=== PATIENT | female | born 1950 | race Caucasian/White ===

== ENCOUNTER → 2016-10-19 | Outpatient (CLI) | payer OTHER ==
[~2016-10-19] MED LIST: AMIO200T4 PO; AMLO5CAP2 PO; ASPEC81 PO; ASPI325T39 PO; ASPI81TA21 PO; CETI10TA84 PO; COEN200C PO; COENZYME Q PO; CRD200 PO; DXY100 PO; ERGO500037 PO; GLC850 PO; LSN/2025 PO; METF850T9 PO; NIAC1TAB54 PO; OMEG12006 PO; POLY1POW2 PO; PRAV20TA2 PO; PRAV40TA2 PO; PSYL48.59 PO; SALI0.6510; SULF800T23 PO; TPRSR25 PO; TURM1CAP2 PO; XRL20 PO
[2016-10-19 13:50] LABS: BLOOD UREA NITROGEN 14 mg/dl (7-18); CALCIUM 9.5 mg/dl (8.5-10.1); CARBON DIOXIDE 25 mmol/L (21-32); CHLORIDE 106 mmol/L (98-107); CREATININE 0.81 mg/dl (0.60-1.20); GLUCOSE 142 mg/dl (70-99); POTASSIUM 4.1 mmol/L (3.5-5.1); SODIUM 142 mmol/L (136-145)
== END | disposition home or self-care (01) ==
LOC: C.LABMFLN 11:32
PROVIDERS: ATTEND Family Medicine
DX: R06.09 Other forms of dyspnea (principal); I50.9 Heart failure, unspecified

== ENCOUNTER → 2016-10-19 | Outpatient (CLI) | payer OTHER ==
[~2016-10-19] MED LIST changes: +METOPROLOL TARTRATE 1 MG/ML VIAL IV STA
--- NOTE | 2016-10-19 15:02 | DIAGNOSTIC IMAGING REPORT ---
TWO VIEW CHEST CLINICAL HISTORY: Dyspnea. FINDINGS: PA and lateral chest radiographs are compared to study dated 08/09/2016. Correlation is made with chest CT dated 03/22/2010. The examination is degraded by large body habitus. The heart is mildly enlarged. The pulmonary vascular structures noncongested. Chronic interstitial thickening is unchanged. There is no airspace consolidation or pleural effusion. No pneumothorax is seen. The skeletal structures are osteopenic. Degenerative change and mild scoliosis are identified in the thoracic spine. Cholecystectomy clips are noted. IMPRESSION: Mild cardiac enlargement with no active disease in the chest. Electronically signed by: Sravan Chapa M.D. 10/19/2016 3:00 PM Dictated Date/Time: 10/19/2016 2:59 PM
== END | disposition home or self-care (01) ==
LOC: C.RAD 14:23
PROVIDERS: ATTEND Family Medicine
DX: I50.9 Heart failure, unspecified (principal); R05 Cough; R06.09 Other forms of dyspnea

== ENCOUNTER 2016-12-17 19:35 | Inpatient (IN) | payer OTHER ==
[~2016-12-17] VITALS: Ht 165.1 cm; Wt 129.1 kg
[~2016-12-17 19:35] MED LIST changes: -AMIO200T4 PO; -AMLO5CAP2 PO; -ASPI325T39 PO; -ASPI81TA21 PO; -CETI10TA84 PO; -COEN200C PO; -CRD200 PO; -DXY100 PO; -ERGO500037 PO; -GLC850 PO; -METOPROLOL TARTRATE 1 MG/ML VIAL IV STA; -PRAV40TA2 PO; -SULF800T23 PO; -TPRSR25 PO; -XRL20 PO
[2016-12-17] MEDS ORDERED: ACETAMINOPHEN 500 MG TAB PO STA (20:08)
[2016-12-17] MEDS ORDERED: ALBUT/IPRATROP 3MG/0.5MG NEB 3 ML VIAL INH STA (20:08)
--- NOTE | 2016-12-17 20:28 | EMERGENCY ROOM VISIT NOTE ---
History Report prepared by Ana: Catalino Beaver Under the Supervision of: Dr. Doc Espinoza D.O. First contact with patient: 19:53 Chief Complaint: SHORTNESS OF BREATH Stated Complaint: SOB History of Present Illness The patient is a 66 year old female who presents to the Emergency Room with complaints of an episode of worsened shortness of breath beginning last night. She notes that last night she slept on her sofa downstairs, and this afternoon decided to go upstairs to go to bed. Upon walking up the steps, she could not catch her breath, and felt like her "lungs could not expand". The patient notes she has experienced shortness of breath before while going up steps, but this time she began panicking that she could not catch her breath. At home she had a fever, and reports having a dry cough which she has had since the beginning of this past winter. She notes she believes the cough is from her chest, and notes it does not feel like the cough that she had before which was associated with pneumonia. The patient notes having congestions, but denies having any difficulty urinating. She reports having swelling of her legs, but adds that his is not new. The patient states that she had seen Dr. Tucker at the end of October 2016 and was taken off of Lisinopril and pit on Amlodipine. He also gave her allergy medication, and was also told to stop using a nasal spray. The patient notes that at the time of this appointment, she was 11 pounds heavier than normal. A few months ago she had a positive d-dimer test and was sent to the ER for an evaluation. She was not noted to have a clot at this time. The patient notes her shortness of breath has been ongoing since 2015. She had gone to [place] around this time and thought that her symptoms were a result of the heat. Later in July of 2016 she got a chest cold off and on and has had this since. The patient adds that a chest x-ray in November of 2016 showed an enlarged heart and issues with her ventricles. The patient states that it is easier to breath sitting up with a pillow, and more difficult when lying flat. She reports a history of diabetes, hypertension, and a lesion on her liver, and denies any history of cancer or MO. She notes she had been noted to have asthma, but that after further testing there was no evidence of asthma. She reports a history of breast surgery and a cholecystectomy. She denies any tobacco or alcohol use. Source of History: patient Onset: last night Position: other (lungs) Quality: other (shortness of breath) Timing: worsening, other (episode) Modifying Factors (Worsening): other (lying flat) Modifying Factors (Relieving): other (sitting up with a pillow) Associated Symptoms: + cough, + fevers Note: The patient notes having swelling of her legs and congestion. Review of Systems See HPI for pertinent positives & negatives. A total of 10 systems reviewed and were otherwise negative. Past Medical & Surgical Medical Problems: (1) CHF (congestive heart failure) (2) History of diabetes mellitus (3) History of hypertension Family History No pertinent family history stated. Social History Smoking Status: Never Smoker Marital Status: Occupation Status: employed Current/Historical Medications Scheduled Amlodipine/Benazepril (Lotrel 5MG/20MG), 1 CAP PO DAILY Aspirin Enteric Coated (Ecotrin Or Generic), 81 MG PO DAILY Cetirizine (Zyrtec), 10 MG PO DAILY Coenzyme Q10 (Ubidecarenone) (Coenzyme Q-10), 200 MG PO DAILY Ergocalciferol (Vitamin D 34210 Unit), 50,000 UNIT PO [id number] [place]-3 Fatty Acids ([place] 3), 1 CAP PO DAILY Pravastatin Sodium (Pravastatin Sodium), 40 MG PO QAM Saline ([place] Nasal [place]), 2 SPRAYS QID Turmeric (Curcuma Longa) (Turmeric), 450 MG PO DAILY Scheduled PRN Polyethylene Glycol 3350 (Bulk (Polyethylene Glycol 3350), 1 DOSE PO BID PRN for Constipation Allergies Coded Allergies: Codeine (Verified Allergy, Unknown, 11/19/14) Tramadol (Unverified Allergy, Unknown, HIVES, 11/19/14) Physical Exam Vital Signs Date Time Temp Pulse Resp B/P Pulse Ox O2 Delivery O2 Flow Rate FiO2 12/17/16 21:30 37.1 105 24 116/76 93 Room Air 12/17/16 20:39 93 Room Air 12/17/16 20:39 93 Room Air 12/17/16 20:39 93 Room Air 12/17/16 20:33 110 12/17/16 19:49 38.4 108 24 165/82 94 Room Air Physical Exam GENERAL: Patient is awake alert in no acute distress patient is resting comfortably and showing no signs of anxiety EYES: The conjunctivae are clear. The pupils are round and reactive. EARS, NOSE, MOUTH AND THROAT: The nose is without any evidence of any deformity. Mucous membranes are moist tongue is midline NECK: The neck is nontender and supple. RESPIRATORY: Mild tachypnea and mild conversational dyspnea noted. Lung sounds are diminished at the right base. Scattered rhonchi throughout. CARDIOVASCULAR: Tachycardic but regular. No definite murmur noted to auscultation. GASTROINTESTINAL: The abdomen is soft. Bowel sounds are present in all quadrants. Abdomen is nontender MUSCULOSKELETAL/EXTREMITIES: There is no evidence of gross deformity full range of motion is noted in the hips and shoulders SKIN: There is no obvious evidence of any rash. There are no petechiae, pallor or cyanosis noted. NEUROLOGIC: Patient is awake alert and oriented x3 Medical Decision & Procedures ER Provider Diagnostic Interpretation: Radiology results as stated below per my review and radiologist interpretation: SINGLE VIEW CHEST FINDINGS: An AP, portable, upright chest radiograph is compared to study dated 10/19/2016 and correlated with chest CT dated 03/30/2010. The examination is degraded by portable technique, large body habitus, and patient rotation. The heart is enlarged and there is atherosclerotic calcification of the thoracic aorta. There is pulmonary vascular congestion. Basilar airspace opacities are observed. No large pleural effusion or pneumothorax is seen. The skeletal structures are osteopenic. Degenerative change is noted throughout the thoracic spine. IMPRESSION: 1. Cardiomegaly with pulmonary vascular congestion. 2. Bibasilar airspace opacities likely represent atelectasis. Clinical correlation will be required. Electronically signed by: Sravan Chapa M.D. 12/17/2016 8:55 PM Dictated Date/Time: 12/17/2016 8:53 PM Laboratory Results 12/17/16 20:34 Red Blood Count 4.49, Mean Corpuscular Volume 83.3, Mean Corpuscular Hemoglobin 29.0, Mean Corpuscular Hemoglobin Concent 34.8, Mean Platelet Volume 9.9, Neutrophils (%) (Auto) 79.4, Lymphocytes (%) (Auto) 12.5, Monocytes (%) (Auto) 7.3, Eosinophils (%) (Auto) 0.1, Basophils (%) (Auto) 0.1, Neutrophils # (Auto) 13.75, Lymphocytes # (Auto) 2.16, Monocytes # (Auto) 1.27, Eosinophils # (Auto) 0.02, Basophils # (Auto) 0.02 12/17/16 20:34 Test 12/17/16 20:30 12/17/16 20:34 12/17/16 20:39 Influenza Type A (RT-PCR) Neg for Influ A (NEG) Influenza Type A Antigen Neg for Influ A (NEG) Influenza Type B Antigen Neg for Influ B (NEG) Influenza Type B (RT-PCR) Neg for Influ B (NEG) White Blood Count 17.32 K/uL (4.8-10.8) Red Blood Count 4.49 M/uL (4.2-5.4) Hemoglobin 13.0 g/dL (12.0-16.0) Hematocrit 37.4 % (37-47) Mean Corpuscular Volume 83.3 fL (80-100) Mean Corpuscular Hemoglobin 29.0 pg (25-34) Mean Corpuscular Hemoglobin Concent 34.8 g/dl (32-36) Platelet Count 258 K/uL (130-400) Mean Platelet Volume 9.9 fL (7.4-10.4) Neutrophils (%) (Auto) 79.4 % Lymphocytes (%) (Auto) 12.5 % Monocytes (%) (Auto) 7.3 % Eosinophils (%) (Auto) 0.1 % Basophils (%) (Auto) 0.1 % Neutrophils # (Auto) 13.75 K/uL (1.4-6.5) Lymphocytes # (Auto) 2.16 K/uL (1.2-3.4) Monocytes # (Auto) 1.27 K/uL (0.11-0.59) Eosinophils # (Auto) 0.02 K/uL (0-0.5) Basophils # (Auto) 0.02 K/uL (0-0.2) RDW Standard Deviation 41.2 fL (36.4-46.3) RDW Coefficient of Variation 13.7 % (11.5-14.5) Immature Granulocyte % (Auto) 0.6 % Immature Granulocyte # (Auto) 0.10 K/uL (0.00-0.02) Prothrombin Time 12.4 SECONDS (9.0-12.0) Prothromb Time International Ratio 1.2 (0.9-1.1) Activated Partial Thromboplast Time 26.5 SECONDS (21.0-31.0) Partial Thromboplastin Ratio 1.0 Anion Gap 8.0 mmol/L (3-11) Est Creatinine Clear Calc Drug Dose 79.4 ml/min Estimated GFR () 74.2 Estimated GFR (Non- 64.0 BUN/Creatinine Ratio 14.2 (10-20) Calcium Level 8.3 mg/dl (8.5-10.1) Total Bilirubin 1.4 mg/dl (0.2-1) Aspartate Amino Transf (AST/SGOT) 14 U/L (15-37) Alanine Aminotransferase (ALT/SGPT) 23 U/L (12-78) Alkaline Phosphatase 85 U/L (45-117) Troponin I 0.027 ng/ml (0-0.045) Pro-B-Type Natriuretic Peptide 3112 pg/ml (0-900) Total Protein 7.7 gm/dl (6.4-8.2) Albumin 3.2 gm/dl (3.4-5.0) Globulin 4.5 gm/dl (2.5-4.0) Albumin/Globulin Ratio 0.7 (0.9-2) Bedside Lactic Acid Venous 1.37 mmol/L (0.90-1.70) Laboratory results per my review. Medications Administered Medications (Trade) Dose Ordered Sig/Candido Route Start Time Stop Time Status Last Admin Dose Admin Acetaminophen (Tylenol Tab) 1,000 mg NOW STAT PO 12/17/16 20:08 12/17/16 20:10 DC 12/17/16 20:34 1,000 MG Albuterol/ Ipratropium (Duoneb) 3 ml NOW STAT INH 12/17/16 20:08 12/17/16 20:10 DC 12/17/16 20:34 3 ML Levofloxacin (Levaquin / D5W) 750 mg NOW STAT IV 12/17/16 21:20 12/17/16 21:21 DC 12/17/16 21:31 750 MG ECG Indication: SOB/dyspnea Rate (beats per minute): 110 Rhythm: sinus tachycardia Findings: no ectopy, other (No acute ST segment abnormalities) Comparison ECG Date: 12/28/09 Change: Increase rate. No other change. ED Course 1956: The patient was evaluated in room A2. A complete history and physical examination were performed. 2007: Ordered Duoneb 3 ml INH, and Acetaminophen 1,000 mg PO. 2119: Ordered Levofloxacin 750 mg IV. 2214: I discussed the patient's case with Dr. Reynoso. The patient will be evaluated for further management. Medical Decision Differential diagnosis: Etiologies such as infections, reactive airway disease, pneumonia, pneumothorax , COPD, CHF, cardiac ischemia, pulmonary embolism, musculoskeletal, gastrointestinal, as well as others were entertained. Nursing notes reviewed. The patient is a 66-year-old female who presented to the emergency department for evaluation of cough. The patient describes episodes of shortness of breath as well as orthopnea cough and fever which is been ongoing for the last few months. She states the fever is a new symptom. Her white blood cell count was elevated and her chest x-ray appeared to be consistent with bilateral pneumonia but she also had laboratory studies which could be consistent with congestive heart failure. She was treated with IV antibiotics in emergency department. I discussed the patient's laboratory and radiographic studies with her. Given her comorbidities as well as laboratory findings I discussed his case with the on- call [facility] hospitalist. They have agreed to evaluate the patient in the emergency department for further management and disposition. Consults Time Called: [id number] Consulting Physician: Dr. Reynoso, [facility] [place] Call: [phone] I discussed the patient's case with Dr. Reynoso. The patient will be evaluated for further management. Impression Primary Impression: PNA (pneumonia) Additional Impression: CHF (congestive heart failure) Scribe Attestation The scribe's documentation has been prepared under my direction and personally reviewed by me in its entirety. I confirm that the note above accurately reflects all work, treatment, procedures, and medical decision making performed by me. Departure Information Dispostion Being Evaluated By Hospitalist Referrals Edgar Tucker M.D. (PCP) Patient Instructions My [facility] Health Problem Qualifiers Primary Impression: PNA (pneumonia) Pneumonia type: due to unspecified organism Laterality: bilateral Lung location: unspecified part of lung Qualified Codes: J18.9 - Pneumonia, unspecified organism Additional Impression: CHF (congestive heart failure) Congestive heart failure type: systolic Congestive heart failure chronicity: acute on chronic Qualified Codes: I50.23 - Acute on chronic systolic ( congestive) heart failure
[2016-12-17 20:46] LABS: BASO % 0.1 %; BASO ABS # 0.02 K/uL (0-0.2); COMPLETE YES; EOS % 0.1 %; HEMATOCRIT 37.4 % (37-47); IG% 0.6 %; LYMPH % 12.5 %; LYMPH ABS # 2.16 K/uL (1.2-3.4); MEAN CELL VOLUME 83.3 fL (80-100); MEAN CORPUSCULAR HGB CONC 34.8 g/dl (32-36); MEAN PLATELET VOLUME 9.9 fL (7.4-10.4); MONO % 7.3 %; NEUT % 79.4 %; PLATELET COUNT 258 K/uL (130-400); RED BLOOD COUNT 4.49 M/uL (4.2-5.4); WHITE BLOOD COUNT 17.32 K/uL (4.8-10.8)
[2016-12-17 20:57] LABS: INR 1.2 (0.9-1.1); PROTHROMBIN TIME (PATIENT) 12.4 SECONDS (9.0-12.0)
--- NOTE | 2016-12-17 20:57 | DIAGNOSTIC IMAGING REPORT ---
SINGLE VIEW CHEST CLINICAL HISTORY: Dyspnea. FINDINGS: An AP, portable, upright chest radiograph is compared to study dated 10/19/2016 and correlated with chest CT dated 03/30/2010. The examination is degraded by portable technique, large body habitus, and patient rotation. The heart is enlarged and there is atherosclerotic calcification of the thoracic aorta. There is pulmonary vascular congestion. Basilar airspace opacities are observed. No large pleural effusion or pneumothorax is seen. The skeletal structures are osteopenic. Degenerative change is noted throughout the thoracic spine. IMPRESSION: 1. Cardiomegaly with pulmonary vascular congestion. 2. Bibasilar airspace opacities likely represent atelectasis. Clinical correlation will be required. Electronically signed by: Sravan Chapa M.D. 12/17/2016 8:55 PM Dictated Date/Time: 12/17/2016 8:53 PM
[2016-12-17 21:10] LABS: BUN/CREATININE RATIO 14.2 (10-20); CALCIUM 8.3 mg/dl (8.5-10.1); CREATININE 0.92 mg/dl (0.60-1.20)
[2016-12-17 21:15] LABS: ALB/GLOB RATIO 0.7 (0.9-2)
[2016-12-17] MEDS ORDERED: LEVAQUIN 750MG / 150ML D5W IV STA (21:20)
[2016-12-17] MEDS ORDERED: CETI10TA84 PO (21:38)
[2016-12-17] MEDS ORDERED: PRAV40TA2 PO (21:38)
[2016-12-17] MEDS ORDERED: ASPI81TA21 PO (21:38)
[2016-12-17] MEDS ORDERED: GLC850 PO (21:38)
[2016-12-17] MEDS ORDERED: ERGO500037 PO (21:38)
[2016-12-17] MEDS ORDERED: COEN200C PO (21:38)
[2016-12-17] MEDS ORDERED: AMLO5CAP2 PO (21:38)
[2016-12-17 22:38] LABS: INFLUENZA A PCR Neg for Influ A (NEG); INFLUENZA B PCR Neg for Influ B (NEG)
[2016-12-17] MEDS ORDERED: ALBUTEROL 0.083% NEBU SOLN 3 ML VIAL INH PRN (22:45)
[2016-12-17] MEDS ORDERED: MAGNESIUM HYDROXIDE SUSP 30 ML UDC PO PRN (22:45)
[2016-12-17] MEDS ORDERED: ALUMINUM/MAGNESIUM/SIMETH (MAALOX MAX) 30 ML UDC PO PRN (22:45)
[2016-12-17] MEDS ORDERED: ACETAMINOPHEN 325 MG TAB PO PRN (22:45)
[2016-12-17] MEDS ORDERED: ZOLPIDEM TARTRATE 5 MG TAB PO PRN (22:45)
[2016-12-17] MEDS ORDERED: POLYETHYLENE (MIRALAX) 17 GM PACK PO PRN (22:45)
[2016-12-17] MEDS ORDERED: ONDANSETRON INJ 2 MG/ML 2 ML VIAL IV PRN (22:45)
--- NOTE | 2016-12-17 23:28 | History and Physical ---
History & Physical Date & Time of Service: Dec 17, 2016 at 23:10 Chief Complaint: SOB Primary Care Physician: Edgar Tucker M.D. History of Present Illness Source: patient 66 y/o F w/Hx HTN, HPL, borderline DM. Pt presents with SOB and a dry cough in addition to fever. She describes exertional dyspnea which has been progressive for a few weeks and states she has considerable difficulty ascending a flight of stairs. A few weeks ago she was at her primary MD's office. He obtained a CXR and was concerned that she had some vascular congestion. She states that he ran a blood test as a result (presumably a BNP) which proved negative, and no further workup was undertaken. She has a normal echo on record dating back to 2009. She denies any history of CHF. She denies CP, N/V or diaphoresis. She admits to orthopnea. A fever and leukocytosis were confirmed on arrival to the ER. Her CXR may represent a RLL pneumonia and does again show prominent vascular congestion. Past Medical/Surgical History 1) HTN 2) HPL 3) Borderline DM 4) Benign hepatic lesion 5) GERD 6) Asthma 7) Obese Family History Mother owing to complications of a CVA Father due to COPD Social History Smoking Status: Never Smoker Alcohol Use: none Marital Status: Housing status: lives with family Occupational Status: employed Immunizations History of Influenza Vaccine: Yes Influenza Vaccine Date: Jul 07, 2009 History of Tetanus Vaccine?: Yes Tetanus Immunization Date: Mar 30, 2010 History of Pneumococcal: Yes Pneumococcal Date: Feb 11, 2009 History of Hepatitis B Vaccine: Unknown Multi-Drug Resistant Organisms History of MDRO: No Allergies Coded Allergies: Codeine (Verified Allergy, Unknown, 11/19/14) Tramadol (Unverified Allergy, Unknown, HIVES, 11/19/14) Home Medications Scheduled Amlodipine/Benazepril (Lotrel 5MG/20MG), 1 CAP PO DAILY Aspirin Enteric Coated (Ecotrin Or Generic), 81 MG PO DAILY Cetirizine (Zyrtec), 10 MG PO DAILY Coenzyme Q10 (Ubidecarenone) (Coenzyme Q-10), 200 MG PO DAILY Ergocalciferol (Vitamin D 17482 Unit), 50,000 UNIT PO [id number] [place]-3 Fatty Acids ([place] 3), 1 CAP PO DAILY Pravastatin Sodium (Pravastatin Sodium), 40 MG PO QAM Saline ([place] Nasal [place]), 2 SPRAYS QID Turmeric (Curcuma Longa) (Turmeric), 450 MG PO DAILY Scheduled PRN Polyethylene Glycol 3350 (Bulk (Polyethylene Glycol 3350), 1 DOSE PO BID PRN for Constipation Review of Systems Constitutional: + chills, + fever, No sweats Eyes: No eye pain, No worsening of vision ENT: No hearing loss, No nasal symptoms, No unusual epistaxis Respiratory: + cough, + dyspnea at rest, + dyspnea on exertion, + shortness of breath, No sputum, No wheezing Cardiovascular: No PND, No chest pain, No orthopnea Abdomen: No nausea, No pain, No vomiting Musculoskeletal: No joint pain, No muscle pain Genitourinary - Female: No dysuria, No urinary frequency, No urinary urgency Neurologic: No memory loss, No paralysis, No weakness Psychiatric: No depression symptoms Endocrine: + fatigue Hematologic / Lymphatic: No abnormal bleeding/bruising Integumentary: No rash Allergic / Immunologic: No environmental allergies Physical Exam Vital Signs Date Time Temp Pulse Resp B/P Pulse Ox O2 Delivery O2 Flow Rate FiO2 12/17/16 21:30 37.1 105 24 116/76 93 Room Air 12/17/16 20:39 93 Room Air 12/17/16 20:39 93 Room Air 12/17/16 20:39 93 Room Air 12/17/16 20:33 110 12/17/16 19:49 38.4 108 24 165/82 94 Room Air General Appearance: WD/WN, no apparent distress Head: normocephalic Eyes: normal inspection, PERRL, EOMI ENT: normal ENT inspection, pharynx normal Neck: supple, + pertinent finding (Exam limited due to habitus) Respiratory/Chest: chest non-tender, no respiratory distress, no accessory muscle use, + crackles (B/L) Cardiovascular: regular rate, rhythm, no edema, no gallop, no JVD, no murmur, normal peripheral pulses Abdomen/GI: normal bowel sounds, non tender, soft Back: normal inspection, no CVA tenderness, no muscle spasm, normal range of motion Extremities/Musculoskelatal: normal inspection, no calf tenderness, normal capillary refill, no pedal edema, normal range of motion Neurologic/Psych: occupational health nurse II-XII nml as tested, no motor/sensory deficits, alert, normal mood/affect, normal reflexes, oriented x 3 Skin: normal color, warm/dry, no rash Diagnostics Laboratory Results Results Past 24 Hours Test 12/17/16 20:30 12/17/16 20:34 12/17/16 20:39 Range/Units Influenza Type A (RT-PCR) Neg for Influ A NEG Influenza Type A Antigen Neg for Influ A NEG Influenza Type B Antigen Neg for Influ B NEG Influenza Type B (RT-PCR) Neg for Influ B NEG White Blood Count 17.32 4.8-10.8 K/uL Red Blood Count 4.49 4.2-5.4 M/uL Hemoglobin 13.0 12.0-16.0 g/dL Hematocrit 37.4 37-47 % Mean Corpuscular Volume 83.3 80-100 fL Mean Corpuscular Hemoglobin 29.0 25-34 pg Mean Corpuscular Hemoglobin Concent 34.8 32-36 g/dl Platelet Count 258 130-400 K/uL Mean Platelet Volume 9.9 7.4-10.4 fL Neutrophils (%) (Auto) 79.4 % Lymphocytes (%) (Auto) 12.5 % Monocytes (%) (Auto) 7.3 % Eosinophils (%) (Auto) 0.1 % Basophils (%) (Auto) 0.1 % Neutrophils # (Auto) 13.75 1.4-6.5 K/uL Lymphocytes # (Auto) 2.16 1.2-3.4 K/uL Monocytes # (Auto) 1.27 0.11-0.59 K/uL Eosinophils # (Auto) 0.02 0-0.5 K/uL Basophils # (Auto) 0.02 0-0.2 K/uL RDW Standard Deviation 41.2 36.4-46.3 fL RDW Coefficient of Variation 13.7 11.5-14.5 % Immature Granulocyte % (Auto) 0.6 % Immature Granulocyte # (Auto) 0.10 0.00-0.02 K/uL Prothrombin Time 12.4 9.0-12.0 SECONDS Prothromb Time International Ratio 1.2 0.9-1.1 Activated Partial Thromboplast Time 26.5 21.0-31.0 SECONDS Partial Thromboplastin Ratio 1.0 Sodium Level 141 136-145 mmol/L Potassium Level 4.0 3.5-5.1 mmol/L Chloride Level 106 98-107 mmol/L Carbon Dioxide Level 27 21-32 mmol/L Anion Gap 8.0 3-11 mmol/L Blood Urea Nitrogen 13 7-18 mg/dl Creatinine 0.92 0.60-1.20 mg/dl Est Creatinine Clear Calc Drug Dose 79.4 ml/min Estimated GFR () 74.2 Estimated GFR (Non- 64.0 BUN/Creatinine Ratio 14.2 10-20 Random Glucose 137 70-99 mg/dl Calcium Level 8.3 8.5-10.1 mg/dl Total Bilirubin 1.4 0.2-1 mg/dl Aspartate Amino Transf (AST/SGOT) 14 15-37 U/L Alanine Aminotransferase (ALT/SGPT) 23 12-78 U/L Alkaline Phosphatase 85 45-117 U/L Troponin I 0.027 0-0.045 ng/ml Pro-B-Type Natriuretic Peptide 3112 0-900 pg/ml Total Protein 7.7 6.4-8.2 gm/dl Albumin 3.2 3.4-5.0 gm/dl Globulin 4.5 2.5-4.0 gm/dl Albumin/Globulin Ratio 0.7 0.9-2 Bedside Lactic Acid Venous 1.37 0.90-1.70 mmol/L Microbiology Results 12/17/16 Blood Culture, Received Pending 12/17/16 Blood Culture, Received Pending Diagnostic Radiology 1. Cardiomegaly with pulmonary vascular congestion. 2. Bibasilar airspace opacities likely represent atelectasis. Clinical correlation will be required. EKG Sinus - no acute ischemic changes Impression Assessment and Plan 66 y/o F w/Hx HTN, HPL, borderline DM. Pt presents with SOB and a dry cough in addition to fever. She describes exertional dyspnea which has been progressive for a few weeks and states she has considerable difficulty ascending a flight of stairs. A few weeks ago she was at her primary MD's office. He obtained a CXR and was concerned that she had some vascular congestion. She states that he ran a blood test as a result (presumably a BNP) which proved negative, and no further workup was undertaken. She has a normal echo on record dating back to 2009. She denies any history of CHF. She denies CP, N/V or diaphoresis. She admits to orthopnea. A fever and leukocytosis were confirmed on arrival to the ER. Her CXR may represent a RLL pneumonia and does again show prominent vascular congestion. 1) URI - possible pneumonia - influ was negative - CXR is equivocal - temp and leukocytosis confirmed so that we will treat for pneumonia - antibiotics, nebs and an 02 protocol. 2) Suspected new-onset CHF - echo pending - cardiology consult requested - 20mg lasix provided and will measure Is/Os and daily weight 3) HTN - cont Amlodipine/Benazepril 4) HPL - Pravastatin Full code - Heparin prophylaxis Total time for this admit including review of labs, meds, EKG, imaging - discussion with pt and ER MD - 38 min Level of Care Telemetry Resuscitation Status FULL RESUSCITATION VTE Prophylaxis VTE Risk Assessment Done? Y/N: Yes Risk Level: Moderate Given or contraindicated: Unfractionated heparin SQ
[2016-12-17] MEDS ORDERED: FUROSEMIDE INJ 20 MG in SYRINGE 0 ML IV SCH (23:30)
[2016-12-18] VITALS (49 sets, daily range): BP systolic 11–162; BP diastolic 61–96; PULSE 59–160; TEMP 36.5–37.1; O2SAT 90–98; Ht 165.1 cm; Wt 129.1 kg
[2016-12-18] MEDS: ALBUT/IPRATROP 3MG/0.5MG NEB 3 ML VIAL INH SCH ×4 (02:25→19:33)
[2016-12-18] MEDS ORDERED: METOPROLOL TARTRATE 1 MG/ML VIAL - CCU EMERGENCY DRUG ONE (02:51)
[2016-12-18] MEDS ORDERED: METOPROLOL TARTRATE 1 MG/ML VIAL IV STA ×3 (02:52→09:37)
[2016-12-18] MEDS ORDERED: DILTIAZEM HCL 5 MG/ML 5 ML VIAL ONE (03:19)
[2016-12-18] MEDS ORDERED: DILTIAZEM BOLUS / DRIP IV STA (03:24)
[2016-12-18] MEDS ORDERED: DILTIAZEM HCL INJ 125 MG in DEXTROSE 5% 100ML IV PRN (03:45)
[2016-12-18] MEDS ORDERED: HEPARIN IV BOLUS 7,000 UNIT in SYRINGE 0 ML IV ONE ×3 (04:00→19:00)
[2016-12-18] MEDS: HEPARIN 25,000 UNIT/500ML D5W 500 ML IV PRN ×2 (04:06→19:02)
[2016-12-18 04:26] LABS: HEMATOCRIT 37.2 % (37-47); MEAN CORPUSCULAR HEMOGLOBIN 28.7 pg (25-34); MEAN PLATELET VOLUME 9.9 fL (7.4-10.4); PLATELET COUNT 249 K/uL (130-400); RED BLOOD COUNT 4.43 M/uL (4.2-5.4); WHITE BLOOD COUNT 12.19 K/uL (4.8-10.8)
[2016-12-18] MEDS ORDERED: DILTIAZEM HCL 5 MG/ML 5 ML VIAL IV STA (04:30)
[2016-12-18 04:32] LABS: INR 1.2 (0.9-1.1); PARTIAL THROMBOPLASTIN RATIO 1.1; PROTHROMBIN TIME (PATIENT) 13.3 SECONDS (9.0-12.0)
[2016-12-18 04:42] LABS: MEAN CORPUSCULAR HGB CONC 34.1 g/dl (32-36)
--- NOTE | 2016-12-18 04:42 | Progress Note ---
Progress Note Date of Service Dec 18, 2016. Progress Note 66 y/o F w/Hx HTN, HPL, borderline DM. Pt presents with SOB and a dry cough in addition to fever. She describes exertional dyspnea which has been progressive for a few weeks and states she has considerable difficulty ascending a flight of stairs. She was admitted for a possible pneumonia. Was called about patient having a run of V Fib which lasted for about 3 sec followed by atrial fibrillation with HR >180. Her BP at that time was in 130s / 60s. She stated that she felt something funny in her head but denied any CP/SOB/ palpitations. EKG, troponin and Mg was ordered . Trop was 0.025 ( no change from presentation) , Mg was 2 . EKG revealed Atrial flutter with variable A-V block ST & T wave abnormality, consider inferior ischemia She was ordered 5 mg Lopressor, HR decreased to 160s- 170s but her BP had dropped to 80s/50s. She was evaluated with Dr. Reynoso and She was given 5 mg Cardizem IV push 2 when her BP had increased to 100s/70s . She was transferred to ICU and Dr. Jasso was consulted . Per Dr. Jasso's recommendations, she was started on Cardizem drip with plans to start amiodarone if there was no response. Objective: Alert, oriented , awake Lungs : crackles bilaterally, No resp distress Heart: irregularly irregular, tachycardic Abdomen: soft, Non tender A/P : Patient was admitted for a possible pneumonia. she had developed a 3 sec run of wide complex tachycardia /V fib and was given lopressor and transferred to the unit as her BP had dropped. she was then given IV Cardizem ( total of 20 mg )and was started on Cardizem drip and heparin drip. Her HR continued to be in 160s-170s and amiodarone drip was started. Her BP has been in 100s-120s/70s-80s . Cardiology will be consulted for possible cardioversion if she does not respond to amiodarone Resident Tracking Resident Involvement: Endoscope Technician Coverage Note Care Provided: Adult Hospital Medicine
[2016-12-18] MEDS ORDERED: AMIODARONE IV BOLUS / DRIP IV STA (04:44)
[2016-12-18] MEDS ORDERED: AMIODARONE 150MG / 100ML D5W ONE (04:51)
[2016-12-18] MEDS ORDERED: AMIODARONE 360MG / 200ML D5W ONE (04:52)
[2016-12-18] MEDS ORDERED: AMIODARONE / D5W 100 ML IV SCH (05:00)
[2016-12-18 05:08] LABS: BUN/CREATININE RATIO 16.7 (10-20); CALCIUM 8.4 mg/dl (8.5-10.1); CREATININE 0.9 mg/dl (0.60-1.20); MAGNESIUM 2.1 mg/dl (1.8-2.4); POTASSIUM 4.3 mmol/L (3.5-5.1)
[2016-12-18] MEDS ORDERED: AMIODARONE / D5W 200 ML IV SCH (05:15)
[2016-12-18] MEDS ORDERED: HEPARIN SOD 5000 UNIT/0.5 ML CARP SQ SCH (06:00)
[2016-12-18] MEDS ORDERED: PERFLUTREN LIPID MICROSPHERE (DEFINITY) IV ONE (08:02)
[2016-12-18] MEDS ORDERED: BENAZEPRIL HCL 10 MG TAB PO SCH (09:00)
[2016-12-18] MEDS: SODIUM CHLORIDE 0.65% NA SOLN 45 ML (OCEAN) SCH ×4 (09:00→19:51)
[2016-12-18] MEDS ORDERED: AMLODIPINE BESYLATE 5 MG TAB PO SCH (09:00)
[2016-12-18] MEDS ORDERED: METOPROLOL TARTRATE 1 MG/ML VIAL ONE (09:12)
[2016-12-18] MEDS: PRAVASTATIN SOD 40 MG TAB PO SCH (09:14)
[2016-12-18] MEDS: ASPIRIN 81 MG ECTAB PO SCH (09:14)
[2016-12-18] MEDS: CETIRIZINE HCL 10 MG TAB PO SCH (09:14)
--- NOTE | 2016-12-18 09:26 | Critical Care Consultation ---
Critical Care Consultation Date of Consultation: Dec 18, 2016. Attending Physician: Gerhard Loepz D.O. Reason for Consultation: Hypotension, A fibb History of Present Illness This is a 66 yo f with a history of HTN, HPL, DM that is presenting to us with new onset A fibb. The patient originally was admitted to telemetry for worsening SOBOE and concern for PNA vs new onset CHF. The patient states that she has had progressive worsening of breath since july 2016. She has visited her PCP multiple times for this and has been assessed for CHF with a BNP which was normal and a CXR which only revealed mild cardiomegaly. Approx two nights ago the patient was was very uncomfortable laying down flat on her bed so she slept on her couch in order to be propped up. When she got up and attempted to walk up the stairs she was extremely short of breath and took her 10-15 minutes to just feel comfortable. As this was a drastic change to her regular SOB she went to the ED. When she arrived she had an ongoing sensation of SOB as well as chest tightness. According to the patient this tightness was "similar to what it felt like the last couple times I had pneumonia." She did have some improvement with SOB after receiving a duoneb. She was found to have an elevated BNP, febrile and hypoxic and an infiltrate on CXR so patient was admitted to tele for PNA and received 20 mg of lasix. Throughout the night the patient was suffering from PAC however at approx 0230 the patient was found to have 13 seconds of torsades which converted to NSR with PAC and soon after A fibb. She was originally given lopressor which dropped her blood pressure and did not affect the HR. She was then started on Diltiazem with minimal improvement in rate. The patient was then changed to amiodarone. She has been asymptomatic throughout this episode and denies any SOB or chest tightness/ dizziness at this time. She has no previous history of A fibb or cardiac arrhythmia. She has no history of NE. The patient does have a history of HTN which is treated with amlodipine/ benzapril. This was changed in Oct 2016 because of dry mucus membranes. Since this change she has noted some worsening of lower extremity edema but improvement in the dry m.m. She is treated with metformin for her DM and she has pravastatin and niacin for her HPL. She has no history of CHF. She is a non smoker however did have significant second hand exposure as a child from her father. Past Medical/Surgical History Cholecystectomy HTn HPL DMII Family History FH: emphysema FATHER Stroke MOTHER SISTER Social History Smoking Status: Never Smoker Smokeless Tobacco Use: No Alcohol Use: none Marital Status: Housing Status: lives with significant other Occupation Status: employed Allergies Coded Allergies: Codeine (Verified Allergy, Unknown, 11/19/14) Tramadol (Unverified Allergy, Unknown, HIVES, 11/19/14) Home Medications Scheduled Amlodipine/Benazepril (Lotrel 5MG/20MG), 1 CAP PO DAILY Aspirin Enteric Coated (Ecotrin Or Generic), 81 MG PO DAILY Cetirizine (Zyrtec), 10 MG PO DAILY Coenzyme Q10 (Ubidecarenone) (Coenzyme Q-10), 200 MG PO DAILY Ergocalciferol (Vitamin D 58587 Unit), 50,000 UNIT PO [id number] [place]-3 Fatty Acids ([place] 3), 1 CAP PO DAILY Pravastatin Sodium (Pravastatin Sodium), 40 MG PO QAM Saline ([place] Nasal [place]), 2 SPRAYS QID Turmeric (Curcuma Longa) (Turmeric), 450 MG PO DAILY Scheduled PRN Polyethylene Glycol 3350 (Bulk (Polyethylene Glycol 3350), 1 DOSE PO BID PRN for Constipation Current Inpatient Medications Current Inpatient Medications Medications (Trade) Dose Ordered Sig/Candido Route Start Time Stop Time Status Last Admin Dose Admin Acetaminophen (Tylenol Tab) 650 mg Q4H PRN PO 12/17/16 22:45 01/16/17 22:44 Al Hydrox/Mg Hydrox/Simethicone (Maalox Max Susp) 15 ml Q4H PRN PO 12/17/16 22:45 01/16/17 22:44 Magnesium Hydroxide (Milk Of Magnesia Susp) 30 ml Q12H PRN PO 12/17/16 22:45 01/16/17 22:44 Ondansetron HCl (Zofran Inj) 4 mg Q6H PRN IV 12/17/16 22:45 01/16/17 22:44 Polyethylene (Miralax Powder Packet) 17 gm DAILY PRN PO 12/17/16 22:45 01/16/17 22:44 Albuterol/ Ipratropium (Duoneb) 3 ml Q6R INH 12/18/16 03:00 01/17/17 02:59 Albuterol Sulfate (Ventolin 0.083% 2.5MG/3ML Neb) 2.5 mg Q6R PRN INH 12/17/16 22:45 01/16/17 22:44 Aspirin (Ecotrin Tab) 81 mg DAILY PO 12/18/16 09:00 01/17/17 08:59 12/18/16 09:14 81 MG Cetirizine HCl (zyrTEC TAB) 10 mg DAILY PO 12/18/16 09:00 01/17/17 08:59 12/18/16 09:14 10 MG Pravastatin Sodium (Pravachol Tab) 40 mg QAM PO 12/18/16 09:00 01/17/17 08:59 12/18/16 09:14 40 MG Sodium Chloride ([place] Nasal [place]) 2 sprays QID NA 12/18/16 09:00 01/17/17 08:59 Amlodipine Besylate (Norvasc Tab) 5 mg QAM PO 12/18/16 09:00 01/17/17 08:59 Future Hold Benazepril HCl 20 mg 20 mg DAILY PO 12/18/16 09:00 01/17/17 08:59 Future Hold Heparin Sodium/ Dextrose 500 ml @ 31 mls/hr Q16H8M PRN IV 12/18/16 04:00 01/17/17 03:59 12/18/16 04:06 31 MLS/HR Amiodarone HCL/ Dextrose 200 ml @ 33.3 mls/hr Q6H1M IV 12/18/16 05:15 12/18/16 11:15 Amiodarone HCL/ Dextrose (Nexterone / D5w) 200 ml @ 16.7 mls/hr [id number] IV 12/18/16 11:15 01/17/17 11:14 Metoprolol Tartrate (Lopressor Iv) 5 mg NOW STAT IV 12/18/16 08:55 12/18/16 08:56 UNV Metoprolol Tartrate (Lopressor Tab) 25 mg BID PO 12/18/16 09:00 01/17/17 08:59 UNV Insulin Aspart SLIDING SCALE ACHS SC 12/18/16 11:00 01/17/17 10:59 Ceftriaxone Sodium 1 gm/ Dextrose 50 ml @ 100 mls/hr Q24H IV 12/18/16 09:00 12/25/16 08:59 UNV Azithromycin/ Dextrose (Zithromax IV/D5 250ml) 255 ml @ 170 mls/hr DAILY IV 12/19/16 09:00 12/26/16 08:59 UNV Review of Systems Constitutional: + fatigue, + fever, + weakness ENT: No hearing loss Respiratory: + cough (dry), + dyspnea at rest, + dyspnea on exertion, + shortness of breath, No hemoptysis, No sputum, No wheezing Cardiovascular: No chest pain (tightness) Abdomen: No constipation, No diarrhea, No nausea, No pain, No vomiting Musculoskeletal: No joint pain, No muscle pain Genitourinary - Female: No dysuria, No hematuria Neurologic: + weakness, No balance problems, No memory loss, No numbness/ tingling Endocrine: + fatigue Integumentary: No rash Physical Exam Date Time Temp Pulse Resp B/P Pulse Ox O2 Delivery O2 Flow Rate FiO2 12/18/16 06:00 127 27 93 12/18/16 05:46 82 26 88/61 92 12/18/16 05:45 121 18 93 12/18/16 05:31 117 26 108/69 91 12/18/16 05:30 116 27 91 12/18/16 05:15 145 25 131/90 92 12/18/16 05:01 103 26 114/80 94 12/18/16 05:00 134 21 93 12/18/16 04:46 130 25 124/84 93 12/18/16 04:45 130 21 92 12/18/16 04:30 150 22 102/80 93 12/18/16 04:15 122 20 105/83 93 12/18/16 04:10 36.6 160 22 99/68 95 Nasal Cannula 2.0 12/18/16 04:10 95 Nasal Cannula 2.0 12/18/16 04:01 117 23 99/68 91 12/18/16 04:00 103 21 94 12/18/16 03:08 206 12/18/16 02:20 159 130/66 95 Nasal Cannula 2.0 12/18/16 00:04 36.8 59 26 135/65 94 Room Air 12/17/16 23:06 103 22 135/70 93 12/17/16 21:30 37.1 105 24 116/76 93 Room Air 12/17/16 20:39 93 Room Air 12/17/16 20:39 93 Room Air 12/17/16 20:39 93 Room Air 12/17/16 20:33 110 12/17/16 19:49 38.4 108 24 165/82 94 Room Air General Appearance: well-appearing, no apparent distress Head: normocephalic, atraumatic Eyes: EOMI, sclerae normal, conjunctivae normal ENT: other (ENT inspection WNL) Neck: normal range of motion, no tenderness, trachea midline Respiratory: no respiratory distress, other (crackles noted in right lower base ) Cardiovasular: no murmur, irregular rate, other (irregularly irregular) Abdomen: non tender, normal bowel sounds Back: normal inspection Upper Extremities: no edema, normal ROM Lower Extremities: normal ROM, edema (+1 bilat) Pulses: dorsalis pedis (R) (1+), dorsalis pedis (L) (1+) Neuro: alert, oriented x 3, normal speech Psychiatric: normal affect Laboratory Results Last 24 Hours Test 12/17/16 20:30 12/17/16 20:34 12/17/16 20:39 12/18/16 02:25 Influenza Type A (RT-PCR) Neg for Influ A Influenza Type A Antigen Neg for Influ A Influenza Type B Antigen Neg for Influ B Influenza Type B (RT-PCR) Neg for Influ B White Blood Count 17.32 K/uL 12.19 K/uL Red Blood Count 4.49 M/uL 4.43 M/uL Hemoglobin 13.0 g/dL 12.7 g/dL Hematocrit 37.4 % 37.2 % Mean Corpuscular Volume 83.3 fL 84.0 fL Mean Corpuscular Hemoglobin 29.0 pg 28.7 pg Mean Corpuscular Hemoglobin Concent 34.8 g/dl 34.1 g/dl Platelet Count 258 K/uL 249 K/uL Mean Platelet Volume 9.9 fL 9.9 fL Neutrophils (%) (Auto) 79.4 % Lymphocytes (%) (Auto) 12.5 % Monocytes (%) (Auto) 7.3 % Eosinophils (%) (Auto) 0.1 % Basophils (%) (Auto) 0.1 % Neutrophils # (Auto) 13.75 K/uL Lymphocytes # (Auto) 2.16 K/uL Monocytes # (Auto) 1.27 K/uL Eosinophils # (Auto) 0.02 K/uL Basophils # (Auto) 0.02 K/uL RDW Standard Deviation 41.2 fL 41.7 fL RDW Coefficient of Variation 13.7 % 13.7 % Immature Granulocyte % (Auto) 0.6 % Immature Granulocyte # (Auto) 0.10 K/uL Prothrombin Time 12.4 SECONDS 13.3 SECONDS Prothromb Time International Ratio 1.2 1.2 Activated Partial Thromboplast Time 26.5 SECONDS 29.5 SECONDS Partial Thromboplastin Ratio 1.0 1.1 Sodium Level 141 mmol/L Potassium Level 4.0 mmol/L Chloride Level 106 mmol/L Carbon Dioxide Level 27 mmol/L Anion Gap 8.0 mmol/L Blood Urea Nitrogen 13 mg/dl Creatinine 0.92 mg/dl Est Creatinine Clear Calc Drug Dose 79.4 ml/min Estimated GFR () 74.2 Estimated GFR (Non- 64.0 BUN/Creatinine Ratio 14.2 Random Glucose 137 mg/dl Calcium Level 8.3 mg/dl Total Bilirubin 1.4 mg/dl Aspartate Amino Transf (AST/SGOT) 14 U/L Alanine Aminotransferase (ALT/SGPT) 23 U/L Alkaline Phosphatase 85 U/L Troponin I 0.027 ng/ml 0.025 ng/ml Pro-B-Type Natriuretic Peptide 3112 pg/ml Total Protein 7.7 gm/dl Albumin 3.2 gm/dl Globulin 4.5 gm/dl Albumin/Globulin Ratio 0.7 Bedside Lactic Acid Venous 1.37 mmol/L Magnesium Level 2.0 mg/dl Creatine Kinase MB 0.5 ng/ml Creatine Kinase MB Ratio Test 12/18/16 02:38 12/18/16 04:30 12/18/16 08:30 12/18/16 08:51 Creatine Kinase MB Ratio Sodium Level 143 mmol/L Potassium Level 4.3 mmol/L Chloride Level 108 mmol/L Carbon Dioxide Level 27 mmol/L Anion Gap 8.0 mmol/L Blood Urea Nitrogen 15 mg/dl Creatinine 0.90 mg/dl Est Creatinine Clear Calc Drug Dose 81.0 ml/min Estimated GFR () 76.1 Estimated GFR (Non- 65.7 BUN/Creatinine Ratio 16.7 Random Glucose 174 mg/dl Calcium Level 8.4 mg/dl Magnesium Level 2.1 mg/dl Thyroid Stimulating Hormone (TSH) 3.140 uIu/ml Chemistry Specimen Hemolysis Diagnostic Results SINGLE VIEW CHEST CLINICAL HISTORY: Dyspnea. FINDINGS: An AP, portable, upright chest radiograph is compared to study dated 10/19/2016 and correlated with chest CT dated 03/30/2010. The examination is degraded by portable technique, large body habitus, and patient rotation. The heart is enlarged and there is atherosclerotic calcification of the thoracic aorta. There is pulmonary vascular congestion. Basilar airspace opacities are observed. No large pleural effusion or pneumothorax is seen. The skeletal structures are osteopenic. Degenerative change is noted throughout the thoracic spine. IMPRESSION: 1. Cardiomegaly with pulmonary vascular congestion. 2. Bibasilar airspace opacities likely represent atelectasis. Clinical correlation will be required. Assessment & Plan 1. Acute hypoxic respiratory failure secondary to CAP 2. Hypotension secondary to cardiac arrhythmia- torsades/ A fibb 3. Atrial fibrillation; new onset 4. Acute systolic CHF; possibly new onset 5. HTN 6. Hyperlipidemia 7. DM NVS - alert and oriented - denies pain at this time RVS - 93% on 3 L of O2 NC - continue to monitor resp status and O2 per nursing protocol - CXR in am CVS - CVS consult- appreciate input - Continue amiodarone and additionally have Lopressor PO - If no improvement in rate by tomorrow may consider cardioversion - will hold amlodipine and benzapril and ultimately d/c amlodipine because of LE edema - EKG - augment antibiotics based on QTc - Echo pending - repeat troponin pending- neg x2 - Mg- WNL - TSH pending GI - Diet- AHA and DMII - NPO after midnight if rate control not achieved - follow I&O - follow Cr and BUN ENDO - insulin SS- only with correction factor - hold metformin - HBA1C ID - will stop Levaquin because of torsades - will start Rocephin and additionally add azithro vs doxy based on QTc - WBC -12 - Will trend CBC - procalcitonin pending HEME - access: 18 and a 20 - HGB 12.7/ HCT 37.2 - Heparin drip FEN - will continue to trend BNP DVT Prophylaxis - Heparin drip Resident Physician Supervision Note: I personally interviewed and examined the patient. Discussed with Dr. Comer and agree with findings and plan as documented in the note. Her care was also discussed in detail on multidisciplinary rounds today. She presented to the ED for SOB with exertion which has been worsening over a period of weeks to months. She has also had a dry cough. She has a CXR consistent with pna along with temperature to 38.4 on presentation. She was started on levaquin and had a short episode of torsades which broke on its own. She was in SR for a short period then went into atrial flutter with variable block and was transferred to the ICU from the floor. She was given lopressor, diltiazem and eventually amiodarone and converted to NSR this morning after being given lopressor 5mg IV for HR in the 130-160's. She denies CP but has had some back pain which is similar to when she has had pneumonia in the past. She has no history of pulmonary issues other than pna but grew up in a home with parents that smoked. Her cough is no worse in the past few days than it has been in the past few months. Overall, she is feeling better today and feels the SOB is improved somewhat. I have reviewed the VS, I/O, medications, labs and imaging. Exam is significant for rales in the R base and tachycardia. 1+ peripheral edema. Impression and plan are well outlined above. Qtc is 505ms - will avoid levaquin and azithromycin and begin doxycycline. Rocephin has been added. PO lopressor and PRN IV Continue amiodarone F/U echo results Allow diet Continue heparin gtt for now D/C amlodipine Sliding scale insulin She may be a candidate for transfer to the floor later today. Documented By: Diane Moreno Additional Copies To Edgar Tucker M.D.
[2016-12-18 10:20] LABS: PARTIAL THROMBOPLASTIN RATIO 1.3
--- NOTE | 2016-12-18 10:32 | Medical Student: [facility] ---
Med Student Progress Note Date of Service Dec 18, 2016. Subjective Pt evaluation today including: conversation w/ patient, physical exam, lab review, review of studies 66 year old female who presented to the ED on 12/17 with shortness of breath, dry cough, and fever and a chest xray suggestive of RLL pneumonia. Overnight, patient went into v-fib with torsades-like pattern on the monitor for 3-5 seconds. During this time the patient felt "warm" and "lightheaded." Stat EKG showed atrial flutter with RVR, Heart rate was 170-210. She was given 5mg Lopressor which caused her blood pressure to drop to 87/45. She was transferred to the ICU and given two 5mg doses of cardizem. Currently on cardizem and amiodarone drips with Lopressor prn. She says she never felt any palpitations during these events. Denies chest pain, nausea, vomiting, abdominal pain, productive cough, and wheezing. Only complaining of shortness of breath when she speaks and a dry cough, both better than yesterday. Review of Systems Constitutional: + fatigue, No chills, No fever Respiratory: + cough, + dyspnea at rest, + dyspnea on exertion, + shortness of breath, No sputum, No wheezing Cardiac: No chest pain, No claudication, No palpitations Abdomen: No constipation, No diarrhea, No nausea, No pain, No vomiting Objective Vital Signs Date Time Temp Pulse Resp B/P Pulse Ox O2 Delivery O2 Flow Rate FiO2 12/18/16 09:20 159 126/91 12/18/16 06:00 127 27 93 12/18/16 05:46 82 26 88/61 92 12/18/16 05:45 121 18 93 12/18/16 05:31 117 26 108/69 91 12/18/16 05:30 116 27 91 12/18/16 05:15 145 25 131/90 92 12/18/16 05:01 103 26 114/80 94 12/18/16 05:00 134 21 93 12/18/16 04:46 130 25 124/84 93 12/18/16 04:45 130 21 92 12/18/16 04:30 150 22 102/80 93 12/18/16 04:15 122 20 105/83 93 12/18/16 04:10 36.6 160 22 99/68 95 Nasal Cannula 2.0 12/18/16 04:10 95 Nasal Cannula 2.0 12/18/16 04:01 117 23 99/68 91 12/18/16 04:00 103 21 94 12/18/16 03:08 206 12/18/16 02:20 159 130/66 95 Nasal Cannula 2.0 12/18/16 00:04 36.8 59 26 135/65 94 Room Air 12/17/16 23:06 103 22 135/70 93 12/17/16 21:30 37.1 105 24 116/76 93 Room Air 12/17/16 20:39 93 Room Air 12/17/16 20:39 93 Room Air 12/17/16 20:39 93 Room Air 12/17/16 20:33 110 12/17/16 19:49 38.4 108 24 165/82 94 Room Air Physical Exam General Appearance: + mild distress (becomes short of breath when she speaks), + obese ENT: hearing grossly normal Respiratory/Chest: chest non-tender, normal breath sounds, no respiratory distress, + crackles (RLL crackles) Cardiovascular: no gallop, no murmur, + irregularly irregular Abdomen: normal bowel sounds, non tender, soft, no organomegaly Extremities: + pedal edema (+1 pedal edema bilaterally) Neurologic/Psychiatric: alert, normal mood/affect, oriented x 3 Skin: normal color, warm/dry, no rash Laboratory Results Last 24 Hours Test 12/17/16 20:30 12/17/16 20:34 12/17/16 20:39 12/18/16 02:25 Influenza Type A (RT-PCR) Neg for Influ A Influenza Type A Antigen Neg for Influ A Influenza Type B Antigen Neg for Influ B Influenza Type B (RT-PCR) Neg for Influ B White Blood Count 17.32 K/uL 12.19 K/uL Red Blood Count 4.49 M/uL 4.43 M/uL Hemoglobin 13.0 g/dL 12.7 g/dL Hematocrit 37.4 % 37.2 % Mean Corpuscular Volume 83.3 fL 84.0 fL Mean Corpuscular Hemoglobin 29.0 pg 28.7 pg Mean Corpuscular Hemoglobin Concent 34.8 g/dl 34.1 g/dl Platelet Count 258 K/uL 249 K/uL Mean Platelet Volume 9.9 fL 9.9 fL Neutrophils (%) (Auto) 79.4 % Lymphocytes (%) (Auto) 12.5 % Monocytes (%) (Auto) 7.3 % Eosinophils (%) (Auto) 0.1 % Basophils (%) (Auto) 0.1 % Neutrophils # (Auto) 13.75 K/uL Lymphocytes # (Auto) 2.16 K/uL Monocytes # (Auto) 1.27 K/uL Eosinophils # (Auto) 0.02 K/uL Basophils # (Auto) 0.02 K/uL RDW Standard Deviation 41.2 fL 41.7 fL RDW Coefficient of Variation 13.7 % 13.7 % Immature Granulocyte % (Auto) 0.6 % Immature Granulocyte # (Auto) 0.10 K/uL Prothrombin Time 12.4 SECONDS 13.3 SECONDS Prothromb Time International Ratio 1.2 1.2 Activated Partial Thromboplast Time 26.5 SECONDS 29.5 SECONDS Partial Thromboplastin Ratio 1.0 1.1 Sodium Level 141 mmol/L Potassium Level 4.0 mmol/L Chloride Level 106 mmol/L Carbon Dioxide Level 27 mmol/L Anion Gap 8.0 mmol/L Blood Urea Nitrogen 13 mg/dl Creatinine 0.92 mg/dl Est Creatinine Clear Calc Drug Dose 79.4 ml/min Estimated GFR () 74.2 Estimated GFR (Non- 64.0 BUN/Creatinine Ratio 14.2 Random Glucose 137 mg/dl Calcium Level 8.3 mg/dl Total Bilirubin 1.4 mg/dl Aspartate Amino Transf (AST/SGOT) 14 U/L Alanine Aminotransferase (ALT/SGPT) 23 U/L Alkaline Phosphatase 85 U/L Troponin I 0.027 ng/ml 0.025 ng/ml Pro-B-Type Natriuretic Peptide 3112 pg/ml Total Protein 7.7 gm/dl Albumin 3.2 gm/dl Globulin 4.5 gm/dl Albumin/Globulin Ratio 0.7 Bedside Lactic Acid Venous 1.37 mmol/L Magnesium Level 2.0 mg/dl Creatine Kinase MB 0.5 ng/ml Creatine Kinase MB Ratio Test 12/18/16 02:38 12/18/16 04:30 12/18/16 09:57 Creatine Kinase MB Ratio Sodium Level 143 mmol/L Potassium Level 4.3 mmol/L Chloride Level 108 mmol/L Carbon Dioxide Level 27 mmol/L Anion Gap 8.0 mmol/L Blood Urea Nitrogen 15 mg/dl Creatinine 0.90 mg/dl Est Creatinine Clear Calc Drug Dose 81.0 ml/min Estimated GFR () 76.1 Estimated GFR (Non- 65.7 BUN/Creatinine Ratio 16.7 Random Glucose 174 mg/dl Calcium Level 8.4 mg/dl Magnesium Level 2.1 mg/dl Thyroid Stimulating Hormone (TSH) 3.140 uIu/ml Chemistry Specimen Hemolysis Activated Partial Thromboplast Time 34.5 SECONDS Partial Thromboplastin Ratio 1.3 Assessment and Plan Assessment and Plan: ASSESSMENT 66 year old female who presented to the ED on 12/17 with shortness of breath, dry cough, and fever and a chest xray suggestive of RLL pneumonia. New onset atrial fibrillation with RVR overnight currently on cardizem and amiodarone drips with Lopressor prn. Patient was being worked up for possible CHF as outpatient after xray in November showed vascular congestion. Critical care consult switched patient from Levofloxacin to Azithromycin and doxycycline this morning worried that it is contributing to her QT prolongation. . PLAN 1) RLL pneumonia -Azithromycin 500mg IV -Doxycycline IV -D/C Leovfloxacin secondary to QT prolongation 2) CHF and new onset atrial fibrillation -echocardiogram results pending -cardizem drip 10ml/hr -amiodarone drip -Lopressor 5mg prn. Last dose today at 9:20am for heart rates in 140-150s. -If patient does not respond to medications patient will be considered for cardioversion tomorrow. 3) Hypertension -amlodipine/benazepril -monitor BP with amiodarone infusion running 4) Hyperlipidemia -Pravastatin 5) Full code status -heparin for DVT prophylaxis
[2016-12-18] MEDS ORDERED: HEPARIN SOD (PORCINE) 1000 UNIT/ML 10 ML VIAL ONE (11:17)
[2016-12-18] MEDS: AMIODARONE / D5W 200 ML IV SCH ×2 (11:27→16:41)
[2016-12-18] MEDS: METOPROLOL TARTRATE 25 MG TAB PO SCH ×2 (11:37→19:51)
[2016-12-18] MEDS: DOXYCYCLINE IV 100 MG in DEXTROSE 5% 100ML 100 ML IV SCH ×2 (11:38→22:10)
[2016-12-18] MEDS: INSULIN ASPART 100 UNITS/ML 3 ML PEN SC SCH ×4 (11:39→20:43)
--- NOTE | 2016-12-18 11:49 | Hospitalist Progress Note ---
Hospitalist Progress Note Date of Service Dec 18, 2016. (Rama Pinzon ., PA-C) Subjective Pt evaluation today including: conversation w/ patient, physical exam, chart review, lab review, review of studies, conversation w/ inside solar sales consultant (spoke with Dr. Moreno), review of inpatient medication list Pain: None PO Intake: Tolerating PO diet Voiding: no voiding problems Patient reports feeling better. She states that she still has some shortness of breath, especially when talking, but this has improved compared to last night. Overnight the patient developed a quick run of V. fib followed by A. fib with RVR. At onset, the patient complained of lightheadedness and blurry vision; these have since resolved. The patient had also become short of breath which has improved. She does report a dry cough. The patient denies fevers, chills, sweats, chest pain, palpitations, claudication, wheezing, nausea, vomiting, abdominal pain, dysuria, hematuria, urinary retention, paralysis, weakness, numbness and tingling. Additional Comments: See HPI for pertinent positives and negatives. All other systems reviewed and negative. (Rama Pinzon ., PA-C) Objective Vital Signs Date Time Temp Pulse Resp B/P Pulse Ox O2 Delivery O2 Flow Rate FiO2 12/18/16 09:20 159 126/91 12/18/16 08:30 95 Nasal Cannula 2.0 12/18/16 06:00 127 27 93 12/18/16 05:46 82 26 88/61 92 12/18/16 05:45 121 18 93 12/18/16 05:31 117 26 108/69 91 12/18/16 05:30 116 27 91 12/18/16 05:15 145 25 131/90 92 12/18/16 05:01 103 26 114/80 94 12/18/16 05:00 134 21 93 12/18/16 04:46 130 25 124/84 93 12/18/16 04:45 130 21 92 12/18/16 04:30 150 22 102/80 93 12/18/16 04:15 122 20 105/83 93 12/18/16 04:10 36.6 160 22 99/68 95 Nasal Cannula 2.0 12/18/16 04:10 95 Nasal Cannula 2.0 12/18/16 04:01 117 23 99/68 91 12/18/16 04:00 103 21 94 12/18/16 03:08 206 12/18/16 02:20 159 130/66 95 Nasal Cannula 2.0 12/18/16 00:04 36.8 59 26 135/65 94 Room Air 12/17/16 23:06 103 22 135/70 93 12/17/16 21:30 37.1 105 24 116/76 93 Room Air 12/17/16 20:39 93 Room Air 12/17/16 20:39 93 Room Air 12/17/16 20:39 93 Room Air 12/17/16 20:33 110 12/17/16 19:49 38.4 108 24 165/82 94 Room Air (Rama Pinzon ., PA-C) Physical Exam General Appearance: WD/WN, no apparent distress, + obese (morbidly obese) Eyes: normal inspection, PERRL, EOMI ENT: normal ENT inspection, hearing grossly normal, pharynx normal Neck: supple, no JVD, trachea midline Respiratory/Chest: normal breath sounds, no respiratory distress, + crackles ( bases bilaterally), + pertinent finding (reports her breathing becomes more difficult when sitting upright during exam) Cardiovascular: regular rate, rhythm, no gallop, no murmur Abdomen: normal bowel sounds, non tender, soft Extremities: non-tender, normal inspection, + swelling (1+ pitting edema) Neurologic/Psychiatric: alert, normal mood/affect, oriented x 3 Skin: normal color, warm/dry, no rash (Rama Pinzon ., PA-C) Laboratory Results Last 24 Hours Test 12/17/16 20:30 12/17/16 20:34 12/17/16 20:39 12/18/16 02:25 Influenza Type A (RT-PCR) Neg for Influ A Influenza Type A Antigen Neg for Influ A Influenza Type B Antigen Neg for Influ B Influenza Type B (RT-PCR) Neg for Influ B White Blood Count 17.32 K/uL 12.19 K/uL Red Blood Count 4.49 M/uL 4.43 M/uL Hemoglobin 13.0 g/dL 12.7 g/dL Hematocrit 37.4 % 37.2 % Mean Corpuscular Volume 83.3 fL 84.0 fL Mean Corpuscular Hemoglobin 29.0 pg 28.7 pg Mean Corpuscular Hemoglobin Concent 34.8 g/dl 34.1 g/dl Platelet Count 258 K/uL 249 K/uL Mean Platelet Volume 9.9 fL 9.9 fL Neutrophils (%) (Auto) 79.4 % Lymphocytes (%) (Auto) 12.5 % Monocytes (%) (Auto) 7.3 % Eosinophils (%) (Auto) 0.1 % Basophils (%) (Auto) 0.1 % Neutrophils # (Auto) 13.75 K/uL Lymphocytes # (Auto) 2.16 K/uL Monocytes # (Auto) 1.27 K/uL Eosinophils # (Auto) 0.02 K/uL Basophils # (Auto) 0.02 K/uL RDW Standard Deviation 41.2 fL 41.7 fL RDW Coefficient of Variation 13.7 % 13.7 % Immature Granulocyte % (Auto) 0.6 % Immature Granulocyte # (Auto) 0.10 K/uL Prothrombin Time 12.4 SECONDS 13.3 SECONDS Prothromb Time International Ratio 1.2 1.2 Activated Partial Thromboplast Time 26.5 SECONDS 29.5 SECONDS Partial Thromboplastin Ratio 1.0 1.1 Sodium Level 141 mmol/L Potassium Level 4.0 mmol/L Chloride Level 106 mmol/L Carbon Dioxide Level 27 mmol/L Anion Gap 8.0 mmol/L Blood Urea Nitrogen 13 mg/dl Creatinine 0.92 mg/dl Est Creatinine Clear Calc Drug Dose 79.4 ml/min Estimated GFR () 74.2 Estimated GFR (Non- 64.0 BUN/Creatinine Ratio 14.2 Random Glucose 137 mg/dl Calcium Level 8.3 mg/dl Total Bilirubin 1.4 mg/dl Aspartate Amino Transf (AST/SGOT) 14 U/L Alanine Aminotransferase (ALT/SGPT) 23 U/L Alkaline Phosphatase 85 U/L Troponin I 0.027 ng/ml 0.025 ng/ml Pro-B-Type Natriuretic Peptide 3112 pg/ml Total Protein 7.7 gm/dl Albumin 3.2 gm/dl Globulin 4.5 gm/dl Albumin/Globulin Ratio 0.7 Bedside Lactic Acid Venous 1.37 mmol/L Magnesium Level 2.0 mg/dl Creatine Kinase MB 0.5 ng/ml Creatine Kinase MB Ratio Test 12/18/16 02:38 12/18/16 04:30 12/18/16 09:57 Creatine Kinase MB Ratio Sodium Level 143 mmol/L Potassium Level 4.3 mmol/L Chloride Level 108 mmol/L Carbon Dioxide Level 27 mmol/L Anion Gap 8.0 mmol/L Blood Urea Nitrogen 15 mg/dl Creatinine 0.90 mg/dl Est Creatinine Clear Calc Drug Dose 81.0 ml/min Estimated GFR () 76.1 Estimated GFR (Non- 65.7 BUN/Creatinine Ratio 16.7 Random Glucose 174 mg/dl Calcium Level 8.4 mg/dl Magnesium Level 2.1 mg/dl Thyroid Stimulating Hormone (TSH) 3.140 uIu/ml Chemistry Specimen Hemolysis Activated Partial Thromboplast Time 34.5 SECONDS Partial Thromboplastin Ratio 1.3 Troponin I < 0.015 ng/ml Procalcitonin 0.07 ng/mL (Rama Pinzon, GEE) Diagnostic Results Reviewed the following studies and agree with interpretation as follows: Patient Name: PHOEBE HUGO Unit Number: [id number] Dictated: 12/17/162052 Transcribed: 12/17/162052 EV Printed Date/Time: [~ rep prt dt]/[~ rep prt tm] [~ rep ct labl] - [~ rep ct ivnm] [facility] [place] [address] Dictated: 12/17/162052 Transcribed: 12/17/162052 EV Printed Date/Time: [~ rep prt dt]/[~ rep prt tm] [~ rep ct labl] - [~ rep ct ivnm] Patient: PHOEBE HUGO Address1: [address] [place] [address] Rec: [id number] [facility]: [id number] Zip: [place] [address] Date: 1950 Sex: F Room/Bed: Ref Phy: Edgar Tucker M.D. SC: LEXA Mcarthur Phy: Report #: [id number] Iveth Phy: Edgar Tucker M.D. Test: CXR1P Admit Phy: Operations Architect: LILI Interpreting Phy: Sravan Chapa M.D. Diagnosis: SOB Ordering Phy: Doc Espinoza D.O. Service Date: 12/17/16 Admit Date: 04/16/17 MNE: [id number] CONF: DICTATED BY: Sravan Chapa M.D.]] CC: Doc Espinoza, Edgar Hull M.D. Endcc: [~ rep ct add3]] SINGLE VIEW CHEST CLINICAL HISTORY: Dyspnea. FINDINGS: An AP, portable, upright chest radiograph is compared to study dated 10/19/2016 and correlated with chest CT dated 03/30/2010. The examination is degraded by portable technique, large body habitus, and patient rotation. The heart is enlarged and there is atherosclerotic calcification of the thoracic aorta. There is pulmonary vascular congestion. Basilar airspace opacities are observed. No large pleural effusion or pneumothorax is seen. The skeletal structures are osteopenic. Degenerative change is noted throughout the thoracic spine. IMPRESSION: 1. Cardiomegaly with pulmonary vascular congestion. 2. Bibasilar airspace opacities likely represent atelectasis. Clinical correlation will be required. Electronically signed by: Sravan Chapa M.D. 12/17/2016 8:55 PM Dictated Date/Time: 12/17/2016 8:53 PM The status of this report is Signed. Draft = Not yet reviewed or approved by Radiologist. Signed = Reviewed and approved by Radiologist. <AttendingPhy></AttendingPhy> <FamilyPhy>Edgar Tucker M.D.</FamilyPhy> < PrimaryPhy>Edgar Tucker M.D.</PrimaryPhy> <UnitNumber>[id number]</ UnitNumber> <VisitNumber>[id number]</VisitNumber> <PatientName>PHOEBE HUGO</PatientName> <DateOfBirth>1950</DateOfBirth> <Location>[facility]</ Location> <ServiceDate>12/17/16</ServiceDate> <MNE>ESINDI</MNE> <OrderingPhy> Doc Espinoza D.O.</OrderingPhy> <OrderingPhyMNE>f rep ord dr valenzuela</ OrderingPhyMNE> <DictatingPhyMNE>f rep dict dr valenzuela</DictatingPhyMNE> <CCListMNE> f rep ct mne</CCListMNE> <AdmittingPhyMNE>f pt admit dr valenzuela</AdmittingPhyMNE> < AttendingPhyMNE>f pt attend dr valenzuela</AttendingPhyMNE> <ConsultingPhyMNE>f pt consult dr valenzuela</ConsultingPhyMNE> <FamilyPhyMNE>f pt fam dr valenzuela</FamilyPhyMNE> <OtherPhyMNE>f pt other dr valenzuela</OtherPhyMNE> < PrimaryPhyMNE>f pt prim care dr valenzuela</PrimaryPhyMNE> <ReferringPhyMNE>f pt referring dr valenzuela</ReferringPhyMNE> (Rama Pinzon ., GEE) Assessment and Plan 66 y/o female with a history of hypertension, hyperlipidemia, DM II, GERD and asthma presents to the ED with shortness of breath, fever and dry cough. Patient presented with fever, tachycardia and leukocytosis. CXR showed possible right lower lobe pneumonia as well as pulmonary vascular congestion. BNP elevated at 3112. V-fib/a-fib with RVR--patient with 3 second run of V. fib overnight on telemetry , which then turned into A. fib with RVR with heart rate over 180. Currently in sinus rhythm, HR in 80s -Transferred to ICU 12/18 -Repeat troponin was 0.025 -Magnesium 2.0 -EKG showed atrial flutter with variable AV block, ST depressions in lateral leads -Patient received Lopressor 5 mg IV. HR decreased to 160s, but BP then dropped to 80s/50s. -Patient then given Cardizem IV total of 15 mg -Cardiology consulted. Patient started on Cardizem drip per Dr. Jasso, recommended starting amiodarone if not responsive to Cardizem -Patient later started on amiodarone drip, patient did convert back to sinus rhythm around 10 am this morning and was in sinus rhythm during my exam Sepsis secondary to ?RLL PNA--patient meets sepsis criteria with fever, tachycardia, leukocytosis and suspected source of infection -Influenza negative -CXR with bibasilar opacities, atelectasis versus PNA. Due to fevers and leukocytosis, treating for pneumonia -Levaquin discontinued due to prolonged QT interval -Start Rocephin 1 g IV qd and doxycycline 100 mg IV BID instead -Otoniel QIDR -O2 by protocol -UA pending to rule out other causes -Procalcitonin pending -POC lactic acid WNL -Leukocytosis, improved to 12.19 on 12/18 from 17.32 Likely new-onset CHF--normal stress echocardiogram in 2009 -Echo pending. -Patient given Lasix 20 mg IV 1. She reports good urine output since -Daily weight -Strict I's and O's HTN--stable in 130s/80s during examination -Amlodipine/benazepril help determine earlier hypertension. Amlodipine DC'd for now due to lower extremity edema -Started on Lopressor 25 mg PO BID per ICU HLD -Continue pravastatin 40 mg PO qd Diabetes mellitus type 2--last hemoglobin A1c checked 08/08/16 was 6.3 -Insulin sliding scale -Check BSGs q ac and qhs -Recheck hemoglobin A1c DVT prophylaxis -Heparin drip -MARSHALL garcia and SCDs Code Status -Level I, FULL RESUSCITATION STATUS This chart was completed in part utilizing [employer] Speech Voice Recognition software. Attempts were made to minimize the grammatical errors, random word insertions, pronoun errors and incomplete sentences. Any formal questions or concerns about the content, text or information contained within the body of this dictation should be directly addressed to the provider for clarification. (Rama Pinzon ., PA-C) I agree with PA assessment and plan and have seen and examined pt myself Resting comfortably in bed IRR Cont amio drip and metoprolol drip ECHO pending May need cardioversion if unstable or rate uncontrolled Sepsis, cont antibx, leukocytosis improving (Gerhard Lopez D.O.)
[2016-12-18 11:52] LABS: ESTIMATED AVERAGE GLUCOSE 143 mg/dl; HA1C FLAG Normal (Normal)
--- NOTE | 2016-12-18 12:11 | ECHOCARDIOGRAM REPORT ---
*NOTICE TO RECEIVING [employer] This information is strictly Confidential and protected under [place] law. [place] law prohibits you from making any further disclosure of this information unless further disclosure is expressly permitted by the written consent of the person to whom it pertains or is authorized by law. A general authorization for the release of medical or other information is not sufficient for this purpose. Hospital accepts no responsibility if the information is made available to any other person, INCLUDING THE PATIENT. Interpretation Summary * Name: PHOEBE HUGO Study Date: 12/18/2016 06:55 AM BP: 88/61 mmHg * Patient Location: .[facility]ICU\S\E103\S\1 HR: 166 * : 1950 (M/d/yyy) Gender: Female Height: 65 in * Age: 66 yrs Ethnicity: [place] Weight: 285 lb * Ordering Physician: Pk Reynoso * Referring Physician: Self, Referred * Performed By: Clau Victor RCS * * Reason For Study: CHF * BSA: 2.3 m2 * -- Conclusions -- * 1. Normal left ventricular size with mildly to moderately reduced systolic function. Estimated EF 40-45%. Global hypokinesis. Mild concentric left ventricular hypertrophy. * 2. Grossly normal right ventricular size with mildly reduced systolic function. * 3. The left atrium is mildly dilated. * 4. No significant valvular abnormalities visualized, but valves were not well visualized. * 5. Normal estimated right ventricular systolic pressure; 25 mmHg. * 6. Atrial fibrillation with rapid ventricular response. * 7. Technically difficult study, enhanced with IV Definity. * 8. Compared to prior study on 03/30/2010, LV systolic function is now reduced. Procedure Details * A complete two-dimensional transthoracic echocardiogram was performed (2D, M-mode, Doppler and color flow Doppler). * A contrast injection of Definity was performed to improve assessment of LV function. * Contrast was injected into an intravenous site in the left arm. * One vial of Definity ultrasound contrast was diluted in normal saline to a total volume of 10 ml. A total of '2' ml of solution was administered during imaging. * Lot # [id number] of Definity utilized for procedure. * Expiration date . * The attending nurse who injected the contrast agent was Nnamdi Pineda RN. * Patient Supine for imaging Left Ventricle * Normal left ventricular size with mildly to moderately reduced systolic function. Estimated EF 40-45%. Global hypokinesis. Mild concentric left ventricular hypertrophy. Right Ventricle * The right ventricle is grossly normal size. * The right ventricular systolic function is reduced as assessed by tricuspid annular plane systolic excursion (TAPSE) (TAPSE <1.6 cm). Atria * The left atrium is mildly dilated. * Right atrial size is normal. * There is no evidence of atrial septal defect, but resolution does not allow assessment for a patent foramen ovale. Mitral Valve * The mitral valve is not well visualized. * There is no mitral valve stenosis. * There is trace mitral regurgitation. Tricuspid Valve * The tricuspid valve is not well visualized. * There is no tricuspid stenosis. * Significant tricuspid regurgitation is absent. Aortic Valve * The aortic valve is not well visualized. * No hemodynamically significant valvular aortic stenosis. * There is no significant aortic regurgitation. Pulmonic Valve * The pulmonary valve is inadequately visualized, but the Doppler data is adequate for interpretation. * There is no pulmonic valvular stenosis. * Trace pulmonic valvular regurgitation. Great Vessels * The aortic root is normal size. Pericardium/Pleural * There is no pericardial effusion. Great Vessels * Mildly dilated IVC with normal inspiratory collapse. MMode 2D Measurements and Calculations IVSd 1.2 cm IVSs 1.3 cm LVIDd 4.6 cm LVIDs 3.9 cm LVPWd 1.2 cm LVPWs 1.4 cm IVS/LVPW 1.0 FS 16.5 % EDV(Teich) 98.1 ml ESV(Teich) 64.0 ml EF(Teich) 34.7 % EDV(cubed) 98.3 ml ESV(cubed) 57.2 ml EF(cubed) 41.8 % % IVS thick 7.4 % % LVPW thick 21.8 % LV mass(C)d 199.3 grams LV mass(C)dI 86.7 grams/m\S\2 LV mass(C)s 185.5 grams LV mass(C)sI 80.7 grams/m\S\2 CO(Teich) 5.7 l/min CI(Teich) 2.5 l/min/m\S\2 SV(Teich) 34.1 ml SI(Teich) 14.8 ml/m\S\2 CO(cubed) 6.8 l/min CI(cubed) 3.0 l/min/m\S\2 SV(cubed) 41.1 ml SI(cubed) 17.9 ml/m\S\2 Ao root diam 3.1 cm Ao root area 7.4 cm\S\2 ACS 1.6 cm LA dimension 3.3 cm LA/Ao 1.1 LVAd ap4 42.8 cm\S\2 LVLd ap4 8.6 cm EDV(MOD-sp4) 152.5 ml EDV(sp4-el) 157.6 ml LVAs ap4 32.8 cm\S\2 LVLs ap4 8.3 cm ESV(MOD-sp4) 94.8 ml ESV(sp4-el) 93.4 ml EF(MOD-sp4) 37.8 % EF(sp4-el) 40.7 % LVAd ap2 42.6 cm\S\2 LVLd ap2 8.8 cm EDV(MOD-sp2) 126.1 ml EDV(sp2-el) 130.3 ml LVAs ap2 28.4 cm\S\2 LVLs ap2 7.7 cm ESV(MOD-sp2) 71.4 ml ESV(sp2-el) 71.0 ml EF(MOD-sp2) 43.4 % EF(sp2-el) 45.5 % LVLd %diff -8.14 % EDV(MOD-bp) 144.1 ml LVLs %diff 1.9 % ESV(MOD-bp) 82.8 ml EF(MOD-bp) 42.6 % CO(MOD-sp4) 9.6 l/min CI(MOD-sp4) 4.2 l/min/m\S\2 SV(MOD-sp4) 57.6 ml SI(MOD-sp4) 25.1 ml/m\S\2 CO(MOD-sp2) 9.1 l/min CI(MOD-sp2) 3.9 l/min/m\S\2 SV(MOD-sp2) 54.7 ml SI(MOD-sp2) 23.8 ml/m\S\2 CO(MOD-bp) 10.2 l/min CI(MOD-bp) 4.4 l/min/m\S\2 SV(MOD-bp) 61.3 ml SI(MOD-bp) 26.7 ml/m\S\2 CO(sp4-el) 10.6 l/min CI(sp4-el) 4.6 l/min/m\S\2 SV(sp4-el) 64.2 ml SI(sp4-el) 27.9 ml/m\S\2 CO(sp2-el) 9.8 l/min CI(sp2-el) 4.3 l/min/m\S\2 SV(sp2-el) 59.3 ml SI(sp2-el) 25.8 ml/m\S\2 Doppler Measurements and Calculations Ao V2 max 167.6 cm/sec Ao max PG 11.3 mmHg Ao max PG (full) 9.0 mmHg LV V1 max PG 2.3 mmHg LV V1 max 76.0 cm/sec PA V2 max 95.6 cm/sec PA max PG 3.7 mmHg TR max akilah 208.0 cm/sec RVSP(TR) 25.3 mmHg RAP systole 8.0 mmHg
--- NOTE | 2016-12-18 13:31 | CARDIOLOGY CONSULTATION ---
DATE OF CONSULTATION: 12/18/2016 CONSULTING PHYSICIAN: Dr. Reynoso. REASON FOR CONSULTATION: 1. CHF. 2. Torsades. HISTORY OF PRESENT ILLNESS: Ms. Hendricsk is a very pleasant 66-year-old female with a history significant for type 2 diabetes, hypertension, and dyslipidemia, who presented to [facility] with shortness of breath. For the past 2 days, she has been experiencing low grade fevers and worsening shortness of breath. She has had intermittent shortness of breath since fall. For the past 2 days, however, she has noted worsening dyspnea with exertion as well as orthopnea. In fact, she slept on the sofa the day prior to presentation, so that she can keep her head propped up due to shortness of breath. She also walked up a flight of stairs 2 days ago and was so short of breath when she got to the top that she had to stop for 5-10 minutes just to try to catch her breath. With low grade fever, she also had nausea. In fact, the nausea was bad enough that she did not take any of her medications for a fear of vomiting. She did experience lightheadedness 3 days ago when she got up quickly from a seated position, but this resolved. She denies syncope, chest pain, or palpitations. She had been experiencing edema ever since lisinopril was discontinued in favor of amlodipine approximately 1 year ago. Lisinopril was initially discontinued as she felt a dryness in her mouth and nose. It appears as though she has been taking amlodipine/benazepril. Those symptoms have remained. In the Emergency Department, she underwent evaluation with a chest x-ray. There was a concern for pneumonia given bibasilar airspace opacities and low-grade fever. Her temperature in the Emergency Department was 38.4 degrees. She was started on Levaquin. There was also a concern for heart failure and she was also given Lasix 20 mg IV. At approximately 02:05 a.m., she had an episode of torsades de pointes. This lasted 10-15 seconds. She was sleeping, but she said that she woke up as she felt uncomfortable with some sort of sensation in the left side of her head. She denied syncope, near syncope, or palpitations. Nursing staff presented to the bedside. She then converted back into sinus rhythm for approximately 30 seconds with PACs and then developed atrial fibrillation with rapid ventricular response with heart rates up to 170 beats per minute. Her rhythm prior to the torsades episode was sinus rhythm with PACs and short atrial runs, but no sustained arrhythmia. While in atrial fibrillation with rapid ventricular response, she is completely asymptomatic in regards to the atrial fibrillation. She was given intravenous metoprolol and also diltiazem and her blood pressure reportedly became hypotensive. A call was placed to Dr. Hung of electrophysiology as he was on-call over the weekend. Amiodarone drip was also discussed. She was then placed on an amiodarone drip during the overnight hours. She continues on an amiodarone drip and appears to be tolerating it well. She denies melena, hematochezia, hematuria, stroke or stroke-like symptoms, or abdominal pain. REVIEW OF SYSTEMS: As above and otherwise the review of systems is negative. She is feeling a bit better from a breathing standpoint. PAST MEDICAL HISTORY: 1. Hypertension. 2. Dyslipidemia. 3. Type 2 diabetes. 4. GERD. 5. Asthma. 6. Obesity. 7. Benign hepatic lesion. HOME MEDICATIONS: Include, 1. Metformin 850 mg daily. 2. Amlodipine/benazepril 5/20 one cap daily. 3. Aspirin 81 mg daily. 4. Coenzyme Q10. 5. Pravastatin 40 mg daily. 6. Turmeric 450 mg daily. 7. Zyrtec 10 mg daily. 8. Sula-3 one capsule daily. INPATIENT MEDICATIONS: Include, 1. Amiodarone drip per protocol. 2. Heparin drip per protocol. 3. Aspirin 81 mg daily. 4. Levaquin 750 mg IV daily. 5. Pravastatin 40 mg daily. ALLERGIES: INCLUDE CODEINE AND TRAMADOL. SOCIAL HISTORY: Denies tobacco or alcohol abuse. She is to Andrzej, who was present at the bedside. They have 2 children. Their son lives next door with their 2 grandchildren. FAMILY HISTORY: Brother had CAD diagnosed in his 60s and underwent PCI. PHYSICAL EXAMINATION: VITAL SIGNS: Temperature 36.6 degrees. T-max is 38.4 degrees. Heart rate this morning at the bedside ranges in the 120s to 170 beats per minute. Respiratory rate 27, blood pressure 126/91 mmHg, and oxygen saturation 95% on 2 liters per nasal cannula. I's and O's negative 1.7 liters so far. Weight 128.9 kg. GENERAL: No acute distress. She is alert. HEENT: Anicteric sclerae. NECK: Thick. No bruits. Normal carotid upstrokes bilaterally. CARDIAC EXAMINATION: PMI was nonpalpable. There was no ventricular heave. Irregularly irregular. Normal S1 and S2. There were no audible murmurs, rubs or gallops. LUNGS: Rales at the right base, otherwise clear. ABDOMEN: Obese, soft, nontender, and nondistended. Normoactive bowel sounds. No bruits. EXTREMITIES: No significant pitting edema. No cyanosis. 2+ radial pulses bilaterally. 2+ dorsalis pedis pulses bilaterally. PSYCHIATRIC: Affect appears appropriate. LABORATORY DATA: Blood culture is pending. White blood cell count 12.19, hemoglobin 12.7, and platelets 249. Sodium 143, potassium 4.3, BUN 15, and creatinine 0.9. Magnesium is 2.1. Magnesium shortly after her torsades episode was 2. Troponin 0.027 and had since trended downward. Albumin 3.2. ProBNP 3112. AST 14 and ALT 23. INR was 1.2 and PTT 34.5. ECG on 12/17/2016 at 20:24, sinus tachycardia with PACs at 110 beats per minute. Nonspecific ST/T wave abnormality. Prolonged QT. Repeat ECG on 12/18/2016 at 10:08 a.m., sinus rhythm at 84 beats per minute, prolonged QT. ECG on 12/18/2016 at 02:12 a.m., atrial flutter at 172 beats per minute. Echocardiogram performed 12/18/2016, personally reviewed. Mildly to moderately reduced LV systolic function with an EF of 40%-45%. Global hypokinesis. Mildly reduced RV systolic function. No significant valvular abnormalities visualized, but they were not well seen. AFib with RVR. ASSESSMENT AND PLAN: 1. Torsades de pointes: Did have an episode of torsades as the telemetry was personally reviewed. This could be secondary to Levaquin. Her QT is mildly prolonged as well, but Levaquin can cause the torsades de pointes. Recommend replacing Levaquin with another antibiotic if it does not carry the same risk. Would avoid fluoroquinolones. Magnesium was normal. She is on amiodarone for her atrial fibrillation with rapid ventricular response. 2. Atrial fibrillation/atrial flutter with rapid ventricular response: Telemetry demonstrated atrial fibrillation. An ECG suggested atrial flutter. She is asymptomatic. Continue amiodarone for now. Risks and benefits were discussed with her and her . She is not unstable with this arrhythmia and is actually asymptomatic with adequate blood pressure. Would add oral beta christiana therapy and can also use intravenous beta christiana or calcium channel christiana to achieve rate control. She may have episodes of atrial arrhythmia at home and therefore may convert. If she remains difficult to rate control, would keep n.p.o. overnight for potential cardioversion tomorrow if she does not cardiovert in the meantime. Monitor QT with daily ECG. Monitor closely for ventricular arrhythmia. Atrial fibrillation was discussed with her. Stroke risk reduction was also discussed and recommended. Continue heparin drip. Would continue anticoagulation indefinitely upon discharge if no contraindications. 3. Pneumonia: As per primary service and critical care team. 4. Hypertension: Given the fact that amlodipine caused edema, would replace amlodipine with other antihypertensive medication. Now that her LV systolic function is reduced, would consider metoprolol succinate and continuing her usual beta christiana when blood pressure allows. 5. Cardiomyopathy: Her left ventricular systolic function is reduced, but this was in the setting of atrial fibrillation with rapid ventricular response. We will repeat an echo prior to discharge as the left ventricular systolic function may improve and be better evaluated when she is in sinus rhythm with better heart rate. 6. Chronic diastolic congestive heart failure: She clinically at this time does not appear to be significantly hypervolemic; however, her exam is difficult. Her ProBNP was elevated. She had lower extremity edema and she has improved with low dose diuretic. Would try to keep her I's and O's, fluid balance net negative. Can intermittently dose diuretic as appropriate. Certainly atrial fibrillation with rapid ventricular response could exacerbate heart failure. 7. Disposition: Cardiology will continue to follow. Plan of care was discussed with Dr. Moreno of the critical care team. ADDENDUM: Following the interpretation of her echocardiogram, her telemetry was personally reviewed once more and she has converted to sinus rhythm at 09:54 a.m. and has remained in sinus rhythm without recurrence of ventricular arrhythmia. This was also going to be discussed with her as well as her echocardiogram results; however, she was sleeping and since she did not get a good night sleep, she was not awakened for this second visit. Findings were discussed, however, with nursing staff and Dr. Moreno of critical care team. Thank for allowing me to participate in the care of . Tiffanie Hendricks. Cardiology will continue to follow.
[2016-12-18] MEDS: CEFTRIAXONE SOD INJ 1 GM in DEXTROSE 5% ADD-VANTAGE 50ML 50 ML IV SCH (13:45)
[2016-12-18 13:56] LABS: URINE APPEARANCE CLEAR (CLEAR); URINE COLOR DK YELLOW; URINE NITRITE NEG (NEG); URINE SPECIFIC GRAVITY 1.025 (1.000-1.030); UROBILINOGEN NEG (NEG); ZZUR CULT IF INDIC CLEAN CATCH NO
[2016-12-18 13:58] LABS: MANUAL MICROSCOPIC REQUIRED? NO; REVIEW REQ? NO; URINE BILIRUBIN 1+ (NEG)
[2016-12-18] MEDS ORDERED: METOPROLOL TARTRATE 1 MG/ML VIAL IV PRN (16:15)
[2016-12-18 17:45] LABS: PARTIAL THROMBOPLASTIN RATIO 1.5
[2016-12-18] MEDS ORDERED: LEVOFLOXACIN / D5W 750 MG in PREMIXED IN D5W 150 ML IV SCH (21:00)
[2016-12-19] VITALS (10 sets, daily range): BP systolic 97–134; BP diastolic 60–85; PULSE 73–98; TEMP 36.5–37.1; O2SAT 87–98
[2016-12-19 01:41] LABS: PARTIAL THROMBOPLASTIN RATIO 2.2
[2016-12-19] MEDS: ALBUT/IPRATROP 3MG/0.5MG NEB 3 ML VIAL INH SCH ×4 (02:26→19:11)
[2016-12-19] MEDS: HEPARIN 25,000 UNIT/500ML D5W 500 ML IV PRN ×2 (05:31→10:18)
[2016-12-19] MEDS: AMIODARONE / D5W 200 ML IV SCH (05:32)
[2016-12-19 07:23] LABS: HEMATOCRIT 35.6 % (37-47); MEAN CORPUSCULAR HEMOGLOBIN 28.6 pg (25-34); MEAN CORPUSCULAR HGB CONC 33.7 g/dl (32-36); PLATELET COUNT 245 K/uL (130-400); RED BLOOD COUNT 4.19 M/uL (4.2-5.4); WHITE BLOOD COUNT 9.27 K/uL (4.8-10.8)
--- NOTE | 2016-12-19 07:24 | DIAGNOSTIC IMAGING REPORT ---
CHEST ONE VIEW PORTABLE CLINICAL HISTORY: pna pneumonia. Dyspnea. COMPARISON STUDY: 12/17/2016 FINDINGS: Persistent prominence of the parenchymal markings both lung bases. Mid and upper lungs are considered clear. Heart top limits of normal in terms of size. IMPRESSION: Persistent prominence of the basilar parenchymal markings. No change compared to the prior study. Electronically signed by: Fred Bland M.D. 12/19/2016 7:22 AM Dictated Date/Time: 12/19/2016 7:21 AM
[2016-12-19 07:36] LABS: PARTIAL THROMBOPLASTIN RATIO 1.6
[2016-12-19 07:48] LABS: BUN/CREATININE RATIO 21.5 (10-20); CALCIUM 8.3 mg/dl (8.5-10.1); CREATININE 0.74 mg/dl (0.60-1.20); MAGNESIUM 2.3 mg/dl (1.8-2.4); PHOSPHORUS 4.1 mg/dl (2.5-4.9); POTASSIUM 3.3 mmol/L (3.5-5.1)
[2016-12-19] MEDS: INSULIN ASPART 100 UNITS/ML 3 ML PEN SC SCH ×4 (07:51→20:56)
[2016-12-19] MEDS: SODIUM CHLORIDE 0.65% NA SOLN 45 ML (OCEAN) SCH ×4 (07:52→20:56)
[2016-12-19] MEDS: PRAVASTATIN SOD 40 MG TAB PO SCH (07:52)
[2016-12-19] MEDS: CEFTRIAXONE SOD INJ 1 GM in DEXTROSE 5% ADD-VANTAGE 50ML 50 ML IV SCH (07:52)
[2016-12-19] MEDS: ASPIRIN 81 MG ECTAB PO SCH (07:52)
[2016-12-19] MEDS: CETIRIZINE HCL 10 MG TAB PO SCH (07:52)
[2016-12-19] MEDS ORDERED: AZITHROMYCIN IV 500 MG in DEXTROSE 5% 250ML 250 ML IV SCH (09:00)
[2016-12-19] MEDS ORDERED: HEPARIN IV BOLUS 3,000 UNIT in SYRINGE 0 ML IV ONE (09:45)
--- NOTE | 2016-12-19 09:49 | CARDIOLOGY PROGRESS NOTE ---
DATE: 12/19/2016 DATE: 12/19/2016. TIME: 9:22 a.m. SUBJECTIVE: Her breathing is improved but not yet back to baseline. She denies syncope, near syncope, palpitations. She denies angina. No reported bleeding. She converted to sinus rhythm yesterday while on amiodarone. She has transferred out of the ICU. OBJECTIVE: VITAL SIGNS: Temperature 36.9 degrees, heart rate 76 beats per minute, respiration rate 18, blood pressure 120/70 mmHg. She did have a blood pressure earlier this morning 97/60 mmHg, oxygen saturation is 91% on room air, 98% on 2 liters per nasal cannula. I's and O's negative 174 mL yesterday. Weight is 128.7 kg. GENERAL: No acute distress. She is alert. NECK: No appreciable JVD. CARDIAC EXAMINATION: No ventricular heave. Regular, normal S1, S2. 1/6 early peaking systolic ejection murmur best heard at the right upper sternal border. LUNGS: Clear to auscultation bilaterally without wheezes, rales or rhonchi. ABDOMEN: Soft, nontender, nondistended. Normoactive bowel sounds. EXTREMITIES: No cyanosis or edema. PSYCHIATRIC: Affect appears appropriate. MEDICATIONS: Include amiodarone drip per protocol, aspirin 81 mg daily, ceftriaxone 1 gram IV q. 24 hours, doxycycline 100 mg IV q. 12 hours, heparin drip per protocol, metoprolol succinate 25 mg daily, Pravachol 40 mg daily. LABORATORY DATA: White blood cell count 9.27, hemoglobin 12, platelets 245. Sodium 141, potassium 3.3, BUN 16, creatinine 0.74, magnesium 2.3. PTT 41.6. Telemetry personally reviewed. Sinus rhythm. ECG 12/18/2016 at 10:08 a.m., sinus rhythm at 84 beats per minute. Prolonged QT. Her repeat ECG will be ordered at this time. ASSESSMENT AND PLAN: 1. Torsades de pointes: Possibly due to Levaquin as she received her first dose a few hours prior to the episode. Her QT is mildly prolonged while on amiodarone. Follow QT interval. Repeat ECG today and each morning. Avoid fluoroquinolones in the future. 2. Atrial fibrillation/atrial flutter with rapid ventricular response: She converted while on amiodarone. She was asymptomatic and her heart rate was quite elevated up to 170 beats per minute. Continue rhythm control strategy for now. Will switching amiodarone to oral amiodarone. We also discussed stroke risk reduction going forward. We discussed multiple options such as the newer agents and Coumadin. She is comfortable with Eliquis and therefore upon discharge can switch heparin to Eliquis. Monitor TSH, LFTs and PFTs while on amiodarone. 3. Hypertension: Amlodipine caused edema and therefore would not resume that on discharge. She is now on metoprolol succinate due to cardiomyopathy. 4. Cardiomyopathy: Repeat limited echo tomorrow now that her heart rate is controlled to see if her LV systolic function is truly reduced as this can sometimes appear reduced when her heart rate is very tachycardic as it was during her echo. Continue metoprolol succinate. Her RAY inhibitor is currently on hold. Can resume that when okay with primary service. 5. Chronic diastolic congestive heart failure: She appears euvolemic; however, her exam is difficult. Can intermittently use diuretics as necessary. 6. Pneumonia: As per primary service. 7. Disposition: Cardiology will continue to follow. Plan of care was discussed with Dr. Lopez. Will also give a dose of potassium chloride for hypokalemia.
[2016-12-19] MEDS ORDERED: POTASSIUM CHLORIDE 10 MEQ TABCR PO ONE (10:00)
[2016-12-19] MEDS ORDERED: AMIODARONE 200 MG TAB PO ONE (10:00)
--- NOTE | 2016-12-19 10:04 | Hospitalist Progress Note ---
Hospitalist Progress Note Date of Service Dec 19, 2016. (Rama Pinzon ., PA-C) Subjective Pt evaluation today including: conversation w/ patient, conversation w/ family ( at bedside), physical exam, chart review, lab review, conversation w/ tax credit leasing consultant (spoke with Dr. Martinez), review of inpatient medication list Pain: None PO Intake: Tolerating PO diet Voiding: no voiding problems Patient reports feeling better. She states that she still feels weak and fatigued. She reports new onset of shakiness in her extremities that began when she woke up this morning. She states that this has already improved somewhat since she first woke up. She also states that has difficulty taking deep breaths, as if her chest is tight. She reports a non-productive cough. The patient denies fevers, chills, sweats, chest pain, palpitations, claudication, wheezing, shortness of breath, nausea, vomiting, abdominal pain, dysuria, hematuria, urinary retention, paralysis, weakness, numbness and tingling. Additional Comments: See HPI for pertinent positives and negatives. All other systems reviewed and negative. (Rama Pinzon ., PA-C) Objective Vital Signs Date Time Temp Pulse Resp B/P Pulse Ox O2 Delivery O2 Flow Rate FiO2 12/19/16 07:50 36.9 76 18 120/70 91 Room Air 12/19/16 07:20 81 14 98 Nasal Cannula 2.0 12/19/16 04:00 Nasal Cannula 2.0 12/19/16 03:47 36.6 74 18 97/60 96 Nasal Cannula 2.0 12/19/16 02:26 73 14 87 Room Air 12/18/16 23:59 Room Air 12/18/16 23:27 36.9 76 18 111/74 90 Room Air 12/18/16 19:54 36.6 79 16 162/76 96 Room Air 12/18/16 19:52 36.5 70 18 111/73 93 Room Air 12/18/16 19:33 83 16 96 Room Air 12/18/16 17:02 36.7 74 16 113/72 93 Room Air 12/18/16 14:21 79 16 93 Room Air 12/18/16 14:00 79 24 116/84 98 Nasal Cannula 2.0 12/18/16 12:30 76 27 94 Nasal Cannula 2.0 12/18/16 12:00 85 28 133/76 95 12/18/16 11:30 94 Nasal Cannula 2.0 12/18/16 11:30 87 26 94 12/18/16 11:16 86 37 120/79 96 12/18/16 11:01 88 26 144/90 96 Nasal Cannula 2.0 12/18/16 11:00 90 29 95 12/18/16 10:16 83 30 145/87 97 12/18/16 10:00 84 24 143/76 95 Nasal Cannula 2.0 12/18/16 09:46 136 36 121/90 92 (Rama Pinzon, PA-C) Physical Exam General Appearance: WD/WN, no apparent distress, + obese (morbidly obese) Eyes: normal inspection, PERRL, EOMI ENT: normal ENT inspection, hearing grossly normal, pharynx normal Neck: supple, no JVD, trachea midline Respiratory/Chest: lungs clear, no respiratory distress, + decreased breath sounds, + pertinent finding (little air movement, tight) Cardiovascular: regular rate, rhythm, no gallop, no murmur Abdomen: normal bowel sounds, non tender, soft Extremities: non-tender, normal inspection, no pedal edema Neurologic/Psychiatric: alert, normal mood/affect, oriented x 3 Skin: normal color, warm/dry, no rash (Rama Pinzon ., PA-C) Laboratory Results Last 24 Hours Test 12/18/16 09:57 12/18/16 11:17 12/18/16 13:12 12/18/16 15:54 Activated Partial Thromboplast Time 34.5 SECONDS Partial Thromboplastin Ratio 1.3 Estimated Average Glucose 143 mg/dl Hemoglobin A1c 6.6 % Troponin I < 0.015 ng/ml Procalcitonin 0.07 ng/mL Bedside Glucose 139 mg/dl 115 mg/dl Urine Color DK YELLOW Urine Appearance CLEAR Urine pH 5.0 Urine Specific [place] 1.025 Urine Protein NEG Urine Glucose (UA) NEG Urine Ketones NEG Urine Occult Blood NEG Urine Nitrite NEG Urine Bilirubin 1+ Urine Urobilinogen NEG Urine Leukocyte Esterase NEG Test 12/18/16 17:14 12/18/16 20:21 12/19/16 01:15 12/19/16 06:34 Activated Partial Thromboplast Time 39.0 SECONDS 56.6 SECONDS Partial Thromboplastin Ratio 1.5 2.2 Bedside Glucose 148 mg/dl 123 mg/dl Test 12/19/16 06:46 White Blood Count 9.27 K/uL Red Blood Count 4.19 M/uL Hemoglobin 12.0 g/dL Hematocrit 35.6 % Mean Corpuscular Volume 85.0 fL Mean Corpuscular Hemoglobin 28.6 pg Mean Corpuscular Hemoglobin Concent 33.7 g/dl RDW Standard Deviation 42.8 fL RDW Coefficient of Variation 13.9 % Platelet Count 245 K/uL Mean Platelet Volume 10.0 fL Activated Partial Thromboplast Time 41.6 SECONDS Partial Thromboplastin Ratio 1.6 Sodium Level 141 mmol/L Potassium Level 3.3 mmol/L Chloride Level 106 mmol/L Carbon Dioxide Level 27 mmol/L Anion Gap 8.0 mmol/L Blood Urea Nitrogen 16 mg/dl Creatinine 0.74 mg/dl Est Creatinine Clear Calc Drug Dose 98.4 ml/min Estimated GFR () 96.5 Estimated GFR (Non- 83.2 BUN/Creatinine Ratio 21.5 Random Glucose 135 mg/dl Calcium Level 8.3 mg/dl Phosphorus Level 4.1 mg/dl Magnesium Level 2.3 mg/dl Procalcitonin 0.05 ng/mL (Rama Pinzon ., LALIC) Assessment and Plan 66 y/o female with a history of hypertension, hyperlipidemia, DM II, GERD and asthma presents to the ED with shortness of breath, fever and dry cough. Patient presented with fever, tachycardia and leukocytosis. CXR showed possible right lower lobe pneumonia as well as pulmonary vascular congestion. BNP elevated at 3112. V-fib/a-fib with RVR--patient with 3 second run of V. fib overnight (12/18) on telemetry, which then turned into A. fib with RVR with heart rate over 180. Period of torsades de pointes -Transferred to ICU 12/18. Pt then converted back to SR on amio drip, transferred back to telemetry on 12/18. No acute events overnight, remained in SR with HR in 70s with some PVCs -Repeat troponin was 0.025. 3rd troponin less than 0.015. -Magnesium 2.0 on 12/18, 2.3 on 12/19 -EKG showed atrial flutter with variable AV block, ST depressions in lateral leads -Patient received Lopressor 5 mg IV. HR decreased to 160s, but BP then dropped to 80s/50s. -Patient then given Cardizem IV total of 15 mg -Patient started on Cardizem drip per Dr. Jasso, recommended starting amiodarone if not responsive to Cardizem -Patient later started on amiodarone drip, patient did convert back to sinus rhythm around 10 am on 12/18 and remained sinus since -Cardiology consulted, appreciate recs: Pt will need anticoagulation indefinitely, may be flipping into afib at home without knowing. D/C amio drip , switch to oral amiodarone indefinitely. May start Eliquis on discharge. Recommend adding metoprolol succinate. Repeat echo prior to discharge as LVEF may improve when back in NSR. F/u with Dr. Martinez as an outpatient. -D/C amiodarone drip, start amiodarone 200 mg PO BID -D/C Lopressor, start Toprol 25 mg PO qd Sepsis secondary to ?RLL PNA--patient meets sepsis criteria with fever, tachycardia, leukocytosis and suspected source of infection -Influenza negative -CXR with bibasilar opacities, atelectasis versus PNA. Due to fevers and leukocytosis, treating for pneumonia -Repeat CXR on 12/19 shows no significant changes from 12/17 study -Levaquin discontinued due to prolonged QT interval. Will add to adverse reaction list as likely precipitated torsades/afib with RVR -Rocephin 1 g IV qd and doxycycline 100 mg IV BID. Day #3 of abx -DuoNebs QIDR -Start incentive spirometry -O2 by protocol -UA negative -Procalcitonin WNL -POC lactic acid WNL -Leukocytosis resolved. WBC 9.27 on 12/19, improved from 12.19. Likely new-onset CHF--normal stress echocardiogram in 2009 -Echo 12/18: * 1. Normal left ventricular size with mildly to moderately reduced systolic function. Estimated EF 40-45%. Global hypokinesis. Mild concentric left ventricular hypertrophy. * 2. Grossly normal right ventricular size with mildly reduced systolic function. * 3. The left atrium is mildly dilated. * 4. No significant valvular abnormalities visualized, but valves were not well visualized. * 5. Normal estimated right ventricular systolic pressure; 25 mmHg. * 6. Atrial fibrillation with rapid ventricular response. * 7. Technically difficult study, enhanced with IV Definity. * 8. Compared to prior study on 03/30/2010, LV systolic function is now reduced. -Repeat echo pending -Patient given Lasix 20 mg IV 1. She reports good urine output since -Daily weight -Strict I's and O's Hypokalemia--acute -Potassium 4.3 on 12/18 -Potassium now 3.3 on 12/19 -Given KCl 40 mEq PO x 1 -May be contributing to pt's complaints of shakiness? HTN--stable, last BP 120/70 -D/C amlodipine due to edema -Toprol as above -BP somewhat labile, consider restarting benazepril when more stable HLD -Continue pravastatin 40 mg PO qd Diabetes mellitus type 2--last hemoglobin A1c checked 08/08/16 was 6.3 -Insulin sliding scale -Check BSGs q ac and qhs -HgbA1c 6.6 on 12/18 DVT prophylaxis -Heparin drip, may switch to NOAC after burt out options with Nurse Navigator -MARSHALL garcia and Matthew Code Status -Level I, FULL RESUSCITATION STATUS This chart was completed in part utilizing [employer] Voice Recognition software. Attempts were made to minimize the grammatical errors, random word insertions, pronoun errors and incomplete sentences. Any formal questions or concerns about the content, text or information contained within the body of this dictation should be directly addressed to the provider for clarification. (Rama Pinzon ., PA-C) I agree with PA assessment and plan and have seen and examined pt myself Resting comfortably in bed States tremors this AM but improved No palpitations or shortness of breath CVS: RRR, no m/r/g Stop IV amio and start PO, start on metoprolol succinate Repeat ECHO pending Appreciate cardiology recs (Gerhard Lopez D.O.)
[2016-12-19] MEDS: DOXYCYCLINE IV 100 MG in DEXTROSE 5% 100ML 100 ML IV SCH ×2 (10:17→20:57)
[2016-12-19] MEDS: METOPROLOL SUCC 25MG EXT REL TAB PO SCH (10:17)
[2016-12-19 14:31] LABS: PARTIAL THROMBOPLASTIN RATIO 1.9
[2016-12-19] MEDS: AMIODARONE 200 MG TAB PO SCH (16:38)
[2016-12-20] MEDS: HEPARIN 25,000 UNIT/500ML D5W 500 ML IV PRN (01:15)
[2016-12-20 02:41] VITALS: PULSE 81; O2SAT 98
[2016-12-20] MEDS: ALBUT/IPRATROP 3MG/0.5MG NEB 3 ML VIAL INH SCH ×3 (02:41→14:17)
[2016-12-20 03:41] VITALS: BP 113/55; PULSE 87; TEMP 36.6; O2SAT 95
[2016-12-20 06:28] LABS: HEMATOCRIT 34.5 % (37-47); MEAN CELL VOLUME 85.6 fL (80-100); MEAN CORPUSCULAR HGB CONC 32.8 g/dl (32-36); MEAN PLATELET VOLUME 9.5 fL (7.4-10.4); PLATELET COUNT 255 K/uL (130-400); RED BLOOD COUNT 4.03 M/uL (4.2-5.4); WHITE BLOOD COUNT 8.37 K/uL (4.8-10.8)
[2016-12-20 06:40] LABS: PARTIAL THROMBOPLASTIN RATIO 1.7
[2016-12-20] MEDS ORDERED: PERFLUTREN LIPID MICROSPHERE (DEFINITY) IV ONE (06:45)
[2016-12-20] MEDS: INSULIN ASPART 100 UNITS/ML 3 ML PEN SC SCH ×2 (07:00→12:15)
[2016-12-20 07:30] LABS: BUN/CREATININE RATIO 20.7 (10-20); CALCIUM 8.4 mg/dl (8.5-10.1); CREATININE 0.6 mg/dl (0.60-1.20); MAGNESIUM 2.3 mg/dl (1.8-2.4); POTASSIUM 3.7 mmol/L (3.5-5.1)
[2016-12-20] MEDS ORDERED: HEPARIN IV BOLUS 3,000 UNIT in SYRINGE 0 ML IV ONE (07:30)
[2016-12-20 07:33] VITALS: PULSE 78; O2SAT 93
[2016-12-20] MEDS: PRAVASTATIN SOD 40 MG TAB PO SCH (07:55)
[2016-12-20] MEDS: METOPROLOL SUCC 25MG EXT REL TAB PO SCH (07:55)
[2016-12-20] MEDS: CETIRIZINE HCL 10 MG TAB PO SCH (07:55)
[2016-12-20] MEDS: ASPIRIN 81 MG ECTAB PO SCH (07:55)
[2016-12-20] MEDS: AMIODARONE 200 MG TAB PO SCH (07:56)
[2016-12-20] MEDS: SODIUM CHLORIDE 0.65% NA SOLN 45 ML (OCEAN) SCH ×2 (08:01→12:15)
[2016-12-20 09:06] VITALS: BP 131/63; PULSE 86; TEMP 36.9; O2SAT 95
[2016-12-20] MEDS: CEFTRIAXONE SOD INJ 1 GM in DEXTROSE 5% ADD-VANTAGE 50ML 50 ML IV SCH (09:58)
[2016-12-20] MEDS ORDERED: RIVAROXABAN 20 MG TAB PO ONE (10:23)
[2016-12-20] MEDS: DOXYCYCLINE IV 100 MG in DEXTROSE 5% 100ML 100 ML IV SCH (10:41)
--- NOTE | 2016-12-20 10:46 | Medical Student: [facility] ---
Med Student Progress Note Date of Service Dec 20, 2016. Subjective Pt evaluation today including: conversation w/ patient, physical exam, lab review, review of studies Voiding: no voiding problems 66 year old female who presented to the ED on with RLL pneumonia, developed atrial fibrillation with RVR on 12/18, currently in normal sinus rhythm. No acute events overnight. Says her cough and breathing are "good." Her energy is improved. She still has not had a bowel movement since her admission. She was given milk of magnesium this morning and plans to walk around [place] this afternoon to "Get things moving." Denies chest pain, shortness of breath, palpitations, productive cough, and fever. She would like to know what oral medication will be replacing her IV heparin. Review of Systems Constitutional: No chills, No fever Respiratory: No cough, No dyspnea at rest, No dyspnea on exertion, No shortness of breath, No sputum, No wheezing Cardiac: No chest pain, No palpitations Abdomen: + constipation, No diarrhea, No nausea, No pain, No vomiting Female : No dysuria, No hematuria, No incontinence, No urinary frequency Objective Vital Signs Date Time Temp Pulse Resp B/P Pulse Ox O2 Delivery O2 Flow Rate FiO2 12/20/16 09:06 36.9 86 18 131/63 95 12/20/16 07:33 78 14 93 Room Air 12/20/16 04:00 Room Air 12/20/16 03:41 36.6 87 19 113/55 95 Room Air 12/20/16 02:41 81 14 98 Room Air 12/19/16 23:59 Room Air 12/19/16 23:47 37.1 83 19 119/67 93 Room Air 12/19/16 20:00 Room Air 12/19/16 19:33 36.5 85 19 134/85 95 Room Air 12/19/16 19:16 98 14 96 Room Air 12/19/16 16:00 Room Air 12/19/16 15:39 36.8 80 18 118/74 92 Room Air 12/19/16 14:26 77 14 93 Room Air 12/19/16 12:18 Room Air 12/19/16 12:00 Nasal Cannula 2.0 12/19/16 11:43 37.1 76 18 117/64 95 Room Air Physical Exam General Appearance: WD/WN, + obese ENT: hearing grossly normal Respiratory/Chest: chest non-tender, lungs clear, normal breath sounds, no respiratory distress, no accessory muscle use Cardiovascular: regular rate, rhythm, no murmur Abdomen: normal bowel sounds, non tender, soft, no organomegaly, no pulsatile mass Extremities: + pedal edema (+1 bilaterally) Neurologic/Psychiatric: alert, normal mood/affect, oriented x 3 Skin: normal color, warm/dry, no rash Laboratory Results Last 24 Hours Test 12/19/16 11:19 12/19/16 14:01 12/19/16 16:08 12/19/16 20:53 Bedside Glucose 129 mg/dl 112 mg/dl 140 mg/dl Activated Partial Thromboplast Time 48.1 SECONDS Partial Thromboplastin Ratio 1.9 Test 12/20/16 06:08 12/20/16 06:28 White Blood Count 8.37 K/uL Red Blood Count 4.03 M/uL Hemoglobin 11.3 g/dL Hematocrit 34.5 % Mean Corpuscular Volume 85.6 fL Mean Corpuscular Hemoglobin 28.0 pg Mean Corpuscular Hemoglobin Concent 32.8 g/dl RDW Standard Deviation 42.4 fL RDW Coefficient of Variation 13.7 % Platelet Count 255 K/uL Mean Platelet Volume 9.5 fL Activated Partial Thromboplast Time 43.2 SECONDS Partial Thromboplastin Ratio 1.7 Sodium Level 143 mmol/L Potassium Level 3.7 mmol/L Chloride Level 109 mmol/L Carbon Dioxide Level 26 mmol/L Anion Gap 8.0 mmol/L Blood Urea Nitrogen 12 mg/dl Creatinine 0.60 mg/dl Est Creatinine Clear Calc Drug Dose 121.6 ml/min Estimated GFR () 108.5 Estimated GFR (Non- 93.7 BUN/Creatinine Ratio 20.7 Random Glucose 136 mg/dl Calcium Level 8.4 mg/dl Magnesium Level 2.3 mg/dl Bedside Glucose 126 mg/dl Assessment and Plan Assessment and Plan: ASSESSMENT 66 year old female who presented to the ED on with RLL pneumonia, developed atrial fibrillation with RVR on 12/18, currently in normal sinus rhythm. Patient was in sinus rhythm overnight with occasionally PACs and PVCs. Heart rates in the 70-80s. EKG at 8m showed normal sinus rhythm with prolonged QT, unchanged from 12/18. PLAN 1) RLL pneumonia with sepsis -Rocephin 1g IV and doxycycline 100mg BID. Day #4 of antibiotics. -Duonebs QIDR -incentive spirometry -Patient's O2 sat was 95%, currently no on oxygen -Chest xray on 12/19 did not show changes from 12/17. Repeat chest xray tomorrow. 2) Vfib/afib with RVR -Patient converted to sinus rhythm on 12/18. -EKG at 8am today showed NSR with prolonged QT, unchanged from 12/18. -Per cardiology consult: Patient will need indefinite anticoagulation. IV amiodarone was discharged and patient was started on oral amiodarone. Patient started in metoprolol succinate 25mg. -Patient will follow up with Dr. Rubio as outpatient. -Mg was 2.3 on 12/18. 3) New onset CHF -Echo on 12/18 EF was 40-45%. -Repeat echo this morning is pending. -Strict I/Os and daily weights. 4) Hypokalemia -Potassium is 3.7 today, up from 3.3 on 12/19 following 40mEq PO X1 on 12/19 5) Constipation -No bowel movement yet. -Continue miralax and milk of magnesium 6) Diabetes mellitus 2 -Hgb A1c 6.6 on 12/18 -Sliding scale insulin with BSG qac and qhs 7) Hypertension-D/C amlopdipine due to edema -Started on metoprolol succinate 25mg 8) Hyperlipidemia -Pravastatin 40mg 9) DVT prophylaxis -heparin drip -SCDs 10) Code status -full code
[2016-12-20 11:42] VITALS: BP 122/59; PULSE 74; TEMP 36.5; O2SAT 99
--- NOTE | 2016-12-20 13:37 | ECHOCARDIOGRAM REPORT ---
*NOTICE TO RECEIVING DEMOCRAT AGENCY This information is strictly Confidential and protected under [place] law. [place] law prohibits you from making any further disclosure of this information unless further disclosure is expressly permitted by the written consent of the person to whom it pertains or is authorized by law. A general authorization for the release of medical or other information is not sufficient for this purpose. Hospital accepts no responsibility if the information is made available to any other person, INCLUDING THE PATIENT. Interpretation Summary * Name: PHOEBE HUGO Study Date: 12/20/2016 06:53 AM BP: 113/55 mmHg * Patient Location: C.2T\S\E220\S\1 HR: 79 * : 1950 (M/d/yyy) Gender: Female Height: 65 in * Age: 66 yrs Ethnicity: CA Weight: 283 lb * Ordering Physician: Pradip Martinez * Referring Physician: Self, Referred * Performed By: Clau Victor RCS * * Reason For Study: Eval LV Systolic Function * BSA: 2.3 m2 * -- Conclusions -- * 1. Normal left ventricular size and systolic function. EF 55-60%. No regional wall motion abnormalities. Mild concentric left ventricular hypertrophy. * 2. Limited 2D echo as per request. * 3. Technically difficult study, enhanced with IV Definity. * 4. Compared to prior study on 12/18/2016, LV systolic function now appears normal. Rhythm is now sinus. Procedure Details * A contrast injection of Definity was performed to improve assessment of LV function. * Contrast was injected into an intravenous site in the left arm. * One vial of Definity ultrasound contrast was diluted in normal saline to a total volume of 10 ml. A total of '2' ml of solution was administered during imaging. * Lot # [id number] of Definity utilized for procedure. * Expiration date . * The attending nurse who injected the contrast agent was Denis Barragan RN. * A two-dimensional transthoracic echocardiogram was performed. * Limited views were obtained. Left Ventricle * Normal left ventricular size and systolic function. EF 55-60%. No regional wall motion abnormalities. Mild concentric left ventricular hypertrophy. Right Ventricle * The right ventricle is not well visualized. Atria * The left atrium is not well visualized. * Right atrium not well visualized. Mitral Valve * The mitral valve is not well visualized. Tricuspid Valve * The tricuspid valve is not well visualized. Aortic Valve * The aortic valve is not well visualized. Pulmonic Valve * The pulmonic valve is not well visualized. Great Vessels * The aortic root is not well visualized. Pericardium/Pleural * There is no pericardial effusion. Great Vessels * IVC not visualized. MMode 2D Measurements and Calculations IVSd 1.3 cm LVIDd 5.2 cm LVIDs 3.7 cm LVPWd 1.2 cm IVS/LVPW 1.0 FS 29.0 % EDV(Teich) 126.7 ml ESV(Teich) 56.6 ml EF(Teich) 55.3 % EDV(cubed) 136.7 ml ESV(cubed) 49.0 ml EF(cubed) 64.2 % LV mass(C)d 264.5 grams LV mass(C)dI 115.4 grams/m\S\2 CO(Teich) 5.4 l/min CI(Teich) 2.4 l/min/m\S\2 SV(Teich) 70.1 ml SI(Teich) 30.6 ml/m\S\2 CO(cubed) 6.8 l/min CI(cubed) 2.9 l/min/m\S\2 SV(cubed) 87.7 ml SI(cubed) 38.3 ml/m\S\2 LVAd ap4 49.2 cm\S\2 LVLd ap4 9.7 cm EDV(MOD-sp4) 208.8 ml EDV(sp4-el) 212.3 ml LVAs ap4 29.3 cm\S\2 LVLs ap4 8.3 cm ESV(MOD-sp4) 76.4 ml ESV(sp4-el) 76.8 ml EF(MOD-sp4) 63.4 % EF(sp4-el) 63.8 % LVAd ap2 53.4 cm\S\2 LVLd ap2 10.0 cm EDV(MOD-sp2) 245.0 ml EDV(sp2-el) 254.1 ml LVAs ap2 35.5 cm\S\2 LVLs ap2 9.6 cm ESV(MOD-sp2) 119.5 ml ESV(sp2-el) 119.9 ml EF(MOD-sp2) 51.2 % EF(sp2-el) 52.8 % LVLd %diff -3.80 % EDV(MOD-bp) 246.1 ml LVLs %diff 4.5 % ESV(MOD-bp) 94.1 ml EF(MOD-bp) 61.8 % CO(MOD-sp4) 10.2 l/min CI(MOD-sp4) 4.4 l/min/m\S\2 SV(MOD-sp4) 132.4 ml SI(MOD-sp4) 57.7 ml/m\S\2 CO(MOD-sp2) 9.7 l/min CI(MOD-sp2) 4.2 l/min/m\S\2 SV(MOD-sp2) 125.5 ml SI(MOD-sp2) 54.7 ml/m\S\2 CO(MOD-bp) 11.7 l/min CI(MOD-bp) 5.1 l/min/m\S\2 SV(MOD-bp) 152.0 ml SI(MOD-bp) 66.3 ml/m\S\2 CO(sp4-el) 10.4 l/min CI(sp4-el) 4.6 l/min/m\S\2 SV(sp4-el) 135.5 ml SI(sp4-el) 59.1 ml/m\S\2 CO(sp2-el) 10.3 l/min CI(sp2-el) 4.5 l/min/m\S\2 SV(sp2-el) 134.2 ml SI(sp2-el) 58.5 ml/m\S\2
[2016-12-20] MEDS ORDERED: XRL20 PO (13:55)
[2016-12-20] MEDS ORDERED: TPRSR25 PO (13:55)
[2016-12-20] MEDS ORDERED: CRD200 PO (13:55)
[2016-12-20] MEDS ORDERED: DXY100 PO (13:55)
--- NOTE | 2016-12-20 13:58 | Discharge Instructions ---
Discharge Instructions Date of Service Dec 20, 2016. Admission Reason for Admission: Chf, Pna Discharge Discharge Diagnosis / Problem: Atrial fibrillation, Pneumonia Discharge Goals Goal(s): Decrease discomfort, Improve function, Increase independence, Improve disease control, Learn about illness, Diagnostic testing, Therapeutic intervention Activity Recommendations Activity Limitations: resume your previous activity Exercise/Sports Limitations: none . Instructions / Follow-Up Instructions / Follow-Up Patient to be discharged home Repeat ECHO improved from prior Please take new medications xarelto 20 mg tablet once a day and metoprolol succinate 25 mg once daily and amiodarone 200 mg twice daily and antibiotic doxycycline 100 mg by mouth twice a day for 4 more days Prescriptions sent to pharmacy Follow up with Dr. Burrows in 1-2 weeks Follow up with Dr. Tucker in 1-2 weeks Current Hospital Diet Patient's current hospital diet: AHA Diet (Heart Healthy), Diabetes Type 2 Diet Discharge Diet Recommended Diet: AHA Diet (Heart Healthy), Diabetes Type 2 Diet Pending Studies Studies pending at discharge: no Laboratory Results Hemoglobin A1c Test 12/18/16 09:57 Range/Units Estimated Average Glucose 143 mg/dl Hemoglobin A1c 6.6 H 4.5-5.6 % Medical Emergencies . Who to Call and When: Medical Emergencies: If at any time you feel your situation is an emergency, please call 911 immediately. . Non-Emergent Contact Non-Emergency issues call your: Primary Care Provider Call Non-Emergent contact if: you have a fever . . "Provider Documentation" section prepared by Gerhard Lopez. . VTE Core Measure Inpt VTE Proph given/why not?: Unfractionated heparin SQ
[2016-12-20 14:03] VITALS: BP 122/59; PULSE 74; TEMP 36.5; O2SAT 99
--- NOTE | 2016-12-20 14:05 | Discharge Summary ---
Discharge Summary Date of Service Dec 20, 2016. Discharge Summary Admission Date: Dec 17, 2016 at 22:45 Discharge Date: Dec 20, 2016 Discharge Disposition: Home Principal Diagnosis: Atrial fibrillation, PNA Immunizations: Have You Had Influenza Vaccine: Yes Influenza Vaccine Date: Jul 07, 2009 History of Tetanus Vaccine?: Yes Tetanus Immunization Date: Mar 30, 2010 History of Pneumococcal: Yes Pneumococcal Date: Feb 11, 2009 History of Hepatitis B Vaccine: Unknown Consultations: Cardiology Medication Reconciliation New Medications: Doxycycline Hyclate (Doxycycline Hyclate) 100 Mg Cap 100 MG PO BID for 4 Days, #8 TABS Amiodarone HCl (Amiodarone HCl) 200 Mg Tab 200 MG PO BID17 for 30 Days, #60 TAB Metoprolol Succinate (Metoprolol Succinate ER) 25 Mg Tabcr 25 MG PO QAM for 30 Days, #30 TABS Rivaroxaban (Xarelto) 20 Mg Tab 20 MG PO DAILY for 30 Days, #30 TAB Continued Medications: Aspirin Enteric Coated (Ecotrin Or Generic) 81 Mg Tab 81 MG PO DAILY, TAB Cetirizine (Zyrtec) 10 Mg Tab 10 MG PO DAILY, TAB Coenzyme Q10 (Ubidecarenone) (Coenzyme Q-10) 200 Mg Cap 200 MG PO DAILY Ergocalciferol (Vitamin D 92645 Unit) 50,000 Unit Cap 80556 UNIT PO A1QBSTO, CAP [place]-3 Fatty Acids ([place] 3) 1 Cap Cap 1 CAP PO DAILY Polyethylene Glycol 3350 (Bulk (Polyethylene Glycol 3350) 1 Pow Pow 1 DOSE PO BID PRN for Constipation TAKE 1 CAPFUL IN 8 OZ OF JUICE TWICE A DAY Pravastatin Sodium (Pravastatin Sodium) 40 Mg Tab 40 MG PO QAM, #90 Saline ([place] Nasal Ruby) 0.65 % Spr 2 SPRAYS QID NEEDED Turmeric (Curcuma Longa) (Turmeric) 450 Mg Cap 450 MG PO DAILY Discontinued Medications: Amlodipine/Benazepril (Lotrel 5MG/20MG) 5 Mg/20 Mg Cap 1 CAP PO DAILY, CAP Discharge Exam Review of Systems: Constitutional: No chills, No fever Respiratory: No cough, No sputum Cardiovascular: No chest pain, No orthopnea Abdomen: No diarrhea, No nausea, No pain, No vomiting Musculoskeletal: No joint pain, No muscle pain Genitourinary - Female: No dysuria, No urinary frequency, No urinary urgency Neurologic: No paralysis, No weakness Integumentary: No itch, No rash Physical Exam: General Appearance: WD/WN, no apparent distress Neck: supple, no adenopathy Respiratory/Chest: chest non-tender, lungs clear, normal breath sounds Cardiovascular: regular rate, rhythm, no edema, no gallop Abdomen / GI: non tender, soft Neurologic/Psychiatric: alert, oriented x 3 Hospital Course 66 y/o female with a history of hypertension, hyperlipidemia, DM II, GERD and asthma presents to the ED with shortness of breath, fever and dry cough. Patient presented with fever, tachycardia and leukocytosis. CXR showed possible right lower lobe pneumonia as well as pulmonary vascular congestion. BNP elevated at 3112. V-fib/a-fib with RVR--patient with 3 second run of V. fib (12/18) on telemetry, which then turned into A. fib with RVR with heart rate over 180. Period of torsades de pointes -Transferred to ICU 12/18. Pt then converted back to SR on amio drip, transferred back to telemetry on 12/18. Remained in SR with HR in 70s with some PVCs -Repeat troponin was 0.025. 3rd troponin less than 0.015. -EKG showed atrial flutter with variable AV block, ST depressions in lateral leads -Patient received Lopressor 5 mg IV. HR decreased to 160s, but BP then dropped to 80s/50s. -Patient then given Cardizem IV total of 15 mg -Patient started on Cardizem drip per Dr. Jasso, recommended starting amiodarone if not responsive to Cardizem -Patient later started on amiodarone drip, patient did convert back to sinus rhythm around 10 am on 12/18 and remained sinus since -Cardiology consulted, appreciate recs: Pt will need anticoagulation indefinitely, may be flipping into afib at home without knowing. D/C amio drip , switch to oral amiodarone indefinitely. May start xarelto on discharge. Cont metoprolol succinate on discharge. Repeat echo prior to discharge determined preserved LVEF, no WMA. F/u with Dr. Martinez as an outpatient. Sepsis secondary to ?RLL PNA--patient meets sepsis criteria with fever, tachycardia, leukocytosis and suspected source of infection -Influenza negative -CXR with bibasilar opacities, atelectasis versus PNA. Due to fevers and leukocytosis, treating for pneumonia -Repeat CXR on 12/19 shows no significant changes from 12/17 study -Levaquin discontinued due to prolonged QT interval. Will add to adverse reaction list as likely precipitated torsades/afib with RVR -Rocephin 1 g IV qd and doxycycline 100 mg IV BID. Cont on doxycycline only for discharge for 4 more days -DuoNebs QIDR -Start incentive spirometry -Leukocytosis resolved. WBC 9.27 on 12/19, improved from 12.19. Chronic diastolic CHF -Echo 12/18: * 1. Normal left ventricular size with mildly to moderately reduced systolic function. Estimated EF 40-45%. Global hypokinesis. Mild concentric left ventricular hypertrophy. * 2. Grossly normal right ventricular size with mildly reduced systolic function. * 3. The left atrium is mildly dilated. * 4. No significant valvular abnormalities visualized, but valves were not well visualized. * 5. Normal estimated right ventricular systolic pressure; 25 mmHg. * 6. Atrial fibrillation with rapid ventricular response. * 7. Technically difficult study, enhanced with IV Definity. * 8. Compared to prior study on 03/30/2010, LV systolic function is now reduced. -Repeat ECHO 12/20 Normal left ventricular size and systolic function. EF 55-60% . No regional wall motion abnormalities. Mild concentric left ventricular hypertrophy. -Daily weight -Strict I's and O's Hypokalemia--replace PRN HTN--stable, last BP 120/70 -D/C amlodipine due to edema -Toprol as above, DC lotrel due to hypotension HLD -Continue pravastatin 40 mg PO qd Diabetes mellitus type 2--last hemoglobin A1c checked 08/08/16 was 6.3 -Insulin sliding scale -Check BSGs q ac and qhs -HgbA1c 6.6 on 12/18 DVT prophylaxis -Heparin drip, may switch to NOAC after burt out options with Nurse Navigator -MARSHALL Livingston Code Status -Level I, FULL RESUSCITATION STATUS Total Time Spent: Greater than 30 minutes This includes examination of the patient, discharge planning, medication reconciliation, and communication with other providers. Discharge Instructions Please refer to the electronic Patient Visit Report (Discharge Instructions) for additional information. Additional Copies To Edgar Tucker M.D.
--- NOTE | 2016-12-20 15:28 | CARDIOLOGY PROGRESS NOTE ---
DATE: 12/20/2016 SUBJECTIVE: Ms. Hendricks was seen prior to discharge today. She denied chest pain, shortness of breath, syncope, near syncope, palpitations or bleeding. She was feeling well and happy to be going home today. OBJECTIVE: VITAL SIGNS: Temperature 36.5 degrees, heart rate 74 beats per minute, respiration rate 18, blood pressure 122/59 mmHg, oxygen saturation 99% on room air. I's and O's negative 210 mL yesterday, weight is 129.1 kg. GENERAL: No acute distress. She is alert. NECK: No appreciable JVD. CARDIAC EXAM: No ventricular heave, regular. Normal S1, S2. 1/6 early peaking systolic ejection murmur best heard at the right upper sternal border. No rubs or gallops. LUNGS: Clear to auscultation bilaterally without wheezes, rales or rhonchi. ABDOMEN: Soft, nontender, nondistended. Normoactive bowel sounds. EXTREMITIES: No cyanosis or pitting edema. PSYCHIATRIC: Affect appears appropriate. MEDICATIONS: Include amiodarone 200 mg p.o. b.i.d., aspirin 81 mg daily, ceftriaxone, doxycycline, heparin drip, metoprolol succinate 25 mg daily, pravastatin 40 mg daily, and after heparin drip was discontinued, Xarelto 20 mg daily. LABORATORY DATA: White blood cell count 8.37, hemoglobin 11.3, platelets 255. Sodium 143, potassium 3.7, BUN 12, creatinine 0.6, magnesium 2.3. PTT was 43.2. Telemetry was personally reviewed. She remained in sinus rhythm. ECHOCARDIOGRAM: Limited echocardiogram done today, personally reviewed. LV systolic function was normal with an EF of 55% to 60%. LV systolic function improved and now appears normal compared to 12/18/2016. ECG performed this morning personally reviewed. Sinus rhythm at 78 beats per minute. QT interval approximately 440 milliseconds. ASSESSMENT AND PLAN: 1. Torsades de pointes: Likely due to Levaquin, that was then discontinued. She has not had any further issues. Her QT is mildly prolonged while on amiodarone. Monitor this over time. Avoid fluoroquinolones in the future. 2. Atrial fibrillation/flutter with rapid ventricular response: She converted while on amiodarone. She was asymptomatic, although heart rates were up to 170 beats per minute. Continue rhythm control strategy for now. Monitor thyroid stimulating hormone, liver function tests and pulmonary function tests over time. She is on Xarelto for stroke risk reduction. Eliquis was too expensive for her. 3. Hypertension: Amlodipine has caused edema and therefore would not continue this upon discharge. Continue metoprolol succinate. Can resume angiotensin-converting enzyme inhibitor if appropriate. 4. Cardiomyopathy: Left ventricular systolic function improved. Her decreased left ventricular systolic function was likely due to the fact that she was so tachycardic with her atrial fibrillation. Now that she is in sinus rhythm with a reasonable heart rate, her left ventricular systolic function appears normal. 5. Chronic diastolic congestive heart failure: She appears euvolemic. She has not required regular diuretic therapy here, can use as necessary. Low sodium diet. 6. Pneumonia: As per primary service. 7. Disposition: Follow up in cardiology upon discharge. The patient's care has been discussed with Dr. Lopez of the primary service. CLARA
[2016-12-21] MEDS ORDERED: RIVAROXABAN 20 MG TAB PO SCH (09:00)
== END 2016-12-20 14:59 | disposition home or self-care (01) | DRG 871 ==
LOC: ENRESERVTM → ENRESERVDT → C.EDB 19:36 → C.2T 22:45 → C.MSICU 12-18 03:20 → C.2E 12-18 14:06 → C.MSICU 12-18 14:06 → C.2T 12-18 16:05
PROVIDERS: ADMIT Internal Medicine; ATTEND Hospitalist
DX: A41.9 Sepsis, unspecified organism (principal); J96.01 Acute respiratory failure with hypoxia; I50.23 Acute on chronic systolic (congestive) heart failure; J18.9 Pneumonia, unspecified organism; I49.01 Ventricular fibrillation; I47.2 Ventricular tachycardia; I42.9 Cardiomyopathy, unspecified; I48.92 Unspecified atrial flutter; Z68.42 Body mass index [BMI] 45.0-49.9, adult; I48.91 Unspecified atrial fibrillation; J45.909 Unspecified asthma, uncomplicated; E78.5 Hyperlipidemia, unspecified; E87.6 Hypokalemia; K21.9 Gastro-esophageal reflux disease without esophagitis; I49.3 Ventricular premature depolarization; E66.9 Obesity, unspecified; E11.9 Type 2 diabetes mellitus without complications; I49.1 Atrial premature depolarization; R79.89 Other specified abnormal findings of blood chemistry; T37.8X5A Adverse effect of other specified systemic anti-infectives and antiparasitics, initial encounter; Y92.239 Unspecified place in hospital as the place of occurrence of the external cause; I45.81 Long QT syndrome; D72.829 Elevated white blood cell count, unspecified; I11.0 Hypertensive heart disease with heart failure; Z79.899 Other long term (current) drug therapy; Z79.82 Long term (current) use of aspirin; Z85.05 Personal history of malignant neoplasm of liver

== ENCOUNTER → 2017-02-01 | Outpatient (CLI) | payer OTHER ==
[~2017-02-01] MED LIST changes: +AMIO200T4 PO; -ASPEC81 PO; +ASPI325T39 PO; +ASPI81TA21 PO; +CETI10TA84 PO; +COEN200C PO; -COENZYME Q PO; +CRD200 PO; +DXY100 PO; +ERGO500037 PO; -LSN/2025 PO; -METF850T9 PO; -NIAC1TAB54 PO; -PRAV20TA2 PO; +PRAV40TA2 PO; -PSYL48.59 PO; +RIVA1TAB4 PO; +SULF800T23 PO; +TPRSR25 PO; +TRIA37.5 PO; +XRL20 PO
[2017-02-01 13:33] LABS: ALT/SGPT 18 U/L (12-78)
== END | disposition home or self-care (01) ==
LOC: C.LABMFLN 08:56
PROVIDERS: ATTEND Family Medicine
DX: E11.9 Type 2 diabetes mellitus without complications (principal); I10 Essential (primary) hypertension; E55.9 Vitamin D deficiency, unspecified

== ENCOUNTER 2017-02-05 10:02 | Emergency (ER) | payer OTHER ==
[~2017-02-05] VITALS: Ht 165.1 cm; Wt 124.2 kg
[~2017-02-05 10:02] MED LIST changes: -AMIO200T4 PO; -ASPI325T39 PO; -RIVA1TAB4 PO; -SULF800T23 PO; -TRIA37.5 PO
[2017-02-05 10:14] VITALS: TEMP 36.6; Ht 165.1 cm; Wt 124.2 kg
[2017-02-05] MEDS: SODIUM CHLORIDE 0.9% 1000ML 1,000 ML IV ONE ×2 (10:34→11:22)
[2017-02-05] MEDS ORDERED: ACETAMINOPHEN 500 MG TAB PO STA (10:35)
[2017-02-05] MEDS ORDERED: AMIO200T4 PO (10:42)
[2017-02-05] MEDS ORDERED: ASPI325T39 PO (10:47)
--- NOTE | 2017-02-05 11:01 | EMERGENCY ROOM VISIT NOTE ---
History Report prepared by Ana: Kendra Sadler Under the Supervision of: Dr. Ruben Lopez M.D. First contact with patient: 10:25 Chief Complaint: ILLNESS Stated Complaint: ACHES, PERSPIRATION History of Present Illness The patient is a 66 year old female who presents to the Emergency Room with complaints of a worsening illness for the past 3 days. She has been experiencing fevers with a temperature around 101.7. She has been feeling "wobbly" and generally achy all over. states that she spent most of the weekend in bed. She has not had much of an appetite and has not been eating much. The patient reports some diarrhea that started once she arrived in the ED today. She denies nausea, vomiting, abdominal pain, and cough. The patient is on Xarelto and took two aspirin last night for her pain. She has not taken any Tylenol. She was sent to the ED by Dr. Russell. Source of History: patient, spouse/significant other Onset: 3 days ago Position: other (global) Quality: ache Timing: worsening Associated Symptoms: + fevers, + diarrhea, No cough, No nausea, No vomiting , No abdominal pain Review of Systems See HPI for pertinent positives & negatives. A total of 10 systems reviewed and were otherwise negative. Past Medical & Surgical Medical Problems: (1) CHF (congestive heart failure) (2) History of diabetes mellitus (3) History of hypertension Family History FH: emphysema FATHER Stroke MOTHER SISTER Social History Smoking Status: Never Smoker Marital Status: Housing Status: lives with significant other Occupation Status: employed Current/Historical Medications Scheduled Amiodarone Hcl (Cordarone), 200 MG PO DAILY Aspirin (Aspirin Ec), 650 MG PO PM Aspirin Enteric Coated (Ecotrin Or Generic), 81 MG PO DAILY Cetirizine (Zyrtec), 10 MG PO DAILY Coenzyme Q10 (Ubidecarenone) (Coenzyme Q-10), 200 MG PO DAILY Ergocalciferol (Vitamin D 46120 Unit), 50,000 UNIT PO [id number] Metoprolol Succinate (Metoprolol Succinate ER), 25 MG PO QAM [place]-3 Fatty Acids ([place] 3), 1 CAP PO DAILY Pravastatin Sodium (Pravastatin Sodium), 40 MG PO QAM Rivaroxaban (Xarelto), 20 MG PO DAILY Saline ([place] Nasal [place]), 2 SPRAYS QID Sulfa/Trimethoprim (Bactrim Ds 800MG/160MG), 1 TAB PO BID Turmeric (Curcuma Longa) (Turmeric), 450 MG PO DAILY Scheduled PRN Polyethylene Glycol 3350 (Bulk (Polyethylene Glycol 3350), 1 DOSE PO BID PRN for Constipation Allergies Coded Allergies: Codeine (Verified Allergy, Unknown, 02/05/17) Tramadol (Unverified Allergy, Unknown, HIVES, 02/05/17) Levofloxacin (Verified Adverse Reaction, Severe, SHORTNESS OF BREATH, ) TORSADES/AFIB WITH RVR Physical Exam Vital Signs Date Time Temp Pulse Resp B/P (MAP) Pulse Ox O2 Delivery O2 Flow Rate FiO2 02/05/17 17:17 83 19 117/70 02/05/17 15:55 73 19 125/64 94 02/05/17 13:57 76 18 121/66 95 Room Air 02/05/17 13:27 74 02/05/17 13:23 79 17 116/65 97 02/05/17 11:50 79 20 108/60 93 Room Air 02/05/17 11:24 94 Room Air 02/05/17 11:15 83 02/05/17 10:14 36.6 76 20 85/51 97 Room Air Physical Exam GENERAL: Patient is a healthy-appearing well-nourished 66 year old female. HEAD: Normocephalic atraumatic EYES: Ocular movements intact pupils equal and react to light OROPHARYNX mucous membranes are moist no exudates present no erythema or edema present NECK: Supple no nuchal rigidity CHEST: Good equal expansion LUNGS: Clear and equal to auscultation CARDIAC: Normal S1 and S2 ABDOMEN: Soft nontender no guarding BACK: No CVA tenderness EXTREMITIES: No pain upon palpation normal muscle strength in all groups no clubbing cyanosis or edema NEURO: Patient is following commands is answering questions appropriately. Alert and oriented x3 Cranial Nerves 2-12 grossly intact Medical Decision & Procedures ER Provider Diagnostic Interpretation: Radiology results as stated below per my review and radiologist interpretation: CHEST ONE VIEW PORTABLE CLINICAL HISTORY: Sepsis COMPARISON STUDY: 12/19/2016 FINDINGS: The cardiac and mediastinal contours are normal. There is no evidence of focal pulmonary consolidation. There is no evidence of failure. No pleural effusions are visualized.[ IMPRESSION: No active disease in the chest. Electronically signed by: Nish Pozo M.D. 02/05/2017 11:18 AM Dictated Date/Time: 02/05/2017 11:18 AM Laboratory Results 02/05/17 11:00 Red Blood Count 5.20, Mean Corpuscular Volume 84.2, Mean Corpuscular Hemoglobin 28.5, Mean Corpuscular Hemoglobin Concent 33.8, Mean Platelet Volume 10.0, Neutrophils (%) (Auto) 68.5, Lymphocytes (%) (Auto) 19.4, Monocytes (%) (Auto) 11.5, Eosinophils (%) (Auto) 0.0, Basophils (%) (Auto) 0.3, Neutrophils # (Auto ) 2.08, Lymphocytes # (Auto) 0.59, Monocytes # (Auto) 0.35, Eosinophils # (Auto ) 0.00, Basophils # (Auto) 0.01 02/05/17 12:45 02/05/17 11:00 Test 02/05/17 11:00 02/05/17 11:07 02/05/17 11:20 02/05/17 12:45 White Blood Count 3.04 K/uL (4.8-10.8) Red Blood Count 5.20 M/uL (4.2-5.4) Hemoglobin 14.8 g/dL (12.0-16.0) Hematocrit 43.8 % (37-47) Mean Corpuscular Volume 84.2 fL (80-100) Mean Corpuscular Hemoglobin 28.5 pg (25-34) Mean Corpuscular Hemoglobin Concent 33.8 g/dl (32-36) Platelet Count K/uL (130-400) Mean Platelet Volume 10.0 fL (7.4-10.4) Neutrophils (%) (Auto) 68.5 % Lymphocytes (%) (Auto) 19.4 % Monocytes (%) (Auto) 11.5 % Eosinophils (%) (Auto) 0.0 % Basophils (%) (Auto) 0.3 % Neutrophils # (Auto) 2.08 K/uL (1.4-6.5) Lymphocytes # (Auto) 0.59 K/uL (1.2-3.4) Monocytes # (Auto) 0.35 K/uL (0.11-0.59) Eosinophils # (Auto) 0.00 K/uL (0-0.5) Basophils # (Auto) 0.01 K/uL (0-0.2) RDW Standard Deviation 42.2 fL (36.4-46.3) RDW Coefficient of Variation 13.8 % (11.5-14.5) Immature Granulocyte % (Auto) 0.3 % Immature Granulocyte # (Auto) 0.01 K/uL (0.00-0.02) Large Platelets 1+ Giant Platelets 1+ Prothrombin Time 16.3 SECONDS (9.0-12.0) Prothromb Time International Ratio 1.5 (0.9-1.1) Activated Partial Thromboplast Time 37.6 SECONDS (21.0-31.0) Partial Thromboplastin Ratio 1.4 Anion Gap 11.0 mmol/L (3-11) Est Creatinine Clear Calc Drug Dose 41.9 ml/min Estimated GFR () 35.3 Estimated GFR (Non- 30.5 BUN/Creatinine Ratio 18.2 (10-20) Calcium Level 9.5 mg/dl (8.5-10.1) Total Bilirubin 0.6 mg/dl (0.2-1) Aspartate Amino Transf (AST/SGOT) 74 U/L (15-37) Alanine Aminotransferase (ALT/SGPT) 74 U/L (12-78) Alkaline Phosphatase 74 U/L (45-117) Total Creatine Kinase 55 U/L (26-192) Creatine Kinase MB < 0.5 ng/ml (0.5-3.6) Creatine Kinase MB Ratio (0-3.0) Troponin I < 0.015 ng/ml (0-0.045) Total Protein 8.1 gm/dl (6.4-8.2) Albumin 3.4 gm/dl (3.4-5.0) Globulin 4.7 gm/dl (2.5-4.0) Albumin/Globulin Ratio 0.7 (0.9-2) Bedside Lactic Acid Venous 1.52 mmol/L (0.90-1.70) Influenza Type A (RT-PCR) Neg for Influ A (NEG) Influenza Type A Antigen Neg for Influ A (NEG) Influenza Type B Antigen Neg for Influ B (NEG) Influenza Type B (RT-PCR) Neg for Influ B (NEG) Platelet Estimate DECREASED Test 02/05/17 16:14 Urine Color DK YELLOW Urine Appearance TURBID (CLEAR) Urine pH 5.0 (4.5-7.5) Urine Specific [place] 1.022 (1.000-1.030) Urine Protein 1+ (NEG) Urine Glucose (UA) NEG (NEG) Urine Ketones TRACE (NEG) Urine Occult Blood NEG (NEG) Urine Nitrite NEG (NEG) Urine Bilirubin NEG (NEG) Urine Urobilinogen NEG (NEG) Urine Leukocyte Esterase TRACE (NEG) Urine WBC (Auto) 10-30 /hpf (0-5) Urine RBC (Auto) 10-30 /hpf (0-4) Urine Hyaline Casts (Auto) 1-5 /lpf (0-5) Urine Epithelial Cells (Auto) >30 /lpf (0-5) Urine Bacteria (Auto) NEG (NEG) Urine Renal Epithelial Cells /lpf (0-5) Urine Pathogenic Casts 5-10 GRANULAR CASTS /lpf (0) Labs reviewed by ED physician. Medications Administered Medications (Trade) Dose Ordered Sig/Candido Route Start Time Stop Time Status Last Admin Dose Admin Sodium Chloride 1,000 ml @ 999 mls/hr Q1H1M ONCE IV 02/05/17 10:34 02/05/17 11:34 DC 02/05/17 11:22 999 MLS/HR Acetaminophen (Tylenol Tab) 1,000 mg NOW STAT PO 02/05/17 10:35 02/05/17 10:36 DC 02/05/17 11:18 1,000 MG Sodium Chloride 1,000 ml @ 999 mls/hr Q1H1M STAT IV 02/05/17 12:53 02/05/17 13:53 DC 02/05/17 13:21 999 MLS/HR Ceftriaxone Sodium (Rocephin Inj) 1 gm NOW STAT IV 02/05/17 16:55 02/05/17 16:57 DC 02/05/17 17:18 1 GM Trimethoprim/ Sulfamethoxazole (Septra Ds 800/ 160MG Tab) 1 tab NOW STAT PO 02/05/17 16:55 02/05/17 16:57 DC 02/05/17 17:18 1 TAB ECG Indication: weakness Rate (beats per minute): 81 Rhythm: normal sinus Findings: no acute ischemic change, no ectopy ED Course 1025: Past medical records reviewed. The patient was evaluated in room A3. A complete history and physical examination was performed. 1034: NSS 1000 ml @ 999 mls/hr IV 1035: Tylenol tab 1000 mg PO 1253: NSS 1000 ml @ 999 mls/hr IV 1438: The patient gave a urine sample, but then defecated in it. 1527: The patient has not been able to give a second urine sample yet. 1655: Trimethoprim/Sulfamethoxazole 1 tab PO, Rocephin 1 gm IV 1656: I reassessed the patient at this time. She is feeling better and resting comfortably. I discussed the results and treatment plan with the patient. I answered all pertaining questions that she had. She expressed understanding and verbalized agreement. The patient will be discharged home. Medical Decision Etiologies such as metabolic, infection, hypo/hyperglycemia, electrolyte abnormalities, cardiac sources, intracerebral event, toxicologic, neurologic, as well as others were entertained. Medication Reconciliation: I attest that I have personally reviewed the patient' s current medication list. Blood Pressure Screening: Patient was found to have normal blood pressure on screening and does not require follow up. This is a 66-year-old female who presents emergency department complaining of generalized weakness. Based on the patient's complaints an IV was established, patient was given 2 L of fluid here in the emergency department. Repeat examination revealed improvement patient's symptoms. The patient was unable to provide a urine sample 6 hours in the emergency department where she has a normal CBC. Her creatinine is slightly bumped. Eventually the patient was able to give a urine sample which was concerning for a urinary tract infection. For this reason the patient was started on Rocephin and I feel can be safely discharged with Bactrim. I did encourage the patient to increase her fluid intake over the next 48 hours. Patient was in agreement with the treatment plan. Impression Primary Impression: Dehydration Additional Impression: UTI (urinary tract infection) Scribe Attestation The scribe's documentation has been prepared under my direction and personally reviewed by me in its entirety. I confirm that the note above accurately reflects all work, treatment, procedures, and medical decision making performed by me. Departure Information Dispostion Home / Self-Care Prescriptions Sulfa/Trimethoprim (Bactrim Ds 800MG/160MG) Tab 1 TAB PO BID for 10 Days, #20 TAB Prov: Ruben Lopez MD 02/05/17 Referrals No Doctor, Assigned (PCP) Edgar Tucker M.D. Forms HOME CARE DOCUMENTATION FORM, IMPORTANT VISIT INFORMATION, WORK / SCHOOL INSTRUCTIONS Patient Instructions ED Dehydration, ED UTI Cystitis Female, My [facility] Additional Instructions Increase fluids next 48 hours You were found to have an elevated blood pressure today (>120 sytolic or >90 diastolic). Per medicare guidelines, you need to follow up with this blood pressure screening with your Primary Care Physician (PCP). For a new PCP call [phone]. You have been examined and treated today on an emergency basis only. This is not a substitute for, or an effort to provide, complete comprehensive medical care. It is impossible to recognize and treat all injuries or illnesses in a single emergency department visit. It is therefore important that you follow up closely with Dr Tucker. Call as soon as possible for an appointment. Thank you for your time and consideration. I look forward to speaking with you again soon. Please don't hesitate to call us if you have any questions. Problem Qualifiers Additional Impression: UTI (urinary tract infection) Urinary tract infection type: acute cystitis Hematuria presence: with hematuria Qualified Codes: N30.01 - Acute cystitis with hematuria
--- NOTE | 2017-02-05 11:19 | DIAGNOSTIC IMAGING REPORT ---
CHEST ONE VIEW PORTABLE CLINICAL HISTORY: Sepsis COMPARISON STUDY: 12/19/2016 FINDINGS: The cardiac and mediastinal contours are normal. There is no evidence of focal pulmonary consolidation. There is no evidence of failure. No pleural effusions are visualized.[ IMPRESSION: No active disease in the chest. Electronically signed by: Nish Pozo M.D. 02/05/2017 11:18 AM Dictated Date/Time: 02/05/2017 11:18 AM
[2017-02-05 11:23] LABS: INR 1.5 (0.9-1.1); PARTIAL THROMBOPLASTIN RATIO 1.4; PROTHROMBIN TIME (PATIENT) 16.3 SECONDS (9.0-12.0)
[2017-02-05 11:24] VITALS: O2SAT 94
[2017-02-05 11:29] LABS: CALCIUM 9.5 mg/dl (8.5-10.1)
[2017-02-05 11:31] LABS: ALT/SGPT 74 U/L (12-78); BLOOD UREA NITROGEN 31 mg/dl (7-18); BUN/CREATININE RATIO 18.2 (10-20); CARBON DIOXIDE 24 mmol/L (21-32); CHLORIDE 104 mmol/L (98-107); GLUCOSE 127 mg/dl (70-99); POTASSIUM 4.1 mmol/L (3.5-5.1); SODIUM 139 mmol/L (136-145)
[2017-02-05 11:36] LABS: ALB/GLOB RATIO 0.7 (0.9-2); ALKALINE PHOSPHATASE 74 U/L (45-117); AST/SGOT 74 U/L (15-37)
[2017-02-05 11:54] LABS: HEMATOCRIT 43.8 % (37-47); MEAN CELL VOLUME 84.2 fL (80-100); MEAN CORPUSCULAR HEMOGLOBIN 28.5 pg (25-34); MEAN CORPUSCULAR HGB CONC 33.8 g/dl (32-36); WHITE BLOOD COUNT 3.04 K/uL (4.8-10.8)
[2017-02-05 12:51] LABS: BASO % 0.3 %; BASO ABS # 0.01 K/uL (0-0.2); COMPLETE YES; IG% 0.3 %; LYMPH % 19.4 %; LYMPH ABS # 0.59 K/uL (1.2-3.4); MONO % 11.5 %; NEUT % 68.5 %
[2017-02-05] MEDS ORDERED: SODIUM CHLORIDE 0.9% 1000ML 1,000 ML IV STA ×2 (12:53→15:35)
[2017-02-05 13:27] LABS: GIANT PLATELETS 1+; LARGE PLATELETS 1+
[2017-02-05 13:31] LABS: PLATELET COUNT 87 K/uL (130-400); PLT ESTIMATE DECREASED
[2017-02-05 13:54] LABS: INFLUENZA A PCR Neg for Influ A (NEG); INFLUENZA B PCR Neg for Influ B (NEG)
[2017-02-05 16:34] LABS: URINE APPEARANCE TURBID (CLEAR); URINE COLOR DK YELLOW; URINE EPITHELIAL CELL AUTO >30 /lpf (0-5); URINE NITRITE NEG (NEG); URINE SPECIFIC GRAVITY 1.022 (1.000-1.030); UROBILINOGEN NEG (NEG); ZZUR CULT IF INDIC CLEAN CATCH YES
[2017-02-05 16:37] LABS: REVIEW REQ? YES
[2017-02-05 16:38] LABS: MANUAL MICROSCOPIC REQUIRED? NO
[2017-02-05 16:45] LABS: URINE BILIRUBIN NEG (NEG)
[2017-02-05] MEDS ORDERED: CEFTRIAXONE SOD INJ 1 GM ADDVIAL IV STA (16:55)
[2017-02-05] MEDS ORDERED: SULFAMETHOXAZOLE/TRIMETHOPRIM DS 800/160MG TAB PO STA (16:55)
[2017-02-05 16:56] LABS: URINE PATH CASTS 5-10 GRANULAR CASTS /lpf (0)
[2017-02-05] MEDS ORDERED: SULF800T23 PO (17:01)
[2017-02-05 17:53] VITALS: BP 121/63; PULSE 81; O2SAT 97
== END 2017-02-05 18:10 | disposition home or self-care (01) ==
LOC: C.EDB 10:03 → C.EDA 18:10
DX: E86.0 Dehydration (principal); N39.0 Urinary tract infection, site not specified; I10 Essential (primary) hypertension; E11.9 Type 2 diabetes mellitus without complications; I51.9 Heart disease, unspecified; Z79.82 Long term (current) use of aspirin; Z79.84 Long term (current) use of oral hypoglycemic drugs; Z79.899 Other long term (current) drug therapy; Z88.5 Allergy status to narcotic agent; Z88.8 Allergy status to other drugs, medicaments and biological substances; Z82.3 Family history of stroke; Z79.01 Long term (current) use of anticoagulants

== ENCOUNTER → 2017-06-20 | Outpatient (CLI) | payer OTHER ==
[~2017-06-20] MED LIST changes: +AMIO200T4 PO; +ASPI325T39 PO; -CRD200 PO; -DXY100 PO
[2017-06-20 15:40] LABS: BASO % 0.2 %; BASO ABS # 0.02 K/uL (0-0.2); COMPLETE YES; EOS % 1.6 %; HEMATOCRIT 38.2 % (37-47); IG% 0.3 %; LYMPH % 17.9 %; LYMPH ABS # 1.96 K/uL (1.2-3.4); MEAN CELL VOLUME 84.7 fL (80-100); MEAN CORPUSCULAR HEMOGLOBIN 27.7 pg (25-34); MEAN CORPUSCULAR HGB CONC 32.7 g/dl (32-36); MEAN PLATELET VOLUME 9.4 fL (7.4-10.4); MONO % 6.5 %; NEUT % 73.5 %; PLATELET COUNT 269 K/uL (130-400); RED BLOOD COUNT 4.51 M/uL (4.2-5.4); WHITE BLOOD COUNT 10.96 K/uL (4.8-10.8)
--- NOTE | 2017-06-20 15:40 | DIAGNOSTIC IMAGING REPORT ---
CHEST 2 VIEWS ROUTINE HISTORY: CONGESTIVE HEART FAILURE, COUGH, ORTHOPNEA COMPARISON: Chest 02/05/2017. FINDINGS: The heart is normal in size. No pneumothorax. No pleural effusions. Mild central pulmonary vascular congestion without overt edema. No new focal lung consolidations to suggest pneumonia. IMPRESSION: Mild central pulmonary vascular congestion without overt edema. Electronically signed by: Kelvin Jimenez M.D. 06/20/2017 3:39 PM Dictated Date/Time: 06/20/2017 3:37 PM
[2017-06-20 16:13] LABS: BLOOD UREA NITROGEN 13 mg/dl (7-18); BUN/CREATININE RATIO 17.4 (10-20); CALCIUM 9.2 mg/dl (8.5-10.1); CARBON DIOXIDE 27 mmol/L (21-32); CHLORIDE 106 mmol/L (98-107); CREATININE 0.76 mg/dl (0.60-1.20); GLUCOSE 105 mg/dl (70-99); SODIUM 140 mmol/L (136-145)
[2017-06-21 06:17] LABS: ESTIMATED AVERAGE GLUCOSE 111 mg/dl; HA1C FLAG Normal (Normal)
== END | disposition home or self-care (01) ==
LOC: C.RAD 14:47
PROVIDERS: ATTEND Family Medicine
DX: I48.91 Unspecified atrial fibrillation (principal); I50.9 Heart failure, unspecified; R05 Cough; R06.01 Orthopnea; E11.9 Type 2 diabetes mellitus without complications; R09.89 Other specified symptoms and signs involving the circulatory and respiratory systems

== ENCOUNTER 2017-08-05 10:59 | Emergency (ER) | payer OTHER ==
[~2017-08-05] VITALS: Ht 165.1 cm; Wt 129.0 kg
[2017-08-05 11:09] VITALS: TEMP 37; Ht 165.1 cm; Wt 129.0 kg
[2017-08-05] MEDS ORDERED: ALBUT/IPRATROP 3MG/0.5MG NEB 3 ML VIAL INH STA (11:32)
[2017-08-05] MEDS ORDERED: METHYLPREDNISOLONE 125 MG VIAL IV STA (11:32)
[2017-08-05] MEDS ORDERED: RIVA1TAB4 PO (11:32)
--- NOTE | 2017-08-05 11:57 | DIAGNOSTIC IMAGING REPORT ---
SINGLE VIEW CHEST CLINICAL HISTORY: Dyspnea. FINDINGS: An AP, portable, upright chest radiograph is compared to study dated 06/20/2017 and correlated with chest CT dated 03/30/2010. The examination is degraded by portable technique and patient rotation. The cardiomediastinal heart is enlarged. Mild pulmonary vascular congestion is observed. Enlargement of the central pulmonary arteries suggests pulmonary artery hypertension. No airspace consolidation or large pleural effusion is identified. No pneumothorax is seen. The skeletal structures are osteopenic. The bony thorax is grossly intact. Degenerative change is seen throughout the thoracic spine. IMPRESSION: Cardiomegaly with evidence of mild congestive failure. Electronically signed by: Sravan Chapa M.D. 08/05/2017 11:56 AM Dictated Date/Time: 08/05/2017 11:55 AM
[2017-08-05 12:02] VITALS: O2SAT 97
[2017-08-05 12:22] LABS: URINE APPEARANCE CLEAR (CLEAR); URINE BILIRUBIN NEG (NEG); URINE COLOR YELLOW; URINE NITRITE NEG (NEG); URINE SPECIFIC GRAVITY 1.012 (1.000-1.030); UROBILINOGEN NEG (NEG)
[2017-08-05 12:24] LABS: MANUAL MICROSCOPIC REQUIRED? NO; REVIEW REQ? NO
[2017-08-05 12:31] LABS: BASO % 0.3 %; BASO ABS # 0.03 K/uL (0-0.2); COMPLETE YES; EOS % 2.1 %; HEMATOCRIT 38.7 % (37-47); IG% 0.3 %; LYMPH % 17.9 %; MEAN CELL VOLUME 87.8 fL (80-100); MEAN CORPUSCULAR HEMOGLOBIN 27.9 pg (25-34); MEAN CORPUSCULAR HGB CONC 31.8 g/dl (32-36); MEAN PLATELET VOLUME 9.6 fL (7.4-10.4); MONO % 5.5 %; NEUT % 73.9 %; PLATELET COUNT 276 K/uL (130-400); RED BLOOD COUNT 4.41 M/uL (4.2-5.4); WHITE BLOOD COUNT 10.08 K/uL (4.8-10.8)
[2017-08-05 12:35] LABS: INR 1.1 (0.9-1.1); PARTIAL THROMBOPLASTIN RATIO 1.2; PROTHROMBIN TIME (PATIENT) 12.3 SECONDS (9.0-12.0)
[2017-08-05 12:44] LABS: ALT/SGPT 21 U/L (12-78); AST/SGOT 11 U/L (15-37); BLOOD UREA NITROGEN 14 mg/dl (7-18); BUN/CREATININE RATIO 18.3 (10-20); CALCIUM 8.8 mg/dl (8.5-10.1); CARBON DIOXIDE 30 mmol/L (21-32); CHLORIDE 106 mmol/L (98-107); CREATININE 0.79 mg/dl (0.60-1.20); GLUCOSE 108 mg/dl (70-99); POTASSIUM 4.1 mmol/L (3.5-5.1); SODIUM 137 mmol/L (136-145)
[2017-08-05 12:49] LABS: ALB/GLOB RATIO 0.7 (0.9-2); ALKALINE PHOSPHATASE 77 U/L (45-117); CKMB/CK RATIO 1.4 (0-3.0)
[2017-08-05] MEDS ORDERED: OPTIRAY 320 IV PRN (13:00)
--- NOTE | 2017-08-05 13:50 | DIAGNOSTIC IMAGING REPORT ---
CT ANGIOGRAM OF THE CHEST CLINICAL HISTORY: Productive cough. COMPARISON STUDY: Chest radiograph dated 08/05/2017. Chest CT dated 03/30/2010. TECHNIQUE: Following the IV administration of 93 cc of Optiray 320, CT angiogram of the chest was performed from the upper abdomen to the thoracic inlet utilizing the pulmonary embolus protocol. Images are reviewed in the axial, sagittal, and coronal planes. 3-D MIPS images are created and assessed. IV contrast was administered without complication. A dose lowering technique was utilized adhering to the principles of ALARA. CT DOSE: 670.47 mGy.cm FINDINGS: Thyroid: Imaged portions of the thyroid gland are normal in size and attenuation. Thoracic aorta: There is mild atherosclerotic calcification of the thoracic aorta, which is normal in caliber and demonstrates standard 3-vessel arch anatomy. The aorta is not well opacified. Pulmonary vasculature: The main pulmonary arteries are dilated suggesting pulmonary artery hypertension. There are no filling defects identified in main, lobar, or segmental pulmonary branches to suggest pulmonary embolus. Heart: The heart is enlarged and without pericardial effusion. There are coronary artery calcifications. Reflux of contrast into the IVC and hepatic veins suggests cardiac dysfunction. Lungs and pleural spaces: There are small pleural effusions with bibasilar consolidation. Diffuse intralobular septal thickening is noted and there is mild nonspecific bronchial thickening. The trachea and central airways are clear. Trace fluid is seen along the major fissures. Mediastinum: There are numerous mildly enlarged mediastinal lymph nodes. These measure up to 12 mm short axis. Maya: There are numerous mildly enlarged hilar lymph nodes. These measure up to 11 mm in short axis. Axillae: There is no axillary lymphadenopathy. Upper abdomen: There is a small hiatal hernia. Partially visualized upper abdominal viscera is otherwise within normal limits. Skeletal structures: The Skeletal structures are osteopenic. No lytic or blastic bony lesions are seen. IMPRESSION: 1. There is no evidence of pulmonary embolus in the main, lobar, or segmental pulmonary arteries. 2. Cardiomegaly with evidence of congestive failure. 3. Small pleural effusions with bibasilar dependent consolidation. This likely represents atelectasis. Clinical correlation will be required. 4. Mildly enlarged mediastinal and hilar lymph nodes are likely on a reactive basis. Electronically signed by: Sravan Chapa M.D. 08/05/2017 1:48 PM Dictated Date/Time: 08/05/2017 1:43 PM
[2017-08-05] MEDS ORDERED: TRIAMTERENE/HCTZ 37.5/25MG CAP PO STA (15:41)
[2017-08-05] MEDS ORDERED: FUROSEMIDE 40 MG/4 ML VIAL IV STA (15:41)
[2017-08-05 16:02] VITALS: BP 159/76; PULSE 78; O2SAT 94
[2017-08-05] MEDS ORDERED: TRIA37.5 PO (16:17)
--- NOTE | 2017-08-05 18:44 | EMERGENCY ROOM VISIT NOTE ---
History Report prepared by Ana: Lakshmi Sánchez Under the Supervision of: Dr. Frank Negrete M.D. First contact with patient: 11:11 Chief Complaint: SHORTNESS OF BREATH Stated Complaint: SHORTNESS OF BREATH Nursing Triage Summary: here with c/o SOB for a month told she has CHF by PMD twice History of Present Illness The patient is a 66 year old female who presents to the Emergency Room with complaints of worsening shortness of breath starting two weeks ago. The patient reports that she went to [place] over [facility] for vacation and notes that they were having a Red Tide. She reports that this caused her breathing difficulties. She notes that she had an inhaler from being diagnosed with asthma years ago that she used and provided relief. The patient reports that her PCP says she has high blood pressure and congestive heart failure. She reports that she does not believe she does because the weight she put on was from being given fluids after a UTI. She states that she has not and will not take her Lisinopril, Lasix, or Potassium for this reason. She reports that it felt like she has Bronchitis. The patient complains of chest pain when she takes a deep breath. Pt denies LOC, headache, fevers, chills, diaphoresis, visual changes, neck pain , chest pain, nausea, vomiting, abdominal pain, back pain, melena, hematochezia , urinary symptoms, numbness, weakness, lymphadenopathy, rash, or other complaints. Source of History: patient Onset: two weeks ago Position: other (global) Quality: other (global) Timing: worsening Modifying Factors (Worsening): breathing Associated Symptoms: + chest pain Review of Systems See HPI for pertinent positives and negatives. A total of ten systems were reviewed and were otherwise negative. Past Medical & Surgical Medical Problems: (1) Atrial fibrillation (2) CHF (congestive heart failure) (3) Diabetes (4) History of diabetes mellitus (5) History of hypertension (6) Hypertension Family History FH: emphysema FATHER Stroke MOTHER SISTER Social History Smoking Status: Never Smoker Marital Status: Housing Status: lives with significant other Occupation Status: employed Current/Historical Medications Scheduled Amiodarone Hcl (Cordarone), 200 MG PO DAILY Coenzyme Q10 (Ubidecarenone) (Coenzyme Q-10), 200 MG PO DAILY Ergocalciferol (Vitamin D 46415 Unit), 50,000 UNIT PO [id number] Metoprolol Succinate (Metoprolol Succinate ER), 25 MG PO QAM Carnegie-3 Fatty Acids (Carnegie 3), 1 CAP PO DAILY Pravastatin Sodium (Pravastatin Sodium), 40 MG PO QAM Rivaroxaban (Xarelto), 20 MG PO QAM Triamterene/Hctz (Dyazide 37.5MG/25MG), 1 TAB PO DAILY Turmeric (Curcuma Longa) (Turmeric), 450 MG PO DAILY Scheduled PRN Polyethylene Glycol 3350 (Bulk (Polyethylene Glycol 3350), 1 DOSE PO BID PRN for Constipation Allergies Coded Allergies: Codeine (Verified Allergy, Unknown, 08/05/17) Tramadol (Unverified Allergy, Unknown, HIVES, 08/05/17) Levofloxacin (Verified Adverse Reaction, Severe, SHORTNESS OF BREATH, 08/05) TORSADES/AFIB WITH RVR Physical Exam Vital Signs Date Time Temp Pulse Resp B/P (MAP) Pulse Ox O2 Delivery O2 Flow Rate FiO2 08/05/17 16:02 78 20 159/76 94 Room Air 08/05/17 13:30 75 21 148/75 95 Room Air 08/05/17 12:22 72 08/05/17 12:02 97 Room Air 08/05/17 12:02 97 Room Air 08/05/17 11:23 96 Room Air 08/05/17 11:09 37.0 82 20 163/96 97 Room Air Physical Exam GENERAL: Awake, alert, well-appearing, in no distress HENT: Normocephalic, atraumatic. Oropharynx unremarkable. EYES: Normal conjunctiva. Sclera non-icteric. NECK: Supple. No nuchal rigidity. FROM. No JVD. RESPIRATORY: Clear to auscultation. Right sided pleuritic chest pain with a deep breath. CARDIAC: Regular rate, normal rhythm. Extremities warm and well perfused. Pulses equal. ABDOMEN: Soft, non-distended. No tenderness to palpation. No rebound or guarding. No masses. RECTAL: Deferred. MUSCULOSKELETAL: Chest examination reveals no tenderness. The back is symmetrical on inspection without obvious abnormality. There is no CVA tenderness to palpation. No joint edema. LOWER EXTREMITIES: Calves are equal size bilaterally and non-tender. No edema. No discoloration. NEURO: Normal sensorium. No sensory or motor deficits noted. SKIN: No rash or jaundice noted. Medical Decision & Procedures ER Provider Diagnostic Interpretation: Radiology results as stated below per my review and radiologist interpretation: SINGLE VIEW CHEST CLINICAL HISTORY: Dyspnea. FINDINGS: An AP, portable, upright chest radiograph is compared to study dated 06/20/2017 and correlated with chest CT dated 03/30/2010. The examination is degraded by portable technique and patient rotation. The cardiomediastinal heart is enlarged. Mild pulmonary vascular congestion is observed. Enlargement of the central pulmonary arteries suggests pulmonary artery hypertension. No airspace consolidation or large pleural effusion is identified. No pneumothorax is seen. The skeletal structures are osteopenic. The bony thorax is grossly intact. Degenerative change is seen throughout the thoracic spine. IMPRESSION: Cardiomegaly with evidence of mild congestive failure. Electronically signed by: Sravan Chapa M.D. 08/05/2017 11:56 AM Dictated Date/Time: 08/05/2017 11:[address] ANGIOGRAM OF THE CHEST CLINICAL HISTORY: Productive cough. COMPARISON STUDY: Chest radiograph dated 08/05/2017. Chest CT dated 03/30/2010. TECHNIQUE: Following the IV administration of 93 cc of Optiray 320, CT angiogram of the chest was performed from the upper abdomen to the thoracic inlet utilizing the pulmonary embolus protocol. Images are reviewed in the axial, sagittal, and coronal planes. 3-D MIPS images are created and assessed. IV contrast was administered without complication. A dose lowering technique was utilized adhering to the principles of ALARA. CT DOSE: 670.47 mGy.cm FINDINGS: Thyroid: Imaged portions of the thyroid gland are normal in size and attenuation. Thoracic aorta: There is mild atherosclerotic calcification of the thoracic aorta, which is normal in caliber and demonstrates standard 3-vessel arch anatomy. The aorta is not well opacified. Pulmonary vasculature: The main pulmonary arteries are dilated suggesting pulmonary artery hypertension. There are no filling defects identified in main, lobar, or segmental pulmonary branches to suggest pulmonary embolus. Heart: The heart is enlarged and without pericardial effusion. There are coronary artery calcifications. Reflux of contrast into the IVC and hepatic veins suggests cardiac dysfunction. Lungs and pleural spaces: There are small pleural effusions with bibasilar consolidation. Diffuse intralobular septal thickening is noted and there is mild nonspecific bronchial thickening. The trachea and central airways are clear. Trace fluid is seen along the major fissures. Mediastinum: There are numerous mildly enlarged mediastinal lymph nodes. These measure up to 12 mm short axis. Maya: There are numerous mildly enlarged hilar lymph nodes. These measure up to 11 mm in short axis. Axillae: There is no axillary lymphadenopathy. Upper abdomen: There is a small hiatal hernia. Partially visualized upper abdominal viscera is otherwise within normal limits. Skeletal structures: The Skeletal structures are osteopenic. No lytic or blastic bony lesions are seen. IMPRESSION: 1. There is no evidence of pulmonary embolus in the main, lobar, or segmental pulmonary arteries. 2. Cardiomegaly with evidence of congestive failure. 3. Small pleural effusions with bibasilar dependent consolidation. This likely represents atelectasis. Clinical correlation will be required. 4. Mildly enlarged mediastinal and hilar lymph nodes are likely on a reactive basis. Electronically signed by: Sravan Chapa M.D. 08/05/2017 1:48 PM Dictated Date/Time: 08/05/2017 1:43 PM Laboratory Results 08/05/17 11:58 Red Blood Count 4.41, Mean Corpuscular Volume 87.8, Mean Corpuscular Hemoglobin 27.9, Mean Corpuscular Hemoglobin Concent 31.8, Mean Platelet Volume 9.6, Neutrophils (%) (Auto) 73.9, Lymphocytes (%) (Auto) 17.9, Monocytes (%) (Auto) 5.5, Eosinophils (%) (Auto) 2.1, Basophils (%) (Auto) 0.3, Neutrophils # (Auto) 7.46, Lymphocytes # (Auto) 1.80, Monocytes # (Auto) 0.55, Eosinophils # (Auto) 0.21, Basophils # (Auto) 0.03 08/05/17 11:58 Test 08/05/17 11:51 08/05/17 11:58 08/05/17 12:07 Urine Color YELLOW Urine Appearance CLEAR (CLEAR) Urine pH 7.0 (4.5-7.5) Urine Specific Epsom 1.012 (1.000-1.030) Urine Protein NEG (NEG) Urine Glucose (UA) NEG (NEG) Urine Ketones NEG (NEG) Urine Occult Blood NEG (NEG) Urine Nitrite NEG (NEG) Urine Bilirubin NEG (NEG) Urine Urobilinogen NEG (NEG) Urine Leukocyte Esterase NEG (NEG) White Blood Count 10.08 K/uL (4.8-10.8) Red Blood Count 4.41 M/uL (4.2-5.4) Hemoglobin 12.3 g/dL (12.0-16.0) Hematocrit 38.7 % (37-47) Mean Corpuscular Volume 87.8 fL (80-100) Mean Corpuscular Hemoglobin 27.9 pg (25-34) Mean Corpuscular Hemoglobin Concent 31.8 g/dl (32-36) Platelet Count 276 K/uL (130-400) Mean Platelet Volume 9.6 fL (7.4-10.4) Neutrophils (%) (Auto) 73.9 % Lymphocytes (%) (Auto) 17.9 % Monocytes (%) (Auto) 5.5 % Eosinophils (%) (Auto) 2.1 % Basophils (%) (Auto) 0.3 % Neutrophils # (Auto) 7.46 K/uL (1.4-6.5) Lymphocytes # (Auto) 1.80 K/uL (1.2-3.4) Monocytes # (Auto) 0.55 K/uL (0.11-0.59) Eosinophils # (Auto) 0.21 K/uL (0-0.5) Basophils # (Auto) 0.03 K/uL (0-0.2) RDW Standard Deviation 47.0 fL (36.4-46.3) RDW Coefficient of Variation 14.9 % (11.5-14.5) Immature Granulocyte % (Auto) 0.3 % Immature Granulocyte # (Auto) 0.03 K/uL (0.00-0.02) Prothrombin Time 12.3 SECONDS (9.0-12.0) Prothromb Time International Ratio 1.1 (0.9-1.1) Activated Partial Thromboplast Time 30.9 SECONDS (21.0-31.0) Partial Thromboplastin Ratio 1.2 Anion Gap 1.0 mmol/L (3-11) Est Creatinine Clear Calc Drug Dose 92.3 ml/min Estimated GFR () 89.1 Estimated GFR (Non- 76.9 BUN/Creatinine Ratio 18.3 (10-20) Calcium Level 8.8 mg/dl (8.5-10.1) Total Bilirubin 0.7 mg/dl (0.2-1) Aspartate Amino Transf (AST/SGOT) 11 U/L (15-37) Alanine Aminotransferase (ALT/SGPT) 21 U/L (12-78) Alkaline Phosphatase 77 U/L (45-117) Total Creatine Kinase 37 U/L (26-192) Creatine Kinase MB 0.5 ng/ml (0.5-3.6) Creatine Kinase MB Ratio 1.4 (0-3.0) Troponin I < 0.015 ng/ml (0-0.045) Pro-B-Type Natriuretic Peptide 524 pg/ml (0-900) Total Protein 8.3 gm/dl (6.4-8.2) Albumin 3.5 gm/dl (3.4-5.0) Globulin 4.8 gm/dl (2.5-4.0) Albumin/Globulin Ratio 0.7 (0.9-2) Bedside D-Dimer > 450 ng/mlFEU (0-450) Laboratory results reviewed by me Medications Administered Medications (Trade) Dose Ordered Sig/Candido Route Start Time Stop Time Status Last Admin Dose Admin Albuterol/ Ipratropium (Duoneb) 3 ml NOW STAT INH 08/05/17 11:32 08/05/17 11:34 DC 08/05/17 12:15 3 ML Methylprednisolone Sodium Succinate (Solu-Medrol IV) 125 mg NOW STAT IV 08/05/17 11:32 08/05/17 11:34 DC 08/05/17 12:15 125 MG Furosemide (Lasix Inj) 20 mg NOW STAT IV 08/05/17 15:41 08/05/17 15:43 DC 08/05/17 15:41 20 MG Triamterene/HCTZ (Dyazide 37.5/25 Mg Cap) 1 cap NOW STAT PO 08/05/17 15:41 08/05/17 15:43 DC 08/05/17 16:05 1 CAP ECG Indication: SOB/dyspnea Rate (beats per minute): 79 Rhythm: normal sinus Findings: no acute ischemic change, no ectopy ED Course 1131: The patient was evaluated in room A10. A complete history and physical exam was performed. 1132: Ordered Solu-Medrol IV 125 mg IV, Duoneb 3 ml INH. 1259: I reevaluated the patient and she was doing well. 1438: I reevaluated the patient and she is doing okay. 1508: Discussed the patient's case with Dr. Kenroy King. He said to start Dyazide and she can follow up with her syrup filterer. 1550: I reevaluated the patient. Discussed results and discharge instructions: She verbalized understanding and agreement. The patient is ready for discharge. Medical Decision Triage Nursing notes reviewed. The patient's presentation and history were concerning for breathing issues. Etiologies such as pneumonia, COPD, reactive airway disease, CHF, cardiac ischemia, pulmonary embolism, pneumothorax, musculoskeletal, infections, gastrointestinal, as well as others were entertained. The patient was evaluated. She was treated with Solu Medrol a DuoNeb. Clinically she was doing well. Her blood was unremarkable except for her d- dimer was elevated. The patient's chest x-ray was concerning for mild CHF. She was not hypoxic. The patient underwent CT imaging and this found findings consistent with cardiac dysfunction but no pulmonary embolism. The patient has PND and orthopnea on further questioning. Her PCP brought up CHF with her in the past and the patient was reluctant to buy into that diagnosis. It appears that she does have some mild fluid overload. I did discuss the case with Dr. Kenroy king. He was in agreement and recommended initiation of Dyazide. The patient has a pending appointment in about 1 week with her syrup filterer, Dr. Martinez. The patient was given a dose of IV Lasix 20 mg here. She felt very comfortable with the plan. If she has any problems she will be back. I gave my usual and customary discussion regarding this issue. By the evaluation outlined above other emergent etiologies such as those listed in the differential, as well as others, were deemed relatively unlikely. The patient was educated about the findings as listed above. All questions were answered and the patient was pleased with the treatment. Return instructions were outlined and the patient was discharged in stable condition. The patient was referred to cardiology for follow-up for a recheck of the current condition. Medication Reconcilliation Current Medication List: was personally reviewed by me Blood Pressure Screening Patient's blood pressure: Elevated blood pressure Referred to Cardiology. Consults Time Called: 1504 Consulting Physician: Dr. Kenroy King Returned Call: 1508 Discussed the patient's case with Dr. Kenroy King. He said to start Dyazide and she can follow up with her syrup filterer. Impression Primary Impression: CHF (congestive heart failure) Scribe Attestation The scribe's documentation has been prepared under my direction and personally reviewed by me in its entirety. I confirm that the note above accurately reflects all work, treatment, procedures, and medical decision making performed by me. Departure Information Dispostion Home / Self-Care Prescriptions Triamterene/Hctz (Dyazide 37.5MG/25MG) Cap 1 TAB PO DAILY, #14 CAP Prov: Frank Negrete MD 08/05/17 Referrals Edgar Tucker M.D. (PCP) Forms HOME CARE DOCUMENTATION FORM, IMPORTANT VISIT INFORMATION Patient Instructions My [facility] Additional Instructions Start Dyazide daily until directed otherwise by cardiology. Watch salt intake. Continue other current medications. Monitor your weight daily and record this for cardiology. Return to the emergency department for shortness of breath, difficulty breathing , fever, vomiting, chest pain, or as needed. Follow up with cardiology as scheduled.
--- NOTE | 2017-08-06 15:24 | Pharmacy Progress Note ---
ED Pharmacist Progress Note Date of Service: Aug 06, 2017. Received call from Antonella at [facility] pharmacy requesting confirmation that Diazide should be filled since her system noted a drug-drug interaction with potassium. Noted it was OK to fill as-is, but outpatient pharmacist should trauma counsellor patient to call outpatient provider to ensure her potassium levels are followed as an outpatient.
== END 2017-08-05 16:38 | disposition home or self-care (01) ==
LOC: C.EDB 11:00 → C.EDA 16:38
DX: I11.0 Hypertensive heart disease with heart failure (principal); I50.9 Heart failure, unspecified; I48.91 Unspecified atrial fibrillation; E11.9 Type 2 diabetes mellitus without complications; Z79.01 Long term (current) use of anticoagulants; Z82.5 Family history of asthma and other chronic lower respiratory diseases; Z82.3 Family history of stroke

== ENCOUNTER → 2017-08-28 | Outpatient (CLI) | payer OTHER ==
[~2017-08-28] MED LIST changes: -ASPI325T39 PO; -ASPI81TA21 PO; -CETI10TA84 PO; +PERFLUTREN LIPID MICROSPHERE (DEFINITY) IV ONE; +REGADENOSON 0.4 MG/5 ML SYR ONE; +RIVA1TAB4 PO; -SALI0.6510; +TRIA37.5 PO; -XRL20 PO
--- NOTE | 2017-08-28 15:40 | ECHOCARDIOGRAM REPORT ---
*NOTICE TO RECEIVING [employer] This information is strictly Confidential and protected under [place] law. [place] law prohibits you from making any further disclosure of this information unless further disclosure is expressly permitted by the written consent of the person to whom it pertains or is authorized by law. A general authorization for the release of medical or other information is not sufficient for this purpose. Hospital accepts no responsibility if the information is made available to any other person, INCLUDING THE PATIENT. Interpretation Summary * Name: PHOEBE HUGO Study Date: 08/28/2017 12:13 PM BP: 172/69 mmHg * Patient Location: Cardiopulmonary Lab HR: 67 * : 1950 (M/d/yyyy) Gender: Female Height: 65 in * Age: 66 yrs Ethnicity: CA Weight: 270 lb * Ordering Physician: Pradip Martinez * Referring Physician: Pradip Martinez * Performed By: Clau Victor RCS * * Reason For Study: MALDONADO * BSA: 2.2 m2 * -- Conclusions -- * 1. Mildly dilated left ventricle with low-normal systolic function. Estimated EF 55%. No regional wall motion abnormalities. No left ventricular hypertrophy. Type 1 diastolic dysfunction. * 2. The left atrium is mildly dilated. * 3. Mild valvular aortic stenosis. * 4. Normal estimated right ventricular systolic pressure; 23mmHg. * 5. Technically difficult study, enhanced with IV Definity. * 6. Compared to prior limited study on 12/20/2016, LV systolic function is stable. Procedure Details * A complete two-dimensional transthoracic echocardiogram was performed (2D, M-mode, Doppler and color flow Doppler). * A contrast injection of Definity was performed to improve assessment of LV function. * Contrast was injected into an intravenous site in the left arm. * One vial of Definity ultrasound contrast was diluted in normal saline to a total volume of 10 ml. A total of '1' ml of solution was administered during imaging. * Lot # [id number] of Definity utilized for procedure. * Expiration date . * The attending nurse who injected the contrast agent was Nnamdi Pineda RN. Left Ventricle * Mildly dilated left ventricle with low-normal systolic function. Estimated EF 55%. No regional wall motion abnormalities. No left ventricular hypertrophy. Type 1 diastolic dysfunction. Right Ventricle * The right ventricle is normal in size and function. * The right ventricular systolic function is normal as assessed by tricuspid annular plane systolic excursion (TAPSE) (normal >1.5 cm). Atria * The left atrium is mildly dilated. * Right atrial size is normal. * There is no evidence of atrial septal defect, but resolution does not allow assessment for a patent foramen ovale. Mitral Valve * There is mild mitral annular calcification. * There is no mitral valve stenosis. * There is trace mitral regurgitation. Tricuspid Valve * The tricuspid valve is not well visualized. * There is no tricuspid stenosis. * Significant tricuspid regurgitation is absent. Aortic Valve * The aortic valve is trileaflet. * Mild valvular aortic stenosis. * There is no significant aortic regurgitation. Pulmonic Valve * The pulmonary valve is inadequately visualized, but the Doppler data is adequate for interpretation. * There is no pulmonic valvular stenosis. * Trace pulmonic valvular regurgitation. Great Vessels * The aortic root is normal size. * Aortic arch of normal dimension. * Ascending aorta of normal dimension Pericardium/Pleural * There is no pericardial effusion. Great Vessels * Normal inferior vena cava size and collapsability with sniff indicates a normal right atrial pressure of 3 mmHg MMode 2D Measurements and Calculations IVSd 1.1 cm IVSs 1.5 cm LVIDd 5.5 cm LVIDs 4.0 cm LVPWd 1.1 cm LVPWs 1.6 cm IVS/LVPW 0.95 FS 28.1 % EDV(Teich) 149.0 ml ESV(Teich) 68.8 ml EF(Teich) 53.8 % EDV(cubed) 168.7 ml ESV(cubed) 62.6 ml EF(cubed) 62.9 % % IVS thick 38.2 % % LVPW thick 42.1 % LV mass(C)d 242.8 grams LV mass(C)dI 108.1 grams/m\S\2 LV mass(C)s 239.5 grams LV mass(C)sI 106.6 grams/m\S\2 SV(Teich) 80.2 ml SI(Teich) 35.7 ml/m\S\2 SV(cubed) 106.1 ml SI(cubed) 47.2 ml/m\S\2 Ao root diam 3.1 cm Ao root area 7.7 cm\S\2 ACS 1.2 cm LA dimension 4.6 cm asc Aorta Diam 3.0 cm LA/Ao 1.5 LVOT diam 2.1 cm LVOT area 3.5 cm\S\2 Doppler Measurements and Calculations MV E max akilah 84.8 cm/sec MV A max akilah 103.4 cm/sec MV E/A 0.82 MV P1/2t max akilah 102.7 cm/sec MV P1/2t 96.7 msec MVA(P1/2t) 2.3 cm\S\2 MV dec slope 311.0 cm/sec\S\2 MV dec time 0.32 sec Ao V2 max 245.9 cm/sec Ao max PG 24.2 mmHg Ao max PG (full) 20.6 mmHg Ao V2 mean 189.6 cm/sec Ao mean PG 15.6 mmHg Ao mean PG (full) 13.7 mmHg Ao V2 VTI 62.3 cm REGINA(I,A) 1.4 cm\S\2 REGINA(I,D) 1.4 cm\S\2 REGINA(V,A) 1.4 cm\S\2 REGINA(V,D) 1.4 cm\S\2 AI max akilah 273.1 cm/sec AI max PG 29.8 mmHg AI dec slope 121.0 cm/sec\S\2 AI P1/2t 660.8 msec LV V1 max PG 3.6 mmHg LV V1 mean PG 1.9 mmHg LV V1 max 95.2 cm/sec LV V1 mean 63.4 cm/sec LV V1 VTI 24.6 cm SV(Ao) 480.1 ml SI(Ao) 213.6 ml/m\S\2 SV(LVOT) 87.1 ml SI(LVOT) 38.8 ml/m\S\2 PA V2 max 107.8 cm/sec PA max PG 4.7 mmHg PI max akilah 130.3 cm/sec PI max PG 6.8 mmHg PI dec slope 139.3 cm/sec\S\2 PI P1/2t 274.0 msec TR max akilah 224.2 cm/sec RVSP(TR) 23.1 mmHg RAP systole 3.0 mmHg
--- NOTE | 2017-08-28 16:05 | Myocardial Perfusion Study ---
Myocardial Perfusion Study Rpt Myocardial Perfusion Study Rpt Date of Service 08/28/17 Myocardial Perfusion Study Rpt Procedure: 1. Myocardial perfusion study performed in multiple views/images 2. Lexiscan pharmacologic stress ECG Indications: 1. Dyspnea with exertion Consent: Informed written consent was obtained prior to the procedure. Ordering physician: Dr. Martinez Procedural details: For the stress portion of the study, Lexiscan 0.4 mg was intravenously administered followed by a saline flush. This was followed by 33 mCi of technetium 99m Cardiolite, injected at 11:06 a.m. on 08/28/2017. 30 minutes following the injection, imaging of the heart was performed in multiple projections. For the rest portion of the study, 11 mCi technetium 99m Cardiolite was injected intravenously at 9:35 a.m. on 08/28/2017. 1 hour following the injection, imaging of the heart was performed in the same projections. Lexiscan stress ECG: Resting ECG demonstrated: NSR at 63 bpm Maximum heart rate: 79 bpm Resting blood pressure: 172/69 mmHg Maximum blood pressure: 183/87 mmHg Maximal, age-predicted heart rate: 51 % Significant ST changes: None Arrhythmia: None Symptoms: Mild dyspnea Findings: Rotating raw imaging demonstrated no significant lung uptake. There is no significant motion artifact. Heart size appeared normal. Myocardial perfusion imaging was poor quality. There was significant intestinal uptake, especially in the rest imaging. There was no definite reversible or fixed defect, but cannot rule out given quality of study. Ejection fraction: 51 % Wall motion: Normal No significant transient ischemic dilation. Impression: 1. Poor quality study. There were no definite ischemic changes noted, but cannot rule out given quality of study. 2. No obvious infarct suggested. 3. Low-normal left ventricular systolic function. EF 51%. 4. Normal wall motion. 5. No arrhythmia. 6. Lexiscan induced dyspnea. 7. Nondiagnostic Lexiscan ECG.
--- NOTE | 2017-08-29 16:13 | PULMONARY FUNCTION TEST ---
Spirometry is normal. Repeat study done following bronchodilator showed no significant change in function. Flow volume loops were consistent with spirometric findings. Lung volumes are normal. Diffusion capacity is low normal at 70%. However, when corrected for alveolar ventilation it was 134%.
== END | disposition home or self-care (01) ==
LOC: C.NUCL 08:57
PROVIDERS: ATTEND Internal Medicine Cardiovascular Disease
DX: Z51.81 Encounter for therapeutic drug level monitoring (principal); Z79.899 Other long term (current) drug therapy; R06.09 Other forms of dyspnea; I51.7 Cardiomegaly; I35.0 Nonrheumatic aortic (valve) stenosis

== ENCOUNTER 2019-06-25 02:13 | Inpatient (IN) ==
[2019-06-25 02:51] LABS: Basophils # (auto) 0.03 K/uL (0-0.2); Basophils % (auto) 0.2 %; Eosinophils # (auto) 0.12 K/uL (0-0.5); Eosinophils % (auto) 0.6 %; Hematocrit (blood only) 39.5 % (37-47); Hemoglobin 13.3 g/dL (12.0-16.0); Immature Granulocytes # (auto) 0.08 K/uL (0.00-0.02); Immature Granulocytes % (auto) 0.4 %; Lymphocytes # (auto) 1.83 K/uL (1.2-3.4); Lymphocytes % (auto) 9.6 %; Mean Corpuscular Hemoglobin 29.5 pg (25-34); Mean Corpuscular Hgb Conc 33.7 g/dL (32-36); Mean Corpuscular Volume 87.6 fL (80-100); Mean Platelet Volume 9.5 fL (7.4-10.4); Monocytes % (auto) 6.3 %; Neutrophils # (auto) 15.81 K/uL (1.4-6.5); Neutrophils % (auto) 82.9 %; Platelet Count 301 K/uL (130-400); RDW Coefficient of Variation 13.6 % (11.5-14.5); RDW Standard Deviation 43.3 fL (36.4-46.3); Red Blood Count 4.51 M/uL (4.2-5.4); White Blood Count 19.07 K/uL (4.8-10.8)
[2019-06-25 03:02] LABS: INR 1.3 (0.9-1.1); Partial Thromboplastin Ratio 1.3; Partial Thromboplastin Time 35.3 Seconds (21.0-31.0); Prothrombin Time 13.4 Seconds (9.0-12.0)
[2019-06-25 03:06] LABS: Base Excess VBG -2.6 mEq/L; HCO3 VBG 22 mmol/L; PCO2 VBG 36 mmHg (38-50); PO2 VBG 65 mmHg
[2019-06-25 03:07] LABS: Appearance Urine Turbid (Clear); Bilirubin Urine Negative (Negative); Blood Urine Trace (Negative); Color Urine Yellow; Epithelial Cell Urine Auto >30 /lpf (0-5); Glucose Urine UA Trace (Negative); Ketones Urine Negative (Negative); Leukocyte Esterase Urine Negative (Negative); Nitrite Urine Negative (Negative); Protein Urine 4+ (Negative); RBC Urine Automated 0-4 /hpf (0-4); Specific Gravity Urine 1.023 (1.000-1.030); Urobilinogen Urine Negative (Negative); pH Urine 5.5 (4.5-7.5)
[2019-06-25 03:09] LABS: Alanine Aminotransferase 19 U/L (12-78); Aspartate Aminotransferase 10 U/L (15-37); Bilirubin Direct < 0.1 mg/dl (0-0.2); Blood Urea Nitrogen 18 mg/dl (7-18); Calcium 8.7 mg/dl (8.5-10.1); Carbon Dioxide 23 mmol/L (21-32); Chloride 108 mmol/L (98-107); Creatinine Clr Calc Pharmacy 65.2 ml/min; Est GFR (Non-African American) 49.2; Glucose 242 mg/dl (70-99); Magnesium 1.8 mg/dl (1.8-2.4); Potassium 3.8 mmol/L (3.5-5.1); Sodium 139 mmol/L (136-145)
[2019-06-25] MEDS ORDERED: FUROSEMIDE 40 MG/4 ML VIAL IV STA (03:16)
[2019-06-25 03:24] LABS: Alkaline Phosphatase 73 U/L (45-117); Bilirubin,Total 0.3 mg/dl (0.2-1); NT Pro B Type Natriuretic Pept 706 pg/ml (0-900); Total Protein 7.2 gm/dl (6.4-8.2); Troponin I 0.088 ng/ml (0-0.045)
[2019-06-25 03:25] LABS: Cast Urine Automated >30 /lpf (0-5)
[2019-06-25 03:28] LABS: Bacteria Urine Automated 1+ (Negative)
[2019-06-25 03:29] LABS: Granular Casts Urine 20-30 /lpf (0)
--- NOTE | 2019-06-25 04:15 | History & Physical Report ---
Date of Service June 25, 2019 Assessment & Plan (1) Pulmonary edema: Patient presented with markedly elevated BP, tachypnea and increased work of breathing. Exam and imaging suggestive of pulmonary edema. Clinically improved after BiPAP and Lasix. Still appears to be mildly volume overloaded -Admit to medical floor -BiPAP as needed -Lasix 40mg IV given in ER. Will continue Lasix 40mg IV BID -Daily weights -Strict I/Os -BMP q 12 hours to monitor electrolytes and renal function with diuresis -Consider repeat echo - last in 2016 Present on Admission?: Yes (2) Hypertension: Patient with elevated BP on arrival. Reports her BP is typically 140-150 when she checks it at home -Continue Metoprolol -Continue Lisinopril -Lasix as above -Monitor BP. Present on Admission?: Yes (3) Diabetes: Type II DM, well controlled with Metformin. Elevated BS today - 242. Last Hb AIC 11/15/18 was 6.7 -Hold Metformin -Lantus 10u BID with ISS dosed off weight Present on Admission?: Yes (4) Atrial fibrillation: Presently in NSR -Continue Metoprolol -Continue Amiodarone -Continue Rivaroxaban Present on Admission?: Yes (5) CHF (congestive heart failure): Patient with Type I diastolic dysfunction. Appears to be mildly volume overloaded at present -Lasix 40mg IV BID -Daily weights, strict I/Os -BMP BID -Continue Metoprolol, Lisinopril -Consider repeat echo Present on Admission?: Yes (6) Elevated troponin: Suspect demand ischemia in setting of markedly elevated BP. No EKG changes to suggest acute ischemic process. Patient denies CP -Continue Metoprolol, Lisinopril, Crestor -Repeat troponin Present on Admission?: Yes (7) Leukocytosis: Patient afebrile, HD stable, no overt evidence of infection -Continue to monitor F/E/N - Diuresis as above, monitor electrolytes and renal function, Na restriction Ppx - low risk for DVT Code -Full per discussion with patient Dispo - Observation to med tele Present on Admission?: Yes History of Present Illness Chief Complaint: hypertensive urgency, pulmonary edema Primary Care Provider: Edgar Tucker MD Tiffanie Hendricks is a pleasant 68yo C female with history of DM, HTN, HLP, PAF on Rivaroxaban anticoagulation, CHF presenting with SOB. She was trying to fall asleep last night around 12:00 and she couldn't get comfortable. She began to feel short of breath. She went downstairs and took 2 puffs on her Combivent inhaler with no improvement. She then took Lasix 40mg po and a potassium tab with minimal improvement. She states her chest felt tight, she felt short of breath and her breathing sounded wet. She called EMS and was brought to [facility] ER. Upon arrival she was afebrile, tachycardic at 104 bpm, hypertensive at 201/114, tachypneic at 26 bpm and saturating 92% on room air. +Rales on lung exam and CXR suggestive of pulmonary edema. Patient was placed on BiPAP and given Lasix 40mg IV with improvement in symptoms. I was able to remove the BiPAP during my exam and patient could converse without difficulty. She denies CP, palpitations, nausea, vomiting, diarrhea or constipation. She denies edema, orthopnea or weight gain. She was previously on Lasix 40mg po daily which she self-discontinued on May 27 - she reports monitoring her weight closely as well as watching for edema in her legs. She reports none since being off the Lasix. No additional complaints at this time ER Course: Lasix, BiPAP Allergies Allergy/AdvReac Type Severity Reaction Status Date / Time codeine Allergy Unknown Unknown Verified 06/25/19 03:11 tramadol Allergy Unknown HIVES Verified 06/25/19 03:11 Quinolones Allergy Unknown Verified 06/25/19 03:11 levofloxacin AdvReac Severe SHORTNESS Verified 06/25/19 03:11 OF BREATH Home Medications Home Medications Medication Instructions Recorded Confirmed Type amiodarone 200 mg tablet 200 mg PO DAILY #90 tab 05/11/19 06/25/19 Rx blood sugar diagnostic strips #50 ea 05/11/19 06/25/19 Rx coenzyme Q10 200 mg capsule 200 mg PO DAILY cap 05/11/19 06/25/19 History lisinopril 10 mg tablet 10 mg PO DAILY #90 tab 05/11/19 06/25/19 Rx metformin 500 mg tablet 500 mg PO DAILY #90 tab 05/11/19 06/25/19 Rx metoprolol succinate ER 25 mg 37.5 mg PO DAILY #135 tab 05/11/19 06/25/19 Rx tablet,extended release 24 hr multivitamin tablet 1 tab PO DAILY 05/11/19 06/25/19 History omega-3 fatty acids 1,000 mg 1,000 mg PO DAILY 05/11/19 06/25/19 History capsule potassium chloride ER 10 mEq 10 meq PO DAILY #90 cap 05/11/19 06/25/19 Rx capsule,extended release rosuvastatin 20 mg tablet 20 mg PO DAILY #90 tab 05/11/19 06/25/19 Rx turmeric 400 mg capsule 400 mg PO DAILY cap 05/11/19 06/25/19 History alendronate 70 mg tablet See Rx Instructions .ROUTE 06/23/19 06/25/19 Rx .COMPLEX #12 tablet Xarelto 20 mg PO DAILY 06/25/19 06/25/19 History furosemide 40 mg PO DAILY 06/25/19 06/25/19 History Past Med/Surg History Medical History Hypertension (Chronic) Diabetes (Chronic) Atrial fibrillation (Resolved) CHF (congestive heart failure) EF 55%, Type I diastolic dysfunction per echo 08/28/17 Dyslipidemia Surgical History History of cholecystectomy History of lumpectomy Family History Mother Clotting disorder Diabetes Hypertension Stroke Myocardial infarction Osteoporosis Sister Diabetes Stroke Myocardial infarction Father Heart disease Lung disease Other Cerebral aneurysm Schizophrenia Social History Preferred Language: Bol[place]ian Communication Ability: Effective Visual Impairment: No Limitations Hearing Ability: Normal Floor Sander Required: No Beliefs That Will Affect Care: None marital status: Current Living Situation: Spouse current occupational status: retired Feels Safe at Home: Yes Smoking Status: Never smoker Second Hand Exposure: No ; Hx Alcohol Use: No Hx Substance Use: No Childhood Exposure to Second-Hand Smoke: Yes caffeine: Yes during the past year weight has: remained stable Dental Care, Regularly: No Physical Activity Frequency: Does not Exercise Seatbelt Use: always Sunscreen Use: Yes Do you think of yourself as: straight/heterosexual Review of Systems Review of Systems: All systems reviewed & are unremarkable except as noted in HPI & below Physical Exam Physical Exam: General: patient resting comfortably, NAD, non-toxic in appearance, AA&O x 4 Skin: warm, dry, intact, no rashes or lesions HEENT: NC/AT, PERRL, EOMI, anicteric sclera, conjunctiva without injection, external ear normal to inspection and nontender, nares patent, moist mucus membranes, dentition intact, no oropharyngeal lesions, neck supple, trachea midline, no LAD, no thyromegaly, no JVD Heart: +S1, +S2 with splitting, regular, no m/r/g Lungs: equal air entry bilaterally, +rales in bilateral bases, L > R, no rhonchi/wheezes Abd: +BS, soft, NT/ND, no masses/organomegaly/ascites Ext: warm, 2+ pulses in UE/LE bilaterally, no clubbing/cyanosis or edema Neuro: nonfocal, patient AA&O x 4, speech intact, no facial droop, moving all extremities on command with equal strength 5/5 Results & Data Vital Signs (Past 12 Hours) Vital Signs Temp Pulse Pulse Resp BP BP Pulse Ox 06/25/19 03:31 93 H 22 163/88 H 95 06/25/19 02:32 92 H 24 139/81 95 06/25/19 02:27 95 H 25 H 97 06/25/19 02:17 36.6 C 104 H 26 H 201/114 H 92 Laboratory Results Lab Results 06/25/19 06/25/19 06/25/19 Range/Units 02:36 02:36 02:36 WBC 19.07 H (4.8-10.8) K/uL RBC 4.51 (4.2-5.4) M/uL Hgb 13.3 (12.0-16.0) g/dL Hct 39.5 (37-47) % MCV 87.6 (80-100) fL MCH 29.5 (25-34) pg MCHC 33.7 (32-36) g/dL RDW Std Deviation 43.3 (36.4-46.3) fL RDW Coeff of Luis 13.6 (11.5-14.5) % Plt Count 301 (130-400) K/uL MPV 9.5 (7.4-10.4) fL Immature Gran % (Auto) 0.4 % Neut % (Auto) 82.9 % Lymph % (Auto) 9.6 % Finney % (Auto) 6.3 % Eos % (Auto) 0.6 % Baso % (Auto) 0.2 % Immature Gran # (Auto) 0.08 H (0.00-0.02) K/uL Neut # (Auto) 15.81 H (1.4-6.5) K/uL Lymph # (Auto) 1.83 (1.2-3.4) K/uL Finney # (Auto) 1.20 H (0.11-0.59) K/uL Eos # (Auto) 0.12 (0-0.5) K/uL Baso # (Auto) 0.03 (0-0.2) K/uL PT 13.4 H (9.0-12.0) Seconds INR 1.3 H (0.9-1.1) APTT 35.3 H (21.0-31.0) Seconds PTT Ratio 1.3 VBG pH (7.36-7.41) VBG pCO2 (38-50) mmHg VBG pO2 mmHg VBG HCO3 mmol/L VBG O2 Saturation % VBG Base Excess mEq/L Sodium 139 (136-145) mmol/L Potassium 3.8 (3.5-5.1) mmol/L Chloride 108 H (98-107) mmol/L Carbon Dioxide 23 (21-32) mmol/L Anion Gap 8.0 (3-11) BUN 18 (7-18) mg/dl Creatinine 1.13 (0.6-1.2) mg/dl Est Cr Clr Drug Dosing 65.2 ml/min Est GFR ( Amer) 57.0 Est GFR (Non-Af Amer) 49.2 BUN/Creatinine Ratio 16.0 (10-20) Glucose 242 H (70-99) mg/dl Calcium 8.7 (8.5-10.1) mg/dl Magnesium 1.8 (1.8-2.4) mg/dl Total Bilirubin 0.3 (0.2-1) mg/dl Direct Bilirubin < 0.1 (0-0.2) mg/dl AST 10 L (15-37) U/L ALT 19 (12-78) U/L Alkaline Phosphatase 73 (45-117) U/L Troponin I 0.088 H* (0-0.045) ng/ml NT-Pro-B Natriuret Pep 706 (0-900) pg/ml Total Protein 7.2 (6.4-8.2) gm/dl Albumin 3.0 L (3.4-5.0) gm/dl Urine Color Urine Appearance (Clear) Urine pH (4.5-7.5) Ur Specific [place] (1.000-1.030) Urine Protein (Negative) Urine Glucose (UA) (Negative) Urine Ketones (Negative) Urine Blood (Negative) Urine Nitrite (Negative) Urine Bilirubin (Negative) Urine Urobilinogen (Negative) Ur Leukocyte Esterase (Negative) Urine WBC (Auto) (0-5) /hpf Urine RBC (Auto) (0-4) /hpf U Hyaline Cast (Auto) (0-5) /lpf U Epithel Cells (Auto) (0-5) /lpf Urine Bacteria (Auto) (Negative) Ur Renal Epithelial Cell Granular Casts (0) /lpf Waxy Casts (0) /lpf 06/25/19 06/25/19 Range/Units 02:36 03:00 WBC (4.8-10.8) K/uL RBC (4.2-5.4) M/uL Hgb (12.0-16.0) g/dL Hct (37-47) % MCV (80-100) fL MCH (25-34) pg MCHC (32-36) g/dL RDW Std Deviation (36.4-46.3) fL RDW Coeff of Luis (11.5-14.5) % Plt Count (130-400) K/uL MPV (7.4-10.4) fL Immature Gran % (Auto) % Neut % (Auto) % Lymph % (Auto) % Finney % (Auto) % Eos % (Auto) % Baso % (Auto) % Immature Gran # (Auto) (0.00-0.02) K/uL Neut # (Auto) (1.4-6.5) K/uL Lymph # (Auto) (1.2-3.4) K/uL Finney # (Auto) (0.11-0.59) K/uL Eos # (Auto) (0-0.5) K/uL Baso # (Auto) (0-0.2) K/uL PT (9.0-12.0) Seconds INR (0.9-1.1) APTT (21.0-31.0) Seconds PTT Ratio VBG pH 7.40 (7.36-7.41) VBG pCO2 36 L (38-50) mmHg VBG pO2 65 mmHg VBG HCO3 22 mmol/L VBG O2 Saturation 93.0 % VBG Base Excess -2.6 mEq/L Sodium (136-145) mmol/L Potassium (3.5-5.1) mmol/L Chloride (98-107) mmol/L Carbon Dioxide (21-32) mmol/L Anion Gap (3-11) BUN (7-18) mg/dl Creatinine (0.6-1.2) mg/dl Est Cr Clr Drug Dosing ml/min Est GFR ( Amer) Est GFR (Non-Af Amer) BUN/Creatinine Ratio (10-20) Glucose (70-99) mg/dl Calcium (8.5-10.1) mg/dl Magnesium (1.8-2.4) mg/dl Total Bilirubin (0.2-1) mg/dl Direct Bilirubin (0-0.2) mg/dl AST (15-37) U/L ALT (12-78) U/L Alkaline Phosphatase (45-117) U/L Troponin I (0-0.045) ng/ml NT-Pro-B Natriuret Pep (0-900) pg/ml Total Protein (6.4-8.2) gm/dl Albumin (3.4-5.0) gm/dl Urine Color Yellow Urine Appearance Turbid A (Clear) Urine pH 5.5 (4.5-7.5) Ur Specific [place] 1.023 (1.000-1.030) Urine Protein 4+ H (Negative) Urine Glucose (UA) Trace H (Negative) Urine Ketones Negative (Negative) Urine Blood Trace H (Negative) Urine Nitrite Negative (Negative) Urine Bilirubin Negative (Negative) Urine Urobilinogen Negative (Negative) Ur Leukocyte Esterase Negative (Negative) Urine WBC (Auto) 10-30 H (0-5) /hpf Urine RBC (Auto) 0-4 (0-4) /hpf U Hyaline Cast (Auto) >30 H (0-5) /lpf U Epithel Cells (Auto) >30 H (0-5) /lpf Urine Bacteria (Auto) 1+ H (Negative) Ur Renal Epithelial Cell Not Reportable Granular Casts 20-30 H (0) /lpf Waxy Casts 5-10 H (0) /lpf Diagnostic Findings CXR - appears to have mild cardiomegaly, pulmonary edema, peribronchial cuffing and cephalization ECG Additional Comments: The study shows ST at 103 bpm, normal axis, RV=875, NJR=697, SBb=244, poor R wave progression, ST depressed in V4-V6, unchanged from prior Code Status & VTE Plan Code Status FULL VTE Prophylaxis Plan VTE Prophylaxis will be ordered: No PG Care Time/CCT Total # of Minutes Spent Total Time Spent with Patient: Total time spent is greater than 50% in coordination of care (as documented) at patient's floor/unit and/or counseling patient: (1) Pulmonary edema Chronicity: acute Qualified Code(s): J81.0 - Acute pulmonary edema (2) Hypertension Hypertension type: essential hypertension Qualified Code(s): I10 - Essential (primary) hypertension (3) Diabetes Diabetes mellitus type: type 2 Diabetes mellitus buttermaker continuous churn insulin use: without mcfp use Diabetes mellitus complication status: without complication Qualified Code(s): E11.9 - Type 2 diabetes mellitus without complications (4) Atrial fibrillation Atrial fibrillation type: paroxysmal Qualified Code(s): I48.0 - Paroxysmal atrial fibrillation (5) CHF (congestive heart failure) Heart failure type: diastolic Heart failure chronicity: acute on chronic Qualified Code(s): I50.33 - Acute on chronic diastolic (congestive) heart vinicio lure (6) Leukocytosis Leukocytosis type: unspecified Qualified Code(s): D72.829 - Elevated white blood cell count, unspecified
[2019-06-25] MEDS ORDERED: GLUCOSE 40% GEL 15 GM TUBE PO PRN (05:06)
[2019-06-25] MEDS ORDERED: GLUCOSE 10 TABS/TUBE PO PRN (05:06)
[2019-06-25] MEDS ORDERED: GLUCAGON FOR INJ 1 MG VIAL SQ PRN (05:06)
[2019-06-25] MEDS ORDERED: CARBOHYDRATES FOR HYPOGLYCEMIA PO PRN (05:06)
[2019-06-25] MEDS ORDERED: ALBUTEROL 0.5% NEB SOLN 2.5 MG/0.5 ML VIAL NEB PRN (05:06)
[2019-06-25] MEDS ORDERED: DEXTROSE 50% 50 ML SYRINGE IV PRN (05:06)
--- NOTE | 2019-06-25 05:55 | XRay Report ---
XR chest 1V portable CLINICAL HISTORY: SHOB dyspnea COMPARISON STUDY: 08/05/2017 FINDINGS: Prominent pulmonary vasculature. Mild cardiomegaly. Diaphragms are smooth. IMPRESSION: Congestive heart failure. The above report was generated using voice recognition software. It may contain grammatical, syntax or spelling errors. Electronically signed by: Fred Bland M.D. 06/25/2019 5:54 AM
--- NOTE | 2019-06-25 06:13 | Emergency Department Note ---
Entered by Pamela Jennings acting as a scribe for Rafael Tim MD ED Provider Note Name: Tiffanie Hendricks Age: 68 years old Arrives Via: EMS Informant: Patient CC: Shortness of breath HPI: 68 year old female arrives for evaluation of worsening shortness of breath that began at 0030, approximately 2 hours prior to arrival. The patient states that she was unable to fall asleep due to her symptoms. She reports coughing during this time. The patient denies leg swelling, diarrhea, troubles urinating, chest pain, headache, neck pain, fevers, and syncope. She states that she has a history of CHF, but states that she stopped taking her Lasix approximately one month ago because she felt as though she did not need this anymore. The patient reports a history of Afib and is on Xarelto. She reports a history of asthma. ROS: See above HPI for pertinent positives & negatives. A total of 10 systems reviewed and were otherwise negative. Past Medical History: HTN, Diabetes, CHF, Asthma, AFib Past Surgical History: No significant surgical history. Family History: Schizophrenia, Diabetes, HTN, SD, Stroke Social History: Never smoker. Home Medications: See below. Allergies Codeine, Tramadol, Quinolones, Levofloxacin Physical: Vitals: BP 139/81, P 92, R 24, O2 95%, Temp 97.9 F Exam: GENERAL: Patient is severely unwell-appearing and in no acute distress. Very anxious appearing. EYES: No scleral icterus, unremarkable pupils. ENT: Mucous membranes dry, no nasal congestion. NECK: No masses appreciated, no meningismus, trachea is midline. RESPIRATORY: Dyspneic. Diffuse crackles in all lung claros. No wheeze, no rhonchi. CARDIOVASCULAR: Regular rate and rhythm. No murmurs, rubs, gallops appreciated. GASTROINTESTINAL: Abdomen soft, non-tender, no peritonitis. Bowel sounds positive. No masses appreciated. BACK: No midline tenderness, no CVA tenderness EXTREMITIES: Normal motion all extremities, no cyanosis, no edema. NEUROLOGIC: Alert and oriented, no acute motor or sensory deficits, no focal weakness, cranial nerves grossly intact. SKIN: No rash, no jaundice, no diaphoresis. ED Course: Prior Medical Record, Triage/Nursing Notes, Medications, Allergies reviewed by Me Vital Signs: reviewed and remarkable for hypoxia, hypertension Labs: Reviewed and remarkable for elevated WBC, + trop Interventions: saline lock, lasix 40mg IV, slntg, BIPAP Imaging: X ray results are stated below per my interpretation: Chest: 1 view: Pulmonary edema. New from CXR EKG: Per My Interpretation: Indication SHOB: Sinus tach 103 no ectopy no ischemia, no stemi, qtc 508. similar to 08/05/17 ekg. Blood pressure: Elevated - Referred to hospitalist Course: 216: Past medical records reviewed. The patient was evaluated in room B2. A complete history and physical exam was performed. 025: I discussed the case with Dr. [facility]ist who accepts the patient for further evaluation. We are awaiting labs. 032: Upon reevaluation, the patient is now off of Bipap and is on nasal cannula. She states that she is breathing more comfortably. Her blood pressure has improved. Disposition: Hospitalization Differentials: Infectious, reactive airway disease, pneumonia, pneumothorax, COPD, CHF, ACS, pulmonary embolism, MSK, GI, dissection, amongst other etiologies entertained. Medical Decision Makin yr old female arrives in acute respiratory distress with diffuse crackles all lung claros and severe hypertension. Exam and story (having quite lasix last week) consistent with acute pulmonary edema. CXR consistent with this as well. No chest pain nor STEMI on EKG. Started on Bipap and given SLNTG. After half hour already vast improvement. WBC is quite elevated but she is without fevers, chills, nor other infectious findings. No lobar infiltrate appreciated. She was give IV lasix as well. Reviewed with hospitalist who by this point patient already able to come off bipap. She is breathing comfortably and in no significant distress. BP much improved. Trop mildly elevated which is likely secondary to respiratory and thus will hold on anticoag at this time. While infectious or copd could be part of this given her vast improvement with above will hold on steroids, nebs, abx etc at this time as she will be admitted and monitored closely for these as well. No calf pain, nor history PE and as she is on Xarelto for PAF already will avoid CT PE study. Impression: Pulmonary edema CHF Critical Care Time: I have personally spent greater than 35 minutes of critical care time in the direct management of this patient. Acute respiratory failure requiring BIPAP. This was a life/limb threatening event. This includes time spent evaluating patient, direct bedside care, chart review, placing orders, interpretation of diagnostic studies, discussion with consultants, patient, and family members, as well as other required patient management activities. This 35 minutes is in excess of all separately billable procedures. The scribe's documentation has been prepared under my direction and personally reviewed by me in its entirety. I confirm that the note above accurately reflects all work, treatment, procedures, and medical decision making performed by me. 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 Beliefs That Will Affect Care: None marital status: Current Living Situation: Spouse current occupational status: retired Feels Safe at Home: Yes Smoking Status: Never smoker Second Hand Exposure: No ; Hx Alcohol Use: No Hx Substance Use: No Childhood Exposure to Second-Hand Smoke: Yes caffeine: Yes during the past year weight has: remained stable Dental Care, Regularly: No Physical Activity Frequency: Does not Exercise Seatbelt Use: always Sunscreen Use: Yes Do you think of yourself as: straight/heterosexual Results & Data Vital Signs Vital Signs - 24 hr 06/25/19 02:17 06/25/19 02:27 06/25/19 02:32 Temperature 36.6 C Temperature Source Oral Sepsis Recent Fever Within 48 Hours No Sepsis Action Taken by Nursing No Action Required Pulse Rate 104 H 95 H Pulse Rate [Right] 92 H Pulse Rhythm Regular Pulse Rhythm [Right] Regular Pulse Strength Normal Pulse Strength [Right] Normal Respiratory Rate 26 H 25 H 24 Respiratory Effort / Characteristics Non-Labored Spontaneous Spontaneous Non-Labored Spontaneous Respiratory Depth Normal Normal Respiratory Pattern Regular Tachypnea Blood Pressure 201/114 H Blood Pressure [Right Arm] 139/81 Blood Pressure Mean 143 Blood Pressure Mean [Right Arm] 100 Blood Pressure Position Lying Pulse Oximetry 92 97 95 Oxygen Delivery Method Room Air Room Air Oxygen Flow Rate Fraction of Inspired Oxygen 28 06/25/19 03:31 Temperature Temperature Source Sepsis Recent Fever Within 48 Hours Sepsis Action Taken by Nursing Pulse Rate Pulse Rate [Right] 93 H Pulse Rhythm Pulse Rhythm [Right] Regular Pulse Strength Pulse Strength [Right] Normal Respiratory Rate 22 Respiratory Effort / Characteristics Non-Labored Spontaneous Respiratory Depth Normal Respiratory Pattern Blood Pressure Blood Pressure [Right Arm] 163/88 H Blood Pressure Mean Blood Pressure Mean [Right Arm] 113 Blood Pressure Position Pulse Oximetry 95 Oxygen Delivery Method Nasal Cannula Oxygen Flow Rate 2 Fraction of Inspired Oxygen Home Medications Current Medication List: was personally reviewed by me Laboratory Data Attestation: I reviewed the patient's lab results. Result diagrams: 06/25/19 02:36 06/25/19 02:36 Lab Results 06/25/19 06/25/19 06/25/19 Range/Units 02:36 02:36 02:36 WBC 19.07 H (4.8-10.8) K/uL RBC 4.51 (4.2-5.4) M/uL Hgb 13.3 (12.0-16.0) g/dL Hct 39.5 (37-47) % MCV 87.6 (80-100) fL MCH 29.5 (25-34) pg MCHC 33.7 (32-36) g/dL RDW Std Deviation 43.3 (36.4-46.3) fL RDW Coeff of Luis 13.6 (11.5-14.5) % Plt Count 301 (130-400) K/uL MPV 9.5 (7.4-10.4) fL Immature Gran % (Auto) 0.4 % Neut % (Auto) 82.9 % Lymph % (Auto) 9.6 % [place] % (Auto) 6.3 % Eos % (Auto) 0.6 % Baso % (Auto) 0.2 % Immature Gran # (Auto) 0.08 H (0.00-0.02) K/uL Neut # (Auto) 15.81 H (1.4-6.5) K/uL Lymph # (Auto) 1.83 (1.2-3.4) K/uL [place] # (Auto) 1.20 H (0.11-0.59) K/uL Eos # (Auto) 0.12 (0-0.5) K/uL Baso # (Auto) 0.03 (0-0.2) K/uL PT 13.4 H (9.0-12.0) Seconds INR 1.3 H (0.9-1.1) APTT 35.3 H (21.0-31.0) Seconds PTT Ratio 1.3 VBG pH (7.36-7.41) VBG pCO2 (38-50) mmHg VBG pO2 mmHg VBG HCO3 mmol/L VBG O2 Saturation % VBG Base Excess mEq/L Sodium 139 (136-145) mmol/L Potassium 3.8 (3.5-5.1) mmol/L Chloride 108 H (98-107) mmol/L Carbon Dioxide 23 (21-32) mmol/L Anion Gap 8.0 (3-11) BUN 18 (7-18) mg/dl Creatinine 1.13 (0.6-1.2) mg/dl Est Cr Clr Drug Dosing 65.2 ml/min Est GFR ( Amer) 57.0 Est GFR (Non-Af Amer) 49.2 BUN/Creatinine Ratio 16.0 (10-20) Glucose 242 H (70-99) mg/dl Calcium 8.7 (8.5-10.1) mg/dl Magnesium 1.8 (1.8-2.4) mg/dl Total Bilirubin 0.3 (0.2-1) mg/dl Direct Bilirubin < 0.1 (0-0.2) mg/dl AST 10 L (15-37) U/L ALT 19 (12-78) U/L Alkaline Phosphatase 73 (45-117) U/L Troponin I 0.088 H* (0-0.045) ng/ml NT-Pro-B Natriuret Pep 706 (0-900) pg/ml Total Protein 7.2 (6.4-8.2) gm/dl Albumin 3.0 L (3.4-5.0) gm/dl Urine Color Urine Appearance (Clear) Urine pH (4.5-7.5) Ur Specific [place] (1.000-1.030) Urine Protein (Negative) Urine Glucose (UA) (Negative) Urine Ketones (Negative) Urine Blood (Negative) Urine Nitrite (Negative) Urine Bilirubin (Negative) Urine Urobilinogen (Negative) Ur Leukocyte Esterase (Negative) Urine WBC (Auto) (0-5) /hpf Urine RBC (Auto) (0-4) /hpf U Hyaline Cast (Auto) (0-5) /lpf U Epithel Cells (Auto) (0-5) /lpf Urine Bacteria (Auto) (Negative) Ur Renal Epithelial Cell Granular Casts (0) /lpf Waxy Casts (0) /lpf 06/25/19 06/25/19 Range/Units 02:36 03:00 WBC (4.8-10.8) K/uL RBC (4.2-5.4) M/uL Hgb (12.0-16.0) g/dL Hct (37-47) % MCV (80-100) fL MCH (25-34) pg MCHC (32-36) g/dL RDW Std Deviation (36.4-46.3) fL RDW Coeff of Luis (11.5-14.5) % Plt Count (130-400) K/uL MPV (7.4-10.4) fL Immature Gran % (Auto) % Neut % (Auto) % Lymph % (Auto) % [place] % (Auto) % Eos % (Auto) % Baso % (Auto) % Immature Gran # (Auto) (0.00-0.02) K/uL Neut # (Auto) (1.4-6.5) K/uL Lymph # (Auto) (1.2-3.4) K/uL [place] # (Auto) (0.11-0.59) K/uL Eos # (Auto) (0-0.5) K/uL Baso # (Auto) (0-0.2) K/uL PT (9.0-12.0) Seconds INR (0.9-1.1) APTT (21.0-31.0) Seconds PTT Ratio VBG pH 7.40 (7.36-7.41) VBG pCO2 36 L (38-50) mmHg VBG pO2 65 mmHg VBG HCO3 22 mmol/L VBG O2 Saturation 93.0 % VBG Base Excess -2.6 mEq/L Sodium (136-145) mmol/L Potassium (3.5-5.1) mmol/L Chloride (98-107) mmol/L Carbon Dioxide (21-32) mmol/L Anion Gap (3-11) BUN (7-18) mg/dl Creatinine (0.6-1.2) mg/dl Est Cr Clr Drug Dosing ml/min Est GFR ( Amer) Est GFR (Non-Af Amer) BUN/Creatinine Ratio (10-20) Glucose (70-99) mg/dl Calcium (8.5-10.1) mg/dl Magnesium (1.8-2.4) mg/dl Total Bilirubin (0.2-1) mg/dl Direct Bilirubin (0-0.2) mg/dl AST (15-37) U/L ALT (12-78) U/L Alkaline Phosphatase (45-117) U/L Troponin I (0-0.045) ng/ml NT-Pro-B Natriuret Pep (0-900) pg/ml Total Protein (6.4-8.2) gm/dl Albumin (3.4-5.0) gm/dl Urine Color Yellow Urine Appearance Turbid A (Clear) Urine pH 5.5 (4.5-7.5) Ur Specific [place] 1.023 (1.000-1.030) Urine Protein 4+ H (Negative) Urine Glucose (UA) Trace H (Negative) Urine Ketones Negative (Negative) Urine Blood Trace H (Negative) Urine Nitrite Negative (Negative) Urine Bilirubin Negative (Negative) Urine Urobilinogen Negative (Negative) Ur Leukocyte Esterase Negative (Negative) Urine WBC (Auto) 10-30 H (0-5) /hpf Urine RBC (Auto) 0-4 (0-4) /hpf U Hyaline Cast (Auto) >30 H (0-5) /lpf U Epithel Cells (Auto) >30 H (0-5) /lpf Urine Bacteria (Auto) 1+ H (Negative) Ur Renal Epithelial Cell Not Reportable Granular Casts 20-30 H (0) /lpf Waxy Casts 5-10 H (0) /lpf Administered Medications Discontinued Medications Furosemide (Lasix) 40 mg IV NOW STA Stop: 06/25/19 03:17 Last Admin: 06/25/19 03:20 Dose: 40 mg Documented by: [id number] Blood Pressure Blood Pressure Findings: Elevated blood pressure Blood Pressure Disposition: further management by hospitalist Discharge Plan Visit Data *Final* Discharge Date/Time: 06/25/19 04:32 Chief Complaint: Respiratory Problems Stated Complaint: BREATHING DIFFICULTY ED Provider: Rafael Tim Discharge Problem: Pulmonary edema, CHF (congestive heart failure) Patient Disposition: Admitted As Inpatient Discharge Instructions Interventions: ED Discharge Assessment Last Done: 06/25/19 04:32 Discharge Problem: Pulmonary edema Qualifiers: Chronicity: acute Qualified Code(s): J81.0 - Acute pulmonary edema CHF (congestive heart failure) Qualifiers: Heart failure type: unspecified Heart failure chronicity: acute on chronic Qualified Code(s): I50.9 - Heart failure, unspecified The scribe's documentation has been prepared under my direction and personally reviewed by me in its entirety. I confirm that the note above accurately reflects all work, treatment, procedures, and medical decision making performed by me.
[2019-06-25] MEDS: AMIODARONE 200 MG TAB PO SCH (07:42)
[2019-06-25] MEDS: METOPROLOL SUCC 25MG EXT REL TAB PO SCH (07:42)
[2019-06-25] MEDS: LISINOPRIL 10 MG TAB PO SCH (07:42)
[2019-06-25] MEDS: ROSUVASTATIN CALCIUM 20 MG TAB PO SCH (07:42)
[2019-06-25] MEDS: INSULIN ASPART 100 UNITS/ML 3 ML PEN SC SCH ×4 (08:05→21:14)
[2019-06-25] MEDS: INSULIN GLARGINE SOLOSTAR 100 UNITS/ML 3 ML PEN SC SCH ×2 (08:05→21:16)
[2019-06-25] MEDS ORDERED: RIVAROXABAN 20 MG TAB PO SCH (09:00)
[2019-06-25] MEDS ORDERED: INFLUENZA ADMINISTRATION CHARGE ONE (09:00)
[2019-06-25] MEDS ORDERED: NON-FORMULARY MEDICATION (Coenzyme Q10 200 MG) PO SCH (09:00)
[2019-06-25] MEDS ORDERED: INFLUENZA VACCINE HIGH DOSE 65+ 0.5 ML SYR IM ONE (09:00)
--- NOTE | 2019-06-25 10:29 | Cardiology Consultation ---
Date of Consultation June 25, 2019 Assessment & Plan (1) CHF (congestive heart failure): (2) Elevated troponin: (3) Hypertension: (4) Atrial fibrillation: Patient with history of chronic diastolic CHF admitted with acute onset shortness of breath and chest tightness early this morning. She was in respiratory distress upon arrival to the ED and temporarily required Bipap. Symptoms may be secondary to decompensated heart failure as she has been off her outpatient Lasix over the past month. Currently appears well perfused with mild congestion. Continue IV Lasix. Daily weights. Strict I&Os. She has no history of coronary artery disease. Given the acute onset of symptoms, elevated troponin and abnormal EKG ACS needs to be ruled. Patient is currently chest pain free and electrically/hemodynamically stable. Trend troponin and EKG. Check echo. History of Present Illness Attending Physician: Tray Ramirez History of Present Illness Mrs. Hendricks is a very pleasant 68-year-old female with a history significant for diastolic CHF, hypertension, tachycardia induced cardiomyopathy, torsades de pointes likely due to Levaquin, type 2 diabetes, hypertension, dyslipidemia and asthma. 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 She was admitted early this morning with acute onset shortness of breath. She reports chronic shortness of breath on exertion which has been stable. Yesterday she went to bed around 10 pm and had difficulty falling asleep which is not unusual for her. Around 12 am she got out of bed and took a Tylenol PM. After lying back down she suddenly felt very short of breath. She got up and went downstairs to use her inhaler. Her dyspnea was worse with walking. Her inhaler did not improve her symptoms. She had associated chest tightness and a sensation of "bubbling" in her chest. She felt warm and was somewhat diaphoretic. No nausea, palpitations, lightheadedness or syncope. Her symptoms persisted so her called 911. Upon EMS arrival she was told her oxygen saturation was 80%. Her shortness of breath and chest tightness improved with supplemental oxygen. Symptoms returned when her oxygen was removed for a short period of time during transfer. Chest tightness again resolved with oxygen. Upon arrival to ED was in respiratory distress and required Bipap temporarily. She was also significantly hypertensive. Chest xray with pulmonary vascular congestion. EKG with lateral ST depressions. Troponin was elevated at 0.088. She was started on IV Lasix. She is currently lying almost flat in bed comfortably. She denies any recurrent chest pain or shortness of breath. She mentions stopping her Lasix about one month ago because she was worried it was making her "kidneys hurt." Her weight had been stable and she had no noticed any edema. Allergies Allergy/AdvReac Type Severity Reaction Status Date / Time codeine Allergy Unknown Unknown Verified 06/25/19 03:11 tramadol Allergy Unknown HIVES Verified 06/25/19 03:11 Quinolones Allergy Unknown Verified 06/25/19 03:11 levofloxacin AdvReac Severe SHORTNESS Verified 06/25/19 03:11 OF BREATH Home Medications Home Medications Medication Instructions Recorded Confirmed Type amiodarone 200 mg tablet 200 mg PO DAILY #90 tab 05/11/19 06/25/19 Rx blood sugar diagnostic strips #50 ea 05/11/19 06/25/19 Rx coenzyme Q10 200 mg capsule 200 mg PO DAILY cap 05/11/19 06/25/19 History lisinopril 10 mg tablet 10 mg PO DAILY #90 tab 05/11/19 06/25/19 Rx metformin 500 mg tablet 500 mg PO DAILY #90 tab 05/11/19 06/25/19 Rx metoprolol succinate ER 25 mg 37.5 mg PO DAILY #135 tab 05/11/19 06/25/19 Rx tablet,extended release 24 hr multivitamin tablet 1 tab PO DAILY 05/11/19 06/25/19 History omega-3 fatty acids 1,000 mg 1,000 mg PO DAILY 05/11/19 06/25/19 History capsule potassium chloride ER 10 mEq 10 meq PO DAILY #90 cap 05/11/19 06/25/19 Rx capsule,extended release rosuvastatin 20 mg tablet 20 mg PO DAILY #90 tab 05/11/19 06/25/19 Rx turmeric 400 mg capsule 400 mg PO DAILY cap 05/11/19 06/25/19 History alendronate 70 mg tablet See Rx Instructions .ROUTE 06/23/19 06/25/19 Rx .COMPLEX #12 tablet Xarelto 20 mg PO DAILY 06/25/19 06/25/19 History furosemide 40 mg PO DAILY 06/25/19 06/25/19 History Patient History Family History Mother Clotting disorder Diabetes Hypertension Stroke Myocardial infarction Osteoporosis Sister Diabetes Stroke Myocardial infarction Father Heart disease Lung disease Other Cerebral aneurysm Schizophrenia Social History Preferred Language: [place] Communication Ability: Effective Visual Impairment: No Limitations Hearing Ability: Normal Manager Of Health Required: No Beliefs That Will Affect Care: None marital status: Current Living Situation: Spouse current occupational status: retired Feels Safe at Home: Yes Smoking Status: Never smoker Second Hand Exposure: No ; Hx Alcohol Use: No Hx Substance Use: No Childhood Exposure to Second-Hand Smoke: Yes caffeine: Yes during the past year weight has: remained stable Dental Care, Regularly: No Physical Activity Frequency: Does not Exercise Seatbelt Use: always Sunscreen Use: Yes Do you think of yourself as: straight/heterosexual Review of Systems Review of Systems: All systems reviewed & are unremarkable except as noted in HPI & below Physical Exam Physical Exam: General: No acute distress, comfortable. On supplemental oxygen via nasal cannula. HEENT: Head is normal. PERRLA. EOMI. Sclerae anicteric. Ears, nose and throat unremarkable. Mucous membranes moist. Neck: Normal carotid upstrokes, no bruits. No appreciable JVD but neck is thick making exam difficult. Lungs: Few bibasilar crackles. No respiratory distress. Cardiac: Regular rate and rhythm. S1-S2 normal. No appreciable murmur, gallop or rub. Abdomen: Soft and nontender. Bowel sounds normal. No mass or organomegaly. No abdominal bruit. Extremities/vascular: -- Well perfused. Trace to 1+ lower extremity edema bilaterally --Radial, DP and PT pulses 2+ bilaterally Skin: No rash or abnormal lesions. Normal turgor. Neurologic: Nonfocal Psychiatric: Affect appropriate. Alert and oriented. Results & Data Vital Signs (Past 12 Hours) Vital Signs Temp Pulse Pulse Resp BP BP BP 06/25/19 09:03 87 06/25/19 08:30 36.7 C 65 18 162/83 H 06/25/19 08:21 36.9 C 83 18 119/76 06/25/19 04:50 36.7 C 90 20 143/83 H 06/25/19 04:32 88 20 128/75 06/25/19 03:31 93 H 22 163/88 H 06/25/19 02:32 92 H 24 139/81 06/25/19 02:27 95 H 25 H 06/25/19 02:17 36.6 C 104 H 26 H 201/114 H Pulse Ox 06/25/19 09:03 06/25/19 08:30 95 06/25/19 08:21 96 06/25/19 04:50 97 06/25/19 04:32 96 06/25/19 03:31 95 06/25/19 02:32 95 06/25/19 02:27 97 06/25/19 02:17 92 Laboratory Results Laboratory Results - last 24 hr 06/25/19 06/25/19 06/25/19 02:36 02:36 02:36 WBC 19.07 H RBC 4.51 Hgb 13.3 Hct 39.5 MCV 87.6 MCH 29.5 MCHC 33.7 RDW Std Deviation 43.3 RDW Coeff of Luis 13.6 Plt Count 301 MPV 9.5 Immature Gran % (Auto) 0.4 Neut % (Auto) 82.9 Lymph % (Auto) 9.6 [place] % (Auto) 6.3 Eos % (Auto) 0.6 Baso % (Auto) 0.2 Immature Gran # (Auto) 0.08 H Neut # (Auto) 15.81 H Lymph # (Auto) 1.83 [place] # (Auto) 1.20 H Eos # (Auto) 0.12 Baso # (Auto) 0.03 PT 13.4 H INR 1.3 H APTT 35.3 H PTT Ratio 1.3 VBG pH VBG pCO2 VBG pO2 VBG HCO3 VBG O2 Saturation VBG Base Excess Sodium 139 Potassium 3.8 Chloride 108 H Carbon Dioxide 23 Anion Gap 8.0 BUN 18 Creatinine 1.13 Est Cr Clr Drug Dosing 65.2 Est GFR ( Amer) 57.0 Est GFR (Non-Af Amer) 49.2 BUN/Creatinine Ratio 16.0 Glucose 242 H POC Glucose Calcium 8.7 Magnesium 1.8 Total Bilirubin 0.3 Direct Bilirubin < 0.1 AST 10 L ALT 19 Alkaline Phosphatase 73 Troponin I 0.088 H* NT-Pro-B Natriuret Pep 706 Total Protein 7.2 Albumin 3.0 L Urine Color Urine Appearance Urine pH Ur Specific [place] Urine Protein Urine Glucose (UA) Urine Ketones Urine Blood Urine Nitrite Urine Bilirubin Urine Urobilinogen Ur Leukocyte Esterase Urine WBC (Auto) Urine RBC (Auto) U Hyaline Cast (Auto) U Epithel Cells (Auto) Urine Bacteria (Auto) Ur Renal Epithelial Cell Granular Casts Waxy Casts 06/25/19 06/25/19 06/25/19 02:36 03:00 08:02 WBC RBC Hgb Hct MCV MCH MCHC RDW Std Deviation RDW Coeff of Luis Plt Count MPV Immature Gran % (Auto) Neut % (Auto) Lymph % (Auto) [place] % (Auto) Eos % (Auto) Baso % (Auto) Immature Gran # (Auto) Neut # (Auto) Lymph # (Auto) [place] # (Auto) Eos # (Auto) Baso # (Auto) PT INR APTT PTT Ratio VBG pH 7.40 VBG pCO2 36 L VBG pO2 65 VBG HCO3 22 VBG O2 Saturation 93.0 VBG Base Excess -2.6 Sodium Potassium Chloride Carbon Dioxide Anion Gap BUN Creatinine Est Cr Clr Drug Dosing Est GFR ( Amer) Est GFR (Non-Af Amer) BUN/Creatinine Ratio Glucose POC Glucose 133 H Calcium Magnesium Total Bilirubin Direct Bilirubin AST ALT Alkaline Phosphatase Troponin I NT-Pro-B Natriuret Pep Total Protein Albumin Urine Color Yellow Urine Appearance Turbid A Urine pH 5.5 Ur Specific [place] 1.023 Urine Protein 4+ H Urine Glucose (UA) Trace H Urine Ketones Negative Urine Blood Trace H Urine Nitrite Negative Urine Bilirubin Negative Urine Urobilinogen Negative Ur Leukocyte Esterase Negative Urine WBC (Auto) 10-30 H Urine RBC (Auto) 0-4 U Hyaline Cast (Auto) >30 H U Epithel Cells (Auto) >30 H Urine Bacteria (Auto) 1+ H Ur Renal Epithelial Cell Not Reportable Granular Casts 20-30 H Waxy Casts 5-10 H 06/25/19 09:01 WBC RBC Hgb Hct MCV MCH MCHC RDW Std Deviation RDW Coeff of Luis Plt Count MPV Immature Gran % (Auto) Neut % (Auto) Lymph % (Auto) [place] % (Auto) Eos % (Auto) Baso % (Auto) Immature Gran # (Auto) Neut # (Auto) Lymph # (Auto) [place] # (Auto) Eos # (Auto) Baso # (Auto) PT INR APTT PTT Ratio VBG pH VBG pCO2 VBG pO2 VBG HCO3 VBG O2 Saturation VBG Base Excess Sodium Potassium Chloride Carbon Dioxide Anion Gap BUN Creatinine Est Cr Clr Drug Dosing Est GFR ( Amer) Est GFR (Non-Af Amer) BUN/Creatinine Ratio Glucose POC Glucose Calcium Magnesium Total Bilirubin Direct Bilirubin AST ALT Alkaline Phosphatase Troponin I 0.733 H* NT-Pro-B Natriuret Pep Total Protein Albumin Urine Color Urine Appearance Urine pH Ur Specific [place] Urine Protein Urine Glucose (UA) Urine Ketones Urine Blood Urine Nitrite Urine Bilirubin Urine Urobilinogen Ur Leukocyte Esterase Urine WBC (Auto) Urine RBC (Auto) U Hyaline Cast (Auto) U Epithel Cells (Auto) Urine Bacteria (Auto) Ur Renal Epithelial Cell Granular Casts Waxy Casts ECG Additional Comments: EKG sinus tachycardia with ST depression lateral waves Tele reviewed-- sinus rhythm PG Care Time/CCT Total # of Minutes Spent Total Time Spent with Patient: Total time spent is greater than 50% in coordination of care (as documented) at patient's floor/unit and/or counseling patient: (1) CHF (congestive heart failure) Heart failure chronicity: acute on chronic Heart failure type: unspecified Qualified Code(s): I50.9 - Heart failure, unspecified (2) Atrial fibrillation Atrial fibrillation type: paroxysmal Qualified Code(s): I48.0 - Paroxysmal atrial fibrillation (3) Hypertension Hypertension type: essential hypertension Qualified Code(s): I10 - Essential (primary) hypertension
[2019-06-25] MEDS ORDERED: NiCARDipine HCL INJ 2.5 MG/ML 10 ML AMP ONE (14:46)
[2019-06-25] MEDS ORDERED: fentaNYL citrate 100 MCG/2 ML VIAL ONE (14:46)
[2019-06-25] MEDS ORDERED: HEPARIN (PORCINE) 1000 UNIT/ML 10 ML (CATH LAB USE ONLY) ONE (14:46)
[2019-06-25] MEDS ORDERED: MIDAZOLAM HCL 1 MG/ML 2ML VIAL ONE (14:47)
[2019-06-25] MEDS ORDERED: NITROGLYCERIN/D5W 100MCG/ML 20ML SYR ONE (14:47)
[2019-06-25 16:17] LABS: BUN Creatinine Ratio 17.7 (10-20); Calcium 8.9 mg/dl (8.5-10.1); Creatinine Clr Calc Pharmacy 59.3 ml/min; Est GFR (African American) 51.5; Est GFR (Non-African American) 44.4; Potassium 3.9 mmol/L (3.5-5.1)
[2019-06-25] MEDS: FUROSEMIDE 40 MG in SYRINGE 0 ML IV SCH (17:22)
[2019-06-25] MEDS: ACETAMINOPHEN 325 MG TAB PO PRN (17:56)
[2019-06-26 04:48] LABS: Basophils # (auto) 0.03 K/uL (0-0.2); Basophils % (auto) 0.4 %; Eosinophils # (auto) 0.15 K/uL (0-0.5); Eosinophils % (auto) 1.8 %; Hematocrit (blood only) 38.7 % (37-47); Hemoglobin 12.4 g/dL (12.0-16.0); Immature Granulocytes # (auto) 0.02 K/uL (0.00-0.02); Immature Granulocytes % (auto) 0.2 %; Lymphocytes # (auto) 2.14 K/uL (1.2-3.4); Lymphocytes % (auto) 25.5 %; Mean Corpuscular Hemoglobin 28.6 pg (25-34); Mean Corpuscular Volume 89.2 fL (80-100); Mean Platelet Volume 9.4 fL (7.4-10.4); Monocytes # (auto) 0.72 K/uL (0.11-0.59); Monocytes % (auto) 8.6 %; Neutrophils # (auto) 5.32 K/uL (1.4-6.5); Neutrophils % (auto) 63.5 %; Platelet Count 247 K/uL (130-400); RDW Standard Deviation 45.8 fL (36.4-46.3); Red Blood Count 4.34 M/uL (4.2-5.4); White Blood Count 8.38 K/uL (4.8-10.8)
[2019-06-26 05:01] LABS: BUN Creatinine Ratio 18.9 (10-20); Calcium 8.4 mg/dl (8.5-10.1); Creatinine Clr Calc Pharmacy 60.7 ml/min; Est GFR (Non-African American) 45.8; Potassium 3.8 mmol/L (3.5-5.1)
[2019-06-26 05:48] LABS: Estimated Average Glucose 143 mg/dl; Hemoglobin A1C 6.6 % (4.5-5.6)
[2019-06-26] MEDS ORDERED: ASPIRIN 81 MG CHEW PO STA (05:53)
[2019-06-26] MEDS ORDERED: Nursing to Pharmacy Communication ONE (06:35)
[2019-06-26] MEDS ORDERED: NiCARDipine HCL INJ 2.5 MG/ML 10 ML AMP ONE (06:58)
[2019-06-26] MEDS ORDERED: HEPARIN (PORCINE) 1000 UNIT/ML 10 ML (CATH LAB USE ONLY) ONE (06:58)
[2019-06-26] MEDS ORDERED: fentaNYL citrate 100 MCG/2 ML VIAL ONE (06:58)
[2019-06-26] MEDS ORDERED: NITROGLYCERIN/D5W 100MCG/ML 20ML SYR ONE (06:59)
[2019-06-26] MEDS ORDERED: MIDAZOLAM HCL 1 MG/ML 2ML VIAL ONE (06:59)
--- NOTE | 2019-06-26 07:13 | Pre Anesthesia Assessment ---
Date of Service June 26, 2019 Pre Sedation Assessment Vital Signs Temp Pulse Pulse Resp BP BP Pulse Ox 06/26/19 04:36 36.5 C 61 18 101/60 90 06/26/19 01:10 71 06/25/19 22:48 36.6 C 70 19 107/63 94 06/25/19 19:00 36.6 C 74 19 116/72 96 06/25/19 16:05 73 06/25/19 15:13 36.7 C 78 19 125/70 96 06/25/19 12:19 37.1 C 80 17 123/69 95 06/25/19 09:03 87 06/25/19 08:30 36.7 C 65 18 162/83 H 95 06/25/19 08:21 36.9 C 83 18 119/76 96 Cardiovascular RRR, no murmur, no edema Respiratory normal respiratory effort, lungs clear to auscultation Pre-Sedation Airway Assessment Smoking Status: Never smoker Short, Thick Neck: Yes Mallampati Class: II ASA: ASA3 NPO Status Date of Last Intake of Fluids: 06/25/19 Time of Last Intake of Fluids: 20:00 Date of Last Intake of Solid Food: 06/25/19 Time of Last Intake of Solid Foods: 20:00 Procedure Planning Contraindications for Sedation: none Current Medications Reviewed: Yes Notes The planned sedation has been discussed with the patient. Informed Consent was obtained. I have identified the patient, determined the appropriateness of sedation and have assessed the patient immediately prior to the procedure. All medicine(s) and interventions are by my order.
--- NOTE | 2019-06-26 07:50 | Cardiac Catheterization ---
[facility] Data: Public Finance Specialist Cardiac Status Clinical evaluation leading to the procedure CAD Presenation: Non STEMI Anginal Classification: CCS IV Heart Failure: NYHA Class: CCS IV Cardiogenic Shock within 24 Hours: No Cardiac Arrest within 24 Hours: No Imaging Studies Past 6 Months: Yes Stress Studies Past 6 Months: No Standard Exercise Test: No Stress Echocardiogram: No Stress Testing w/SPECT MPI: No Cardiac CTA: No Coronary Anatomy Dominant: Right Left Ventricular Angiography EF (%): n/a Diagnostic Physicians Name: Pradip Martinez MD Status: Elective Closure Device Percutaneous Entry Location: Radial Closure Device: Radial Band Recommendations: Medical Therapy and/or Counseling Cardiac Cath Procedure Full Procedure Date June 26, 2019 Pre-Procedure Diagnosis Pre-Procedure Diagnosis: Non STEMI AUC Score AUC Score: 7 Post-Procedure Diagnosis Post-Procedure Diagnosis: Mild CAD and Normal Intracardiac Pressures Procedure(s) Performed Procedure(s) Performed: Coronary Angiography and Left Heart Cath Cyber Intel Planner Pradip Martinez MD Diesel Tractor Engine Mechanic(s) Simone Tucker Estimated Blood Loss Estimated Blood Loss: < 25 ml Medication(s) Medication(s): Fentanyl, Heparin, Lidocaine 1%, Nicardipine and Versed Summary of Findings Procedures: 1. Coronary angiography 2. Left heart catheterization 3. Moderate sedation Coronary angiography: 1. Left main coronary artery: Left main coronary artery is large in caliber. Distal tapering of approximately 20 to 30%. 2. Left anterior descending: Calcifications noted within the proximal LAD. No significant CAD within the large caliber LAD, which wraps around the apex. Large-caliber D1 without significant CAD. 3. Circumflex: The circumflex is a large-caliber vessel proximally and throughout the mid portion. Distally, the circumflex is a small caliber vessel. There is a large-caliber branching OM1. No significant CAD within the circumflex system. 4. Right coronary: The RCA is large and dominant. Mid RCA luminal irregularities of less than 10%. Large PDA. No significant CAD within the PDA and PL. 5. Ramus intermedius: Very small caliber ramus intermedius without significant CAD. Left heart catheterization: 1. Left ventriculography was not performed. 2. Normal LVEDP; LVEDP 11 mmHg. 3. Peak to peak gradient across the aortic valve was approximately 18 mmHg, suggesting possible mild aortic stenosis. Moderate sedation: 1. Sedation start time: 7:21 AM 2. Sedation end time: 7:40 AM Impression: 1. Mild nonobstructive CAD. 2. Normal left-sided filling pressure. 3. Mild aortic stenosis. Plan: 1. Continue risk factor modification. Hemodynamics Rest Ao:: 124/67 Final Ao: 120/55 LV: 138/3/11 Recommendations Recommendations: Medical Therapy and/or Counseling Specimens Specimens: None Radiation Exposure (mGy) 1062 mGy. Fluoro time 3.3 min Contrast (mls) 100 ml Procedural Complication(s) None Disposition Public Finance Specialist Holding/Recovery I attest to the content of the Intraoperative Record and any orders documented therein. Any exceptions are noted below.
--- NOTE | 2019-06-26 07:56 | Post Anesthesia Assessment ---
Date of Service June 26, 2019 Post Sedation Assessment Vital Signs Temp Pulse Pulse Resp BP BP Pulse Ox 06/26/19 07:50 69 18 136/81 91 06/26/19 04:36 36.5 C 61 18 101/60 90 06/26/19 01:10 71 06/25/19 22:48 36.6 C 70 19 107/63 94 06/25/19 19:00 36.6 C 74 19 116/72 96 06/25/19 16:05 73 06/25/19 15:13 36.7 C 78 19 125/70 96 06/25/19 12:19 37.1 C 80 17 123/69 95 06/25/19 09:03 87 06/25/19 08:30 36.7 C 65 18 162/83 H 95 06/25/19 08:21 36.9 C 83 18 119/76 96 Recovery Score Activity: Moves 4 extremities Respiration: Deep Breath/Cough Circulation: +/-20% PreAnes Value Consciousness: Fully Awake Oxygen Saturation: > 92% On Room Air Post Anesthesia Score: 10 Post Sedation Plan On clinical assessment, the patient appears to have tolerated the sedation without complications. Patient is recovering as anticipated. Patient will continue to be monitored by nursing and may be discharged when sedation discharge criteria are met per below protocol. Upon Completions of procedure and additional 15 minutes continue every 5 minute vital signs and the P.A.R. score; then discharge to a Phase I or Fast Track to Phase II per the following guidelines: * Discharge Patient to appropriate Phase II area if PAR is 8 or greater or return to pre- procedure baseline. The post - procedure orders will be as directed. * If PAR score is less than 8 or not return to pre-procedure baseline then patient will follow Phase I monitoring till PAR is reached for Phase II. The Phase I may be done in procedure room or may call to secure a Phase I area. * If naloxone or flumazenil are used for reversal, hold in Phase I for continued monitoring from when last reversal dose was given for a minimum of 60 minutes or longer pending the nurse and/or physician discretion of patient condition before discharge to Phase II. Please call the Sedation Physician to re-evaluate and complete post-note for discharge to Phase II area. Do NOT discharge from procedure sedation or Phase 1 until post- sedation evaluation note is complete by procedure /sedation MD Sedation Discharge Instructions to be given to the patient at discharge to home.
[2019-06-26] MEDS ORDERED: SODIUM CHLORIDE 0.9% 1000ML 1,000 ML IV SCH (08:00)
[2019-06-26] MEDS: INSULIN ASPART 100 UNITS/ML 3 ML PEN SC SCH ×3 (08:56→16:55)
[2019-06-26] MEDS: INSULIN GLARGINE SOLOSTAR 100 UNITS/ML 3 ML PEN SC SCH (09:41)
[2019-06-26] MEDS: LISINOPRIL 10 MG TAB PO SCH (09:42)
[2019-06-26] MEDS: AMIODARONE 200 MG TAB PO SCH (09:42)
[2019-06-26] MEDS: METOPROLOL SUCC 25MG EXT REL TAB PO SCH (09:43)
[2019-06-26] MEDS: ROSUVASTATIN CALCIUM 20 MG TAB PO SCH (09:43)
--- NOTE | 2019-06-26 10:36 | Cardiology Progress Note ---
Date of Service June 26, 2019 Assessment & Plan (1) Non-ST elevation (NSTEMI) myocardial infarction: (2) CAD (coronary artery disease): (3) Chronic diastolic CHF (congestive heart failure): (4) Nonischemic cardiomyopathy: (5) Hypertension: ASSESSMENT/PLAN: 1. NSTEMI: Likely due to demand ischemia, possibly due to acute CHF verses severe hypertension. She had no obstructive CAD. Continue blood pressure management. 2. Nonischemic cardiomyopathy: Recommend low-dose carvedilol 3.125 mg twice daily. Continue RAY-inhibitor. 3. Chronic diastolic CHF: Normal LVEDP. She is completely asymptomatic. She stop taking Lasix several weeks prior to presentation. We discussed importance of taking diuretic on a regular basis. Low-sodium diet. Daily weights. She appears euvolemic currently. 4. Paroxysmal atrial fibrillation/flutter: No recent symptoms. Continue amiodarone. Continue anticoagulation for stroke risk reduction. Can resume Xarelto tomorrow. 5. Hypertension: Blood pressure currently well controlled. Recommend low-dose beta-christiana as noted above. Would resume home dose of Lasix on discharge. 6. Disposition: Cardiology will continue to follow. Catheterization findings communicated with Dr. Ramirez, primary hospitalist service. Subjective She denies chest pain or shortness of breath. She has been weaned from her supplemental oxygen and is able to lay flat without any orthopnea. She feels w ell. She underwent cardiac catheterization earlier today and was found to have no significant CAD. Her filling pressures are actually normal. She had non severe aortic stenosis, which was previously described on Echocardiogram. There is no reported palpitations, syncope, near-syncope. Review of systems: As above. Physical Exam Physical Exam: Gen.: No acute distress. Alert and oriented. HEENT: Anicteric sclera. Neck: No JVD, but thick neck. Cardiac: Regular. Normal S1-S2. No audible murmurs, rubs, or gallops. Pulmonary: Clear to auscultation bilaterally without wheezes, rales, or rhonchi. Abdomen: Soft, nontender, nondistended, with normoactive bowel sounds. No bruits noted. Extremities: No significant pitting edema or cyanosis. Psychiatric: Affect appears appropriate. Results & Data Vital Signs (Past 12 Hours) Vital Signs Temp Pulse Pulse Pulse Resp BP BP 06/26/19 10:00 36.4 C L 62 14 114/76 06/26/19 09:30 62 14 118/80 06/26/19 09:00 36.3 C L 65 16 126/80 06/26/19 08:45 36.3 C L 65 16 138/80 06/26/19 08:30 36.4 C L 68 14 136/78 06/26/19 08:20 62 17 130/76 06/26/19 08:00 65 17 133/68 06/26/19 07:50 69 18 136/81 06/26/19 04:36 36.5 C 61 18 101/60 06/26/19 01:10 71 06/25/19 22:48 36.6 C 70 19 107/63 Pulse Ox 06/26/19 10:00 94 06/26/19 09:30 93 06/26/19 09:00 94 06/26/19 08:45 94 06/26/19 08:30 94 06/26/19 08:20 94 06/26/19 08:00 92 06/26/19 07:50 91 06/26/19 04:36 90 06/26/19 01:10 06/25/19 22:48 94 Laboratory Results Laboratory Results - last 24 hr 06/25/19 06/25/19 06/25/19 12:47 15:54 16:45 WBC RBC Hgb Hct MCV MCH MCHC RDW Std Deviation RDW Coeff of Luis Plt Count MPV Immature Gran % (Auto) Neut % (Auto) Lymph % (Auto) [place] % (Auto) Eos % (Auto) Baso % (Auto) Immature Gran # (Auto) Neut # (Auto) Lymph # (Auto) [place] # (Auto) Eos # (Auto) Baso # (Auto) Sodium 141 Potassium 3.9 Chloride 109 H Carbon Dioxide 27 Anion Gap 5.0 BUN 22 H Creatinine 1.23 H Est Cr Clr Drug Dosing 59.3 Est GFR ( Amer) 51.5 Est GFR (Non-Af Amer) 44.4 BUN/Creatinine Ratio 17.7 Glucose 154 H POC Glucose 128 H 129 H Estimat Average Glucose Hemoglobin A1c Calcium 8.9 Troponin I 06/25/19 06/25/19 06/26/19 18:07 20:12 00:01 WBC RBC Hgb Hct MCV MCH MCHC RDW Std Deviation RDW Coeff of Luis Plt Count MPV Immature Gran % (Auto) Neut % (Auto) Lymph % (Auto) [place] % (Auto) Eos % (Auto) Baso % (Auto) Immature Gran # (Auto) Neut # (Auto) Lymph # (Auto) [place] # (Auto) Eos # (Auto) Baso # (Auto) Sodium Potassium Chloride Carbon Dioxide Anion Gap BUN Creatinine Est Cr Clr Drug Dosing Est GFR ( Amer) Est GFR (Non-Af Amer) BUN/Creatinine Ratio Glucose POC Glucose 116 H 117 H Estimat Average Glucose Hemoglobin A1c Calcium Troponin I 0.663 H* 06/26/19 06/26/19 06/26/19 04:24 04:24 04:24 WBC 8.38 RBC 4.34 Hgb 12.4 Hct 38.7 MCV 89.2 MCH 28.6 MCHC 32.0 RDW Std Deviation 45.8 RDW Coeff of Luis 14.0 Plt Count 247 MPV 9.4 Immature Gran % (Auto) 0.2 Neut % (Auto) 63.5 Lymph % (Auto) 25.5 [place] % (Auto) 8.6 Eos % (Auto) 1.8 Baso % (Auto) 0.4 Immature Gran # (Auto) 0.02 Neut # (Auto) 5.32 Lymph # (Auto) 2.14 [place] # (Auto) 0.72 H Eos # (Auto) 0.15 Baso # (Auto) 0.03 Sodium 141 Potassium 3.8 Chloride 109 H Carbon Dioxide 28 Anion Gap 4.0 BUN 23 H Creatinine 1.20 Est Cr Clr Drug Dosing 60.7 Est GFR ( Amer) 53.0 Est GFR (Non-Af Amer) 45.8 BUN/Creatinine Ratio 18.9 Glucose 134 H POC Glucose Estimat Average Glucose 143 Hemoglobin A1c 6.6 H Calcium 8.4 L Troponin I 06/26/19 06:00 WBC RBC Hgb Hct MCV MCH MCHC RDW Std Deviation RDW Coeff of Luis Plt Count MPV Immature Gran % (Auto) Neut % (Auto) Lymph % (Auto) [place] % (Auto) Eos % (Auto) Baso % (Auto) Immature Gran # (Auto) Neut # (Auto) Lymph # (Auto) [place] # (Auto) Eos # (Auto) Baso # (Auto) Sodium Potassium Chloride Carbon Dioxide Anion Gap BUN Creatinine Est Cr Clr Drug Dosing Est GFR ( Amer) Est GFR (Non-Af Amer) BUN/Creatinine Ratio Glucose POC Glucose 144 H Estimat Average Glucose Hemoglobin A1c Calcium Troponin I Diagnostic Findings Cardiac catheterization 06/26/2019: Coronary angiography: 1. Left main coronary artery: Left main coronary artery is large in caliber. Distal tapering of approximately 20 to 30%. 2. Left anterior descending: Calcifications noted within the proximal LAD. No significant CAD within the large caliber LAD, which wraps around the apex. Large-caliber D1 without significant CAD. 3. Circumflex: The circumflex is a large-caliber vessel proximally and throughout the mid portion. Distally, the circumflex is a small caliber vessel. There is a large-caliber branching OM1. No significant CAD within the circumflex system. 4. Right coronary: The RCA is large and dominant. Mid RCA luminal irregularities of less than 10%. Large PDA. No significant CAD within the PDA and PL. 5. Ramus intermedius: Very small caliber ramus intermedius without significant CAD. Left heart catheterization: 1. Left ventriculography was not performed. 2. Normal LVEDP; LVEDP 11 mmHg. 3. Peak to peak gradient across the aortic valve was approximately 18 mmHg, suggesting possible mild aortic stenosis. Echo 06/25/2019: Moderately reduced LV systolic function with reported EF 35- 40%. Severe hypokinesis involving the basal inferior and anterior johnson. Otherwise, moderate global hypokinesis, worse in the inferior lateral and anterior segments. Mild to moderate MR. Degree of aortic stenosis was not assessed. Mild to moderate AI. Compared to prior study in 2017, LV systolic function has worsened with wall motion abnormalities as reported. Telemetry personally reviewed: No arrhythmia. Medications Administered Current Inpatient Medications Acetaminophen (Tylenol) 650 mg PO Q4H PRN PRN Reason: Pain Stop: 07/25/19 17:44 Last Admin: 06/25/19 17:56 Dose: 650 mg Documented by: Albuterol (Ventolin 0.5% 2.5mg/0.5ml) 2.5 mg NEB Q2H PRN PRN Reason: SOB/Wheeze Stop: 07/25/19 05:05 Amiodarone HCl (Cordarone) 200 mg PO DAILY ZOYA Stop: 07/25/19 08:59 Last Admin: 06/26/19 09:42 Dose: 200 mg Documented by: Dextrose (Dextrose 50%) 25 - 50 ml IV UD PRN; Protocol PRN Reason: Hypoglycemia Protocol Stop: 07/25/19 05:05 Glucagon (Glucagen) 1 mg SQ UD PRN; Protocol PRN Reason: Hypoglycemia Protocol Stop: 07/25/19 05:05 Glucose (Dex4 Glucose) 4 - 8 tabs PO UD PRN; Protocol PRN Reason: Hypoglycemia Protocol Stop: 07/25/19 05:05 Glucose (Glucose 40%) 15 - 30 gm PO UD PRN; Protocol PRN Reason: Hypoglycemia Protocol Stop: 07/25/19 05:05 Furosemide 40 mg/ Syringe 4 mls @ 4 mls/min IV BIDM ZOYA Stop: 07/25/19 16:59 Last Admin: 06/25/19 17:22 Dose: 4 mls/min Documented by: Sodium Chloride (Nss 1000ml) 1,000 mls @ 125 mls/hr IV .Q8H ZOYA Stop: 06/26/19 13:00 Last Admin: 06/26/19 09:39 Dose: 125 mls/hr Documented by: Insulin Aspart (Novolog Flexpen) 0 units SC Q6 ZOYA Stop: 07/26/19 06:44 Last Admin: 06/26/19 08:56 Dose: Not Given Documented by: Insulin Glargine (Lantus Solostar Pen) 10 units SC BID ZOYA Stop: 07/25/19 08:59 Last Admin: 06/26/19 09:41 Dose: 10 units Documented by: Lisinopril (Zestril) 10 mg PO DAILY ZOYA Stop: 07/25/19 08:59 Last Admin: 06/26/19 09:42 Dose: 10 mg Documented by: Metoprolol Succinate (Toprol Xl) 37.5 mg PO DAILY ZOYA Stop: 07/25/19 08:59 Last Admin: 06/26/19 09:43 Dose: 37.5 mg Documented by: Miscellaneous (Carbohydrates For Hypoglycemia) 15 - 30 gm PO UD PRN PRN Reason: Hypoglycemia Treatment Stop: 07/25/19 05:05 Rivaroxaban (Xarelto) 20 mg PO DAILY ZOYA Stop: 07/27/19 08:59 Rosuvastatin Calcium (Crestor) 20 mg PO DAILY ZOYA Stop: 07/25/19 08:59 Last Admin: 06/26/19 09:43 Dose: 20 mg Documented by: PG Care Time/CCT Total # of Minutes Spent Total Time Spent with Patient: Total time spent is greater than 50% in coordination of care (as documented) at patient's floor/unit and/or counseling patient: (1) Hypertension Hypertension type: essential hypertension Qualified Code(s): I10 - Essential (primary) hypertension
[2019-06-26 15:43] VITALS: TEMP 97.9; O2SAT 93
[2019-06-26] MEDS: ACETAMINOPHEN 325 MG TAB PO PRN (15:44)
[2019-06-26 16:48] VITALS: BP 121/76; PULSE 63
[2019-06-26 16:48] LABS: BUN Creatinine Ratio 21.1 (10-20); Calcium 8.6 mg/dl (8.5-10.1); Creatinine Clr Calc Pharmacy 65.2 ml/min; Est GFR (African American) 58.3; Est GFR (Non-African American) 50.3; Potassium 4.3 mmol/L (3.5-5.1)
[2019-06-26] MEDS: FUROSEMIDE 40 MG in SYRINGE 0 ML IV SCH (16:54)
[2019-06-26] MEDS ORDERED: FUROSEMIDE 40 MG in SYRINGE 0 ML IV ONE (17:00)
[2019-06-26] MEDS ORDERED: CARVEDILOL 3.125 MG TAB PO SCH (21:00)
[2019-06-27] MEDS ORDERED: RIVAROXABAN 20 MG TAB PO SCH (09:00)
--- NOTE | 2019-07-02 14:20 | Discharge Summary ---
Date of Service June 26, 2019 Admission HPI Per Admitting Provider Tiffanie Hendricks is a pleasant 68yo C female with history of DM, HTN, HLP, PAF on Rivaroxaban anticoagulation, CHF presenting with SOB. She was trying to fall asleep last night around 12:00 and she couldn't get comfortable. She began to feel short of breath. She went downstairs and took 2 puffs on her Combivent inhaler with no improvement. She then took Lasix 40mg po and a potassium tab with minimal improvement. She states her chest felt tight, she felt short of breath and her breathing sounded wet. She called EMS and was brought to [facility] ER. Upon arrival she was afebrile, tachycardic at 104 bpm, hypertensive at 201/114, tachypneic at 26 bpm and saturating 92% on room air. +Rales on lung exam and CXR suggestive of pulmonary edema. Patient was placed on BiPAP and given Lasix 40mg IV with improvement in symptoms. I was able to remove the BiPAP during my exam and patient could converse without difficulty. She denies CP, palpitations, nausea, vomiting, diarrhea or constipation. She denies edema, orthopnea or weight gain. She was previously on Lasix 40mg po daily which she self-discontinued on May 27 - she reports monitoring her weight closely as well as watching for edema in her legs. She reports none since being off the Lasix. No additional complaints at this time ER Course: Lasix, BiPAP Principal Diagnosis Non ischemic cardimyopathy Discharge Exam General: patient resting comfortably, NAD, non-toxic in appearance, AA&O x 4 Skin: warm, dry, intact, no rashes or lesions HEENT: NC/AT, PERRL, EOMI, anicteric sclera, conjunctiva without injection, external ear normal to inspection and nontender, nares patent, moist mucus membranes, dentition intact, no oropharyngeal lesions, neck supple, trachea midline, no LAD, no thyromegaly, no JVD Heart: +S1, +S2 with splitting, regular, no m/r/g Lungs: equal air entry bilaterally, no rales heard Abd: +BS, soft, NT/ND, no masses/organomegaly/ascites Ext: warm, 2+ pulses in UE/LE bilaterally, no clubbing/cyanosis or edema Neuro: nonfocal, patient AA&O x 4, speech intact, no facial droop, moving all extremities on command with equal strength / Discharge Data Allergies Allergy/AdvReac Type Severity Reaction Status Date / Time codeine Allergy Unknown Unknown Verified 06/25/19 03:11 tramadol Allergy Unknown HIVES Verified 06/25/19 03:11 Quinolones Allergy Unknown Verified 06/25/19 03:11 levofloxacin AdvReac Severe SHORTNESS Verified 06/25/19 03:11 OF BREATH Consultations 06/25/19 02:48 ED Decision to Admit Stat 06/25/19 08:08 Consult Cardiology Routine 06/26/19 07:56 Consult Cardiac Rehabilitation Routine Procedures Performed Operation Date: 06/25/19 13:05 <No data on this case meets the specified criteria> Operation Date: 06/26/19 09:30 Actual Procedures p Cath, Left with Cors and Vent - Pradip Martinez MD s Cineradiography w/Routine Exam - Pradip Martinez MD Ordered Studies 06/25/19 13:04 CL Cath Imgs for PACS use only Routine 06/26/19 06:43 CL Cath Imgs for PACS use only Routine Hospital Course (1) Pulmonary edema: Patient presented with markedly elevated BP, tachypnea and increased work of breathing. Exam and imaging suggestive of pulmonary edema. Clinically improved after BiPAP and Lasix. Still appears to be mildly volume overloaded -Admit to medical floor -BiPAP as needed -Lasix 40mg IV given in ER. -Was treated withLasix 40mg IV BID -Daily weights -Strict I/Os -on day 2, patient had improved. It appears this episode was mainly due to non compliance with likely caused severe hypertension. Cardiac cath completed. (2) Hypertension: Patient with elevated BP on arrival. Reports her BP is typically 140-150 when she checks it at home -Continue Metoprolol -Continue Lisinopril -Lasix as above -Monitor BP. Added low dose carvedilol. (3) Diabetes: Type II DM, well controlled with Metformin. Elevated BS today - 242. Last Hb AIC 11/15/18 was 6.7 -Hold Metformin -Lantus 10u BID with ISS dosed off weight (4) Atrial fibrillation: Presently in NSR -Continue Metoprolol -Continue Amiodarone -Continue Rivaroxaban (5) CHF (congestive heart failure): Patient with Type I diastolic dysfunction. Appears to be mildly volume overloaded at present -Lasix 40mg IV BID -Daily weights, strict I/Os -BMP BID -Continue Metoprolol, Lisinopril (6) Elevated troponin: Suspect demand ischemia in setting of markedly elevated BP. No EKG changes to suggest acute ischemic process. Patient denies CP -Continue Metoprolol, Lisinopril, Crestor Trop peaked at 0.7 (7) Leukocytosis: Patient afebrile, HD stable, no overt evidence of infection (8) Demand ischemia: Patient had elevated trop. Likely due to acute CHF verses severe hypertension. She had no obstructive CAD. Continue blood pressure management. Total Time Total Time Spent Total Time Spent (In Minutes): 35 Total Time Includes: Examination of the Patient, Discharge Planning and Medication Reconciliation Discharge Plan Discharge Items Patient Disposition: Home - Self-Care Reason For Visit: respiratory distress Discharge Diagnosis: Respiratory failure Activity: Resume your previous activity Non-emergency contact: Primary Care Provider Call non-emergency contact if: you have any medication questions Follow-up/Referrals: Edgar Tucker MD [Primary Care Provider] - 07/03/19 3:00 pm (Please, follow up with Dr. Edgar Tucker on July 03 at 3:00 pm. *If you need to change this appointment, call the office at [phone].) Kerline Triplett PA-C [Physician Field Foreman] - 07/03/19 8:30 am (Congestive Heart Failure Program Appointment Information Early follow up is essential to managing your heart failure. An appointment has been scheduled for you with the [facility] Program within 7 days of discharge. Anticipate this visit to be 30-60 minutes long. Please expect a hvac manager phone call from one of our nurses approximately 48 hours from discharge. They will also be placing an order for lab work to be completed 1-2 days prior to your heart failure follow up appointment. Please be sure to have this done so we can go over the results when you come in. Office Location The cardiology office building is located in front of the hospital at [address] [facility]. Bring the following with you to your follow-up doctor appointments: Please bring your daily weight log any discharge paperwork all of your medication bottles with you to this visit. ) Diet: Low Sodium (2gm) Addtl Attending Provider Instructions: ACTIVITY RECOMMENDATIONS: Excess manipulation of the wrist should be avoided for the next 24-48 hours. * No lifting over 2 pounds (approximately a 1/2 gallon of milk) with the utilized arm for 24 hours. * No strenuous activity such as bowling or tennis for 3 days. * Keep the site of the procedure covered with a bandage for 24 hours. *You may shower the day after the procedure. Do not take a tub bath or submerge the puncture site in water for the next 3 days. *Do not operate any motorized equipment for 3 days. SPECIAL CARE INSTRUCTIONS: The site may be slightly bruised and sore following your procedure. Should any of the following occur, contact the Dr. who performed your procedure. 1. Redness/inflammation, swelling, chills, or fever, or colored drainage at procedure site within 3-7 days after your procedure. 2. Coldness, discoloration, ongoing numbness, severe pain, or swelling. Expect mild tingling of hand and tenderness at the puncture site for up to three days. If this persists beyond three days, or other symptoms develop, notify the Dr. who performed your procedure. BLEEDING: If the procedure site on your wrist begins to bleed, do not panic 1. Place 1 or 2 fingers firmly just slightly above the insertion site to stop the bleeding. You may be able to feel your pulse as you hold pressure. 2. Lift your finger after 5 minutes to see if the bleeding has stopped. 3. Once the bleeding has stopped, gently wipe the wrist area clean with a bandage. * If the bleeding from your wrist does not stop after 10 minutes, or if there is a large amount of bleeding or spurting, call 911 (do not drive yourself to the hospital). SKIN IRRITATION: * You may experience some redness and/or swelling in the area where radiation was administered. If any skin irritation occurs, please contact your family physician. FOLLOW UP VISIT: Keep any scheduled doctor appointments. Addtl Metal Mover Provider Instructions: Call your Primary Care doctor if any of the following symptoms or problems start or get worse: * Shortness of breath or difficulty breathing * Wake up at night short of breath * Chest pain * Cough * Swelling of your hands, feet, or legs * More fatigued or tired with your normal activity * Palpitations - sudden fast heart beats WEIGHT * Weigh yourself every morning after using the bathroom. * Use the same scale. * Wear the same amount of clothing. * Write your weight down on a chart. * Call your Primary Care doctor if you gain more than 2-3 pounds in 1-2 days. MEDICATIONS * Use this discharge instruction sheet for medication instructions. * Take your medications at the time your doctor ordered. * Do not skip a dose of your medicines. * If you miss a dose of medicine, take it as soon as possible, but DO NOT DOUBLE A DOSE. * Read your medicine information when you get home. * Know all of the side effects of your medicine. If in doubt, ask your pharmacist * Call your Primary Care doctor's office if you have any side effects. * Be sure all of your doctors know what medicine and herbs you take (including cold, flu, and herbal medicine). Take the following with you to your follow-up doctor appointments: * Weight Chart * Medication List * List of questions Do not drink excessive alcohol, beer or wine. Pending Studies at Discharge: No Stand-Alone Forms: My [facility] Local [employer], Smoking Cessation Medications and DC Order Prescriptions: New carvedilol 3.125 mg Tablet 3.125 mg PO BID Qty: 60 RF: 0 Continued alendronate 70 mg tablet See Rx Instructions .ROUTE .COMPLEX Qty: 12 RF: 2 coenzyme Q10 200 mg capsule 200 mg PO DAILY RF: 0 multivitamin [Multiple Vitamins] tablet 1 tab PO DAILY RF: 0 omega-3 fatty acids 1,000 mg capsule 1,000 mg PO DAILY RF: 0 turmeric 400 mg capsule 400 mg PO DAILY RF: 0 OneTouch Ultra Blue Test Strip strip .ROUTE .MEDSUPPLY Qty: 50 RF: 5 lisinopril 10 mg tablet 10 mg PO DAILY Qty: 90 RF: 1 metformin 500 mg tablet 500 mg PO DAILY Qty: 90 RF: 1 rosuvastatin 20 mg tablet 20 mg PO DAILY Qty: 90 RF: 1 Xarelto 20 mg tablet 20 mg PO DAILY RF: 0 furosemide 40 mg tablet 40 mg PO DAILY Qty: 30 RF: 0 potassium chloride 10 mEq capsule, extended release 10 meq PO DAILY Qty: 90 RF: 1 Discontinued metoprolol succinate 25 mg tablet extended release 24 hr 37.5 mg PO DAILY Qty: 135 RF: 1 No Action amiodarone 200 mg tablet See Rx Instructions .ROUTE .COMPLEX Qty: 90 RF: 1 Discharge Orders: Discharge Order (Routine); Ordered 06/26/19 Ordered By: Tray Ramirez Admission Data Admit Date/Time: 06/25/19 23:29 Attending Provider: Tray Ramirez Admit Provider: Kandice Yo Primary Care Provider: Edgar Tucker Other Providers: Hina Sánchez Other Interventions: Discharge Summary Assessment (RN) Last Done: 06/26/19 16:44 DC Date/Time DO NOT enter until pt leaves facility: 06/26/19 17:40
== END 2019-06-26 17:40 | disposition home or self-care (01) | DRG 287 ==
LOC: ED 02:13 → 2N 02:13 → SUATTDRO 03:51 → 2N 04:32 → 2S 06-26 08:38

== ENCOUNTER 2020-07-01 07:51 | Observation (INO) ==
--- NOTE | 2020-06-28 10:34 | Anesthesiology Consultation ---
Date of Service June 28, 2020 Assessment & Plan (1) Encounter for pre-operative examination: Chart Review Chart Review: Acceptable Risk for Surgery (pending anesthesia evaluation ) and Patient NOT seen in Pre Admission Testing - Check BSG AM DOS. Will leave to anesthesia discretion of coags needed DOS (pt on Rivaroxaban for a fib) Per nursing assessment 06/15/2020, patient resides in [facility]. Denies recent travel. No current Covid related symptoms. Pt's son did have Covid test 05/10/20 secondary to exposure to Covid positive coworker but son's Covid test negative. Pt's Covid test 06/25/20= negative Seen by heart failure clinic 06/14/2020 = seen for routine follow-up. Aware of upcoming radical mastectomy. Chronic diastolic CHFappears compensated and euvolemic. Continue Lasix 40 mg. Paroxysmal A. fib/flutterno recent symptoms. Continue current medications. Follow-up in 8 weeks. Seen by cardio 04/01/2020 = chronic diastolic CHFappears compensated and euvolemic. Paroxysmal A. fib/flutterno recent symptoms. QT acceptable. Torsadesoccurred while hospitalized on Levaquinavoid fluoroquinolones. Nonischemic cardiomyopathylikely tachycardia induced. CADminimal nonobstructive CAD. Hypertensionblood pressure well controlled. Dyslipidemialabs followed by Dr. Felix statin. Follow-up in 6 months. History Surgery Operation Date: 07/01/20 07:00 Proposed Procedures p Left Breast Mastectomy with Left [place] Lymph Node Biopsy, Right Breast Papilloma Excision with Eveline Placement Specialist (06/25/20) - Lucio Membreno MD, FACS Height/Weight Height: 5 ft 5 in Weight: 136.531 kg Allergies Allergy/AdvReac Type Severity Reaction Status Date / Time codeine Allergy Severe SHORT OF Verified 06/15/20 09:24 BREATH Quinolones Allergy Severe CAUSED Verified 06/15/20 09:24 A-FIB tramadol Allergy Mild HIVES Verified 06/15/20 09:24 levofloxacin AdvReac Severe SHORTNESS Verified 06/15/20 09:24 OF BREATH Medications Home Medications Medication Instructions Recorded Confirmed Last Taken multivitamin 1 tab PO DAILY 05/11/19 06/15/20 06/24/19 omega-3 fatty acids 1,000 mg 1,000 mg PO DAILY 05/11/19 06/15/20 06/24/19 capsule turmeric 400 mg capsule 400 mg PO DAILY cap 05/11/19 06/15/20 06/24/19 calcium carbonate 600 mg (1,500 1 cap PO DAILY cap 07/21/19 06/15/20 Unknown mg)-vitamin D3 500 unit capsule coenzyme Q10 50 mg capsule 100 mg PO DAILY cap 09/30/19 06/15/20 Unknown carvedilol 25 mg tablet 25 mg PO BID #180 tab 10/02/19 06/15/20 Unknown sacubitril 97 mg-valsartan 103 mg 1 tab PO BID #180 tab 12/16/19 06/15/20 Unknown tablet blood sugar diagnostic #100 ea 01/05/20 04/29/20 Unknown alendronate 70 mg tablet See Rx Instructions .ROUTE 02/16/20 06/15/20 Unknown .COMPLEX #12 tablet furosemide 40 mg tablet 40 mg PO DAILY #90 tab 03/18/20 06/15/20 Unknown potassium chloride 10 mEq 10 meq PO DAILY #90 cap 03/18/20 06/15/20 Unknown capsule,extended release metformin 500 mg tablet 500 mg PO DAILY #90 tab 04/07/20 06/15/20 Unknown rivaroxaban 20 mg tablet 20 mg PO DAILY #90 tab 05/21/20 06/15/20 Unknown rosuvastatin 20 mg tablet 20 mg PO DAILY #90 tab 05/21/20 06/15/20 Unknown sertraline 50 mg tablet See Rx Instructions .ROUTE 06/11/20 06/15/20 Unknown .COMPLEX #30 tab amiodarone 200 mg tablet 200 mg PO DAILY #90 tab 06/21/20 Unknown Past Medical History Medical History (Updated 06/28/20 @ 10:49 by Mey Gastelum PA-C) Anxiety and depression Atrial fibrillation FOLLOWS DR. DILLON Breast cancer LEFT CAD (coronary artery disease) Minimal- non obstructive CAD Chronic diastolic CHF (congestive heart failure) Compensated and euvolemic per 06/2020 Heart Failure Clinic note Diabetes mellitus, type 2 Dyslipidemia Hypertension Liver nodule BEING MONITORED (FOCAL NODULE HYPERPLASIA) Mild aortic stenosis Per 02/25/20 ECHO ([place] 1.4-1.5 cm2; AV mean gradient: 15.8mmHg; AV velocity: 2.46m/s) Non-ST elevation (NSTEMI) myocardial infarction 2017 (no mention of NSTEMI in cardio notes) Nonischemic cardiomyopathy Likely tachycardia induced- LV systolic function normal Osteoarthritis Torsades de pointes Likely due to Levaquin in 2017- avoid fluoroquinolones Past Family History Family History Mother Osteoporosis Clotting disorder Heart disease Myocardial infarction Hypertension Stroke Sister Diabetes Myocardial infarction Hypertension Stroke Father Heart disease Lung disease Other Cerebral aneurysm Schizophrenia Denies family history of Rheumatoid arthritis Sudden SIDS (sudden infant syndrome) Ovarian cancer Prostate cancer Deep vein thrombosis Coronary heart disease Dyslipidemia Alzheimer disease Bipolar disorder Crohn's disease Dementia Depression Kidney disease Osteoarthritis Breast cancer Congenital kidney disease Gestational diabetes Lung cancer COPD (chronic obstructive pulmonary disease) Colorectal cancer Pulmonary embolism Cancer Ulcerative colitis Colonic polyp Asthma Cystic kidney disease Past Surgical History Surgical History H/O breast biopsy punch biopsy of her left breast Dr. Membreno office procedure 03/30/20 FINAL DIAGNOSIS SKIN, LEFT BREAST, PUNCH BIOPSY: SKIN WITH NO DIAGNOSTIC ABNORMALITY. SEE COMMENT. History of cholecystectomy History of colonoscopy History of lumpectomy . Fibroid adenomas in the breast (RT/LEFT) History of tooth extraction S/P cardiac cath 2018 [facility] (NO STENTS) Social History Smoking Status: Never smoker Do You Dip or Chew Tobacco: No Hx Alcohol Use: Yes Alcohol type: wine alcohol intake frequency: holidays/special occasions only Hx Substance Use: No substance use type: does not use Testing Laboratory Results Laboratory Tests 06/11/20 06/25/20 06/25/20 09:40 09:11 09:11 WBC 7.70 Hgb 13.7 Hct 41.4 Plt Count 236 Sodium 138 Potassium 4.0 Chloride 105 Carbon Dioxide 30 BUN 19 H Creatinine 1.03 Glucose 162 H Hemoglobin A1c 6.5 H Electrocardiogram Date: 04/01/20 Sinus bradycardia at [address] abnormality. Echocardiogram Date: 02/25/20 EF: 55-60% LV Function: normal RWMA: + none Other Findings: + LVH (Moderate/concentric) Mild aortic stenosis ([place] 1.4-1.5 cm2; AV mean gradient: 15.8mmHg; AV velocity: 2.46m/s) Grade 1 diastolic dysfunction. Left atrium borderline dilated. Mild mitral annular calcification. Stress Test Date: 08/31/17 Type: nuclear Poor quality study. There were no definite ischemic changes noted, but cannot rule out given quality of study. No obvious infarct suggested. Low normal left ventricular systolic function (EF =51%). Normal wall motion. No arrhythmia. Nondiagnostic Lexiscan EKG. Cardiac Catheterization Date: 06/25/19 LM = distal tapering of approximately 20 to 30%. LAD = no significant CAD. Circumflex = no significant CAD. RCA = mild luminal irregularities of less than 10%. Ramus = no significant CAD. Impression: Mild obstructive CAD. Normal left-sided filling pressures. Mild aortic stenosis.
--- NOTE | 2020-07-01 06:21 | History & Physical Report ---
Date of Service July 01, 2020 Assessment & Plan (1) Breast cancer: Patient is for left breast mastectomy with sentinel lymph node biopsy Also right breast biopsy/excision of papilloma [facility], general LMA anesthesia Observation History of Present Illness Primary Care Provider: Edgar Tucker MD 69-year-old female with a history of left breast cancer History of lymphedema of the left breast-skin biopsy was negative She underwent MRI of the breast and then biopsies of the left breast showing multifocal DCIS and a site Of invasive ductal carcinoma approximately 7 mm grade 2/3 ER/AZ positive H ER equivocal She has multifocal DCIS with invasive carcinoma She also had a biopsy of the right breast showing an intraductal papilloma which we will also excise Allergies Allergy/AdvReac Type Severity Reaction Status Date / Time codeine Allergy Severe SHORT OF Verified 07/01/20 08:53 BREATH Quinolones Allergy Severe CAUSED Verified 07/01/20 08:53 A-FIB tramadol Allergy Mild HIVES Verified 07/01/20 08:53 levofloxacin AdvReac Severe SHORTNESS Verified 07/01/20 08:53 OF BREATH Home Medications Home Medications Medication Instructions Recorded Confirmed Type multivitamin 1 tab PO DAILY 05/11/19 07/01/20 History omega-3 fatty acids 1,000 mg 1,000 mg PO DAILY 05/11/19 07/01/20 History capsule turmeric 400 mg capsule 400 mg PO DAILY cap 05/11/19 06/15/20 History calcium carbonate 600 mg (1,500 1 cap PO DAILY cap 07/21/19 07/01/20 History mg)-vitamin D3 500 unit capsule coenzyme Q10 50 mg capsule 100 mg PO DAILY cap 09/30/19 07/01/20 History carvedilol 25 mg tablet 25 mg PO BID #180 tab 10/02/19 07/01/20 Rx sacubitril 97 mg-valsartan 103 mg 1 tab PO BID #180 tab 12/16/19 07/01/20 Rx tablet blood sugar diagnostic #100 ea 01/05/20 04/29/20 Rx alendronate 70 mg tablet See Rx Instructions .ROUTE 02/16/20 07/01/20 Rx .COMPLEX #12 tablet furosemide 40 mg tablet 40 mg PO DAILY #90 tab 03/18/20 07/01/20 Rx potassium chloride 10 mEq 10 meq PO DAILY #90 cap 03/18/20 07/01/20 Rx capsule,extended release rivaroxaban 20 mg tablet 20 mg PO DAILY #90 tab 05/21/20 07/01/20 Rx rosuvastatin 20 mg tablet 20 mg PO DAILY #90 tab 05/21/20 07/01/20 Rx amiodarone 200 mg tablet 200 mg PO DAILY #90 tab 06/21/20 07/01/20 Rx metformin 500 mg PO HS 07/01/20 07/01/20 History sertraline 50 mg PO HS 07/01/20 07/01/20 History Past Med/Surg History Medical History Anxiety and depression Atrial fibrillation FOLLOWS DR. DILLON Breast cancer LEFT CAD (coronary artery disease) Minimal- non obstructive CAD Chronic diastolic CHF (congestive heart failure) Compensated and euvolemic per 06/2020 Heart Failure Clinic note Diabetes mellitus, type 2 Dyslipidemia Hypertension Liver nodule BEING MONITORED (FOCAL NODULE HYPERPLASIA) Mild aortic stenosis Per 02/25/20 ECHO ([place] 1.4-1.5 cm2; AV mean gradient: 15.8mmHg; AV velocity: 2.46m/s) Non-ST elevation (NSTEMI) myocardial infarction 2016 (no mention of NSTEMI in cardio notes) Nonischemic cardiomyopathy Likely tachycardia induced- LV systolic function normal Osteoarthritis Torsades de pointes Likely due to Levaquin in 2017- avoid fluoroquinolones Surgical History H/O breast biopsy punch biopsy of her left breast Dr. Membreno office procedure 03/30/20 FINAL DIAGNOSIS SKIN, LEFT BREAST, PUNCH BIOPSY: SKIN WITH NO DIAGNOSTIC ABNORMALITY. SEE COMMENT. History of cholecystectomy History of colonoscopy History of lumpectomy . Fibroid adenomas in the breast (RT/LEFT) History of tooth extraction S/P cardiac cath 2018 [facility] (NO STENTS) Family History (Updated 07/01/20 @ 09:16 by Caroline Staples, FELI) Mother Osteoporosis Clotting disorder Heart disease Myocardial infarction Hypertension Stroke Sister Diabetes Myocardial infarction Hypertension Stroke Father Heart disease Lung disease Other Cerebral aneurysm Denies family history of Rheumatoid arthritis Sudden SIDS (sudden syndrome) Ovarian cancer Prostate cancer Deep vein thrombosis Coronary heart disease Dyslipidemia Alzheimer disease Bipolar disorder Crohn's disease Dementia Depression Kidney disease Osteoarthritis Breast cancer Congenital kidney disease Gestational diabetes Lung cancer COPD (chronic obstructive pulmonary disease) Colorectal cancer Pulmonary embolism Cancer Ulcerative colitis Colonic polyp Asthma Cystic kidney disease Social History (Updated 03/24/20 @ 09:19 by Elyssa Dao RN) Smoking Status: Never smoker Second Hand Exposure: No; Do You Dip or Chew Tobacco: No; Tobacco Cessation Education Requested by Patient: No Hx Alcohol Use: Yes Alcohol type: wine Hx Substance Use: No Preferred Language: Surinamese Communication Ability: Effective Visual Impairment: No Limitations Hearing Ability: Normal Tank Driver Required: No Beliefs That Will Affect Care: None marital status: Current Living Situation: Spouse current occupational status: retired current occupation: retired Feels Safe at Home: Yes Safety Concerns: Feels Safe At This Time Childhood Exposure to Second-Hand Smoke: Yes caffeine: Yes during the past year weight has: remained stable Dental Care, Regularly: No Physical Activity Frequency: Does not Exercise Seatbelt Use: always Sunscreen Use: Yes Do you think of yourself as: straight/heterosexual Assistive Devices: Oxygen - Continuous Review of Systems All systems reviewed & are unremarkable except as noted in HPI & below Physical Exam Constitutional: well developed and well nourished; no acute distress Eyes: + anicteric sclerae Respiratory: normal respiratory effort; no respiratory distress Cardiovascular: Rate/Rhythm: regular rate Gastrointestinal (Abdomen): Percussion/Palpation: abdomen soft Musculoskeletal: Gait: normal gait Skin: no rashes, warm and dry Neurologic: awake Psychiatric: Orientation: alert
[~2020-07-01 07:51] MED LIST changes: -AMIO200T4 PO; -COEN200C PO; -ERGO500037 PO; +LR 15ML/HR IV SCH; -OMEG12006 PO; -PERFLUTREN LIPID MICROSPHERE (DEFINITY) IV ONE; -POLY1POW2 PO; -PRAV40TA2 PO; -REGADENOSON 0.4 MG/5 ML SYR ONE; -RIVA1TAB4 PO; -TPRSR25 PO; -TRIA37.5 PO; -TURM1CAP2 PO
--- NOTE | 2020-07-01 08:56 | Nuclear Medicine Report ---
NM sentinel node inject only (left breast) CLINICAL HISTORY: LEFT BREAST INJECTION ONLY breast carcinoma COMPARISON STUDY: None FINDINGS: A timeout was performed. The patient was prepped in a sterile fashion Ethyl chloride spray was utilized as a topical anesthetic. 5 periareolar intradermal injections were performed utilizing a total dose of 0.51 mCi of technetium 99m Lymphoseek The patient will be sent to the operating room for intraoperative localization. IMPRESSION: Left breast lymphoscintigraphic injections were performed. ACT 112: Negative or not required by law. Electronically signed by: Nish Pozo M.D. 07/01/2020 8:55 AM
[2020-07-01] MEDS ORDERED: BUPIVACAINE 0.5 % 5 MG/1 ML MPF 30ML VIAL ONE (12:18)
[2020-07-01] MEDS ORDERED: METHYLENE BLUE 0.5% 10 ML VIAL ONE (12:18)
[2020-07-01] MEDS ORDERED: MIDAZOLAM HCL 1 MG/ML 2ML VIAL ONE (12:25)
[2020-07-01] MEDS ORDERED: fentaNYL citrate 100 MCG/2 ML VIAL ONE (12:25)
--- NOTE | 2020-07-01 12:34 | Anesthesiology Consultation ---
Date of Service July 01, 2020 Assessment & Plan Chart Review Chart Review: Acceptable Risk for Surgery and Patient NOT seen in Pre Admission Testing Consults Requested none ASA ASA4 Proposed Anesthesia Anesthesia Type: General Risk / Benefits Reviewed With: PT / POA / Parent / Guardian and Accepts Plan Additional Comments: covid test negative History Surgery Operation Date: 07/01/20 11:20 Proposed Procedures p Left Breast Mastectomy with Left [place] Lymph Node Biopsy, Right Breast Papilloma Excision with Eveline Paper Conservator (06/25/20) - Lucio Membreno MD, FACS Height/Weight Height: 5 ft 5 in Weight: 138.028 kg Allergies Allergy/AdvReac Type Severity Reaction Status Date / Time codeine Allergy Severe SHORT OF Verified 07/01/20 08:53 BREATH Quinolones Allergy Severe CAUSED Verified 07/01/20 08:53 A-FIB tramadol Allergy Mild HIVES Verified 07/01/20 08:53 levofloxacin AdvReac Severe SHORTNESS Verified 07/01/20 08:53 OF BREATH Medications Home Medications Medication Instructions Recorded Confirmed Last Taken multivitamin 1 tab PO DAILY 05/11/19 07/01/20 06/30/20 08:00 omega-3 fatty acids 1,000 mg 1,000 mg PO DAILY 05/11/19 07/01/20 06/30/20 08:00 capsule turmeric 400 mg capsule 400 mg PO DAILY cap 05/11/19 06/15/20 06/24/19 calcium carbonate 600 mg (1,500 1 cap PO DAILY cap 07/21/19 07/01/20 06/30/20 08:00 mg)-vitamin D3 500 unit capsule coenzyme Q10 50 mg capsule 100 mg PO DAILY cap 09/30/19 07/01/20 06/25/20 carvedilol 25 mg tablet 25 mg PO BID #180 tab 10/02/19 07/01/20 07/01/20 06:30 sacubitril 97 mg-valsartan 103 mg 1 tab PO BID #180 tab 12/16/19 07/01/20 06/30/20 21:30 tablet blood sugar diagnostic #100 ea 01/05/20 04/29/20 Unknown alendronate 70 mg tablet See Rx Instructions .ROUTE 02/16/20 07/01/20 06/27/20 .COMPLEX #12 tablet furosemide 40 mg tablet 40 mg PO DAILY #90 tab 03/18/20 07/01/20 06/30/20 08:00 potassium chloride 10 mEq 10 meq PO DAILY #90 cap 03/18/20 07/01/20 06/30/20 08:00 capsule,extended release rivaroxaban 20 mg tablet 20 mg PO DAILY #90 tab 05/21/20 07/01/20 06/28/20 rosuvastatin 20 mg tablet 20 mg PO DAILY #90 tab 05/21/20 07/01/20 06/30/20 21:30 amiodarone 200 mg tablet 200 mg PO DAILY #90 tab 06/21/20 07/01/20 07/01/20 06:30 metformin 500 mg PO HS 07/01/20 07/01/20 06/30/20 21:30 sertraline 50 mg PO HS 07/01/20 07/01/20 06/30/20 21:30 Active Medications Generic Name Dose Route Start Last Admin Trade Name Freq PRN Reason Stop Dose Admin Cefazolin Sodium 72.5 mls @ 130 mls/hr 07/01/20 06:00 07/01/20 12:30 Ancef 3000mg IV 07/01/20 18:00 130 mls/hr PREOP ZOYA Administration Protocol Lactated Ringer's 1,000 mls @ 15 mls/hr 07/01/20 06:00 07/01/20 12:30 Lr IV 07/02/20 05:59 Infused .Q24H ZOYA Infusion NPO Date Last Intake of Fluids: 06/30/20 Time Last Intake of Fluids: 20:00 Date Last Intake of Solids: 06/30/20 Time Last Intake of Solids: 22:00 Past Medical History Medical History Anxiety and depression Atrial fibrillation FOLLOWS DR. DILLON Breast cancer LEFT CAD (coronary artery disease) Minimal- non obstructive CAD Chronic diastolic CHF (congestive heart failure) Compensated and euvolemic per 06/2020 Heart Failure Clinic note Diabetes mellitus, type 2 Dyslipidemia Hypertension Liver nodule BEING MONITORED (FOCAL NODULE HYPERPLASIA) Mild aortic stenosis Per 02/25/20 ECHO ([place] 1.4-1.5 cm2; AV mean gradient: 15.8mmHg; AV velocity: 2.46m/s) Non-ST elevation (NSTEMI) myocardial infarction 2016 (no mention of NSTEMI in cardio notes) Nonischemic cardiomyopathy Likely tachycardia induced- LV systolic function normal Osteoarthritis Torsades de pointes Likely due to Levaquin in 2017- avoid fluoroquinolones Exercise / Class Metabolic Activity III < 4 Walking/Shop/Light housework Past Family History Family History Mother Osteoporosis Clotting disorder Heart disease Myocardial infarction Hypertension Stroke Sister Diabetes Myocardial infarction Hypertension Stroke Father Heart disease Lung disease Other Cerebral aneurysm Denies family history of Rheumatoid arthritis Sudden SIDS (sudden infant syndrome) Ovarian cancer Prostate cancer Deep vein thrombosis Coronary heart disease Dyslipidemia Alzheimer disease Bipolar disorder Crohn's disease Dementia Depression Kidney disease Osteoarthritis Breast cancer Congenital kidney disease Gestational diabetes Lung cancer COPD (chronic obstructive pulmonary disease) Colorectal cancer Pulmonary embolism Cancer Ulcerative colitis Colonic polyp Asthma Cystic kidney disease Past Surgical History Surgical History H/O breast biopsy punch biopsy of her left breast Dr. Membreno office procedure 03/30/20 FINAL DIAGNOSIS SKIN, LEFT BREAST, PUNCH BIOPSY: SKIN WITH NO DIAGNOSTIC ABNORMALITY. SEE COMMENT. History of cholecystectomy History of colonoscopy History of lumpectomy . Fibroid adenomas in the breast (RT/LEFT) History of tooth extraction S/P cardiac cath 2018 [facility] (NO STENTS) Past Anesthesia History No Hx of Anesthesia Complications and No Family Hx of Anesthesia Complications History of PONV No Hx of PONV and No Hx of Motion Sickness Social History Smoking Status: Never smoker Do You Dip or Chew Tobacco: No Hx Alcohol Use: Yes Alcohol type: wine alcohol intake frequency: holidays/special occasions only Hx Substance Use: No substance use type: does not use Physical Exam Vital Signs Last Vital Signs Temp 36.8 C 07/01/20 08:49 Pulse 63 07/01/20 08:49 Resp 20 07/01/20 08:49 BP 159/53 H 07/01/20 08:49 Pulse Ox 96 07/01/20 08:49 Constitutional + morbidly obese ENMT Mouth: + edentulous; no dentition abnormality Thyromental Distance: > or= 3.5 Finger Breadths Mallampati Class: II Neck normal visual inspection and trachea midline; neck extension not limited Respiratory normal respiratory effort Auscultation: lungs clear to auscultation bilaterally Cardiovascular Rate/Rhythm: regular rate and regular rhythm Heart Sounds: + murmur ( as/rusb) Vessels: no carotid bruit Musculoskeletal Spine: normal cervical ROM Extremities: extremities normal to inspection Neurologic moves all extremities Motor/Sensory: no sensory deficit Psychiatric Orientation: alert and oriented x 3 Testing Laboratory Results 07/01/20 08:38 POC Glucose 151 H
[2020-07-01] MEDS ORDERED: LIDOCAINE HCL 2% 2 ML VIAL/AMP(20MG/ML) INFIL ONE (12:57)
[2020-07-01] MEDS ORDERED: PROPOFOL IV EMULSION 10 MG/ML 20 ML VIAL IV ONE (12:57)
[2020-07-01] MEDS ORDERED: ONDANSETRON INJ 2 MG/ML 2 ML VIAL ONE (12:57)
[2020-07-01] MEDS ORDERED: ePHEDrine sulfate 50 MG/ML SYR ONE (12:57)
[2020-07-01] MEDS ORDERED: GLYCOPYRROLATE 0.2 MG/ML VIAL ONE (13:03)
[2020-07-01] MEDS ORDERED: ePHEDrine sulfate 50 MG/ML AMP ONE (14:50)
[2020-07-01] MEDS ORDERED: ACETAMINOPHEN 1,000 MG/100 ML VIAL IV ONE (15:12)
--- NOTE | 2020-07-01 15:12 | Post Operative Brief Note ---
PG Immediate Post Op with CF Date of Surgery July 01, 2020 Pre & Post Diagnosis Operation Date: 07/01/20 11:20 Pre-Op Diagnosis: Left Breast Cancer; Papilloma Right Breast I identified the patient and participated in the time-out.: Yes Procedure Operation Date: 07/01/20 11:20 Actual Procedures p Left Breast Mastectomy with Left [place] Lymph Node Biopsy, Right Breast Papilloma Excision with Eveline Marble Cutter Operator - Lucio Membreno MD, FACS Surgeon Lucio Membreno MD, FACS Electrical Research Engineer Jaz Polo Estimated Blood Loss 20 Findings Consistent with Post-Op Diagnosis Specimens Specimen Description: A. Right breast tissue-skin=anterior, long silk=lateral and short silk=medial B. Left sentinel lymph node (specimen in NSS)
--- NOTE | 2020-07-01 15:35 | Mammography Report ---
SPECIMEN RIGHT BREAST: 07/01/2020 CLINICAL HISTORY: Status post right breast surgical excision. COMPARISON: Comparison is made to exams dated: 06/25/2020 localization, 06/02/2020 mammogram, 06/02/20 20 stereotactic biopsy, 06/02/2020 stereotactic biopsy, and 05/26/2020 ultrasound biopsy - [facility]. Findings: A radiograph was performed of the right breast surgical specimen. The localized biopsy cli p and Eveline math interventionist reflector are located within the specimen. Results were relayed to Dr. Membreno over [employer] telephone. IMPRESSION: SPECIMEN The imaged specimen contains the localized biopsy clip and Eveline math interventionist reflector. Cece Harrison M.D. ah/:07/01/2020 13:37:36 Biomedical Engineering Aide: RT Raisa(Lashawn)(M), [facility]
--- NOTE | 2020-07-01 15:35 | Operative Report (OR) ---
DATE OF OPERATION: 07/01/2020 NAME OF OPERATION: Right breast biopsy with left mastectomy and sentinel node biopsy. PREOPERATIVE DIAGNOSES: Left breast cancer and right breast papilloma. POSTOPERATIVE DIAGNOSES: Left breast cancer and right breast papilloma. STAFF SURGEON: Lucio Membreno MD. VALIDATION MANAGER: Charlotte Polo PA-C. ANESTHESIA: General. DESCRIPTION OF PROCEDURE: The patient was brought in the operating room and placed on the operating table in supine position. Her arms were extended on an arm board. My infertility medical assistant helped with prepping, draping, breast surgery and wound closure. Initially, the right breast was approached. Using the FABIANA Lead Electrical Engineer marker and probe, we were able to localize the site. Elliptical incision was made in the right breast carrying dissection down excising the tissue. Tissue was marked with skin anterior, long silk lateral, short silk medial. Tissue was placed into Faxitron. Image was sent to Dr. Harrison, verifying the clip. At this point, the deep tissue in the right breast was closed using 2-0 plain suture and then the skin reapproximated using 4-0 Monocryl suture subcuticular with Steri-Strips applied. Left breast was then approached. 0.5% plain Marcaine was used to anesthetize both incisions. Incision was made in the left axilla carrying dissection very deep down into the axilla excising several lymph nodes identified, sending them for permanent section. Deep tissue was reapproximated using 2-0 plain suture. Skin reapproximated using 4-0 nylon suture. Elliptical incision was made in the left breast area incorporating the nipple-areolar complex. The patient's breast was very large. The breast tissue was then dissected away from the subcutaneous tissue down to the pectoralis major muscle, dissecting the breast tissue away from the pectoralis major muscle. The breast was then marked with a long silk suture lateral. There was some indurated tissue in the tail of the breast near the axilla. This was excised and marked as tail/axillary tissue with methylene blue marking the new margin. At this point, a #15 round Amandeep-Berg drain was placed into the chest wound, secured to skin using 3-0 nylon suture. The wound was irrigated. Subcutaneous tissue was reapproximated using interrupted 3-0 Vicryl suture, then the skin reapproximated using subcuticular 4-0 Monocryl with Steri-Strips applied. Dressing applied and the patient was transferred to recovery room in stable condition. I attest to the content of the Intraoperative Record and any orders documented therein. Any exception s are noted below.
[2020-07-01] MEDS ORDERED: FLUMAZENIL 0.1 MG/1 ML 10 ML VIAL IV PRN (15:46)
[2020-07-01] MEDS ORDERED: NALOXONE HCL 0.4 MG/1 ML VIAL/CARP IV PRN (15:46)
[2020-07-01] MEDS ORDERED: LABETALOL HCL IV 5 MG/ML 20ML IV PRN (15:46)
[2020-07-01] MEDS ORDERED: ONDANSETRON INJ 2 MG/ML 2 ML VIAL IV PRN (15:46)
[2020-07-01] MEDS ORDERED: ATROPINE SULFATE 0.1 MG/ML 10ML SYR IV PRN (15:46)
[2020-07-01] MEDS ORDERED: PROMETHAZINE HCL 12.5 MG in SODIUM CHLORIDE 0.9% 50 ML IV PRN ×2 (15:46→16:49)
--- NOTE | 2020-07-01 15:49 | XRay Report ---
XR chest 1V portable HISTORY: 69 years-old Female In OR, incorrect count possible retained foreign body COMPARISON: Chest radiograph 06/25/2019 TECHNIQUE: Supine AP view of the chest FINDINGS: Surgical drainage catheter projects of the left breast. Cholecystectomy. Moderate cardiomegaly. Pulmo nary vascular congestion with chronic interstitial coarsening. Patient is rotated with asymmetric rig ht perihilar opacity, likely secondary to summation density. No unexpected opaque foreign body. Degen erative changes of the shoulders and spine. The bones appear grossly intact. IMPRESSION: 1. No unexpected opaque foreign body. 2. Surgical drainage catheter projects of the lateral left breast. 3. Cardiomegaly with pulmonary vascular congestion and chronic interstitial coarsening. ACT 112: Negative or not required by law. The above report was generated using voice recognition software. It may contain grammatical, syntax o r spelling errors. Electronically signed by: Neymar Hull M.D. 07/01/2020 3:48 PM
[2020-07-01] MEDS: fentaNYL citrate 100 MCG/2 ML VIAL IV PRN ×4 (16:09→16:24)
--- NOTE | 2020-07-01 16:27 | Anesthesiology Progress Note ---
Date of Service July 01, 2020 Anesthesia Post Procedure Vital Signs Vital Signs: Temp Pulse Pulse Resp BP BP Pulse Ox 07/01/20 16:25 63 15 157/66 H 95 07/01/20 16:15 63 13 163/66 H 96 07/01/20 16:05 62 14 170/73 H 96 07/01/20 15:58 37.0 C 63 19 196/93 H 95 07/01/20 08:49 36.8 C 63 20 159/53 H 96 Pain Intensity Left Breast: Pain Intensity: 4 Transfer of Care Handoff Completed per policy Notes Mental Status: alert / awake / arousable Patient Amnestic to Procedure: Yes Nausea / Vomiting: adequately controlled Pain: adequately controlled Airway Patency, RR, SpO2: stable & adequate BP & HR: stable & adequate Hydration State: stable & adequate Anesthetic Complications: no major complications apparent
[2020-07-01] MEDS ORDERED: ACETAMINOPHEN 325 MG TAB PO PRN (16:49)
[2020-07-01] MEDS ORDERED: HYDROmorphone INJ 1 MG/ML SYRINGE IV PRN (16:49)
[2020-07-01] MEDS ORDERED: HYDROmorphone INJ 0.5 MG/0.5 ML SYR IV PRN (16:49)
[2020-07-01] MEDS: oxyCODONE HCL IR 5 MG TAB (IMMEDIATE RELEASE) PO PRN ×2 (17:08→23:22)
[2020-07-01] MEDS: SODIUM CHLORIDE 0.9% 1000ML 1,000 ML IV SCH (17:13)
[2020-07-01] MEDS: ceFAZolin 2000MG 2,000 MG/15 ML SYR IV SCH (20:32)
[2020-07-01] MEDS: SERTRALINE HCL 50 MG TABLET PO SCH (20:33)
[2020-07-01] MEDS: carvediloL 25 MG TAB PO SCH (20:33)
--- NOTE | 2020-07-01 20:41 | Hospitalist Consultation ---
Date of Consultation July 01, 2020 Assessment & Plan (1) Breast cancer: S/p left brest mastectectomy with sentinel lymph node biopsy and right breast papilloma excision Monitor for acute blood loss, cbc am DVT proph, pain control per primary (2) Type 2 diabetes mellitus: Last A1c 6.5 Hold metformin, bsgs ac & hs SS (3) Benign essential hypertension: Continue home furosemide, carvedilol, Entresto held per primary (4) CAD (coronary artery disease): Continue meds as above, does not appear to be on statin or ASA (5) Chronic diastolic CHF (congestive heart failure): Continue meds as above under hypertension History of Present Illness Attending Physician: Lucio Membreno MD, FACS History of Present Illness Ms. Hendricks is post mastectomy today. She has no complaints. Pmhx: chronic diastolic CHF, paroxysmal A. 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, never smoker, rare alcohol Family: strokes, emphysema, heart valve problems Allergies Allergy/AdvReac Type Severity Reaction Status Date / Time codeine Allergy Severe SHORT OF Verified 07/01/20 08:53 BREATH Quinolones Allergy Severe CAUSED Verified 07/01/20 08:53 A-FIB tramadol Allergy Mild HIVES Verified 07/01/20 08:53 levofloxacin AdvReac Severe SHORTNESS Verified 07/01/20 08:53 OF BREATH Home Medications Home Medications Medication Instructions Recorded Confirmed Type multivitamin 1 tab PO DAILY 05/11/19 07/01/20 History omega-3 fatty acids 1,000 mg 1,000 mg PO DAILY 05/11/19 07/01/20 History capsule turmeric 400 mg capsule 400 mg PO DAILY cap 05/11/19 06/15/20 History calcium carbonate 600 mg (1,500 1 cap PO DAILY cap 07/21/19 07/01/20 History mg)-vitamin D3 500 unit capsule coenzyme Q10 50 mg capsule 100 mg PO DAILY cap 09/30/19 07/01/20 History carvedilol 25 mg tablet 25 mg PO BID #180 tab 10/02/19 07/01/20 Rx sacubitril 97 mg-valsartan 103 mg 1 tab PO BID #180 tab 12/16/19 07/01/20 Rx tablet blood sugar diagnostic #100 ea 01/05/20 04/29/20 Rx alendronate 70 mg tablet See Rx Instructions .ROUTE 02/16/20 07/01/20 Rx .COMPLEX #12 tablet furosemide 40 mg tablet 40 mg PO DAILY #90 tab 03/18/20 07/01/20 Rx potassium chloride 10 mEq 10 meq PO DAILY #90 cap 03/18/20 07/01/20 Rx capsule,extended release rivaroxaban 20 mg tablet 20 mg PO DAILY #90 tab 05/21/20 07/01/20 Rx rosuvastatin 20 mg tablet 20 mg PO DAILY #90 tab 05/21/20 07/01/20 Rx amiodarone 200 mg tablet 200 mg PO DAILY #90 tab 06/21/20 07/01/20 Rx metformin 500 mg PO HS 07/01/20 07/01/20 History sertraline 50 mg PO HS 07/01/20 07/01/20 History Patient History Medical History Anxiety and depression Atrial fibrillation FOLLOWS DR. DILLON Breast cancer LEFT CAD (coronary artery disease) Minimal- non obstructive CAD Chronic diastolic CHF (congestive heart failure) Compensated and euvolemic per 06/2020 Heart Failure Clinic note Diabetes mellitus, type 2 Dyslipidemia Hypertension Liver nodule BEING MONITORED (FOCAL NODULE HYPERPLASIA) Mild aortic stenosis Per 02/25/20 ECHO ([place] 1.4-1.5 cm2; AV mean gradient: 15.8mmHg; AV velocity: 2.46m/s) Non-ST elevation (NSTEMI) myocardial infarction 2016 (no mention of NSTEMI in cardio notes) Nonischemic cardiomyopathy Likely tachycardia induced- LV systolic function normal Osteoarthritis Torsades de pointes Likely due to Levaquin in 2017- avoid fluoroquinolones Surgical History H/O breast biopsy punch biopsy of her left breast Dr. Membreno office procedure 03/30/20 FINAL DIAGNOSIS SKIN, LEFT BREAST, PUNCH BIOPSY: SKIN WITH NO DIAGNOSTIC ABNORMALITY. SEE COMMENT. History of cholecystectomy History of colonoscopy History of lumpectomy . Fibroid adenomas in the breast (RT/LEFT) History of tooth extraction S/P cardiac cath 2018 [facility] (NO STENTS) Family History Mother Osteoporosis Clotting disorder Heart disease Myocardial infarction Hypertension Stroke Sister Diabetes Myocardial infarction Hypertension Stroke Father Heart disease Lung disease Other Cerebral aneurysm Denies family history of Rheumatoid arthritis Sudden SIDS (sudden syndrome) Ovarian cancer Prostate cancer Deep vein thrombosis Coronary heart disease Dyslipidemia Alzheimer disease Bipolar disorder Crohn's disease Dementia Depression Kidney disease Osteoarthritis Breast cancer Congenital kidney disease Gestational diabetes Lung cancer COPD (chronic obstructive pulmonary disease) Colorectal cancer Pulmonary embolism Cancer Ulcerative colitis Colonic polyp Asthma Cystic kidney disease Social History (Updated 03/24/20 @ 09:19 by Elyssa Dao RN) Smoking Status: Never smoker Second Hand Exposure: No; Do You Dip or Chew Tobacco: No; Tobacco Cessation Education Requested by Patient: No Hx Alcohol Use: Yes Alcohol type: wine Hx Substance Use: No Preferred Language: Kittitian Communication Ability: Effective Visual Impairment: No Limitations Hearing Ability: Normal Carton Filler Required: No Beliefs That Will Affect Care: None marital status: Current Living Situation: Spouse current occupational status: retired current occupation: retired Feels Safe at Home: Yes Safety Concerns: Feels Safe At This Time Childhood Exposure to Second-Hand Smoke: Yes caffeine: Yes during the past year weight has: remained stable Dental Care, Regularly: No Physical Activity Frequency: Does not Exercise Seatbelt Use: always Sunscreen Use: Yes Do you think of yourself as: straight/heterosexual Assistive Devices: Denture - Upper and Glasses Review of Systems Constitutional: no fever, no chills and no body aches Respiratory: no cough, no chest congestion and no dyspnea Cardiovascular: no chest pain, no dyspnea and no palpitations Gastrointestinal: no abdominal pain, no nausea and no vomiting Genitourinary: no dysuria and no urinary hesitancy Musculoskeletal: no back pain and no joint pain Integumentary: no rash Physical Exam Physical Exam: General: no distress Eyes: normal inspection, PERLL Respiratory: chest non tender, clear to auscultation, normal breath sounds, no respiratory distress, no accessory muscle use Cardiac: regular rate and rhythm, no rub or gallop, no murmur, no edema, no jvd GI/: active bowel sounds, no abd pain or tenderness, soft, non distended Extremities: normal range of motion, normal strength, non tender Neuro/Psych: alert and oriented x 3, normal mood and affect Skin: normal color, dry Results & Data Results & Data ([facility]) Vital Signs (Past 12 Hours) Vital Signs Temp Pulse Pulse Resp BP BP Pulse Ox 07/01/20 18:50 36.6 C 63 18 148/67 H 95 07/01/20 17:50 63 19 155/73 H 95 07/01/20 17:20 60 18 159/76 H 94 07/01/20 16:50 36.8 C 64 18 160/71 H 95 07/01/20 16:35 36.8 C 63 12 157/64 H 94 07/01/20 16:25 63 15 157/66 H 95 07/01/20 16:15 63 13 163/66 H 96 07/01/20 16:05 62 14 170/73 H 96 07/01/20 15:58 37.0 C 63 19 196/93 H 95 07/01/20 08:49 36.8 C 63 20 159/53 H 96 PG Care Time/CCT Total # of Minutes Spent Total Time Spent with Patient: Total time spent is greater than 50% in coordination of care (as documented) at patient's floor/unit and/or counseling patient: Coding Level of Care Code 51625 Inpt Consult Level 4 Diagnoses Breast cancer C50.919 Type 2 diabetes mellitus E11.9 Benign essential hypertension I10 CAD (coronary artery disease) I25.10 Chronic diastolic CHF (congestive heart failure) I50.32
[2020-07-01] MEDS ORDERED: DEXTROSE 50% 50 ML SYRINGE IV PRN (21:00)
[2020-07-01] MEDS ORDERED: GLUCOSE 40% GEL 15 GM TUBE PO PRN (21:00)
[2020-07-01] MEDS ORDERED: GLUCOSE 10 TABS/TUBE PO PRN (21:00)
[2020-07-01] MEDS ORDERED: GLUCAGON FOR INJ 1 MG VIAL IM PRN (21:00)
[2020-07-01] MEDS ORDERED: CARBOHYDRATES FOR HYPOGLYCEMIA PO PRN (21:00)
[2020-07-01] MEDS: INSULIN ASPART 100 UNITS/ML 3 ML PEN SC SCH (21:50)
[2020-07-02] MEDS: ceFAZolin 2000MG 2,000 MG/15 ML SYR IV SCH ×3 (03:28→21:52)
--- NOTE | 2020-07-02 06:59 | Surgery Progress Note ---
Date of Service July 02, 2020 Assessment & Plan (1) H/O mastectomy: Patient status post left mastectomy and also right breast biopsy Had some nausea when she got up last night Tolerating some tea We will see how she tolerates breakfast and mobilization Possible discharge later this morning We will keep drain Visiting nurse Admission and Anticipated Discharge Date Admission Date: July 01, 2020 Results & Data ([facility]) Vital Signs (Past 12 Hours) Vital Signs Temp Pulse Resp BP Pulse Ox 07/02/20 03:16 37.0 C 71 16 126/69 93 07/01/20 23:17 36.9 C 70 16 144/77 H 93 07/01/20 20:20 36.8 C 68 18 141/69 H 97 PG Care Time/CCT Total # of Minutes Spent Total Time Spent with Patient: Total time spent is greater than 50% in coordination of care (as documented) at patient's floor/unit and/or counseling patient: Coding Level of Care Code None Diagnoses H/O mastectomy Z90.10
[2020-07-02] MEDS: ONDANSETRON INJ 2 MG/ML 2 ML VIAL IV PRN ×2 (07:32→13:41)
[2020-07-02 07:52] LABS: Creatinine Clr Calc Pharmacy 83.7 ml/min; Est GFR (African American) 77.7
[2020-07-02] MEDS ORDERED: ROSUVASTATIN CALCIUM 20 MG TAB PO SCH (09:00)
[2020-07-02] MEDS ORDERED: POTASSIUM CHLORIDE 10 MEQ TABCR PO SCH (09:00)
[2020-07-02] MEDS ORDERED: AMIODARONE 200 MG TAB PO SCH (09:00)
[2020-07-02] MEDS ORDERED: FUROSEMIDE 40 MG TAB PO SCH (09:00)
[2020-07-02] MEDS: carvediloL 25 MG TAB PO SCH ×2 (09:32→21:52)
[2020-07-02] MEDS: INSULIN ASPART 100 UNITS/ML 3 ML PEN SC SCH ×4 (09:35→21:53)
[2020-07-02] MEDS: SODIUM CHLORIDE 0.9% 1000ML 1,000 ML IV SCH (12:44)
[2020-07-02] MEDS ORDERED: HEPARIN SOD 5,000 UNIT/0.5 ML VIAL SQ SCH (21:00)
[2020-07-02] MEDS: SERTRALINE HCL 50 MG TABLET PO SCH (21:52)
[2020-07-03] MEDS: ceFAZolin 2000MG 2,000 MG/15 ML SYR IV SCH (03:52)
--- NOTE | 2020-07-03 07:14 | Surgery Progress Note ---
Date of Service July 03, 2020 Assessment & Plan (1) H/O mastectomy: -plan on d/c home later today with KRIS in place -rx. for analgesics and antibiotic have been sent to pharmacy by Dr. Membreno -plan on f/u in office with Dr. Membreno as above. feeling well. would like to go home.... ok for d/c. instructions given. Admission and Anticipated Discharge Date Admission Date: July 02, 2020 Subjective Pt. reports feeling better than yesterday. No N/V. She reports tolerating diet and has been OOB. Pain well controlled. Physical Exam Constitutional: well developed and well nourished; no acute distress Respiratory: normal respiratory effort; no respiratory distress and no labored breathing Chest (Breasts): Additional Comments: dressing is C/D/I; KRIS in place and has drained 25 cc last shift Results & Data ([facility]) Vital Signs (Past 12 Hours) Vital Signs Temp Pulse Resp BP Pulse Ox 07/02/20 23:43 36.8 C 70 18 127/65 91 PG Care Time/CCT Total # of Minutes Spent Total Time Spent with Patient: Total time spent is greater than 50% in coordination of care (as documented) at patient's floor/unit and/or counseling patient: Coding Level of Care Code None Diagnoses H/O mastectomy Z90.10
--- NOTE | 2020-07-05 15:17 | Discharge Summary ---
Date of Service July 05, 2020 Admission HPI Per Admitting Provider 69-year-old female with a history of left breast cancer History of lymphedema of the left breast-skin biopsy was negative She underwent MRI of the breast and then biopsies of the left breast showing multifocal DCIS and a site Of invasive ductal carcinoma approximately 7 mm grade 2/3 ER/SC positive H ER equivocal She has multifocal DCIS with invasive carcinoma She also had a biopsy of the right breast showing an intraductal papilloma which we will also excise Principal Diagnosis h/o mastectomy left breast cancer right breast papilloma Discharge Exam awake/alert Constitutional well developed and well nourished; no acute distress Chest (Breasts) Additional Comments: dressings clean and intact; josé drain present in L chest Discharge Data Allergies Allergy/AdvReac Type Severity Reaction Status Date / Time codeine Allergy Severe SHORT OF Verified 07/01/20 08:53 BREATH Quinolones Allergy Severe CAUSED Verified 07/01/20 08:53 A-FIB tramadol Allergy Mild HIVES Verified 07/01/20 08:53 levofloxacin AdvReac Severe SHORTNESS Verified 07/01/20 08:53 OF BREATH Consultations 07/01/20 16:49 Consult Case Management - Discharge Planning Routine Consult Hospitalist Routine Procedures Performed Operation Date: 07/01/20 11:20 Actual Procedures p Left Breast Mastectomy with Left [place] Lymph Node Biopsy, Right Breast Papilloma Excision with Eveline Kolb - Lucio Membreno MD, [facility] Hospital Course (1) H/O mastectomy: This is a 69y F who underwent a scheduled left mastectomy with sentinel lymph node biopsy and right breast biopsy with Dr. Membreno on 07/01/20. The patient tolerated the procedure well, see op note for full details. The patient recovered in the PACU and was transferred to the med/surg unit in stable condition with a JOSÉ drain and surgical dressings/gonzales bandage intact. Post operatively the patient's diet was advanced as tolerated. She continued on abx. She endorsed some nausea on POD#1 that was managed with anti-emetics. Her pain was controlled on a prn pain regimen. Patient's was present and learned how to perform the daily dressing changes and JOSÉ drain care. On POD#2 the patient felt clinically better and nausea subsided. She was deemed stable for discharge to home. Incisions c/d/i. She was asked to resume her Xarelto on 07/04/20. She was instructed to follow up in clinic with Dr. Membreno within 1 week for a drain check. Total Time Total Time Spent Total Time Spent (In Minutes): 15 Discharge Plan Discharge Items Patient Disposition: Home - Self-Care Reason For Visit: Left Breast Cancer; Papilloma Right Breast Discharge Diagnosis: left mastectomy with sentinel lymph node biopsy right breast biopsy Activity: Per Instructions section Activity Comment: light activity for 4 weeks Lifting: No more than 25 pounds Bathing Comment: may shower; no soaking in tubs/pools Sexual Activity: When tolerated Exercise/Sports: Wait until after follow-up appointment Exercise Comment: Wait 4 weeks Driving/Machine Use: Resume 3 days after discharge Non-emergency contact: Primary Care Provider and Surgeon Call non-emergency contact if: you have any medication questions, your symptoms worsen, your pain is not controlled, your pain is worsening, your pain is unu sual for you, you have a fever, your temperature is above 101.5, your wound has increased redness, your wound has increased drainage and your wound pain has increased Follow-up/Referrals: Lucio Membreno MD, FACS [Physician] - 07/08/20 9:00 am Edgar Tucker MD [Primary Care Provider] - Diet: Regular Addtl Attending Provider Instructions: SPECIAL CARE INSTRUCTIONS: * Cover incisions and change daily for comfort/drainage. * Empty drain 2-3 times per day and record. * May begin Xarelto on Sunday07/04/20 * May use ibuprofen for pain as tolerated. * Expect some swelling and bruising. Call your doctor if: * Temperature above 101 degrees * Pain not relieved by pain medicine ordered * There is increased drainage or redness from any incision * You have any unanswered questions or concerns [phone]. FOLLOW UP VISIT: If not already scheduled, please call the office for a follow-up visit. For next week /Sunday drain check and wound check OFFICE PHONE NUMBER: Dr. Membreno Office Pending Studies at Discharge: Yes Studies:: surgical pathology Stand-Alone Forms: My [facility] [employer], Opioid Pain Management Medications and DC Order Prescriptions: New oxycodone 5 mg tablet 5 - 10 mg PO Q6H PRN (Reason: pain) Qty: 30 RF: 0 cephalexin [Keflex] 500 mg capsule 500 mg PO TID 7 Days Qty: 21 RF: 0 Continued carvedilol 25 mg tablet 25 mg PO BID Qty: 180 RF: 3 Entresto 97-103 mg tablet 1 tab PO BID Qty: 180 RF: 3 (DME) OneTouch Ultra Blue Test Strip Strip See Dose Instructions .ROUTE .MEDSUPPLY Qty: 100 RF: 5 alendronate 70 mg tablet See Rx Instructions .ROUTE .COMPLEX Qty: 12 RF: 1 potassium chloride 10 mEq capsule, extended release 10 meq PO DAILY Qty: 90 RF: 1 furosemide 40 mg tablet 40 mg PO DAILY Qty: 90 RF: 1 Xarelto 20 mg tablet 20 mg PO DAILY Qty: 90 RF: 1 rosuvastatin 20 mg tablet 20 mg PO DAILY Qty: 90 RF: 1 amiodarone 200 mg tablet 200 mg PO DAILY Qty: 90 RF: 1 calcium carbonate-vitamin D3 [Calcium 600 with Vitamin D3] 600 mg(1,500mg) - 500 unit capsule 1 cap PO DAILY RF: 0 coenzyme Q10 50 mg capsule 100 mg PO DAILY RF: 0 multivitamin [Multiple Vitamins] tablet 1 tab PO DAILY RF: 0 omega-3 fatty acids 1,000 mg capsule 1,000 mg PO DAILY RF: 0 turmeric 400 mg capsule 400 mg PO DAILY RF: 0 metformin 500 mg tablet 500 mg PO HS RF: 0 sertraline 50 mg tablet 50 mg PO HS RF: 0 No Action acetaminophen 500 mg tablet 1,000 mg PO .COMPLEX PRNRF: 0 Discharge Orders: Discharge Order (Routine); Ordered 07/03/20 Ordered By: Diego Li/Other Patient Handouts: DVT Post Op Prevention, Discharge Instructions Caring for ... Admission Data Admit Date/Time: 07/01/20 15:12 Attending Provider: Lucio Membreno Admit Provider: Lucio Membreno Primary Care Provider: Edgar Tucker Other Providers: Andrea Zhao Other Interventions: Discharge Summary Assessment (RN) Last Done: 07/03/20 08:39 Coding Level of Care Code D/C Day Management <30 mins Diagnoses H/O mastectomy Z90.10
--- NOTE | 2020-07-06 03:50 | Discharge Summary (DS) ---
PRINCIPAL DIAGNOSES: Left breast cancer and papilloma of the right breast. PROCEDURES: On 07/01/2020 she underwent open right breast biopsy and also left mastectomy with lymph node biopsy. HOSPITAL COURSE: The patient was brought into the hospital on 07/01/2020 where she underwent surgery as outlined. She had some nausea postop requiring extended hospital stay, but was felt stable for discharge on 07/03/2020 to be followed in the surgical clinic within 1 week. She did have a drain in place.
== END 2020-07-03 10:38 | disposition home or self-care (01) ==
LOC: 3N 07:51 → ASU 07:51

== ENCOUNTER 2020-11-29 05:25 | Observation (INO) ==
--- NOTE | 2020-11-09 08:37 | Anesthesiology Consultation ---
Date of Service November 09, 2020 Assessment & Plan (1) Encounter for pre-operative examination: COVID Status: As of 11/08 nurse assessment, patient denies travel to endemic area, known exposure/sick contacts, or symptoms of COVID19. Patient is aware of need for pre-op COVID test. BSG AM DOS Chart Review Chart Review: Acceptable Risk for Surgery and Patient NOT seen in Pre Admission Testing History Surgery Operation Date: 11/29/20 07:00 Proposed Procedures p Left Axillary Lymph Node Dissection - Lucio Membreno MD, FACS Height/Weight Height: 5 ft 5 in Weight: 136.078 kg Allergies Allergy/AdvReac Type Severity Reaction Status Date / Time codeine Allergy Severe SHORT OF Verified 11/08/20 11:22 BREATH Quinolones Allergy Severe CAUSED Verified 11/08/20 11:22 A-FIB adhesive tape Allergy Intermediate blisters, Verified 11/08/20 11:22 rash. tramadol Allergy Mild HIVES Verified 11/08/20 11:22 levofloxacin AdvReac Severe SHORTNESS Verified 11/08/20 11:22 OF BREATH Medications Home Medications Medication Instructions Recorded Confirmed Last Taken multivitamin 1 tab PO QAM 05/11/19 11/08/20 08/09/20 08:00 omega-3 fatty acids 1,000 mg 1,000 mg PO QAM 05/11/19 11/08/20 08/09/20 08:00 capsule turmeric 400 mg capsule 400 mg PO DAILY cap 05/11/19 11/08/20 08/09/20 08:00 calcium carbonate 600 mg (1,500 1 cap PO DAILY cap 07/21/19 11/08/20 08/09/20 08:00 mg)-vitamin D3 500 unit capsule coenzyme Q10 50 mg capsule 100 mg PO DAILY cap 09/30/19 11/08/20 08/09/20 19:00 acetaminophen 500 mg tablet 1,000 mg PO Q4H PRN tab 07/05/20 11/08/20 1 Week Ago ~08/03/20 alendronate 70 mg tablet 70 mg PO WK #12 tab 09/20/20 11/08/20 Unknown amiodarone 200 mg tablet 200 mg PO QAM #90 tab 09/20/20 11/08/20 Unknown blood sugar diagnostic #200 ea 09/20/20 10/27/20 Unknown carvedilol 25 mg tablet 25 mg PO BID #180 tab 09/20/20 11/08/20 Unknown metformin 500 mg tablet 500 mg PO HS #90 tab 09/20/20 11/08/20 Unknown potassium chloride 10 mEq 10 meq PO QAM #90 cap 09/20/20 11/08/20 Unknown capsule,extended release rivaroxaban 20 mg tablet 20 mg PO QAM #90 tab 09/20/20 11/08/20 Unknown rosuvastatin 20 mg tablet 20 mg PO QPM #90 tab 09/20/20 11/08/20 Unknown sacubitril 97 mg-valsartan 103 mg 1 tab PO BID #180 tab 09/20/20 11/08/20 Unk nown tablet sertraline 50 mg tablet 50 mg PO HS #90 tab 09/20/20 11/08/20 Unknown furosemide 40 mg tablet 40 mg PO QAM #90 tab 09/21/20 11/08/20 Unknown Past Medical History Medical History (Updated 11/09/20 @ 08:26 by Ángel Lopez) Anxiety and depression Atrial fibrillation FOLLOWS DR. DILLON Breast cancer LEFT - s/p left mastectomy 07/01/2020 [facility] (COMPLETED CHEMO/WILL START RADIATION AFTER SURGERY SITE HEALS) CAD (coronary artery disease) Minimal- non obstructive CAD Chronic diastolic CHF (congestive heart failure) Compensated and euvolemic per 06/2020 Heart Failure Clinic note Diabetes mellitus, type 2 Dyslipidemia Hypertension Liver nodule BEING MONITORED (FOCAL NODULE HYPERPLASIA) Mild aortic stenosis Per 02/25/20 ECHO ([place] 1.4-1.5 cm2; AV mean gradient: 15.8mmHg; AV velocity: 2.46m/s) Non-ST elevation (NSTEMI) myocardial infarction 2016 (no mention of NSTEMI in cardio notes) Nonischemic cardiomyopathy Likely tachycardia induced- LV systolic function normal on 02/25/20 echo Osteoarthritis Torsades de pointes Likely due to Levaquin in 2017- avoid fluoroquinolones Past Family History Family History (Updated 11/08/20 @ 11:27 by Sanjuana Olivares RN) Mother Osteoporosis Clotting disorder Heart disease Myocardial infarction Hypertension Stroke Sister Diabetes Myocardial infarction Hypertension Stroke Father Heart disease Lung disease Other Cerebral aneurysm No family history of adverse response to anesthesia Denies family history of Rheumatoid arthritis Sudden SIDS (sudden syndrome) Ovarian cancer Prostate cancer Deep vein thrombosis Coronary heart disease Dyslipidemia Alzheimer disease Bipolar disorder Crohn's disease Dementia Depression Kidney disease Osteoarthritis Breast cancer Congenital kidney disease Gestational diabetes Lung cancer COPD (chronic obstructive pulmonary disease) Colorectal cancer Pulmonary embolism Cancer Ulcerative colitis Colonic polyp Asthma Cystic kidney disease Past Surgical History Surgical History H/O breast biopsy punch biopsy of her left breast Dr. Membreno office procedure 03/30/20 FINAL DIAGNOSIS SKIN, LEFT BREAST, PUNCH BIOPSY: SKIN WITH NO DIAGNOSTIC ABNORMALITY. SEE COMMENT. History of cholecystectomy History of colonoscopy History of lumpectomy . Fibroid adenomas in the breast (RT/LEFT) History of mastectomy 07/01/2020 [facility] - Left breast History of tooth extraction Port-A-Cath in place (08/10/20) Port placement. Dr. Membreno 08/10/2020 S/P cardiac cath 2018 [facility] (NO STENTS) Social History Smoking Status: Never smoker Hx Alcohol Use: Yes Alcohol type: wine alcohol intake frequency: holidays/special occasions only substance use type: does not use Testing Laboratory Results 10/13/20 WBC: 11.82 H/H: 11.7/37.1 PLATELETS: 270 SODIUM: 143 POTASSIUM: 4.6 CHLORIDE: 105 CO2: 25 BUN: 17 CREATININE: 0.8 GLUCOSE: 207 10/25/20 A1C: 6.8% Other Testing Electrocardiogram Date: 04/01/20 Sinus bradycardia at [address] abnormality. Echocardiogram Date: 02/25/20 EF: 55-60% LV Function: normal RWMA: + none Other Findings: + LVH (Moderate/concentric) Mild aortic stenosis (REGINA 1.4-1.5 cm2; AV mean gradient: 15.8mmHg; AV velocity: 2.46m/s) Grade 1 diastolic dysfunction. Left atrium borderline dilated. Mild mitral annular calcification. Stress Test Date: 08/31/17 Type: nuclear Poor quality study. There were no definite ischemic changes noted, but cannot rule out given quality of study. No obvious infarct suggested. Low normal left ventricular systolic function (EF =51%). Normal wall motion. No arrhythmia. Nondiagnostic Lexiscan EKG. Cardiac Catheterization Date: 06/25/19 LM = distal tapering of approximately 20 to 30%. LAD = no significant CAD. Circumflex = no significant CAD. RCA = mild luminal irregularities of less than 10%. Ramus = no significant CAD. Impression: Mild obstructive CAD. Normal left-sided filling pressures. Mild aortic stenosis.
[2020-11-29] MEDS ORDERED: LACTATED RINGER'S 1,000 ML IV SCH (06:00)
[2020-11-29] MEDS ORDERED: ONDANSETRON INJ 2 MG/ML 2 ML VIAL IV PRN ×2 (06:34→09:49)
[2020-11-29] MEDS ORDERED: ATROPINE SULFATE 0.1 MG/ML 10ML SYR IV PRN (06:34)
[2020-11-29] MEDS ORDERED: fentaNYL citrate 100 MCG/2 ML VIAL IV PRN (06:34)
[2020-11-29] MEDS ORDERED: ePHEDrine sulfate 50 MG/ML AMP IV PRN (06:34)
--- NOTE | 2020-11-29 06:39 | History & Physical Bridge Note ---
Date of Service November 29, 2020 History & Physical Bridge Note I have examined the patient, reviewed the History & Physical and in the interval since the performance of the History & Physical I have noted the following changes of clinical significance: no changes noted
[2020-11-29] MEDS ORDERED: MIDAZOLAM HCL 1 MG/ML 2ML VIAL ONE (06:47)
[2020-11-29] MEDS ORDERED: fentaNYL citrate 100 MCG/2 ML VIAL ONE (06:47)
[2020-11-29] MEDS ORDERED: LIDOCAINE HCL 1% 20 ML VIAL ONE (06:48)
[2020-11-29] MEDS ORDERED: BUPIVACAINE 0.5 % 5 MG/1 ML MPF 30ML VIAL ONE (06:48)
[2020-11-29] MEDS ORDERED: DEXAMETHASONE SOD INJ 4 MG/ML VIAL ONE (07:44)
[2020-11-29] MEDS ORDERED: ONDANSETRON INJ 2 MG/ML 2 ML VIAL ONE (07:44)
[2020-11-29] MEDS ORDERED: ePHEDrine sulfate 50 MG/ML SYR ONE (07:44)
[2020-11-29] MEDS ORDERED: PROPOFOL IV EMULSION 10 MG/ML 20 ML VIAL IV ONE (07:44)
[2020-11-29] MEDS ORDERED: LIDOCAINE HCL 2% 2 ML VIAL/AMP(20MG/ML) INFIL ONE (07:44)
--- NOTE | 2020-11-29 08:03 | Post Operative Brief Note ---
PG Immediate Post Op with CF Date of Surgery November 29, 2020 Pre & Post Diagnosis Operation Date: 11/29/20 07:00 Pre-Op Diagnosis: Left Breast Cancer, Diabetes Post-Op Diagnosis: Left Breast Cancer, Diabetes I identified the patient and participated in the time-out.: Yes Procedure Operation Date: 11/29/20 07:00 Actual Procedures p Left Axillary Lymph Node Dissection(Left) - Lucio Membreno MD, FACS Surgeon Lucio Membreno MD, FACS Manager Ct Arian Packer Estimated Blood Loss 10 Findings Consistent with Post-Op Diagnosis Specimens Specimen Description: Fresh Specimen: A. Left Axillary Tissue B. Superior Left Axillary Lymph Node - with chromic suture Drains Amandeep-Berg Drain (15 round KRIS)
[2020-11-29] MEDS ORDERED: ACETAMINOPHEN 1,000 MG/100 ML VIAL IV ONE (08:15)
--- NOTE | 2020-11-29 09:32 | Operative Report (OR) ---
DATE OF OPERATION: 11/29/2020 NAME OF OPERATION: Left axillary dissection. PREOPERATIVE DIAGNOSIS: History of left breast cancer, status post left mastectomy. POSTOPERATIVE DIAGNOSIS: History of left breast cancer, status post left mastectomy. STAFF SURGEON: Lucio wilson MD GLAZIER [employer] FURNITURE: Jagdish Packer PA-C. ANESTHESIA: General. DESCRIPTION OF PROCEDURE: The patient was brought in the operating room and placed on the operating table in supine position. Her left axilla was prepped and draped in usual fashion. My golf course assistant helped with prepping, draping, removal of the left axillary tissue and closure of the wound. She had a previous scar in the left axilla from prior sentinel lymph node biopsy. Incision was made through this using 0.5% plain Marcaine, also it was extended laterally and posteriorly. Dissection was carried down through scar tissue into the axilla, identifying the axillary contents. The patient did have evidence on PET scan of 2 active lymph nodes, an inferior and superior lymph nodes. These were taken during the procedure. The superior lymph node was marked with a chromic suture and sent separately as superior left axillary lymph node. Additional axillary tissue was taken. I was able to identify the left axillary vein and thoracodorsal vascular bundle and nerve, 15 round Amandeep-Berg drain placed into the wound, secured to the skin using 3-0 nylon suture. Deep tissue reapproximated using 2-0 plain suture and then the skin reapproximated using 4-0 nylon suture. The patient was transferred to recovery room in stable condition. I attest to the content of the Intraoperative Record and any orders documented therein. Any exception s are noted below.
[2020-11-29] MEDS ORDERED: HYDROmorphone INJ 0.5 MG/0.5 ML SYR IV PRN (09:49)
[2020-11-29] MEDS ORDERED: HYDROCODONE/ACETAMOPHEN 5/325MG TAB PO PRN ×2 (09:49)
[2020-11-29] MEDS ORDERED: SODIUM CHLORIDE 0.9% 1000ML 1,000 ML IV SCH (09:49)
[2020-11-29] MEDS ORDERED: ACETAMINOPHEN 325 MG TAB PO PRN (09:49)
[2020-11-29] MEDS ORDERED: IBUPROFEN 600 MG TAB PO PRN (09:49)
[2020-11-29] MEDS ORDERED: PROMETHAZINE HCL 12.5 MG in SODIUM CHLORIDE 0.9% 50 ML IV PRN (09:49)
[2020-11-29] MEDS: FUROSEMIDE 40 MG TAB PO SCH (11:44)
[2020-11-29] MEDS: POTASSIUM CHLORIDE 10 MEQ TABCR PO SCH (11:45)
[2020-11-29] MEDS: carvediloL 25 MG TAB PO SCH ×2 (11:46→21:00)
[2020-11-29] MEDS ORDERED: DEXTROSE 50% 50 ML SYRINGE IV PRN (12:03)
[2020-11-29] MEDS ORDERED: GLUCAGON FOR INJ 1 MG VIAL SQ PRN (12:03)
[2020-11-29] MEDS ORDERED: GLUCOSE 10 TABS/TUBE PO PRN (12:03)
[2020-11-29] MEDS ORDERED: GLUCOSE 40% GEL 15 GM TUBE PO PRN (12:03)
[2020-11-29] MEDS ORDERED: CARBOHYDRATES FOR HYPOGLYCEMIA PO PRN (12:03)
--- NOTE | 2020-11-29 12:36 | Hospitalist Consultation ---
Date of Consultation November 29, 2020 Assessment & Plan (1) Breast cancer: Patient with history of breast cancer diagnosed in the fall 2019. Status post left mastectomy At that time sentinel nodes were resected Surveillance PET/CT revealed FDG avid nodes in the left axilla POD #0 lymph node resection with Dr. Membreno Pain well controlled KRIS drain in place Anticipate discharge tomorrow per surgery Patient anticipated to get radiation once lymph node resection site heals Continue outpatient management with Dr. Ok Harper at [facility] (2) CAD (coronary artery disease): No chest pain or evidence of ACS Blood pressure managed Continue carvedilol, furosemide, fish oil, rosuvastatin Normal sinus rhythm on exam Discharge on usual home meds (3) Atrial fibrillation: Normal sinus rhythm on exam with a heart rate of 80 bpm Continue carvedilol, amiodarone. Chronically anticoagulated with Xarelto. This is been held for lymph node resection. Anticipate restarting in 2 days Patient educated on indication of atrial fibrillation including irregular heartbeat and fast heart rate above 100 bpm If patient develops these symptoms after discharge prior to being restarted on Xarelto, she was instructed to call Dr. Membreno's office for further instruction. (4) Type 2 diabetes mellitus: Controlled with Metformin at home Due to stress of surgery and hospital stay, will start NovoLog sliding scale insulin without basal rate Follow BSG AC at bedtime Hemoglobin A1c 6.8 on 10/25/2020 Continue outpatient management (5) Benign essential hypertension: Continue carvedilol and furosemide (6) DVT prophylaxis: Outpatient anticoagulation with Xarelto held for surgery SCDs and MARSHALL hose in place Restart anticoagulation on discharge per surgery Thank you for including us in the care of this patient. She has no acute complaints at this time and labs and comorbidities seem to be stable. We will sign off at this time. Please feel free to reconsult as needed. Please refer to Dr. Luu's addendum for further recommendations and corrections. Supervising Physician Co-Signing Physician Notes I personally saw and examined the patient. I verified all whitehead points and agree with NAOMI Cartagena with the following exceptions and/or additions: O/E Systolic murmur throughout, loudest in apex. History of Present Illness Attending Physician: Lucio Membreno MD, FACS History of Present Illness Attending: Dr. Luu This is a 70 yo female diagnosed with breast cancer in May 2020. She is undergoing chemotherapy with Dr. Ok Harper with [facility]. She had a surveillance PET CT scan which revealed metastatic involvement of left axiliary lymph nodes and underwent lymph node dissection with Dr. Membreno today without complication. Past medical history includes breast cancer, diabetes mellitus type 2, hypertension, history of pulmonary edema, hypercholesterolemia, hyperlipidemia, atrial fibrillation, long-term anticoagulation with Xarelto, nonischemic cardiomyopathy, chronic diastolic CHF, CAD. Hemoglobin A1c is below 7.Diabetes is controlled at home with Metformin. Atrial fibrillation is controlled with amiodarone 200 mg p.o. daily and anticoagulation with Xarelto 20 mg p.o. daily. Patient is doing fairly well. She has no acute complaints this hospital stay. She anticipates going home tomorrow. Allergies Allergy/AdvReac Type Severity Reaction Status Date / Time codeine Allergy Severe SHORT OF Verified 11/29/20 05:52 BREATH Quinolones Allergy Severe CAUSED Verified 11/29/20 05:52 A-FIB adhesive tape Allergy Intermediate blisters, Verified 11/29/20 05:52 rash. tramadol Allergy Mild HIVES Verified 11/29/20 05:52 levofloxacin AdvReac Severe SHORTNESS Verified 11/29/20 05:52 OF BREATH Home Medications Medication Instructions Recorded Confirmed Type multivitamin 1 tab PO QAM 05/11/19 11/29/20 History omega-3 fatty acids 1,000 mg 1,000 mg PO QAM 05/11/19 11/29/20 History capsule turmeric 400 mg capsule 400 mg PO DAILY cap 05/11/19 11/29/20 History calcium carbonate 600 mg (1,500 1 cap PO DAILY cap 07/21/19 11/29/20 History mg)-vitamin D3 500 unit capsule coenzyme Q10 50 mg capsule 100 mg PO DAILY cap 09/30/19 11/29/20 History acetaminophen 500 mg tablet 1,000 mg PO Q4H PRN tab 07/05/20 11/29/20 History alendronate 70 mg tablet 70 mg PO WK #12 tab 09/20/20 11/29/20 Rx amiodarone 200 mg tablet 200 mg PO QAM #90 tab 09/20/20 11/29/20 Rx blood sugar diagnostic #200 ea 09/20/20 10/27/20 Rx carvedilol 25 mg tablet 25 mg PO BID #180 tab 09/20/20 11/29/20 Rx metformin 500 mg tablet 500 mg PO HS #90 tab 09/20/20 11/29/20 Rx potassium chloride 10 mEq 10 meq PO QAM #90 cap 09/20/20 11/29/20 Rx capsule,extended release rivaroxaban 20 mg tablet 20 mg PO QAM #90 tab 09/20/20 11/29/20 Rx rosuvastatin 20 mg tablet 20 mg PO QPM #90 tab 09/20/20 11/29/20 Rx sacubitril 97 mg-valsartan 103 mg 1 tab PO BID #180 tab 09/20/20 11/29/20 Rx tablet sertraline 50 mg tablet 50 mg PO HS #90 tab 09/20/20 11/29/20 Rx furosemide 40 mg tablet 40 mg PO QAM #90 tab 09/21/20 11/29/20 Rx Patient History Medical History Anxiety and depression Atrial fibrillation FOLLOWS DR. DILLON Breast cancer LEFT - s/p left mastectomy 07/01/2020 [facility] (COMPLETED CHEMO/WILL START RADIATION AFTER SURGERY SITE HEALS) CAD (coronary artery disease) Minimal- non obstructive CAD Chronic diastolic CHF (congestive heart failure) Compensated and euvolemic per 06/2020 Heart Failure Clinic note Diabetes mellitus, type 2 Dyslipidemia Hypertension Liver nodule BEING MONITORED (FOCAL NODULE HYPERPLASIA) Mild aortic stenosis Per 02/25/20 ECHO ([place] 1.4-1.5 cm2; AV mean gradient: 15.8mmHg; AV velocity: 2.46m/s) Non-ST elevation (NSTEMI) myocardial infarction 2016 (no mention of NSTEMI in cardio notes) Nonischemic cardiomyopathy Likely tachycardia induced- LV systolic function normal on 02/25/20 echo Osteoarthritis Torsades de pointes Likely due to Levaquin in 2017- avoid fluoroquinolones Surgical History H/O breast biopsy punch biopsy of her left breast Dr. Membreno office procedure 03/30/20 FINAL DIAGNOSIS SKIN, LEFT BREAST, PUNCH BIOPSY: SKIN WITH NO DIAGNOSTIC ABNORMALITY. SEE COMMENT. History of cholecystectomy History of colonoscopy History of lumpectomy . Fibroid adenomas in the breast (RT/LEFT) History of lymph node dissection of axilla (11/29/20) Left axillary dissection. Dr. Membreno 11/29/2020 History of mastectomy 07/01/2020 [facility] - Left breast History of tooth extraction Port-A-Cath in place (08/10/20) Port placement. Dr. Membreno 08/10/2020 S/P cardiac cath 2018 [facility] (NO STENTS) Family History Mother Osteoporosis Clotting disorder Heart disease Myocardial infarction Hypertension Stroke Sister Diabetes Myocardial infarction Hypertension Stroke Father Heart disease Lung disease Other Cerebral aneurysm No family history of adverse response to anesthesia Denies family history of Rheumatoid arthritis Sudden SIDS (sudden syndrome) Ovarian cancer Prostate cancer Deep vein thrombosis Coronary heart disease Dyslipidemia Alzheimer disease Bipolar disorder Crohn's disease Dementia Depression Kidney disease Osteoarthritis Breast cancer Congenital kidney disease Gestational diabetes Lung cancer COPD (chronic obstructive pulmonary disease) Colorectal cancer Pulmonary embolism Cancer Ulcerative colitis Colonic polyp Asthma Cystic kidney disease Social History Smoking Status: Never smoker Second Hand Exposure: Yes ( A CHILD); Hx Alcohol Use: Yes Alcohol type: wine Preferred Language: Frisian Communication Ability: Effective Visual Impairment: No Limitations Hearing Ability: Normal Detail Assembler Required: No Beliefs That Will Affect Care: None marital status: Current Living Situation: Spouse current occupational status: retired current occupation: retired Feels Safe at Home: Yes Safety Concerns: Feels Safe At This Time Childhood Exposure to Second-Hand Smoke: Yes caffeine: Yes during the past year weight has: remained stable Dental Care, Regularly: No Physical Activity Frequency: Does not Exercise Seatbelt Use: always Sunscreen Use: Yes Do you think of yourself as: straight/heterosexual Assistive Devices: Denture - Upper and Glasses Review of Systems Review of Systems: All systems reviewed & are unremarkable except as noted in HPI & below Physical Exam Physical Exam: GENERAL : No acute distress. Pleasant. EYES: No icterus, gaze conjugate. Pupils equal round and reactive to light NOSE: No evidence of epistaxis MOUTH: No lesions or candidiasis NECK: Supple LUNGS: CTA B/L, no wheezes, rales or rhonchi HEART: Regular, rate controlled at 80 bpm. Normal sinus rhythm to exam. ABDOMEN: Soft, NT, ND, BS Present EXTREMITIES: No LE edema, pedal pulses intact and equal bilaterally. Dressing dry and intact at the left axillary. There is a KRIS drain with serosanguineous drainage. NEURO: A&OX3 Results & Data Results & Data ([facility]) Vital Signs (Past 12 Hours) Vital Signs Temp Pulse Resp BP Pulse Ox 11/29/20 11:41 36.8 C 11/29/20 11:38 76 18 114/51 L 96 11/29/20 10:34 37.0 C 79 18 137/57 L 90 11/29/20 10:10 36.6 C 73 18 117/65 92 11/29/20 09:40 37.2 C 74 18 141/68 H 97 11/29/20 09:25 69 14 122/57 L 94 11/29/20 09:10 72 17 139/56 L 92 11/29/20 08:55 36.9 C 72 19 136/48 L 94 11/29/20 08:45 67 15 131/45 L 97 11/29/20 08:35 65 17 131/50 L 97 11/29/20 08:25 66 12 121/47 L 92 11/29/20 08:16 37.1 C 77 16 127/48 L 98 11/29/20 05:58 36.6 C 83 22 142/62 H 96 Laboratory Results Most recent labs were from 10/13/2020 Diagnostic Findings No diagnostic imaging this admission PG Care Time/CCT Total # of Minutes Spent Total Time Spent with Patient: Total time spent is greater than 50% in coordination of care (as documented) at patient's floor/unit and/or counseling patient: Coding Level of Care Code 70650 Inpt Consult Level 4 Diagnoses Breast cancer C50.919 CAD (coronary artery disease) I25.10 Atrial fibrillation I48.0 Atrial fibrillation type: paroxysmal Type 2 diabetes mellitus E11.9 Benign essential hypertension I10 DVT prophylaxis Z29.9 Time Spent (min) 50 (1) Atrial fibrillation Atrial fibrillation type: paroxysmal Qualified Code(s): I48.0 - Paroxysmal atrial fibrillation
[2020-11-29] MEDS: INSULIN ASPART 100 UNITS/ML 3 ML PEN SC SCH ×3 (12:58→20:57)
[2020-11-29] MEDS: ceFAZolin 1000MG 1,000 MG/7.5 ML SYR IV SCH ×2 (13:02→21:25)
--- NOTE | 2020-11-29 14:25 | Anesthesiology Progress Note ---
Date of Service November 29, 2020 Anesthesia Post Procedure Vital Signs Vital Signs: Temp Pulse Resp BP Pulse Ox 11/29/20 12:48 36.6 C 86 17 153/71 H 95 11/29/20 11:41 36.8 C 11/29/20 11:38 76 18 114/51 L 96 11/29/20 10:34 37.0 C 79 18 137/57 L 90 11/29/20 10:10 36.6 C 73 18 117/65 92 11/29/20 09:40 37.2 C 74 18 141/68 H 97 11/29/20 09:25 69 14 122/57 L 94 11/29/20 09:10 72 17 139/56 L 92 11/29/20 08:55 36.9 C 72 19 136/48 L 94 11/29/20 08:45 67 15 131/45 L 97 11/29/20 08:35 65 17 131/50 L 97 11/29/20 08:25 66 12 121/47 L 92 11/29/20 08:16 37.1 C 77 16 127/48 L 98 11/29/20 05:58 36.6 C 83 22 142/62 H 96 Pain Intensity Left Axilla: Pain Intensity: 3 Transfer of Care Handoff Completed per policy Notes Mental Status: alert / awake / arousable and participated in evaluation Patient Amnestic to Procedure: Yes Nausea / Vomiting: adequately controlled Pain: adequately controlled Airway Patency, RR, SpO2: stable & adequate BP & HR: stable & adequate Hydration State: stable & adequate Anesthetic Complications: no major complications apparent and Pt Satisfied with anesthetic care
[2020-11-29] MEDS ORDERED: SERTRALINE HCL 50 MG TABLET PO SCH (21:00)
[2020-11-29] MEDS ORDERED: ROSUVASTATIN CALCIUM 20 MG TAB PO SCH (21:00)
[2020-11-30] MEDS ORDERED: HEPARIN 100 UNIT/ML 5ML FLUSH FLUSH PRN (04:23)
[2020-11-30] MEDS: ceFAZolin 1000MG 1,000 MG/7.5 ML SYR IV SCH (05:31)
--- NOTE | 2020-11-30 08:16 | Anesthesiology Progress Note ---
Date of Service November 30, 2020 Anesthesia Post Procedure Vital Signs Vital Signs: Temp Pulse Resp BP Pulse Ox 11/30/20 07:22 36.6 C 77 18 154/77 H 93 11/30/20 02:43 36.8 C 78 17 136/68 93 11/29/20 23:03 36.6 C 84 17 143/68 H 95 11/29/20 19:48 36.6 C 88 17 121/66 96 11/29/20 15:06 36.7 C 82 18 143/73 H 93 11/29/20 12:48 36.6 C 86 17 153/71 H 95 11/29/20 11:41 36.8 C 11/29/20 11:38 76 18 114/51 L 96 11/29/20 10:34 37.0 C 79 18 137/57 L 90 11/29/20 10:10 36.6 C 73 18 117/65 92 11/29/20 09:40 37.2 C 74 18 141/68 H 97 11/29/20 09:25 69 14 122/57 L 94 11/29/20 09:10 72 17 139/56 L 92 11/29/20 08:55 36.9 C 72 19 136/48 L 94 11/29/20 08:45 67 15 131/45 L 97 11/29/20 08:35 65 17 131/50 L 97 11/29/20 08:25 66 12 121/47 L 92 11/29/20 08:16 37.1 C 77 16 127/48 L 98 Pain Intensity Left Axilla: Pain Intensity: 3 Notes Mental Status: alert / awake / arousable Patient Amnestic to Procedure: Yes Nausea / Vomiting: adequately controlled Pain: adequately controlled Airway Patency, RR, SpO2: stable & adequate BP & HR: stable & adequate Hydration State: stable & adequate Anesthetic Complications: no major complications apparent and Pt Satisfied with anesthetic care
[2020-11-30] MEDS ORDERED: AMIODARONE 200 MG TAB PO SCH (09:00)
[2020-11-30] MEDS: carvediloL 25 MG TAB PO SCH (09:01)
[2020-11-30] MEDS: POTASSIUM CHLORIDE 10 MEQ TABCR PO SCH (09:01)
[2020-11-30] MEDS: FUROSEMIDE 40 MG TAB PO SCH (09:02)
[2020-11-30] MEDS: INSULIN ASPART 100 UNITS/ML 3 ML PEN SC SCH (09:05)
== END 2020-11-30 11:24 | disposition home or self-care (01) ==
LOC: 3N 05:25 → ASU 05:25

== ENCOUNTER 2023-08-30 09:37 | Inpatient (IN) ==
[2023-08-30] MEDS ORDERED: DIGOXIN 500 MCG in SYRINGE 0 ML IV ONE (10:21)
[2023-08-30] MEDS: FUROSEMIDE 40 MG/4 ML VIAL IV ONE ×2 (10:30→11:20)
[2023-08-30] MEDS ORDERED: SODIUM CHLORIDE 0.9% 250 ML IV ONE (10:45)
[2023-08-30 10:46] LABS: Basophils # (auto) 0.05 K/uL (0.00-0.20); Basophils % (auto) 0.6 %; Eosinophils # (auto) 0.14 K/uL (0.00-0.50); Eosinophils % (auto) 1.6 %; Hematocrit (blood only) 41.1 % (37.0-47.0); Hemoglobin 12.5 g/dl (12.0-16.0); Immature Granulocytes # (auto) 0.03 K/uL (0.01-0.20); Immature Granulocytes % (auto) 0.4 %; Lymphocytes # (auto) 1.51 K/uL (1.20-3.40); Lymphocytes % (auto) 17.7 %; Mean Corpuscular Hemoglobin 27.2 pg (25.0-34.0); Mean Corpuscular Hgb Conc 30.4 g/dL (32.0-36.0); Mean Corpuscular Volume 89.5 fL (80.0-100.0); Mean Platelet Volume 10.6 fL (9.4-12.4); Monocytes # (auto) 0.61 K/uL (0.11-0.59); Monocytes % (auto) 7.2 %; Neutrophils # (auto) 6.19 K/uL (1.40-6.50); Neutrophils % (auto) 72.5 %; Platelet Count 257 K/uL (130-400); RDW Coefficient of Variation 14.6 % (11.5-14.5); RDW Standard Deviation 47.2 fL (36.4-46.3); Red Blood Count 4.59 M/uL (4.20-5.40); White Blood Count 8.53 K/ul (4.8-10.8)
[2023-08-30] MEDS: MAGNESIUM SULFATE 1GM / D5W BAG IV ONE ×2 (10:50→10:55)
[2023-08-30] MEDS ORDERED: MAGNESIUM SULFATE / D5W 1 GM/100 ML BAG IV STA (10:53)
--- NOTE | 2023-08-30 11:00 | XRay Report ---
XR chest 1V portable HISTORY: 72 years-old Female Chest pain, nonspecific COMPARISON: 06/03/2023 TECHNIQUE: AP view of the chest FINDINGS: Cardiomediastinal and hilar silhouettes are unchanged. Atherosclerosis of the aorta. Left axillary branch rgical clips. Chronic interstitial coarsening. No pneumothorax, pleural effusion or airspace consolid ation. The bones appear grossly intact. IMPRESSION: No acute process. ACT 112: Negative or not required by law. The above report was generated using voice recognition software. It may contain grammatical, syntax o r spelling errors. Electronically signed by: Mohan Hull M.D. 08/30/2023 10:59 AM
--- NOTE | 2023-08-30 11:01 | Emergency Department Note ---
Impression & Plan Atrial fibrillation with rapid ventricular response, CHF (congestive heart failure) ED Provider Note NAME: PHOEBE HUGO AGE: 72 SEX: F : 1950 ARRIVES VIA: Walk-In INFORMANT: Patient, ED PROVIDER(S): Jd Harper MD CHIEF COMPLAINT: Atrial fibrillation HPI: This is 72-year-old female with history of A-fib, diabetes, CAD, nonischemic cardiomyopathy presenting for A-fib RVR. Patient was seen by cardiology today who found her in A-fib again. She has a history of this and was cardioverted recently. Otherwise she has had some shortness of breath, exertional dyspnea here. No significant chest pain or pressure, just difficulty with breathing. Feels she has shortness of breath associate with her A-fib RVR previously. She has CHF as well ROS: See above HPI for pertinent positives & negatives. A total of 10 systems reviewed and were otherwise negative. PAST MEDICAL HISTORY: See Below PAST SURGICAL HISTORY: See Below FAMILY HISTORY: See Below SOCIAL HISTORY: See Below HOME MEDICATIONS: See Below ALLERGIES: See Below VITALS: See Below PHYSICAL EXAMINATION: General: resting comfortably in no acute distress Head: Normocephalic and atraumatic Eyes: Normal inspection, extraocular muscles intact Ear, nose, throat: Normal external exam Neck: Normal range of motion Respiratory: lungs clear to auscultation bilaterally Cardiovascular: Tachycardic, irregular rate, GI: soft, nontender, no guarding or rebound Extremities: nontender, moves all extremities Neuro: The patient awake and alert, appropriately conversive, no focal deficits, symmetric faces Skin: Warm, dry, and intact MEDICAL DECISION MAKING: This is a 72-year-old female with history as above presenting for A-fib RVR. -Cardiology note reviewed from earlier in August showing patient was cardioverted for her A-fib -Currently she is in A-fib RVR, having difficulty breathing as result, this is usual for the patient, she has 2+ pitting edema to bilateral lower extremities as well concerning for CHF -Discussed with Dr. Potter, cardiology, who sent the patient in, he does not recommend cardioversion as she will likely just returned back into A-fib. There is concerned about mitral regurgitation causing her difficult to control atrial fibrillation, he is recommending IV medications, stabilization of her rate and admission for further testing -Chest Xray independently interpreted by me showing no pneumothorax, focal opacity, or pleural effusions. -Order Lasix however they are held due to patient's hypotension at this time -Will do dig loading at this time due to patient's CHF, contraindication to metoprolol and diltiazem -Patient intermittently hypotensive, discussed cardioversion if patient does not improve -Patient still is in A-fib with RVR however rates are lower between 110 and 125, blood pressure is improved at this time, will not cardiovert -Patient admitted to hospitalist service for further workup Differential diagnosis: A-fib RVR, PE, ACS ER treatment provided: See below Diagnostics interpreted by me: ECG: ECG independently interpreted by me with atrial fibrillation with RVR, rate of 148, normal axis, normal QRS, normal QTc, no ST segment elevations consistent with STEMI criteria Cardiac Monitoring: An order was placed for continuous cardiac monitoring. The monitor shows a rate of 124 with atrial fibrillation rhythm. Laboratory studies: As stated above and show below. Imaging studies: See below. Critical Care Note: I have personally spent 45 minutes of critical care time in the direct management of this patient. This includes bedside care, interpretation of diagnostic studies, and testing, discussion with consultants, patient, and family members, and other required patient management activities. This 45 minutes is in excess of all separately billable procedures. Past Med/Surg History Medical History Anticoagulant long-term use xarelto daily Peripheral edema Legs Limb alert care status left arm Morbid obesity with BMI of 45.0-49.9, adult Mild aortic stenosis Echo 02/2023: Mild aortic stenosis Liver nodule Focal nodule hyperplasia Under surveillance Diabetes mellitus, type 2 Breast cancer Left s/p left mastectomy (2019) (ductal carcinoma), completed chemo and radiation Anxiety and depression Torsades de pointes Likely due to Levaquin in 2017- avoid fluoroquinolones Hypercholesterolemia Benign essential hypertension Nonischemic cardiomyopathy Likely tachycardia induced- LV systolic function normal on February 2023 echo Chronic diastolic CHF (congestive heart failure) Non-ST elevation (NSTEMI) myocardial infarction 2016 CAD (coronary artery disease) Minimal non-obstructive CAD Atrial fibrillation Follows with [facility] cardiology on Xarelto Surgical History Nausea after anesthesia History of cardioversion 06/2023 History of lymph node dissection of axilla Left axillary lymph node dissection (11/29/20): LMA#4 at [facility] (weight at time: 140kg). No issues noted per post-op anesthesia progress note. Port-A-Cath in place Port placement. Dr. Membreno 08/10/2020; removed 2022 H/O mastectomy 07/01/2020 [facility] - Left breast History of colonoscopy History of tooth extraction H/O breast biopsy punch biopsy of her left breast 03/2020 S/P cardiac cath 2018 [facility]- no stents History of lumpectomy . Fibroid adenomas in the breast (R/L) History of cholecystectomy Family History Mother Osteoporosis Clotting disorder Heart disease Myocardial infarction Hypertension Stroke Sister Diabetes Myocardial infarction Hypertension Stroke Father Heart disease Lung disease Other Cerebral aneurysm No family history of adverse response to anesthesia Denies family history of Rheumatoid arthritis Sudden SIDS (sudden infant syndrome) Ovarian cancer Prostate cancer Deep vein thrombosis Coronary heart disease Dyslipidemia Alzheimer disease Bipolar disorder Crohn's disease Dementia Depression Kidney disease Osteoarthritis Breast cancer Congenital kidney disease Gestational diabetes Lung cancer COPD (chronic obstructive pulmonary disease) Colorectal cancer Pulmonary embolism Cancer Ulcerative colitis Colonic polyp Asthma Cystic kidney disease Social History Smoking Status: Never smoker Second Hand Exposure: No; Do You Dip or Chew Tobacco: No; Tobacco Cessation Education Requested by Patient: No Hx Alcohol Use: No Hx Substance Use: No Preferred Language: Moldovan Communication Ability: Effective Visual Impairment: Limited Hearing Ability: Normal Duplicating Machine Operator Required: No Beliefs That Will Affect Care: None marital status: Current Living Situation: Spouse current occupational status: retired current occupation: retired How many Children do You have: 2 Other Information That Helps Us Care for You: No Feels Safe at Home: Yes Safety Concerns: Feels Safe At This Time Childhood Exposure to Second-Hand Smoke: Yes Diet: low carbohydrate, low salt and regular Diet Comment: carb counting caffeine: Yes during the past year weight has: remained stable Dental Care, Regularly: No Physical Activity Frequency: Does not Exercise Seatbelt Use: always Sunscreen Use: Yes Do you think of yourself as: straight/heterosexual Sexual Activity: has been sexually active within the last 12 months Gender Identity: Female Assistive Devices: Denture - Upper, Glasses and Walker Allergies Allergies Allergy/AdvReac Type Severity Reaction Status Date / Time codeine Allergy Severe Dyspnea Verified 08/30/23 08:12 levofloxacin Allergy Severe Dyspnea Verified 08/30/23 08:12 Quinolones Allergy Severe A. fib Verified 08/30/23 08:12 adhesive tape Allergy Intermediate Blisters, Verified 08/30/23 08:12 rash tramadol Allergy Mild Hives Verified 08/30/23 08:12 amiodarone AdvReac Intermediate Hyperthyroi Verified 08/30/23 08:12 dism Home Meds Home Medications Medication Instructions Recorded Confirmed multivitamin (Multiple Vitamins 1 tab PO QAM 05/11/19 08/30/23 tablet) omega-3 fatty acids 1,000 mg 1,000 mg PO QAM 05/11/19 08/30/23 capsule turmeric 400 mg capsule 400 mg PO QAM 05/11/19 08/30/23 calcium carbonate 600 mg-vitamin 1 cap PO QAM 07/21/19 08/30/23 D3 12.5 mcg (500 unit) capsule (Calcium 600 with Vitamin D3) coenzyme Q10 50 mg capsule 50 mg PO HS 09/30/19 08/30/23 acetaminophen 500 mg tablet 1,000 mg PO Q4H PRN Pain 07/05/20 08/30/23 anastrozole 1 mg tablet 1 mg PO QAM 12/13/20 08/30/23 magnesium oxide 400 mg (241.3 mg 400 mg PO QPM PRN leg cramps 06/19/22 08/30/23 magnesium) tablet metformin 850 mg tablet 850 mg PO HS 07/17/23 08/30/23 rivaroxaban 20 mg tablet (Xarelto) 20 mg PO HS 07/17/23 08/30/23 carvedilol 25 mg tablet 25 mg PO BID 08/22/23 08/30/23 Previous Rx's Medication Instructions Recorded blood sugar diagnostic (OneTouch #200 ea 09/20/20 Ultra Blue Test Strip) sacubitril 97 mg-valsartan 103 mg 1 tab PO BID #180 tabs 10/09/22 tablet (Entresto) rosuvastatin 20 mg tablet 20 mg PO HS #90 tabs 03/22/23 furosemide 40 mg tablet 40 mg PO QAM #90 tabs 07/02/23 potassium chloride 10 mEq 10 meq PO QAM #90 caps 07/02/23 capsule,extended release alendronate 70 mg tablet 70 mg PO WK #12 tabs 08/17/23 Results & Data (ED) Vital Signs Vital Signs - 24 hr 08/30/23 09:42 08/30/23 09:59 08/30/23 10:00 Temperature 36.5 C Temperature Source Temporal Artery Scan Pulse Rate 143 H 155 H 140 H Pulse Rate [Apical] Pulse Rhythm Respiratory Rate 22 26 H 30 H Respiratory Effort / Characteristics Respiratory Depth Respiratory Pattern Blood Pressure 111/60 112/64 Blood Pressure [Right Arm] Blood Pressure Mean 77 80 Blood Pressure Mean [Right Arm] Blood Pressure Position [Right Arm] Pulse Oximetry 99 98 Oxygen Delivery Method Room Air Sepsis Recent Fever Within 48 Hours No Sepsis New/Unexplained Change in Mental Status No Sepsis Action Taken by Nursing No Action Required 08/30/23 10:01 08/30/23 10:02 08/30/23 10:03 Temperature Temperature Source Pulse Rate 158 H 148 H Pulse Rate [Apical] 150 H Pulse Rhythm Irregular Respiratory Rate 26 H 28 H Respiratory Effort / Characteristics Labored Respiratory Depth Respiratory Pattern Tachypnea Blood Pressure Blood Pressure [Right Arm] 112/64 Blood Pressure Mean Blood Pressure Mean [Right Arm] 80 Blood Pressure Position [Right Arm] Lying Pulse Oximetry 97 96 Oxygen Delivery Method Room Air Sepsis Recent Fever Within 48 Hours Sepsis New/Unexplained Change in Mental Status Sepsis Action Taken by Nursing 08/30/23 10:32 08/30/23 10:32 08/30/23 10:33 Temperature Temperature Source Pulse Rate 124 H Pulse Rate [Apical] 137 H Pulse Rhythm Respiratory Rate 20 22 Respiratory Effort / Characteristics Non-Labored Respiratory Depth Normal Respiratory Pattern Blood Pressure 88/68 L Blood Pressure [Right Arm] 87/54 L Blood Pressure Mean 77 Blood Pressure Mean [Right Arm] 65 Blood Pressure Position [Right Arm] Pulse Oximetry 96 93 Oxygen Delivery Method Room Air Room Air Sepsis Recent Fever Within 48 Hours Sepsis New/Unexplained Change in Mental Status Sepsis Action Taken by Nursing 08/30/23 10:33 08/30/23 10:46 08/30/23 10:47 Temperature Temperature Source Pulse Rate 141 H 145 H 121 H Pulse Rate [Apical] Pulse Rhythm Respiratory Rate 22 25 H Respiratory Effort / Characteristics Respiratory Depth Respiratory Pattern Blood Pressure 87/54 L 69/51 L Blood Pressure [Right Arm] Blood Pressure Mean 65 57 Blood Pressure Mean [Right Arm] Blood Pressure Position [Right Arm] Pulse Oximetry 95 96 Oxygen Delivery Method Room Air Room Air Sepsis Recent Fever Within 48 Hours Sepsis New/Unexplained Change in Mental Status Sepsis Action Taken by Nursing 08/30/23 11:00 08/30/23 11:00 08/30/23 11:04 Temperature Temperature Source Pulse Rate 117 H 126 H Pulse Rate [Apical] Pulse Rhythm Respiratory Rate 26 H 23 Respiratory Effort / Characteristics Short of Breath Respiratory Depth Respiratory Pattern Blood Pressure 121/97 Blood Pressure [Right Arm] Blood Pressure Mean 105 Blood Pressure Mean [Right Arm] Blood Pressure Position [Right Arm] Pulse Oximetry 95 95 Oxygen Delivery Method Room Air Room Air Room Air Sepsis Recent Fever Within 48 Hours Sepsis New/Unexplained Change in Mental Status Sepsis Action Taken by Nursing 08/30/23 11:16 Temperature Temperature Source Pulse Rate 127 H Pulse Rate [Apical] Pulse Rhythm Respiratory Rate 27 H Respiratory Effort / Characteristics Respiratory Depth Respiratory Pattern Blood Pressure 105/66 Blood Pressure [Right Arm] Blood Pressure Mean 79 Blood Pressure Mean [Right Arm] Blood Pressure Position [Right Arm] Pulse Oximetry 93 Oxygen Delivery Method Room Air Sepsis Recent Fever Within 48 Hours Sepsis New/Unexplained Change in Mental Status Sepsis Action Taken by Nursing Laboratory Data 08/30/23 10:00 08/30/23 10:00 Lab Results 08/30/23 Range/Units 10:00 WBC 8.53 (4.8-10.8) K/ul RBC 4.59 (4.20-5.40) M/uL Hgb 12.5 (12.0-16.0) g/dl Hct 41.1 (37.0-47.0) % MCV 89.5 (80.0-100.0) fL MCH 27.2 (25.0-34.0) pg MCHC 30.4 L (32.0-36.0) g/dL RDW Std Deviation 47.2 H (36.4-46.3) fL RDW Coeff of Luis 14.6 H (11.5-14.5) % Plt Count 257 (130-400) K/uL MPV 10.6 (9.4-12.4) fL Immature Gran % (Auto) 0.4 % Neut % (Auto) 72.5 % Lymph % (Auto) 17.7 % Perkins % (Auto) 7.2 % Eos % (Auto) 1.6 % Baso % (Auto) 0.6 % Neut # (Auto) 6.19 (1.40-6.50) K/uL Lymph # (Auto) 1.51 (1.20-3.40) K/uL Perkins # (Auto) 0.61 H (0.11-0.59) K/uL Eos # (Auto) 0.14 (0.00-0.50) K/uL Baso # (Auto) 0.05 (0.00-0.20) K/uL Immature Gran # (Auto) 0.03 (0.01-0.20) K/uL PT Cancelled INR Cancelled APTT Cancelled PTT Ratio Cancelled Sodium 138 (136-145) mmol/L Potassium 4.7 (3.5-5.1) mmol/L Chloride 104 (98-107) mmol/L Carbon Dioxide 27 (21-32) mmol/L Anion Gap 7 (3-11) BUN 31 H (6-23) mg/dl Creatinine 1.11 (0.6-1.2) mg/dl Est Cr Clr Drug Dosing 61.4 ml/min Est GFR ( Amer) 56.7 ml/min Est GFR (Non-Af Amer) 48.9 ml/min BUN/Creatinine Ratio 27.9 H (10-20) Glucose 172 H (70-99(Fasting)) mg/dl Calcium 9.5 (8.6-10.3) mg/dl Magnesium 2.1 (1.7-2.4) mg/dl Total Bilirubin 0.7 (0.2-1.0) mg/dl AST 16 (13-39) U/L ALT 19 (7-52) U/L Alkaline Phosphatase 69 (34-104) U/L Troponin I High Sens 6.2 (0-14) pg/ml Total Protein 7.4 (6.0-8.3) gm/dl Albumin 4.0 (3.4-5.0) gm/dl Globulin 3.4 (2.5-4.0) gm/dl Albumin/Globulin Ratio 1.2 (0.9-2) TSH 7.236 H (0.300-4.500) uIu/ml Free T4 1.19 (0.61-1.60) ng/dl Administered Medications Digoxin 250 mcg/ Syringe 10 mls @ 2 mls/min IV Q6H ZOYA Stop: 08/30/23 22:04 Last Admin: 08/30/23 16:58 Dose: 2 mls/min Documented By: HS Discontinued Medications Furosemide (Furosemide 40 Mg/4 Ml Vial) 40 mg IV ONE ONE Stop: 08/30/23 10:23 Last Admin: 08/30/23 11:20 Dose: Not Given Documented By: MMG Digoxin 500 mcg/ Syringe 2 mls @ 2 mls/min IV ONE ONE Stop: 08/30/23 10:22 Last Admin: 08/30/23 10:46 Dose: 2 mls/min Documented By: ADRIANE Sodium Chloride (Nss) 250 mls @ 999 mls/hr IV .Q16M ONE Stop: 08/30/23 11:00 Last Infusion: 08/30/23 11:15 Dose: Infused Documented By: Admin: 08/30/23 10:50 Dose: 999 mls/hr Documented By: ADRIANE Magnesium Sulfate/Dextrose (Magnesium Sulfate / D5w) 1 gm in 100 mls @ 100 mls/hr IV NOW STA Stop: 08/30/23 11:52 Last Infusion: 08/30/23 13:44 Dose: Infused Documented By: Admin: 08/30/23 10:55 Dose: 100 mls/hr Documented By: [facility] Magnesium Sulfate/Dextrose (Magnesium Sulfate 1gm / D5w Bag) Confirm Administered Dose 1 gm IV .STK-MED ONE Stop: 08/30/23 10:42 Last Admin: 08/30/23 10:55 Dose: Not Given Documented By: [facility] Imaging Data Radiologist's Impression: Chest X-Ray 08/30/23 09:45 XR chest 1V portable HISTORY: 72 years-old Female Chest pain, nonspecific COMPARISON: 06/03/2023 TECHNIQUE: AP view of the chest FINDINGS: Cardiomediastinal and hilar silhouettes are unchanged. Atherosclerosis of the aorta. Left axillary surgical clips. Chronic interstitial coarsening. No pneumothorax, pleural effusion or airspace consolidation. The bones appear grossly intact. IMPRESSION: No acute process. ACT 112: Negative or not required by law. The above report was generated using voice recognition software. It may contain grammatical, syntax or spelling errors. Electronically signed by: Mohan Hull M.D. 08/30/2023 10:59 AM Discharge Plan Visit Data Chief Complaint: Cardiac Assessment Stated Complaint: AFIB, REF BY DOC, ANTONI ED Provider: Jd Harper Discharge Problem: Atrial fibrillation with rapid ventricular response, CHF (congestive heart failure) Patient Disposition: Admitted As Inpatient Discharge Instructions Interventions: ED Discharge Assessment Last Done: 08/30/23 13:42
[2023-08-30 11:06] LABS: Albumin Globulin Ratio 1.2 (0.9-2); BUN Creatinine Ratio 27.9 (10-20); Bilirubin,Total 0.7 mg/dl (0.2-1.0); Calcium 9.5 mg/dl (8.6-10.3); Creatinine Clr Calc Pharmacy 61.4 ml/min; Est GFR (African American) 56.7 ml/min; Est GFR (Non-African American) 48.9 ml/min; Globulin 3.4 gm/dl (2.5-4.0); Potassium 4.7 mmol/L (3.5-5.1); Total Protein 7.4 gm/dl (6.0-8.3)
[2023-08-30 11:13] LABS: Troponin I High Sensitivity 6.2 pg/ml (0-14)
--- NOTE | 2023-08-30 11:15 | Electrocardiogram Report ---
Test Reason : Blood Pressure : / mmHG Vent. Rate : 148 BPM Atrial Rate : 000 BPM P-R Int : 000 ms QRS Dur : 086 ms QT Int : 312 ms P-R-T Axes : 000 003 089 degrees QTc Int : 489 ms Atrial fibrillation with rapid ventricular response Nonspecific ST and T wave abnormality Abnormal ECG When compared with ECG of 30-AUG-2023 08:08, (unconfirmed) No significant change was found Confirmed by Vicente Clancy ([id number]) on 08/30/2023 11:14:35 AM Referred By: Confirmed By:Chaz Clancy
--- NOTE | 2023-08-30 11:35 | History & Physical Report ---
Date of Service August 30, 2023 Assessment & Plan (1) Atrial fibrillation with rapid ventricular response: Plan: -Admit to the PCU on tele -Currently hemodynamically stable and still in afib with HR in the low 100's- 120's -Was sent to the ED from the Cardiology clinic after being found in afib RVR -Initially hypotensive on arrival -Was given a Digoxin loading dose of 500 mcg in the ED along with 2gm IV mag sulfate and 250 mL NSS -Currently asymptomatic at rest, did take her am medications except lasix -Spoke with Cardiology, appreciate their assistance, plan moving forward: >500 mcg IV Dig (Given), and then 6 hr later 250 mcg iv q6h x 2 doses >NPO at midnight for MAIKEL tomorrow >Cardiology will continue to follow -The precipitant for her latest episode of afib RVR is thought to be new, severe mitral regurgitation -High sen trop WNL, will obtain BNP, mag level, and TSH for further evaluation -Will hold lasix for now until her BP is consistently stable -Will clarify with Cardiology whether to hold her Carvedilol and Entresto while on Dig but will hold for now with her soft BP -Continue Xarelto for DVT PPX -HH/DMII diet with 2gm sodium restriction -AM CBC, BMP, mag, dig level (2) Diabetes mellitus: Plan: -Hold metformin -Monitor BSG ACHS, goal is 110-140 -Will start conservative regimen with CF 50 for now as she is not on SQ insulin at home -DMII/HH diet, NPO at midnight -Adjust regimen as needed (3) Hypertension: Plan: -Currently with low-normal BP of 98/79 -Hypotension is likely due to her fast HR, will continue to work on rate control which should stabilize her BP -Hold additional IV fluids for now as she is high risk to go into CHF (4) CHF (congestive heart failure): Plan: -TTE on 08/20 shows HFpEF with new, severe mitral regurgitation -Will hold lasix and IV fluids on admission and see how she responds to the dig loading dose for the next few hours (5) Hyperlipemia: Plan: -Conitnue statin (6) Breast cancer: Plan: -Continue Anastrozole Plan The patient was discussed with Dr. Márquez at the time of the admission History of Present Illness Chief Complaint: Afib RVR Primary Care Provider: Edgar Tucker MD Tiffanie is a 72 year old female with a PMH significant for paroxysmal atrial fibrillation on Xarelto, S/P Cardioversion with Dr. Martinez on 08/08, DM 2, HFrEF, breast cancer in remission, nonischemic cardiomyopathy, aortic stenosis, hyperlipidemia, hypertension, anticoagulation on Xarelto, and anxiety/depression who presented to the [facility] ED on 08/30 from the Cardiology Clinic after being found to be in afib RVR. On ED arrival she was noted to be tachycardic with HR in the 140's and BP of 88/68 but otherwise stable. Labs including CBC, CMP, and high sen trop were unremarkable. The patient was given 500 mcg IV Dig, 2gm IV Mag-Sulfate, and 250 mL NSS with improvement in blood pressure and HR. At the time of the exam the patient was sitting in bed in no acute distress with her sitting bedside, history was obtained from both. She states that she remained in sinus rhythm for approximately 10 days after the last Cardioversion. Unfortunately she felt herself go back into afib a few days ago. Since going back into aifb she has had increased SOB/MALDONADO and 1-2 second episode of substernal chest discomfort with exertion but denies being symptomatic at rest. She had a TTE on 08/20 which showed her to be in afib RVR with new, severe, mitral regurgitation. Dr. Martinez saw her in the Clinic today and sent her to the ED with her increased heart rate. She states that he mentioned possibly obtaining a MAIKEL while admitted. She had all her am medications today except her lasix. She feels as though her lower extremities have been getting more swollen over the past week despite using her home lasix and limiting her sodium intake. She denies recent fever, chills, sustained chest pain, cough, nausea, vomiting, abd pain, dysuria hematuria, diarrhea, and recent trauma. She is a full code and would want her to make medical decisions for her if she cannot make them herself. Please refer to Dr. Márquez's attestation for any changes to the treatment plan Allergies Allergy/AdvReac Type Severity Reaction Status Date / Time codeine Allergy Severe Dyspnea Verified 08/30/23 08:12 levofloxacin Allergy Severe Dyspnea Verified 08/30/23 08:12 Quinolones Allergy Severe A. fib Verified 08/30/23 08:12 adhesive tape Allergy Intermediate Blisters, Verified 08/30/23 08:12 rash tramadol Allergy Mild Hives Verified 08/30/23 08:12 amiodarone AdvReac Intermediate Hyperthyroi Verified 08/30/23 08:12 dism Home Medications Medication Instructions Recorded Confirmed Type multivitamin (Multiple Vitamins 1 tab PO QAM 05/11/19 08/30/23 History tablet) omega-3 fatty acids 1,000 mg 1,000 mg PO QAM 05/11/19 08/30/23 History capsule turmeric 400 mg capsule 400 mg PO QAM 05/11/19 08/30/23 History calcium carbonate 600 mg-vitamin 1 cap PO QAM 07/21/19 08/30/23 History D3 12.5 mcg (500 unit) capsule (Calcium 600 with Vitamin D3) coenzyme Q10 50 mg capsule 50 mg PO HS 09/30/19 08/30/23 History acetaminophen 500 mg tablet 1,000 mg PO Q4H PRN Pain 07/05/20 08/30/23 History blood sugar diagnostic (OneTouch #200 ea 09/20/20 08/30/23 Rx Ultra Blue Test Strip) anastrozole 1 mg tablet 1 mg PO QAM 12/13/20 08/30/23 History magnesium oxide 400 mg (241.3 mg 400 mg PO QPM PRN leg cramps 06/19/22 08/30/23 History magnesium) tablet sacubitril 97 mg-valsartan 103 mg 1 tab PO BID #180 tabs 10/09/22 08/30/23 Rx tablet (Entresto) rosuvastatin 20 mg tablet 20 mg PO HS #90 tabs 03/22/23 08/30/23 Rx furosemide 40 mg tablet 40 mg PO QAM #90 tabs 07/02/23 08/30/23 Rx potassium chloride 10 mEq 10 meq PO QAM #90 caps 07/02/23 08/30/23 Rx capsule,extended release metformin 850 mg tablet 850 mg PO HS 07/17/23 08/30/23 History rivaroxaban 20 mg tablet (Xarelto) 20 mg PO HS 07/17/23 08/30/23 History alendronate 70 mg tablet 70 mg PO WK #12 tabs 08/17/23 08/30/23 Rx carvedilol 25 mg tablet 25 mg PO BID 08/22/23 08/30/23 History Past Med/Surg History Medical History (Updated 08/30/23 @ 20:20 by Pradip Martinez MD) Chronic heart failure with preserved ejection fraction Anticoagulant long-term use xarelto daily Peripheral edema Legs Limb alert care status left arm Morbid obesity with BMI of 45.0-49.9, adult Mild aortic stenosis Echo 02/2023: Mild aortic stenosis Liver nodule Focal nodule hyperplasia Under surveillance Diabetes mellitus, type 2 Breast cancer Left s/p left mastectomy (2019) (ductal carcinoma), completed chemo and radiation Anxiety and depression Torsades de pointes Likely due to Levaquin in 2016- avoid fluoroquinolones Hypercholesterolemia Benign essential hypertension Nonischemic cardiomyopathy Likely tachycardia induced- LV systolic function normal on February 2023 echo Chronic diastolic CHF (congestive heart failure) Non-ST elevation (NSTEMI) myocardial infarction 2016 CAD (coronary artery disease) Minimal non-obstructive CAD Atrial fibrillation Follows with [facility] [place] cardiology on Xarelto Surgical History Nausea after anesthesia History of cardioversion 06/2023 History of lymph node dissection of axilla Left axillary lymph node dissection (11/29/20): LMA#4 at [facility] (weight at time: 140kg). No issues noted per post-op anesthesia progress note. Port-A-Cath in place Port placement. Dr. Membreno 08/10/2020; removed 2022 H/O mastectomy 07/01/2020 [facility] - Left breast History of colonoscopy History of tooth extraction H/O breast biopsy punch biopsy of her left breast 03/2020 S/P cardiac cath 2018 [facility]- no stents History of lumpectomy . Fibroid adenomas in the breast (R/L) History of cholecystectomy Family History Mother Osteoporosis Clotting disorder Heart disease Myocardial infarction Hypertension Stroke Sister Diabetes Myocardial infarction Hypertension Stroke Father Heart disease Lung disease Other Cerebral aneurysm No family history of adverse response to anesthesia Denies family history of Rheumatoid arthritis Sudden SIDS (sudden infant syndrome) Ovarian cancer Prostate cancer Deep vein thrombosis Coronary heart disease Dyslipidemia Alzheimer disease Bipolar disorder Crohn's disease Dementia Depression Kidney disease Osteoarthritis Breast cancer Congenital kidney disease Gestational diabetes Lung cancer COPD (chronic obstructive pulmonary disease) Colorectal cancer Pulmonary embolism Cancer Ulcerative colitis Colonic polyp Asthma Cystic kidney disease Social History Smoking Status: Never smoker Second Hand Exposure: No; Do You Dip or Chew Tobacco: No; Tobacco Cessation Education Requested by Patient: No Hx Alcohol Use: No Hx Substance Use: No Preferred Language: Liberian Communication Ability: Effective Visual Impairment: Limited Hearing Ability: Normal Nuclear Supervising Operator Required: No Beliefs That Will Affect Care: None marital status: Current Living Situation: Spouse current occupational status: retired current occupation: retired How many Children do You have: 2 Other Information That Helps Us Care for You: No Feels Safe at Home: Yes Safety Concerns: Feels Safe At This Time Childhood Exposure to Second-Hand Smoke: Yes Diet: low carbohydrate, low salt and regular Diet Comment: carb counting caffeine: Yes during the past year weight has: remained stable Dental Care, Regularly: No Physical Activity Frequency: Does not Exercise Seatbelt Use: always Sunscreen Use: Yes Do you think of yourself as: straight/heterosexual Sexual Activity: has been sexually active within the last 12 months Gender Identity: Female Assistive Devices: Denture - Upper, Glasses and Walker Physical Exam Physical Exam: Physical Exam: General: In no acute distress, stated age, well-nourished, good hygiene HEENT: Normocephalic, atraumatic, no scleral icterus, pupils around round, symmetrical, and reactive to light, moist mucus membranes, trachea midline, no thyromegaly Chest/Pulm: No respiratory distress, symmetrical chest expansion, clear breath sounds throughout Cardiac: irregular rate and rhythm, systolic murmur noted Abdomen: Negative for ascites and bruising, normoactive bowel sounds, soft, non-tender to palpation throughout Musculoskeletal: Symmetrical and without signs of acute trauma, upper and lower extremities with full ROM, no atrophy, spasticity, or flaccidity Extremities: Radial, dorsalis pedis, and posterior tibial pulses are intact and symmetrical, 2-3+ edema noted in the BL LE's Skin: Warm, dry, no rashes , lesions, or scars noted Neuro: Alert and oriented to person, place, month, year, and president, no focal defects, no tremors noted Psych: No acute distress, calm and cooperative during the exam Results & Data Results & Data Vital Signs (Past 12 Hours) Vital Signs Temp Pulse Pulse Resp BP BP Pulse Ox 08/30/23 11:16 127 H 27 H 105/66 93 08/30/23 11:04 126 H 23 121/97 95 08/30/23 11:00 117 H 26 H 95 08/30/23 11:00 08/30/23 10:47 121 H 25 H 69/51 L 96 08/30/23 10:46 145 H 08/30/23 10:33 141 H 22 87/54 L 95 08/30/23 10:33 137 H 22 87/54 L 93 08/30/23 10:32 88/68 L 08/30/23 10:32 124 H 20 96 08/30/23 10:03 150 H 28 H 112/64 96 08/30/23 10:02 148 H 26 H 97 08/30/23 10:01 158 H 08/30/23 10:00 140 H 30 H 98 08/30/23 09:59 155 H 26 H 112/64 08/30/23 09:42 36.5 C 143 H 22 111/60 99 O2 Del Method 08/30/23 11:16 Room Air 08/30/23 11:04 Room Air 08/30/23 11:00 Room Air 08/30/23 11:00 Room Air 08/30/23 10:47 Room Air 08/30/23 10:46 08/30/23 10:33 Room Air 08/30/23 10:33 Room Air 08/30/23 10:32 08/30/23 10:32 Room Air 08/30/23 10:03 08/30/23 10:02 Room Air 08/30/23 10:01 08/30/23 10:00 08/30/23 09:59 08/30/23 09:42 Room Air Laboratory Results Abnormal lab results 08/30/23 Range/Units 10:00 MCHC 30.4 L (32.0-36.0) g/dL RDW Std Deviation 47.2 H (36.4-46.3) fL RDW Coeff of Luis 14.6 H (11.5-14.5) % [place] # (Auto) 0.61 H (0.11-0.59) K/uL BUN 31 H (6-23) mg/dl BUN/Creatinine Ratio 27.9 H (10-20) Glucose 172 H (70-99(Fasting)) mg/dl Diagnostic Findings Chest X-Ray 08/30/23 09:45 XR chest 1V portable HISTORY: 72 years-old Female Chest pain, nonspecific COMPARISON: 06/03/2023 TECHNIQUE: AP view of the chest FINDINGS: Cardiomediastinal and hilar silhouettes are unchanged. Atherosclerosis of the aorta. Left axillary surgical clips. Chronic interstitial coarsening. No pneumothorax, pleural effusion or airspace consolidation. The bones appear grossly intact. IMPRESSION: No acute process. ACT 112: Negative or not required by law. The above report was generated using voice recognition software. It may contain grammatical, syntax or spelling errors. Electronically signed by: Mohan Hull M.D. 08/30/2023 10:59 AM ECG Additional Comments: Atrial fibrillation with rapid ventricular response Nonspecific ST and T wave abnormality Abnormal ECG When compared with ECG of 30-AUG-2023 08:08, (unconfirmed) No significant change was found Confirmed by Vicente Clancy ([id number]) on 08/30/2023 11:14:35 AM Code Status & VTE Plan Code Status Full code VTE Prophylaxis Plan VTE Prophylaxis will be ordered: Yes Supervising Physician Co-Signing Physician Notes Attending addendum: I have physically seen this patient, have supervised the CLEMENTE's activities, and agree with the H&P unless as otherwise noted. Assessment and Plan: Atrial fibrillation with rapid ventricular response/hypertension/CHF- The patient will be admitted to telemetry for serial cardiac enzymes, serial EKG's, cardiac rhythm monitoring. From the ED received the following: Magnesium sulfate 1 g IV, digoxin 500 mcg IV, furosemide 40 mg IV and normal saline 1 L Referred to the emergency department by her testing projects administrator Dr. Martinez will be consulted Digoxin loading doses per Dr. Martinez Will need to hold carvedilol and Entresto for now due to hypotension Continue Xarelto Echo on 08/20 shows HFpEF with new severe mitral regurgitation Follow serial CBC with differential, renal function panel, magnesium and dig level Diabetes mellitus- Hold metformin Placed on Accu-Cheks with SSI PG Care Time/CCT Total # of Minutes Spent Total Time Spent with Patient: Total time spent is greater than 50% in coordination of care (as documented) at patient's floor/unit and/or counseling patient: Coding [place] [address] INT INP/OBS CARE MIN Patient Type Established Medical Decision Making High Complexity Diagnoses Atrial fibrillation with rapid ventricular response I48.91 Diabetes mellitus E11.9 Essential hypertension I10 Hypertension type: essential hypertension CHF (congestive heart failure) I50.9 Hyperlipemia E78.5 Breast cancer C50.919 (3) Hypertension Hypertension type: essential hypertension Qualified Code(s): I10 - Essential (primary) hypertension
[2023-08-30 12:13] LABS: Magnesium 2.1 mg/dl (1.7-2.4)
[2023-08-30] MEDS ORDERED: CARBOHYDRATES FOR HYPOGLYCEMIA PO PRN (12:19)
[2023-08-30] MEDS ORDERED: GLUCOSE 10 TAB/TUBE PO PRN (12:19)
[2023-08-30] MEDS ORDERED: DEXTROSE 50% 50 ML SYRINGE IV PRN (12:19)
[2023-08-30] MEDS ORDERED: GLUCAGON FOR INJ 1 MG VIAL SQ PRN (12:19)
[2023-08-30] MEDS ORDERED: GLUCOSE 40% GEL 15 GM TUBE PO PRN (12:19)
[2023-08-30 13:14] LABS: Thyroid Stimulating Hormone 7.236 uIu/ml (0.300-4.500)
[2023-08-30 13:38] LABS: INR 1.2 (0.9-1.1); Partial Thromboplastin Ratio 1.1; Partial Thromboplastin Time 30 Seconds (21-31); Prothrombin Time 12.8 Seconds (9.0-12.0)
[2023-08-30 14:02] LABS: T4 Free Thyroxine 1.19 ng/dl (0.61-1.60)
[2023-08-30] MEDS: DIGOXIN 250 MCG in SYRINGE 9 ML IV SCH ×2 (16:58→22:11)
--- NOTE | 2023-08-30 17:49 | Cardiology Consultation ---
Date of Consultation August 30, 2023 Assessment & Plan (1) CHF (congestive heart failure): (2) Atrial fibrillation with rapid ventricular response: (3) Nonischemic cardiomyopathy: (4) Mitral regurgitation: Plan 1. Atrial fibrillation with rapid ventricular response: She has struggled recently with recurrent atrial fibrillation and high ventricular rates. Unfortunately, she has cycle to some rhythm control agents without success. Amiodarone was very efficacious but we challenge at this point likely lead to complications. She had an odd reaction to class 1 C agents and reports dyspnea. She also has an element of structural heart disease which likely preclude rech allenge with 1 C agents. Dronedarone appear to be inefficacious. At this point our options include type 3 antiarrhythmic or catheter based therapy. She is scheduled for evaluation locally in a couple of weeks for pulmonary vein isolation. This would likely be the best long-term strategy. I think while she is here will perform another cardioversion and initiate therapy with dofetilide. Renal function appears to be normal an EKG suggests a normal QTC. Will monitor in the hospital for couple of days so that she can receive 5 doses prior to discharge. She will continue systemic anticoagulation indefinitely 2. Mitral regurgitation: Possibly severe. This could contribute to a lot of her symptoms and heart failure. Will perform a transesophageal echocardiogram tomorrow in order to get a better understanding of her mitral valve disease. If she requires operative repair, operative treatment for atrial fibrillation can also be considered. 3. Nonischemic cardiomyopathy: She continues borderline LV systolic function. She will continue her carvedilol and Entresto currently. (Entresto currently being held for relative hypotension.) 4. Decompensated congestive heart failure: She does have an element of pulmonary vascular congestion. I think she will benefit from additional diuresis. Likely related to her atrial fibrillation, an element of diastolic heart failure and rapid ventricular rates History of Present Illness Reason for Consultation: atrial fibrillation Requesting Physician: Willi Attending Physician: Jeff Márquez MD History of Present Illness Of atrial fibrillation dating back to 2016. Patient was initially treated with amiodarone which was quite efficacious. 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 Her amiodarone was discontinued. More recently she has had frequent episodes of atrial fibrillation resulting in symptoms primarily shortness of breath. Patient had recently been tried on flecainide, propafenone and dronedarone. She apparently had breathing difficulty with a couple of doses of flecainide and a single dose of propafenone. Dronedarone appeared to be inefficacious and maintaining sinus rhythm subsequent to a cardioversion. She was cardioverted on the 08 of August. She reports feeling much better after cardioversion. This is in reference to breathing trouble. She was unaware of a returned atrial fibrillation till she was told the time of her echocardiogram on the that she had returned to atrial fibrillation. Subsequently she has had some difficulty with breathing trouble. Last evening she awoke and was significant tachypneic and tachycardia. She did not to the clinic today for evaluation and was referred to the emergency room due to atrial fibrillation with high ventricular rate. Generally speaking she has a sedentary individual. She does not engage in routine exercise. However, she is generally able to perform her household duties without limitation. She does have some breathing if she misses doses of her daily diuretic. Allergies Allergy/AdvReac Type Severity Reaction Status Date / Time codeine Allergy Severe Dyspnea Verified 08/30/23 08:12 levofloxacin Allergy Severe Dyspnea Verified 08/30/23 08:12 Quinolones Allergy Severe A. fib Verified 08/30/23 08:12 adhesive tape Allergy Intermediate Blisters, Verified 08/30/23 08:12 rash tramadol Allergy Mild Hives Verified 08/30/23 08:12 amiodarone AdvReac Intermediate Hyperthyroi Verified 08/30/23 08:12 dism Home Medications Medication Instructions Recorded Confirmed Type multivitamin (Multiple Vitamins 1 tab PO QAM 05/11/19 08/30/23 History tablet) omega-3 fatty acids 1,000 mg 1,000 mg PO QAM 05/11/19 08/30/23 History capsule turmeric 400 mg capsule 400 mg PO QAM 05/11/19 08/30/23 History calcium carbonate 600 mg-vitamin 1 cap PO QAM 07/21/19 08/30/23 History D3 12.5 mcg (500 unit) capsule (Calcium 600 with Vitamin D3) coenzyme Q10 50 mg capsule 50 mg PO HS 09/30/19 08/30/23 History acetaminophen 500 mg tablet 1,000 mg PO Q4H PRN Pain 07/05/20 08/30/23 History blood sugar diagnostic (OneTouch #200 ea 09/20/20 08/30/23 Rx Ultra Blue Test Strip) anastrozole 1 mg tablet 1 mg PO QAM 12/13/20 08/30/23 History magnesium oxide 400 mg (241.3 mg 400 mg PO QPM PRN leg cramps 06/19/22 08/30/23 History magnesium) tablet sacubitril 97 mg-valsartan 103 mg 1 tab PO BID #180 tabs 10/09/22 08/30/23 Rx tablet (Entresto) rosuvastatin 20 mg tablet 20 mg PO HS #90 tabs 03/22/23 08/30/23 Rx furosemide 40 mg tablet 40 mg PO QAM #90 tabs 07/02/23 08/30/23 Rx potassium chloride 10 mEq 10 meq PO QAM #90 caps 07/02/23 08/30/23 Rx capsule,extended release metformin 850 mg tablet 850 mg PO HS 07/17/23 08/30/23 History rivaroxaban 20 mg tablet (Xarelto) 20 mg PO HS 07/17/23 08/30/23 History alendronate 70 mg tablet 70 mg PO WK #12 tabs 08/17/23 08/30/23 Rx carvedilol 25 mg tablet 25 mg PO BID 08/22/23 08/30/23 History Patient History Medical History Anticoagulant long-term use xarelto daily Peripheral edema Legs Limb alert care status left arm Morbid obesity with BMI of 45.0-49.9, adult Mild aortic stenosis Echo 02/2023: Mild aortic stenosis Liver nodule Focal nodule hyperplasia Under surveillance Diabetes mellitus, type 2 Breast cancer Left s/p left mastectomy (2019) (ductal carcinoma), completed chemo and radiation Anxiety and depression Torsades de pointes Likely due to Levaquin in 2016- avoid fluoroquinolones Hypercholesterolemia Benign essential hypertension Nonischemic cardiomyopathy Likely tachycardia induced- LV systolic function normal on February 2023 echo Chronic diastolic CHF (congestive heart failure) Non-ST elevation (NSTEMI) myocardial infarction 2016 CAD (coronary artery disease) Minimal non-obstructive CAD Atrial fibrillation Follows with [facility] cardiology on Xarelto Surgical History Nausea after anesthesia History of cardioversion 06/2023 History of lymph node dissection of axilla Left axillary lymph node dissection (11/29/20): LMA#4 at [facility] (weight at time: 140kg). No issues noted per post-op anesthesia progress note. Port-A-Cath in place Port placement. Dr. Membreno 08/10/2020; removed 2022 H/O mastectomy 07/01/2020 [facility] - Left breast History of colonoscopy History of tooth extraction H/O breast biopsy punch biopsy of her left breast 03/2020 S/P cardiac cath 2018 [facility]- no stents History of lumpectomy . Fibroid adenomas in the breast (R/L) History of cholecystectomy Family History Mother Osteoporosis Clotting disorder Heart disease Myocardial infarction Hypertension Stroke Sister Diabetes Myocardial infarction Hypertension Stroke Father Heart disease Lung disease Other Cerebral aneurysm No family history of adverse response to anesthesia Denies family history of Rheumatoid arthritis Sudden SIDS (sudden syndrome) Ovarian cancer Prostate cancer Deep vein thrombosis Coronary heart disease Dyslipidemia Alzheimer disease Bipolar disorder Crohn's disease Dementia Depression Kidney disease Osteoarthritis Breast cancer Congenital kidney disease Gestational diabetes Lung cancer COPD (chronic obstructive pulmonary disease) Colorectal cancer Pulmonary embolism Cancer Ulcerative colitis Colonic polyp Asthma Cystic kidney disease Social History Smoking Status: Never smoker Second Hand Exposure: No; Do You Dip or Chew Tobacco: No; Tobacco Cessation Education Requested by Patient: No Hx Alcohol Use: No Hx Substance Use: No Preferred Language: Faroese Communication Ability: Effective Visual Impairment: Limited Hearing Ability: Normal Magnaflux Operator Required: No Beliefs That Will Affect Care: None marital status: Current Living Situation: Spouse current occupational status: retired current occupation: retired How many Children do You have: 2 Other Information That Helps Us Care for You: No Feels Safe at Home: Yes Safety Concerns: Feels Safe At This Time Childhood Exposure to Second-Hand Smoke: Yes Diet: low carbohydrate, low salt and regular Diet Comment: carb counting caffeine: Yes during the past year weight has: remained stable Dental Care, Regularly: No Physical Activity Frequency: Does not Exercise Seatbelt Use: always Sunscreen Use: Yes Do you think of yourself as: straight/heterosexual Sexual Activity: has been sexually active within the last 12 months Gender Identity: Female Assistive Devices: Denture - Upper, Glasses and Walker Review of Systems Review of Systems: Per HPI Physical Exam Physical Exam: She is alert and oriented x3. Mood affect appear normal. She answered all questions appropriately. HEENT: Sclerae are anicteric. Pupils are equal and reactive to light and accommodation. Extraocular movements were intact. Neuro: Cranial nerves intact Lungs: Bibasilar crackles. Normal respiratory effort. No expiratory wheezing. Cardiac: The rhythm was irregular. S1 and S2 were normal. Holosystolic murmur of variable intensity. The PMI was not markedly displaced on palpation. Abdomen: The abdomen was soft and nontender. Extremities: Patient has bilateral radial pulses that are equal in intensity. There is no evidence cyanosis or clubbing. Mild bilateral lower extremity edema Skin: There are no rashes noted on examination today. Results & Data Vital Signs (Past 12 Hours) Vital Signs Temp Pulse Pulse Resp BP BP Pulse Ox 08/30/23 16:58 125 H 08/30/23 15:52 101 H 08/30/23 14:53 08/30/23 14:53 36.9 C 116 H 20 89/65 L 95 08/30/23 11:40 112 H 22 98/79 L 96 08/30/23 11:16 127 H 27 H 105/66 93 08/30/23 11:04 126 H 23 121/97 95 08/30/23 11:00 117 H 26 H 95 08/30/23 11:00 08/30/23 10:47 121 H 25 H 69/51 L 96 08/30/23 10:46 145 H 08/30/23 10:33 141 H 22 87/54 L 95 08/30/23 10:33 137 H 22 87/54 L 93 08/30/23 10:32 88/68 L 08/30/23 10:32 124 H 20 96 08/30/23 10:03 150 H 28 H 112/64 96 08/30/23 10:02 148 H 26 H 97 08/30/23 10:01 158 H 08/30/23 10:00 140 H 30 H 98 08/30/23 09:59 155 H 26 H 112/64 08/30/23 09:42 36.5 C 143 H 22 111/60 99 Pulse Ox O2 Del Method O2 Del Method 08/30/23 16:58 08/30/23 15:52 08/30/23 14:53 95 Room Air 08/30/23 14:53 Room Air 08/30/23 11:40 Room Air 08/30/23 11:16 Room Air 08/30/23 11:04 Room Air 08/30/23 11:00 Room Air 08/30/23 11:00 Room Air 08/30/23 10:47 Room Air 08/30/23 10:46 08/30/23 10:33 Room Air 08/30/23 10:33 Room Air 08/30/23 10:32 08/30/23 10:32 Room Air 08/30/23 10:03 08/30/23 10:02 Room Air 08/30/23 10:01 08/30/23 10:00 08/30/23 09:59 08/30/23 09:42 Room Air Laboratory Results Abnormal Lab Results 08/30/23 08/30/23 10:00 11:54 WBC 8.53 RBC 4.59 Hgb 12.5 Hct 41.1 MCV 89.5 MCH 27.2 MCHC 30.4 L RDW Std Deviation 47.2 H RDW Coeff of Luis 14.6 H Plt Count 257 MPV 10.6 Immature Gran % (Auto) 0.4 Neut % (Auto) 72.5 Lymph % (Auto) 17.7 Fleming % (Auto) 7.2 Eos % (Auto) 1.6 Baso % (Auto) 0.6 Neut # (Auto) 6.19 Lymph # (Auto) 1.51 Fleming # (Auto) 0.61 H Eos # (Auto) 0.14 Baso # (Auto) 0.05 Immature Gran # (Auto) 0.03 PT Cancelled 12.8 H INR Cancelled 1.2 H APTT Cancelled 30 PTT Ratio Cancelled 1.1 Sodium 138 Potassium 4.7 Chloride 104 Carbon Dioxide 27 Anion Gap 7 BUN 31 H Creatinine 1.11 Est Cr Clr Drug Dosing 61.4 Est GFR ( Amer) 56.7 Est GFR (Non-Af Amer) 48.9 BUN/Creatinine Ratio 27.9 H Glucose 172 H Calcium 9.5 Magnesium 2.1 Total Bilirubin 0.7 AST 16 ALT 19 Alkaline Phosphatase 69 Troponin I High Sens 6.2 B-Natriuretic Peptide 407 H Total Protein 7.4 Albumin 4.0 Globulin 3.4 Albumin/Globulin Ratio 1.2 TSH 7.236 H Free T4 1.19 Diagnostic Findings 08/20/2023: Low-normal systolic function with ejection fraction 50-55%. Mo derate LVH. Severe left atrial dilation. Mildly dilated right ventricle with borderline reduced systolic function. Possible severe mitral regurgitation. [id number] tricuspid regurgitation. PG Care Time/CCT Total # of Minutes Spent Total Time Spent with Patient: Total time spent is greater than 50% in coordination of care (as documented) at patient's floor/unit and/or counseling patient: Coding Level of Care Code 13431 INT INP/OBS CARE 3/75MIN Diagnoses CHF (congestive heart failure) I50.9 Heart failure type: systolic Atrial fibrillation with rapid ventricular response I48.91 Nonischemic cardiomyopathy I42.8 Mitral regurgitation I34.0 (1) CHF (congestive heart failure) Heart failure type: systolic
[2023-08-30] MEDS ORDERED: FUROSEMIDE 40 MG/4 ML VIAL IV ONE (18:15)
[2023-08-30] MEDS: INSULIN ASPART PER UNIT CHARGE SC SCH ×2 (18:37→20:28)
[2023-08-30] MEDS: RIVAROXABAN 20 MG TAB PO SCH (18:41)
[2023-08-30] MEDS: VALSARTAN/SACUBITRIL 103/97MG TAB PO SCH (21:38)
[2023-08-30] MEDS: ROSUVASTATIN CALCIUM 20 MG TAB PO SCH (21:38)
[2023-08-30] MEDS: carvediloL 25 MG TAB PO SCH (21:38)
[2023-08-30] MEDS: DOFETILIDE 125 MCG CAPSULE PO SCH (21:38)
[2023-08-31 04:45] LABS: Hematocrit (blood only) 34.6 % (37.0-47.0); Hemoglobin 10.7 g/dl (12.0-16.0); Mean Corpuscular Hemoglobin 27.5 pg (25.0-34.0); Mean Corpuscular Hgb Conc 30.9 g/dL (32.0-36.0); Mean Corpuscular Volume 88.9 fL (80.0-100.0); Mean Platelet Volume 10.3 fL (9.4-12.4); Platelet Count 181 K/uL (130-400); RDW Coefficient of Variation 14.4 % (11.5-14.5); RDW Standard Deviation 46.1 fL (36.4-46.3); Red Blood Count 3.89 M/uL (4.20-5.40); White Blood Count 5.64 K/ul (4.8-10.8)
[2023-08-31 05:03] LABS: BUN Creatinine Ratio 27.2 (10-20); Calcium 8.4 mg/dl (8.6-10.3); Creatinine Clr Calc Pharmacy 66.4 ml/min; Est GFR (Non-African American) 53.5 ml/min; Magnesium 2.1 mg/dl (1.7-2.4); Potassium 4.1 mmol/L (3.5-5.1)
[2023-08-31 05:10] LABS: INR 1.4 (0.9-1.1); Prothrombin Time 14.8 Seconds (9.0-12.0)
[2023-08-31] MEDS ORDERED: BENZOCAINE/TETRACAIN/BUTAM 50 APPLN/5 GM CAN EXT ONE (06:49)
[2023-08-31] MEDS ORDERED: PHENYLEPHRINE 100MCG/ML 10ML SYR IV ONE (06:51)
[2023-08-31] MEDS ORDERED: PROPOFOL IV EMULSION 10 MG/ML 20 ML VIAL IV ONE (06:51)
[2023-08-31] MEDS ORDERED: ePHEDrine sulfate 50 MG/5 ML SYR ONE (06:51)
--- NOTE | 2023-08-31 06:59 | Anesthesiology Consultation ---
Date of Service August 31, 2023 Assessment & Plan Chart Review Chart Review: Acceptable Risk for Surgery Consults Requested none History Surgery Operation Date: 08/31/23 07:30 Proposed Procedures p Echo Transesophageal - Vicente Clancy MD s Cardioversion w/Anesthesia Sedation - Vicente Clancy MD Height/Weight Height: 5 ft 5 in Weight: 133.9 kg Allergies Allergy/AdvReac Type Severity Reaction Status Date / Time codeine Allergy Severe Dyspnea Verified 08/30/23 08:12 levofloxacin Allergy Severe Dyspnea Verified 08/30/23 08:12 Quinolones Allergy Severe A. fib Verified 08/30/23 08:12 adhesive tape Allergy Intermediate Blisters, Verified 08/30/23 08:12 rash tramadol Allergy Mild Hives Verified 08/30/23 08:12 amiodarone AdvReac Intermediate Hyperthyroi Verified 08/30/23 08:12 dism Medications Home Medications Medication Instructions Recorded Confirmed Last Taken multivitamin (Multiple Vitamins 1 tab PO QAM 05/11/19 08/30/23 01/21/23 08:00 tablet) omega-3 fatty acids 1,000 mg 1,000 mg PO QAM 05/11/19 08/30/23 01/08/23 08:00 capsule turmeric 400 mg capsule 400 mg PO QAM 05/11/19 08/30/23 01/08/23 08:00 calcium carbonate 600 mg-vitamin 1 cap PO QAM 07/21/19 08/30/23 01/21/23 08:00 D3 12.5 mcg (500 unit) capsule (Calcium 600 with Vitamin D3) coenzyme Q10 50 mg capsule 50 mg PO HS 09/30/19 08/30/23 01/08/23 21:00 acetaminophen 500 mg tablet 1,000 mg PO Q4H PRN Pain 07/05/20 08/30/23 01/02/22 08:00 blood sugar diagnostic (OneTouch #200 ea 09/20/20 08/30/23 Unknown Ultra Blue Test Strip) anastrozole 1 mg tablet 1 mg PO QAM 12/13/20 08/30/23 08/30/23 06:30 magnesium oxide 400 mg (241.3 mg 400 mg PO QPM PRN leg cramps 06/19/22 08/30/23 Unknown magnesium) tablet sacubitril 97 mg-valsartan 103 mg 1 tab PO BID #180 tabs 10/09/22 08/30/23 08/30/23 06:30 tablet (Entresto) rosuvastatin 20 mg tablet 20 mg PO HS #90 tabs 03/22/23 08/30/23 Unknown furosemide 40 mg tablet 40 mg PO QAM #90 tabs 07/02/23 08/30/23 Unknown potassium chloride 10 mEq 10 meq PO QAM #90 caps 07/02/23 08/30/23 Unknown capsule,extended release metformin 850 mg tablet 850 mg PO HS 07/17/23 08/30/23 Unknown rivaroxaban 20 mg tablet (Xarelto) 20 mg PO HS 07/17/23 08/30/23 08/29/23 22:00 alendronate 70 mg tablet 70 mg PO WK #12 tabs 08/17/23 08/30/23 Unknown carvedilol 25 mg tablet 25 mg PO BID 08/22/23 08/30/23 08/30/23 06:30 Active Medications Generic Name Dose Route Start Last Admin Trade Name Moira PRMatt Reason Stop Dose Admin Carvedilol 25 mg 08/30/23 21:00 08/30/23 21:38 Carvedilol 25 Mg Tab PO 09/29/23 20:59 25 mg BID ZOYA Administration Dofetilide 500 mcg 08/30/23 21:00 08/30/23 21:38 Dofetilide 125 Mcg Capsule PO 09/29/23 20:59 500 mcg BID ZOYA Administration Insulin Aspart 0 units 08/30/23 16:30 08/30/23 20:28 Insulin Aspart Per Unit Charge SC 09/29/23 16:29 Not Given ACHS ZOYA Rivaroxaban 20 mg 08/30/23 16:30 08/30/23 18:41 Rivaroxaban 20 Mg Tab PO 09/29/23 16:29 20 mg QDD ZOYA Administration Rosuvastatin Calcium 20 mg 08/30/23 21:00 08/30/23 21:38 Rosuvastatin Calcium 20 Mg Tab PO 09/29/23 20:59 20 mg HS ZOYA Administration Sacubitril/Valsartan 1 tab 08/30/23 21:00 08/30/23 21:38 Valsartan/Sacubitril 103/97mg Tab PO 09/29/23 20:59 1 tab BID ZOYA Administration Past Medical History Medical History (Updated 08/30/23 @ 20:20 by Pradip Martinez MD) Chronic heart failure with preserved ejection fraction Anticoagulant long-term use xarelto daily Peripheral edema Legs Limb alert care status left arm Morbid obesity with BMI of 45.0-49.9, adult Mild aortic stenosis Echo 02/2023: Mild aortic stenosis Liver nodule Focal nodule hyperplasia Under surveillance Diabetes mellitus, type 2 Breast cancer Left s/p left mastectomy (2019) (ductal carcinoma), completed chemo and radiation Anxiety and depression Torsades de pointes Likely due to Levaquin in 2016- avoid fluoroquinolones Hypercholesterolemia Benign essential hypertension Nonischemic cardiomyopathy Likely tachycardia induced- LV systolic function normal on February 2023 echo Chronic diastolic CHF (congestive heart failure) Non-ST elevation (NSTEMI) myocardial infarction 2016 CAD (coronary artery disease) Minimal non-obstructive CAD Atrial fibrillation Follows with [facility] cardiology on Xarelto Past Family History Family History Mother Osteoporosis Clotting disorder Heart disease Myocardial infarction Hypertension Stroke Sister Diabetes Myocardial infarction Hypertension Stroke Father Heart disease Lung disease Other Cerebral aneurysm No family history of adverse response to anesthesia Denies family history of Rheumatoid arthritis Sudden SIDS (sudden infant syndrome) Ovarian cancer Prostate cancer Deep vein thrombosis Coronary heart disease Dyslipidemia Alzheimer disease Bipolar disorder Crohn's disease Dementia Depression Kidney disease Osteoarthritis Breast cancer Congenital kidney disease Gestational diabetes Lung cancer COPD (chronic obstructive pulmonary disease) Colorectal cancer Pulmonary embolism Cancer Ulcerative colitis Colonic polyp Asthma Cystic kidney disease Past Surgical History Surgical History Nausea after anesthesia History of cardioversion 06/2023 History of lymph node dissection of axilla Left axillary lymph node dissection (11/29/20): LMA#4 at [facility] (weight at time: 140kg). No issues noted per post-op anesthesia progress note. Port-A-Cath in place Port placement. Dr. Membreno 08/10/2020; removed 2022 H/O mastectomy 07/01/2020 [facility] - Left breast History of colonoscopy History of tooth extraction H/O breast biopsy punch biopsy of her left breast 03/2020 S/P cardiac cath 2018 [facility]- no stents History of lumpectomy . Fibroid adenomas in the breast (R/L) History of cholecystectomy Social History Smoking Status: Never smoker Do You Dip or Chew Tobacco: No Hx Alcohol Use: No Alcohol type: wine alcohol intake frequency: holidays/special occasions only Hx Substance Use: No substance use type: does not use Physical Exam Vital Signs Last Vital Signs Temp 36.9 C 08/30/23 14:53 Pulse 98 H 08/31/23 05:40 Resp 19 08/31/23 05:40 BP 115/85 08/31/23 02:20 Pulse Ox 95 08/31/23 05:40 O2 Del Method Nasal Cannula 08/31/23 05:40 O2 Flow Rate 2 08/31/23 05:40 Testing Laboratory Results 08/31/23 04:06 08/31/23 04:06 PT 14.8 Seconds (9.0-12.0) H 08/31/23 04:06 INR 1.4 (0.9-1.1) H 08/31/23 04:06 APTT 30 Seconds (21-31) 08/30/23 11:54 08/30/23 20:27 POC Glucose 127 H
--- NOTE | 2023-08-31 07:58 | Cardioversion ---
Date of Service August 31, 2023 PG Electrical Cardioversion Rp Electrical Cardioversion Report Procedure performed: Cardioversion Indication: Atrial fibrillation Staff steaming cabinet tender: Vicente Clancy MD Procedure in detail: The patient was informed of the risks benefits and alternatives to the intended procedure. He understood such which proceed. He was taken to the cardiac catheterization suite holding area. A general anesthetic was administered by the Anesthesiology Service. Once appropriately anesthetized, the patient was cardioverted using 200 joules delivered in a biphasic fashion. This returned the patient to sinus rhythm. The patient tolerated procedure well, there were no immediate complications. Patient was neurologically intact subsequent to the procedure. Impression: Successful cardioversion from atrial fibrillation to normal sinus rhythm Coding Level of Care Code 33171 CARDIOVERSION, ELECTIVE Additional Codes Electrical Cardioversion Report ([id number])
--- NOTE | 2023-08-31 08:34 | Anesthesiology Progress Note ---
Date of Service August 31, 2023 Anesthesia Post Procedure Vital Signs Vital Signs: Temp Pulse Pulse Resp BP BP Pulse Ox 08/31/23 08:15 57 L 18 85/53 L 98 08/31/23 08:00 55 L 18 92/40 L 98 08/31/23 07:20 90 14 107/84 99 08/31/23 05:40 98 H 19 95 08/31/23 02:20 103 H 18 115/85 96 08/31/23 00:33 113 H 08/30/23 23:41 102 H 20 120/75 93 08/30/23 22:09 116 H 24 130/90 94 08/30/23 19:50 109 H 20 112/71 95 08/30/23 18:46 115 H 20 137/84 94 08/30/23 16:58 125 H 08/30/23 15:52 101 H 08/30/23 14:53 08/30/23 14:53 36.9 C 116 H 20 89/65 L 95 08/30/23 11:40 112 H 22 98/79 L 96 08/30/23 11:16 127 H 27 H 105/66 93 08/30/23 11:04 126 H 23 121/97 95 08/30/23 11:00 117 H 26 H 95 08/30/23 11:00 08/30/23 10:47 121 H 25 H 69/51 L 96 08/30/23 10:46 145 H 08/30/23 10:33 141 H 22 87/54 L 95 08/30/23 10:33 137 H 22 87/54 L 93 08/30/23 10:32 88/68 L 08/30/23 10:32 124 H 20 96 08/30/23 10:03 150 H 28 H 112/64 96 08/30/23 10:02 148 H 26 H 97 08/30/23 10:01 158 H 08/30/23 10:00 140 H 30 H 98 08/30/23 09:59 155 H 26 H 112/64 08/30/23 09:42 36.5 C 143 H 22 111/60 99 Pulse Ox O2 Del Method O2 Del Method O2 Flow Rate 08/31/23 08:15 Room Air 08/31/23 08:00 Room Air 08/31/23 07:20 Room Air 08/31/23 05:40 Nasal Cannula 2 08/31/23 02:20 Nasal Cannula 2 08/31/23 00:33 08/30/23 23:41 Room Air 08/30/23 22:09 Room Air 08/30/23 19:50 Room Air 08/30/23 18:46 Room Air 08/30/23 16:58 08/30/23 15:52 08/30/23 14:53 95 Room Air 08/30/23 14:53 Room Air 08/30/23 11:40 Room Air 08/30/23 11:16 Room Air 08/30/23 11:04 Room Air 08/30/23 11:00 Room Air 08/30/23 11:00 Room Air 08/30/23 10:47 Room Air 08/30/23 10:46 08/30/23 10:33 Room Air 08/30/23 10:33 Room Air 08/30/23 10:32 08/30/23 10:32 Room Air 08/30/23 10:03 08/30/23 10:02 Room Air 08/30/23 10:01 08/30/23 10:00 08/30/23 09:59 08/30/23 09:42 Room Air Transfer of Care Handoff Completed per policy Notes Mental Status: alert / awake / arousable Patient Amnestic to Procedure: Yes Nausea / Vomiting: adequately controlled Pain: adequately controlled Airway Patency, RR, SpO2: stable & adequate BP & HR: stable & adequate Hydration State: stable & adequate Anesthetic Complications: no major complications apparent and Pt Satisfied with anesthetic care
[2023-08-31] MEDS ORDERED: ANASTROZOLE 1 MG TAB PO SCH (09:00)
--- NOTE | 2023-08-31 09:11 | Hospitalist Progress Note ---
Date of Service August 31, 2023 Assessment & Plan (1) Atrial fibrillation with rapid ventricular response: Plan: HR w/ afib RVR 120s, hypotension on arrival and sent from cardiology clinic. Given Digoxin, IV magnesium The precipitant for her latest episode of afib RVR is thought to be new, severe mitral regurgitation ECHO ordered, severe reduced EF Cardiology consulted s/p cardioversion this morning with Dr Clancy, doing well post-cardioversion Started dofetilide (Tikosyn) 500mg BID - first dose PM 08/30 and will need continued telemetry monitoring/monitoring of serial EKGS Given additional Lasix 40mg IV x 1 evening 08/30 for additional diuresis, ?unclear if from elevated HRs Continues on Entresto, coreg (coreg held this AM due to soft BP) Resumed 40mg PO Lasix for today Discussed w/ Dr Clancy and will plan additional 40mg IV x 1 this evening (w/ PO Kcl) May need to make further adjustments pending status Fluid restriction, AHA diet continued TSH elevated 7.2, T4 wnl 1.19. Check T3 w/ AM labs (not on replacement at baseline) Continue Xarelto for DVT PPX Monitor labs in AM (2) Chronic heart failure with preserved ejection fraction: Plan: ACUTE ON CHRONIC HFpEF TTE on 08/20 shows HFpEF with new, severe mitral regurgitation s/p 40mg IV lasix 08/30, resumed home dose this morning and placed order for additional 40mg IV lasix this evening Likely need adjustment in her diuretic regimen and will montior I&O, weights Supplemental O2 to maintain sats (3) Diabetes mellitus: Plan: Holding home medications, utilizing SSI while inpatient BSGs acceptable and will monitor (4) Hypertension: Plan: Low normal BPs, did have drop last evening. Suspect 2nd to elevated HR/CHF IV lasix 40mg evening 08/30 per cardiology, resumed 40mg PO for today and BP improved to 119/69 following. Additional lasix IV as above and continue her home entresto/coreg Monitor BPs (5) CHF (congestive heart failure): Plan: as above, likely need for increased diuretics and montioring response (6) Hyperlipemia: Plan: -Conitnue statin (7) Breast cancer: Plan: -Continue Anastrozole (8) Dysphagia: Plan: noted issues w/ swallowing last evening prior to MAIKEL/cardioversion w/ solid foods aspiration precautions ordered, messaged speech will plan for further evaluation (9) Mitral regurgitation: Plan: as above Plan Monitor on telemetry w/ tikosyn, serial cardiac enzymes, response to diuretics continued inpatient stay, will consult PT/OT while inpatient Admission and Anticipated Discharge Date Admission Date: August 30, 2023 Supervising Physician Co-Signing Physician Notes The patient was not seen by me. The chart was reviewed. Case discussed with NAOMI Fajardo. Agree with assessment and plan Subjective Eval this lukas, B11B, at bedside. No further palpitations since having cardioversion this morning. Aware of continued inpatient stay on Tikosyn for 2.5 more days (started last evening). No CP/SOB at present, on intermittent nasal cannula.Got her dose of lasix last evening in IV (takes 40mg PO daily at home), restarted for this morning. She notes she had some hoarseness to her throat and feeling like something getting stuck at times, she has napkins ready for lunch. Discussed will order aspiration precautions and monitor for any issues/consult speech given prior to procedure. Physical Exam 2 Physical Exam: General: WD/WN obese female sitting up in bed, NAD, at bedside HEENT: normocephalic, atraumatic, mmm, trachea midline Resp; even/unlabored respirations, slightly diminished in the bases with associated fine crackles, on 2L NC CV: regular rate/rhythm, +systolic murmur, trace pedal edema, calves nontender GI: +BS, soft/obese/NT ; no oates MSK/Neuro: nonfocal, no slurred speech, answering questions appropriately Psych: AOx3, cooperative with exam Results & Data Results & Data Vital Signs (Past 12 Hours) Vital Signs Pulse Pulse Resp BP Pulse Ox O2 Del Method O2 Flow Rate 08/31/23 08:15 57 L 18 85/53 L 98 Room Air 08/31/23 08:00 55 L 18 92/40 L 98 Room Air 08/31/23 07:20 90 14 107/84 99 Room Air 08/31/23 05:40 98 H 19 95 Nasal Cannula 2 08/31/23 02:20 103 H 18 115/85 96 Nasal Cannula 2 08/31/23 00:33 113 H 08/30/23 23:41 102 H 20 120/75 93 Room Air 08/30/23 22:09 116 H 24 130/90 94 Room Air Laboratory Results 08/31/23 04:06 08/31/23 04:06 PG Care Time/CCT Total # of Minutes Spent Total Time Spent with Patient: Total time spent is greater than 50% in coordination of care (as documented) at patient's floor/unit and/or counseling patient: Coding Level of Care Code 35624 SUB INP/OBS CARE 3/50MIN Diagnoses Atrial fibrillation with rapid ventricular response I48.91 Chronic heart failure with preserved ejection fraction I50.32 Diabetes mellitus E11.9 Essential hypertension I10 Hypertension type: essential hypertension CHF (congestive heart failure) I50.9 Hyperlipemia E78.5 Breast cancer C50.919 Dysphagia R13.10 Mitral regurgitation I34.0 (4) Hypertension Hypertension type: essential hypertension Qualified Code(s): I10 - Essential (primary) hypertension
[2023-08-31] MEDS: INSULIN ASPART PER UNIT CHARGE SC SCH ×4 (10:28→20:31)
[2023-08-31] MEDS: VALSARTAN/SACUBITRIL 103/97MG TAB PO SCH ×2 (10:29→21:05)
[2023-08-31] MEDS: carvediloL 25 MG TAB PO SCH ×4 (10:29→23:38)
[2023-08-31] MEDS: DOFETILIDE 125 MCG CAPSULE PO SCH ×2 (10:29→21:06)
--- NOTE | 2023-08-31 11:02 | Electrocardiogram Report ---
Test Reason : Blood Pressure : / mmHG Vent. Rate : 142 BPM Atrial Rate : 000 BPM P-R Int : 000 ms QRS Dur : 084 ms QT Int : 328 ms P-R-T Axes : 000 013 063 degrees QTc Int : 504 ms Atrial fibrillation with rapid ventricular response Abnormal ECG When compared with ECG of 08-AUG-2023 07:27, Atrial fibrillation has replaced Sinus rhythm Vent. rate has increased BY 79 BPM Nonspecific T wave abnormality now evident in Anterior leads Confirmed by Vicente Clancy ([id number]) on 08/31/2023 11:02:20 AM Referred By: Pradip Martinez Confirmed By:Chaz Clancy
[2023-08-31] MEDS ORDERED: FUROSEMIDE 40 MG TAB PO ONE (11:06)
--- NOTE | 2023-08-31 11:11 | Electrocardiogram Report ---
Test Reason : Blood Pressure : / mmHG Vent. Rate : 054 BPM Atrial Rate : 054 BPM P-R Int : 202 ms QRS Dur : 088 ms QT Int : 462 ms P-R-T Axes : 046 002 050 degrees QTc Int : 438 ms Sinus bradycardia Otherwise normal ECG When compared with ECG of 30-AUG-2023 09:47, Sinus rhythm has replaced Atrial fibrillation Vent. rate has decreased BY 94 BPM Nonspecific T wave abnormality now evident in Anterior leads Confirmed by Vicente Clancy ([id number]) on 08/31/2023 11:10:49 AM Referred By: Pradip Martinez Confirmed By:Chaz Clancy
--- NOTE | 2023-08-31 11:26 | XCELERA ---
[id number] \\[id number]
--- NOTE | 2023-08-31 12:07 | Cardiology Progress Note ---
Date of Service August 31, 2023 Assessment & Plan (1) CHF (congestive heart failure): (2) Atrial fibrillation with rapid ventricular response: (3) Nonischemic cardiomyopathy: (4) Mitral regurgitation: Plan 1. Atrial fibrillation with rapid ventricular response: She was started on dofetilide last evening. EKG subsequent to cardioversion today revealed a normal QTC. Will continue with dofetilide. She will continue systemic anticoagulation. She will need 5 doses that the medicine in total prior to discharge. 2. Mitral regurgitation: Moderate on transesophageal echocardiogram 3. Nonischemic cardiomyopathy: She continues borderline LV systolic function. She will continue her carvedilol and Entresto currently. (Entresto currently being held for relative hypotension.) 4. Decompensated congestive heart failure: Symptomatic we improved. However, she continues to have an element of pulmonary vascular congestion. We will need to intensify her diuretic regimen. I will add intravenous Lasix for this evening. Admission and Anticipated Discharge Date Admission Date: August 30, 2023 Review of Systems Review of Systems: Per HPI Physical Exam Physical Exam: She is alert and oriented x3. Mood affect appear normal. She answered all questions appropriately. HEENT: Sclerae are anicteric. Pupils are equal and reactive to light and accommodation. Extraocular movements were intact. Neuro: Cranial nerves intact Lungs: Bibasilar crackles. Normal respiratory effort. No expiratory wheezing. Cardiac: The rhythm was regular. S1 and S2 were normal. Holosystolic murmur of variable intensity. The PMI was not markedly displaced on palpation. Extremities: Patient has bilateral radial pulses that are equal in intensity. There is no evidence cyanosis or clubbing. Mild bilateral lower extremity edema Skin: There are no rashes noted on examination today. Results & Data Vital Signs (Past 12 Hours) Vital Signs Pulse Pulse Resp BP BP Pulse Ox O2 Del Method 08/31/23 11:22 66 20 119/69 95 Nasal Cannula 08/31/23 10:00 58 L 19 98/53 L 97 Room Air 08/31/23 09:49 61 22 92/49 L 97 Room Air 08/31/23 09:40 65 19 90/50 L 98 Room Air 08/31/23 09:05 59 L 21 87/46 L 96 Room Air 08/31/23 08:40 58 L 24 93/45 L 96 Room Air 08/31/23 08:15 57 L 18 85/53 L 98 Room Air 08/31/23 08:00 55 L 18 92/40 L 98 Room Air 08/31/23 07:20 90 14 107/84 99 Room Air 08/31/23 05:40 98 H 19 95 Nasal Cannula 08/31/23 02:20 103 H 18 115/85 96 Nasal Cannula 08/31/23 00:33 113 H O2 Flow Rate 08/31/23 11:22 2 08/31/23 10:00 08/31/23 09:49 08/31/23 09:40 08/31/23 09:05 08/31/23 08:40 08/31/23 08:15 08/31/23 08:00 08/31/23 07:20 08/31/23 05:40 2 08/31/23 02:20 2 08/31/23 00:33 Laboratory Results Abnormal Lab Results 08/30/23 08/30/23 08/30/23 10:00 11:54 18:26 WBC RBC Hgb Hct MCV MCH MCHC RDW Std Deviation RDW Coeff of Luis Plt Count MPV PT 12.8 H INR 1.2 H APTT 30 PTT Ratio 1.1 Sodium Potassium Chloride Carbon Dioxide Anion Gap BUN Creatinine Est Cr Clr Drug Dosing Est GFR ( Amer) Est GFR (Non-Af Amer) BUN/Creatinine Ratio Glucose POC Glucose 116 H Calcium Magnesium 2.1 B-Natriuretic Peptide 407 H TSH 7.236 H Free T4 1.19 Digoxin 08/30/23 08/31/23 08/31/23 20:27 04:06 10:09 WBC 5.64 RBC 3.89 L Hgb 10.7 L Hct 34.6 L MCV 88.9 MCH 27.5 MCHC 30.9 L RDW Std Deviation 46.1 RDW Coeff of Luis 14.4 Plt Count 181 MPV 10.3 PT 14.8 H INR 1.4 H APTT PTT Ratio Sodium 141 Potassium 4.1 Chloride 109 H Carbon Dioxide 26 Anion Gap 6 BUN 28 H Creatinine 1.03 Est Cr Clr Drug Dosing 66.4 Est GFR ( Amer) 62.0 Est GFR (Non-Af Amer) 53.5 BUN/Creatinine Ratio 27.2 H Glucose 125 H POC Glucose 127 H 150 H Calcium 8.4 L Magnesium 2.1 B-Natriuretic Peptide TSH Free T4 Digoxin 1.6 Diagnostic Findings Transesophageal echocardiogram performed today reveals moderate mitral regurgitation. PG Care Time/CCT Total # of Minutes Spent Total Time Spent with Patient: Total time spent is greater than 50% in coordination of care (as documented) at patient's floor/unit and/or counseling patient: Coding Level of Care Code 27880 SUB INP/OBS CARE 2/35MIN Diagnoses CHF (congestive heart failure) I50.9 Heart failure type: systolic Atrial fibrillation with rapid ventricular response I48.91 Nonischemic cardiomyopathy I42.8 Mitral regurgitation I34.0 (1) CHF (congestive heart failure) Heart failure type: systolic
--- NOTE | 2023-08-31 13:47 | Electrocardiogram Report ---
Test Reason : Blood Pressure : / mmHG Vent. Rate : 058 BPM Atrial Rate : 058 BPM P-R Int : 186 ms QRS Dur : 086 ms QT Int : 494 ms P-R-T Axes : 053 008 038 degrees QTc Int : 484 ms Sinus bradycardia with sinus arrhythmia with Premature ventricular complexes or Fusion complexes Otherwise normal ECG When compared with ECG of 31-AUG-2023 08:00, Fusion complexes are now Present Premature ventricular complexes are now Present Nonspecific T wave abnormality no longer evident in Anterior leads Confirmed by Vicente Clancy ([id number]) on 08/31/2023 1:47:48 PM Referred By: Pradip Martinez Confirmed By:Chaz Clancy
--- NOTE | 2023-08-31 14:29 | Fluoroscopy Report ---
FL video swallow CLINICAL HISTORY: 72 years-old Female with dysphagia. This patient with possible aspiration TECHNIQUE: Video fluoroscopic evaluation of swallowing was performed in the AP and lateral projection s by the speech pathology staff. The patient is fed. Consistent disease of barium. FLUOROSCOPY TIME: 1.14 minutes. 2250 images were obtained. 6.42 mGy COMPARISON STUDY: None. FINDINGS: There is normal slightly abnormal hyoid excursion and epiglottic deflection. Aspiration and cough with thin liquid barium. Mildly delayed oral pharyngeal transit with solid consistency. IMPRESSION: 1. Aspiration with thin liquid barium. 2. Please see the speech pathologist report for detailed findings and recommendations. ACT 112: Negative or not required by law. Electronically signed by: Mohan Hull M.D. 08/31/2023 2:28 PM
--- NOTE | 2023-08-31 15:40 | Communication Note ---
Date of Service: August 31, 2023 Speech saw this afternoon. Video swallow w/ concerns for esophageal dysfunction given hx c/o globus sensation. Reflux precautions ordered Consideration for barium swallow outpatient and information provided to patient.
[2023-08-31] MEDS ORDERED: FUROSEMIDE 40 MG/4 ML VIAL IV ONE (17:00)
[2023-08-31] MEDS ORDERED: POTASSIUM CHLORIDE CRTAB 20 MEQ TABCR PO ONE (17:00)
[2023-08-31] MEDS ORDERED: FAMOTIDINE 20 MG in SYRINGE 3 ML IV ONE (18:30)
[2023-08-31] MEDS: RIVAROXABAN 20 MG TAB PO SCH (18:40)
[2023-08-31] MEDS: ROSUVASTATIN CALCIUM 20 MG TAB PO SCH (21:05)
[2023-09-01] MEDS ORDERED: METOPROLOL TARTRATE 1 MG/ML VIAL IV STA (00:28)
[2023-09-01] MEDS ORDERED: MAGNESIUM SULFATE / D5W 1 GM/100 ML BAG IV ONE (00:28)
[2023-09-01] MEDS ORDERED: METOPROLOL TARTRATE 25 MG TAB PO SCH (01:00)
[2023-09-01] MEDS ORDERED: AMIODARONE 360MG / 200ML D5W IV ONE ×2 (01:39→02:42)
[2023-09-01] MEDS ORDERED: AMIODARONE 150MG / 100ML D5W IV ONE (01:50)
[2023-09-01] MEDS ORDERED: fentaNYL citrate PF 100 MCG/2 ML VIAL ONE (01:52)
[2023-09-01] MEDS ORDERED: NOREPINEPHRINE/D5W 4 MG/250 ML IV ONE (02:05)
[2023-09-01] MEDS ORDERED: METOPROLOL TARTRATE 1 MG/ML VIAL IV ONE ×2 (02:32→18:07)
[2023-09-01 02:34] LABS: Basophils # (auto) 0.03 K/uL (0.00-0.20); Basophils % (auto) 0.3 %; Eosinophils # (auto) 0.03 K/uL (0.00-0.50); Eosinophils % (auto) 0.3 %; Hemoglobin 10.1 g/dl (12.0-16.0); Immature Granulocytes # (auto) 0.06 K/uL (0.01-0.20); Immature Granulocytes % (auto) 0.6 %; Lymphocytes # (auto) 1.07 K/uL (1.20-3.40); Lymphocytes % (auto) 11.1 %; Mean Corpuscular Hemoglobin 27.2 pg (25.0-34.0); Mean Corpuscular Hgb Conc 29.7 g/dL (32.0-36.0); Mean Corpuscular Volume 91.6 fL (80.0-100.0); Mean Platelet Volume 10.2 fL (9.4-12.4); Monocytes # (auto) 0.47 K/uL (0.11-0.59); Monocytes % (auto) 4.9 %; Neutrophils % (auto) 82.8 %; Platelet Count 226 K/uL (130-400); RDW Coefficient of Variation 14.4 % (11.5-14.5); RDW Standard Deviation 48.3 fL (36.4-46.3); Red Blood Count 3.71 M/uL (4.20-5.40); White Blood Count 9.66 K/ul (4.8-10.8)
[2023-09-01] MEDS ORDERED: SODIUM BICARB 8.4% INJ 50 MEQ/50 ML SYR IV ONE (02:38)
[2023-09-01] MEDS ORDERED: SODIUM BICARB 8.4% INJ 50 MEQ/50 ML SYR IV STA (02:48)
[2023-09-01] MEDS ORDERED: fentaNYL citrate PF 100 MCG/2 ML VIAL IV STA (02:48)
[2023-09-01] MEDS ORDERED: NOREPINEPHRINE/D5W 4 MG/250 ML PLCT IV SCH (02:48)
[2023-09-01] MEDS ORDERED: STAT IV Infusion **Titration per Protocol STA ×3 (02:48→03:03)
[2023-09-01] MEDS ORDERED: VASOPRESSIN 20 UNITS in 0.9 % SODIUM CHLORIDE 100 ML IV SCH ×2 (02:48→03:00)
[2023-09-01] MEDS ORDERED: AMIODARONE / D5W 360 MG/200 ML BAG IV SCH (02:48)
[2023-09-01] MEDS ORDERED: 0.2 MICRON FILTER SET 1 EACH IV ONE (02:48)
[2023-09-01 02:57] LABS: Albumin Level 2.3 gm/dl (3.4-5.0); BUN Creatinine Ratio 28.1 (10-20); Bilirubin Direct 0.2 mg/dl (0-0.2); Bilirubin,Total 0.8 mg/dl (0.2-1.0); Calcium 5.6 mg/dl (8.6-10.3); Creatinine Clr Calc Pharmacy 76.8 ml/min; Est GFR (Non-African American) 63.8 ml/min; Magnesium 2.1 mg/dl (1.7-2.4); Phosphorus 3.8 mg/dl (2.5-4.9); Potassium 3.9 mmol/L (3.5-5.1); Total Protein 4.3 gm/dl (6.0-8.3); Troponin I High Sensitivity 10.6 pg/ml (0-14)
[2023-09-01] MEDS ORDERED: CALCIUM CHLORIDE 10% 500 MG in DEXTROSE 5% 50 ML IV STA (02:57)
[2023-09-01 03:05] LABS: INR 1.9 (0.9-1.1); Prothrombin Time 19.6 Seconds (9.0-12.0)
[2023-09-01] MEDS: DOPamine / D5W 400 MG/250 ML BAG IV SCH ×3 (03:05→15:13)
[2023-09-01] MEDS ORDERED: DOPamine 400MG / 250ML D5W IV ONE (03:05)
[2023-09-01] MEDS ORDERED: CALCIUM CHLORIDE 10% 10 ML SYR IV ONE (03:10)
[2023-09-01] MEDS ORDERED: CALCIUM CHLORIDE 10% 1,000 MG in DEXTROSE 5% 50 ML IV STA (03:23)
[2023-09-01] MEDS ORDERED: LORazepam 0.25 MG in SYRINGE 0.125 ML IV STA (04:01)
--- NOTE | 2023-09-01 04:02 | Critical Care Consultation ---
Date of Consultation September 01, 2023 Assessment & Plan (1) Torsades de pointes: Reason Critically Ill: 72-year-old female initially admitted for A-fib RVR and CHF exacerbation presents to the ICU following 20-minute episode of torsades de points for which she was emergently cardioverted but remained hypotensive requiring vasopressor support following return to sinus rhythm. Neuro - [facility] ICU: Negative Patient drowsy but arousable and appropriate. Cardiac - Torsades de pointsinitially V. tach thought to be monomorphic but upon review of previous strips, in favor of torsades de points. She was initially given amiodarone, metoprolol, Tikosyn. She had sustained rhythm for approximately 20 minutes which she remained conscious throughout. Was unable to obtain blood pressure and emergently cardioverted to underlying sinus rhythm. She received calcium and magnesium. EKG with somewhat prolonged QTc. Cardiology evaluated patient at bedside and appreciate recommendations. We will continue with dopamine support, weaning as tolerated. Defibrillator pads in place. Maximize electrolytes. Continuous monitoring on telemetry in ICU. Cardiogenic shockimproving. Patient initially hypotensive following approximately 20 minutes of V. tach/torsades in which she was emergently cardioverted. She does have a elevated lactic acid and mild metabolic acidosis which would be expected from this event. She is currently on Levophed, vasopressin and dopamine. Troponin within normal limits and no ST elevation on EKG. Random cortisol of 20. Appreciate cardiology recommendations. Currently weaning Levophed in favor of dopamine which appears to be improving the patient's hemodynamics. A-line inserted for continuous hemodynamic monitoring. Continue to wean as tolerated HFpEFmost recent TTE with mildly reduced EF, enlarged atrium, moderate mitral regurg. She was undergoing diuresis for CHF exacerbation. Patient had reportedly stopped taking her Lasix as of recent and was volume overloaded on admission. Currently holding further diuresis for now as the patient is hypotensive, and will restart when appropriate. Respiratory - Hypoxiafollowing V. tach episode, patient became hypoxic likely pulmonary edema. Held on diuresis due to hypotension but added BiPAP support in which the patient appears to be improving. Prior to this she was on 2 L nasal cannula without issue. She has been undergoing diuresis since admission and had recently stopped taking her Lasix per her report. No other history of pulmonary disease. Chest x-ray with some mild pulmonary congestion. There is no indication for infectious process. Continuous monitoring on pulse ox. Wean BiPAP as tolerated. Will restart diuresis when appropriate GI - N.p.o. for now RENAL/LYTES - Creatinine within normal limits. Monitor routine BMPs and replete electrolytes as indicated Hold on fluid resuscitation given CHF - Foleystrict I's and O's ENDO - DM type IIcontinue sliding scale, ICU hyperglycemic protocol HEME - H&H stable, monitor routine CBC -- History of left-sided breast cancer metastatic Status postmastectomy chemo and radiation June 2020 ID - No indication for infectious process at this time. Trend fever curve LINES/IV ACCESS - Right IJ CVC, right radial A-line DVT PROPHYLAXIS - SCDs, anticoagulated on Xarelto I have personally spent 78 minutes of critical care time in the direct management of this patient. This is a life/limb threatening event. This includes time spent evaluating patient, direct bedside care, chart review, placing orders, interpretation of diagnostic studies, discussion with consultants, patient, and family members, as well as other required patient management activities. This time is exclusive of all separately billable procedures, and teaching time and separate from and in addition to any other critical care service time. Thank you for allowing us to participate in the care of this patient. Please refer to my attending physician's documentation for any further recommendations. (2) Chronic heart failure with preserved ejection fraction: (3) Mitral regurgitation: (4) Atrial fibrillation with rapid ventricular response: (5) Anticoagulant long-term use: (6) Diabetes mellitus, type 2: Supervising Physician Co-Signing Physician Notes I saw and evaluated the patient with CARLITO Khan, and agree with findings and plan as documented in the note. Patient seen and examined at bedside. Was not in any acute distress She was on dopamine 7.5 the time of examination with heart rate in the high 70s, MAP in the high 70s and low 80s. Denied any shortness of breath. No headache, no nausea, no vomiting No blurry vision Patient's was also in the room. Constitutional: No acute distress HEENT: EOMI, PERRLA Respiratory system: Decreased air entry bilaterally, no wheeze, no rhonchi, mild crackles bilateral lower lobes CVS: S1-S2 positive, no murmurs or gallops accentuated P2 Abdomen: Soft, nontender, nondistended, positive bowel sounds x4, obese Extremities: +2 pulses bilaterally radialis/ dorsalis pedis, no cyanosis, positive pitting edema bilateral lower extremity Neuro: Awake alert oriented x3 Psych: Normal mood and affect G/U: Positive Arteaga --Prophylaxis VTE: Xarelto GI: Pepcid Lines: Right IJ, right radial Diet: Clear liquids Plan: In/Out: +305, urine output 350 Patient does have prolonged QTc, try to keep potassium greater than 4, magnesium greater than 2 and phosphorus greater than 3 Avoid QT prolonging medication Case was discussed with Dr. Jasmine. The reason for torsades Tikosyn. Amiodarone drip has been discontinued. Keep heart rate on the higher side. Hyperlipidemia sleep apnea. Recommend outpatient polysomnography. Keep the patient on sliding scale for diabetes. I have personally spent 78 minutes of critical care time in the direct management of this patient. This is a life/limb threatening event. This includes time spent evaluating patient, direct bedside care, chart review, placing orders, interpretation of diagnostic studies, discussion with consultants, patient, and family members, as well as other required patient management activities. This time is exclusive of all separately billable procedures, and teaching time and separate from and in addition to any other critical care service time. Please note the above document was generated using voice recognition software. It may contain grammatical, syntax or spelling errors. History of Present Illness Attending Physician: Lucio Ye MD History of Present Illness Patient is a 72-year-old female with past medical history significant for PAF (anticoagulated on Xarelto), DM type II, HFrEF, breast cancer, aortic stenosis, HLD, HTN, who presented to the emergency department on 08/30 from cardiology clinic with A-fib RVR. She was cardioverted and admitted to PCU for further treatment and was undergoing diuresis. She was started on dofetilide. She had MAIKEL which revealed moderate regurg and slightly reduced EF. Around 2030 last evening patient had 31 beat of V. tach but did not lose consciousness. She continued to have multiple runs of nonsustained V. tach throughout the night. I was notified by the patient's primary team that the patient had entered sustained ventricular tachycardia. She had appeared to have a monomorphic V. tach and had received Tikosyn, amiodarone bolus, magnesium, and IV metoprolol. Unfortunately patient became hypotensive and harder to arouse. Decision was made to emergently cardiovert in which the patient initially had a long sinus pause with bradycardia and temporarily lost consciousness, but recovered with heart rate 50s to 60s. Patient did remained hypotensive and was brought to the ICU and started on Levophed and dopamine, and was placed on BiPAP. Central line and A-line were inserted. Allergies Allergy/AdvReac Type Severity Reaction Status Date / Time codeine Allergy Severe Dyspnea Verified 08/30/23 08:12 levofloxacin Allergy Severe Dyspnea Verified 08/30/23 08:12 Quinolones Allergy Severe A. fib Verified 08/30/23 08:12 adhesive tape Allergy Intermediate Blisters, Verified 08/30/23 08:12 rash tramadol Allergy Mild Hives Verified 08/30/23 08:12 amiodarone AdvReac Intermediate Hyperthyroi Verified 08/30/23 08:12 dism Home Medications Medication Instructions Recorded Confirmed Type multivitamin (Multiple Vitamins 1 tab PO QAM 05/11/19 08/30/23 History tablet) omega-3 fatty acids 1,000 mg 1,000 mg PO QAM 05/11/19 08/30/23 History capsule turmeric 400 mg capsule 400 mg PO QAM 05/11/19 08/30/23 History calcium carbonate 600 mg-vitamin 1 cap PO QAM 07/21/19 08/30/23 History D3 12.5 mcg (500 unit) capsule (Calcium 600 with Vitamin D3) coenzyme Q10 50 mg capsule 50 mg PO HS 09/30/19 08/30/23 History acetaminophen 500 mg tablet 1,000 mg PO Q4H PRN Pain 07/05/20 08/30/23 History blood sugar diagnostic (OneTouch #200 ea 09/20/20 08/30/23 Rx Ultra Blue Test Strip) anastrozole 1 mg tablet 1 mg PO QAM 12/13/20 08/30/23 History magnesium oxide 400 mg (241.3 mg 400 mg PO QPM PRN leg cramps 06/19/22 08/30/23 History magnesium) tablet sacubitril 97 mg-valsartan 103 mg 1 tab PO BID #180 tabs 10/09/22 08/30/23 Rx tablet (Entresto) rosuvastatin 20 mg tablet 20 mg PO HS #90 tabs 03/22/23 08/30/23 Rx furosemide 40 mg tablet 40 mg PO QAM #90 tabs 07/02/23 08/30/23 Rx potassium chloride 10 mEq 10 meq PO QAM #90 caps 07/02/23 08/30/23 Rx capsule,extended release metformin 850 mg tablet 850 mg PO HS 07/17/23 08/30/23 History rivaroxaban 20 mg tablet (Xarelto) 20 mg PO HS 07/17/23 08/30/23 History alendronate 70 mg tablet 70 mg PO WK #12 tabs 08/17/23 08/30/23 Rx carvedilol 25 mg tablet 25 mg PO BID 08/22/23 08/30/23 History Patient History Medical History (Updated 09/01/23 @ 06:12 by Rishabh Jasmine MD) Chronic heart failure with preserved ejection fraction Anticoagulant long-term use xarelto daily Peripheral edema Legs Limb alert care status left arm Morbid obesity with BMI of 45.0-49.9, adult Mild aortic stenosis Echo 02/2023: Mild aortic stenosis Liver nodule Focal nodule hyperplasia Under surveillance Diabetes mellitus, type 2 Breast cancer Left s/p left mastectomy (2019) (ductal carcinoma), completed chemo and radiation Anxiety and depression Torsades de pointes Likely due to Levaquin in 2016- avoid fluoroquinolones Hypercholesterolemia Benign essential hypertension Nonischemic cardiomyopathy Likely tachycardia induced- LV systolic function normal on February 2023 echo Chronic diastolic CHF (congestive heart failure) Non-ST elevation (NSTEMI) myocardial infarction 2016 CAD (coronary artery disease) Minimal non-obstructive CAD Atrial fibrillation Follows with [facility] [place] cardiology on Xarelto Surgical History Nausea after anesthesia History of cardioversion 06/2023 History of lymph node dissection of axilla Left axillary lymph node dissection (11/29/20): LMA#4 at [facility] (weight at time: 140kg). No issues noted per post-op anesthesia progress note. Port-A-Cath in place Port placement. Dr. Membreno 08/10/2020; removed 2022 H/O mastectomy 07/01/2020 [facility] - Left breast History of colonoscopy History of tooth extraction H/O breast biopsy punch biopsy of her left breast 03/2020 S/P cardiac cath 2018 [facility]- no stents History of lumpectomy . Fibroid adenomas in the breast (R/L) History of cholecystectomy Family History Mother Osteoporosis Clotting disorder Heart disease Myocardial infarction Hypertension Stroke Sister Diabetes Myocardial infarction Hypertension Stroke Father Heart disease Lung disease Other Cerebral aneurysm No family history of adverse response to anesthesia Denies family history of Rheumatoid arthritis Sudden SIDS (sudden syndrome) Ovarian cancer Prostate cancer Deep vein thrombosis Coronary heart disease Dyslipidemia Alzheimer disease Bipolar disorder Crohn's disease Dementia Depression Kidney disease Osteoarthritis Breast cancer Congenital kidney disease Gestational diabetes Lung cancer COPD (chronic obstructive pulmonary disease) Colorectal cancer Pulmonary embolism Cancer Ulcerative colitis Colonic polyp Asthma Cystic kidney disease Social History Smoking Status: Never smoker Second Hand Exposure: No; Do You Dip or Chew Tobacco: No; Hx Alcohol Use: No Hx Substance Use: No Preferred Language: Persian Communication Ability: Effective Visual Impairment: Limited Hearing Ability: Normal 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 Required: No Beliefs That Will Affect Care: None marital status: Current Living Situation: Spouse current occupational status: retired current occupation: retired How many Children do You have: 2 Feels Safe at Home: Yes Childhood Exposure to Second-Hand Smoke: Yes Diet: low carbohydrate, low salt and regular Diet Comment: carb counting caffeine: Yes during the past year weight has: remained stable Dental Care, Regularly: No Physical Activity Frequency: Does not Exercise Seatbelt Use: always Sunscreen Use: Yes Do you think of yourself as: straight/heterosexual Sexual Activity: has been sexually active within the last 12 months Gender Identity: Female Assistive Devices: Walker Review of Systems 2 Review of Systems: Unobtainable due to reduced consciousness Physical Exam 2 Constitutional: + obese and + lethargic Eyes: PERRL, conjunctivae normal, anicteric sclerae ENMT: external ear and nose normal, oropharynx normal Neck: trachea midline, no thyromegaly Respiratory: normal respiratory effort, lungs clear to auscultation Cardiovascular: Rate/Rhythm: + bradycardic (Patient initially tachycardic with ventricular tachycardia, now bradycardic) Vessels: no JVD Extremities: n ormal capillary refill and + edema (+1 bilateral lower extremity edema) Skin: no rashes, warm and dry Neurologic: PERRL, EOMI, accommodation nl, no face palsy, no dysarthria Genitourinary: Indwelling Arteaga catheter present, urine yellow clear Results & Data Results & Data Vital Signs (Past 12 Hours) Vital Signs Temp Pulse Pulse Resp BP BP Pulse Ox 09/01/23 02:33 57 L 17 97 09/01/23 01:30 110 H 133/74 09/01/23 00:57 62 128/89 09/01/23 00:39 79 133/74 08/31/23 23:15 36.8 C 73 18 146/82 H 91 08/31/23 20:00 08/31/23 19:08 08/31/23 18:58 36.7 C 68 16 92/58 L 91 08/31/23 16:13 36.9 C 67 20 94/64 L 95 O2 Del Method FiO2 09/01/23 02:33 40 09/01/23 01:30 09/01/23 00:57 09/01/23 00:39 08/31/23 23:15 Room Air 08/31/23 20:00 Room Air 08/31/23 19:08 Room Air 08/31/23 18:58 Room Air 08/31/23 16:13 Room Air Laboratory Results 09/01/23 02:11 09/01/23 07:21 Coding Level of Care Code 52362 CRITICAL CARE 1ST 30-74M Diagnoses Torsades de pointes I47.21 Chronic heart failure with preserved ejection fraction I50.32 Mitral regurgitation I34.0 Atrial fibrillation with rapid ventricular response I48.91 Anticoagulant long-term use Z79.01 Diabetes mellitus, type 2 E11.9 Time Spent (min) 78
--- NOTE | 2023-09-01 04:04 | Procedure Note ---
Procedure Note Date of Service September 01, 2023 Note ARTERIAL LINE PROCEDURE NOTE: Procedure: Arterial Line Placement Attending: Dr. Chisholm Provider: CARLITO Khan Indication: Monitoring on Pressors Anesthesia: Lidocaine 1% Line placed emergently in the setting of cardiogenic shock and hypotension requiring multiple vasopressor support following ventricular tachycardia with cardioversion A time-out was completed verifying correct patient, procedure, site, positioning, and implant(s) or special equipment if applicable. Allens test was performed to ensure adequate perfusion. Patients right wrist was prepped and draped in the usual sterile fashion. Ultrasound guidance was used to aid needle placement. A 20g Arrow arterial line was introduced into the right radial artery. Catheter was threaded, and the needle was removed with appropriate blood return. Good waveform was observed. The patient tolerated the procedure well. Confirmation of placement with ultrasound. Blood Loss: Minimal Complications: None Procedural Ultrasound Guidance: Procedure Date: 09/01/2023 Indication: Arterial line insertion Attending: Dr. Chisholm Provider: CARLITO Khan Artery Identified: YES Line confirmed in Artery with ultrasound: Yes Complications: NONE Patient tolerated procedure: WELL Coding CPT Codes Tubes, Drains, and Vasc Access - Tubes, Drains, and Vasc Access: [id number] Arterial Cath/Cannulation Sampling/Monitoring/Transfusion ([id number]) Tubes, Drains, and Vasc Access - Tubes, Drains, and Vasc Access: [id number] Ultrasound Guidance For Vascular ([id number]) [facility] [place] (Charges) Tubes, Drains, and Vasc Access Procedure 1: Tubes, Drains, and Vasc Access: [id number] Arterial Cath/Cannulation Sampling/Monitoring/Transfusion Procedure 2: Tubes, Drains, and Vasc Access: [id number] Ultrasound Guidance For Vascular
--- NOTE | 2023-09-01 04:14 | Procedure Note ---
Procedure Note Date of Service September 01, 2023 Note INTERNAL JUGULAR CENTRAL LINE PROCEDURE NOTE: Procedure: Internal Jugular Central Line Placement Attending: Dr. Chisholm Provider: CARLITO Khan Indication: Central Drug Administration, Poor Venous Access, Multiple Lab Draws Necessary, etc. Anesthesia: Lidocaine 1% Line placed emergently in the setting of cardiogenic shock and hypotension requiring multiple vasopressor support and need for central access, following ventricular tachycardia with cardioversion. A time-out was completed verifying correct patient, procedure, site, positioning, and implants(s) or special equipment if applicable. Patients right neck was cleansed and draped in the typical sterile fashion using Chloraprep. The right internal Jugular Vein and Carotid Artery were identified using ultrasound. The superficial tissue was anesthetized using 3 mL of 1% lidocaine without epinephrine under direct visualization with the ultrasound. After adequate anesthetization was achieved, the Internal Jugular vein was cannulated under direct ultrasound guidance using an introducer needle on a syringe. Good venous blood return was maintained prior to removal of syringe from introducer needle. Using Seldinger Technique, a guide wire was advanced through the introducer needle without resistance. The introducer needle was removed and ultrasound images were obtained of the guide wire within the Internal Jugular Vein and saved to the patients medical record. A small incision was made in penetrating fashion at the guide wire insertion site utilizing an 11 blade scalpel. The dilator was advanced to the vessel without resistance. The dilator was exchanged for the triple lumen catheter which was advanced into the vessel without resistance. The guide wire was removed intact from the catheter without issue. Claves were placed on each catheter tip with confirmation of good blood flow from each lumen. Each port was easily flushed with sterile saline. The catheter was placed at 16 cm and sutured in place. BioPatch was applied to the catheter and a sterile Tegaderm dressing was applied over the catheter with careful attention to sterility. Patient tolerated procedure well. No immediate complications were met. Post procedure x-ray was completed, placement was appropriate and no pneumothorax was noted. Procedural Ultrasound Guidance: Procedure Date: 09/01/2023 Indication: Central venous catheter insertion Attending: Dr. Chisholm Provider: CARLITO Khan Artery AND Vein visualized: Yes Compressible Vein: Yes Guidewire or Short Catheter seen in vein prior to dilation: Yes Line confirmed in Vein with ultrasound: Yes Images obtained are saved for permanent record. Coding CPT Codes Tubes, Drains, and Vasc Access - Tubes, Drains, and Vasc Access: [id number] Insertion Of Non-tunneled Catheter Age 3 Yrs> ([id number]) Tubes, Drains, and Vasc Access - Tubes, Drains, and Vasc Access: [id number] Ultrasound Guidance For Vascular ([id number]) [facility] [place] Procedure Codes (Charges) Tubes, Drains, and Vasc Access Procedure 1: Tubes, Drains, and Vasc Access: [id number] Insertion Of Non-tunneled Catheter Age 3 Yrs> Procedure 2: Tubes, Drains, and Vasc Access: [id number] Ultrasound Guidance For Vascular
--- NOTE | 2023-09-01 04:47 | Communication Note ---
Date of Service: September 01, 2023 Initially was notified at 4 soft blood pressure systolically in the 90s. Decision at this time was to hold patient's Coreg. At 2300 was again notified that patient now had a 31 beat run of V. tach and felt dizzy walking to the bathroom. Her symptoms subsequently improved and her blood pressure was better so Coreg was given at this time. Just past midnight was notified again that patient was now having more frequent bouts of V. tach averaging about 5 beat runs every 5 to 10 seconds. Upon seeing patient at bedside she was complaining of mild abdominal pain, nausea, and mild shortness of breath but she was alert and talkative. At this point I did speak with the on-call service order clerk and while on the phone patient began sustaining V. tach with heart rate in the 200s with increasing shortness of breath. We administered 1 bag of mag and 5 mg Lopressor IV. A couple minutes after administration she converted into normal sinus rhythm with heart rates in the 60s as her symptoms were improving. About 20 minutes later I was called again for patient sustaining V. tach despite an additional 2.5 mg Lopressor IV. Once again upon bedside patient did have full radial pulses however his blood pressure was unable to be obtained. She quickly began to decompensate and it was decided to do an emergent cardioversion. Following cardioversion she was in asystole for about 10 seconds until she self improved without needing chest compressions. However, blood pressure remained low in the 80s systolically and she was bradycaric. She was likely in sustained vtach ~20 minutes. She was given an amiodarone bolus and then transferred down to the ICU for further management/pressor support. Resident Activity Tracking Resident Involvement: Resident Care Provided Care Provided: Adult Hospital Medicine
--- NOTE | 2023-09-01 06:16 | Cardiology Progress Note ---
Date of Service September 01, 2023 Assessment & Plan (1) Torsades de pointes: Plan: Although QTc only minimally prolonged over baseline, development of torsades in the context of dofetilide loading suspicious for drug-induced dysrhythmia. No obvious electrolyte abnormalities or clinical suggestion of ischemia. - Discontinue dofetilide. - Given recent hypotension, hold Entresto and carvedilol for now - At this point, would continue moderate dose dopamine to help prevent bradycardia, which could predispose to further R-on-T phenomenon/recurrent torsade de pointes. - If she does develop bradycardia with further torsades, would need to consider isoproterenol and/or overdrive pacing. - Agree with IV magnesium, if renal function remains stable and ventricular irritability still apparent, could administer a second IV magnesium bolus. - At this point, potassium appears adequate (3.9). - Agree with weaning off norepinephrine, given its potential to increase cardiac irritability. - Agree with remaining off amiodarone at this point, since this could result in further QT prolongation. Rhythm actually seems more stable off the amiodarone, but if it deteriorates would need to weigh the antiarrhythmic benefits versus potential for QT prolongation and deciding whether to reintroduce amiodarone. Will discuss case with Dr. Clancy for further guidance. (2) Atrial fibrillation with rapid ventricular response: Plan: Remains in sinus rhythm for now. Need to consider alternative to dofetilide for long-term rhythm management. (3) Chronic heart failure with preserved ejection fraction: Plan: No obvious heart failure at the moment. (4) Mitral regurgitation: Plan: Not severe on MAIKEL. Admission and Anticipated Discharge Date Admission Date: August 30, 2023 Subjective 72-year-old woman with nonischemic cardiomyopathy (borderline low LV function), moderate mitral regurgitation (by MAIKEL), and HFpEF, admitted 08/30/2023 with atrial fibrillation with rapid ventricular response for which she underwent elective electrical cardioversion, placed on dofetilide, developed recurrent ventricular tachycardia last night requiring emergent electrical cardioversion. Serial ECGs show sinus rhythm with QTc in the 0.480.50 range, minimally prolonged from baseline QTc of 0.44. However, overnight she demonstrated repeated short runs of ventricular tachycardia which seem predominantly to be R-on-T phenomenon and demonstrated a torsades de pointes morphology. She was given magnesium and metoprolol IV with temporary improvement, however she later developed a prolonged 20-minute episode prompting emergent electrical cardioversion. Post-conversion she was hypotensive and placed on norepinephrine, dopamine, vasopressin, and amiodarone. All except the dopamine were weaned off and her rhythm and hemodynamics are now markedly improved. At the time of my evaluation, the patient felt "tired" and noted mild nausea but denied chest pain, dyspnea, subjective palpitations, or lightheadedness. Physical Exam Physical Exam: Elevated white female lying quietly, no obvious distress. BP normotensive (on dopamine). Pulse 74 bpm and regular without ectopy currently. Respirations 18 and unlabored. Skin: no ecchymoses or generalized lesions. HEENT: unremarkable. Neck: JVP not obviously elevated, no carotid bruits. Lungs: clear bilaterally. Cardiac: regular rhythm, normal S1-2, 2/6 basal systolic ejection murmur, 2/6 apical holosystolic murmur rating to the axilla, no diastolic murmur. Abdomen: benign. Extremities: no edema, pulses intact (brisk radial), good capillary refill. Neurologic: normal affect and answers simple questions appropriately, nonfocal. Results & Data Laboratory Results Most recent electrolytes showed potassium of 3.9, BUN 25, creatinine 0.89. Lactate elevated at 4.0. Troponin 10.6. Diagnostic Findings Serial ECGs as follows: 08/31 8 AM ECG showed sinus bradycardia 54 bpm with QTc in the 0.44 range. 08/31 1 PM ECG showed sinus bradycardia at 58 bpm with QTc in the 0.48 range. Occasional PVC. 08/31 10:28 ECG (1 hour after Tikosyn dose) showed sinus rhythm at 70 bpm with QTc in the 0.5 range. ECG at 1:16 AM this morning showed sinus rhythm at 60 bpm with 4 beat runs of ventricular tachycardia (nonuniform morphology), QTc in the 0.48 range. ECG at 156 (post cardioversion) showed sinus rhythm at 63 bpm, QTc in the 0.49 range. ECG at 4 AM showed sinus rhythm at 80 bpm with first-degree AV block and a QTc in the 0.5 range PG Care Time/CCT Total # of Minutes Spent Total Time Spent with Patient: Total time spent is greater than 50% in coordination of care (as documented) at patient's floor/unit and/or counseling patient: Coding Level of Care Code 91916 SUB INP/OBS CARE 3/50MIN Diagnoses Torsades de pointes I47.21 Atrial fibrillation with rapid ventricular response I48.91 Chronic heart failure with preserved ejection fraction I50.32 Mitral regurgitation I34.0
[2023-09-01 07:24] LABS: Appearance Urine Cloudy (Clear); Bacteria Urine Automated Negative (Negative); Bilirubin Urine Negative (Negative); Blood Urine Negative (Negative); Color Urine Dark Yellow; Epithelial Cell Urine Auto >30 /lpf (0-5); Glucose Urine UA Negative (Negative); Ketones Urine Negative (Negative); Leukocyte Esterase Urine Negative (Negative); Nitrite Urine Negative (Negative); Protein Urine 3+ (Negative); Specific Gravity Urine 1.023 (1.000-1.030); Urobilinogen Urine Negative (Negative)
[2023-09-01 07:38] LABS: Cast Urine Automated >30 /lpf (0-5)
[2023-09-01 07:45] LABS: RBC Urine Automated 0-4 /hpf (0-4)
[2023-09-01 07:54] LABS: BUN Creatinine Ratio 29.9 (10-20); Calcium 8.9 mg/dl (8.6-10.3); Creatinine Clr Calc Pharmacy 63.2 ml/min; Est GFR (African American) 59.2 ml/min; Est GFR (Non-African American) 51.1 ml/min; Potassium 4.3 mmol/L (3.5-5.1)
--- NOTE | 2023-09-01 07:54 | Electrocardiogram Report ---
Test Reason : Blood Pressure : / mmHG Vent. Rate : 078 BPM Atrial Rate : 078 BPM P-R Int : 186 ms QRS Dur : 096 ms QT Int : 440 ms P-R-T Axes : 033 042 045 degrees QTc Int : 501 ms Sinus rhythm Low voltage QRS Prolonged QT Abnormal ECG When compared with ECG of 31-AUG-2023 13:04, No significant change Confirmed by Rishabh Jasmine ([id number]) on 09/01/2023 7:53:51 AM Referred By: Pradip Martinez Confirmed By:Rishabh Jasmine
--- NOTE | 2023-09-01 07:55 | Electrocardiogram Report ---
Test Reason : Blood Pressure : / mmHG Vent. Rate : 087 BPM Atrial Rate : 027 BPM P-R Int : 000 ms QRS Dur : 090 ms QT Int : 448 ms P-R-T Axes : 000 015 027 degrees QTc Int : 539 ms Sinus rhythm with multiple runs of ventricular tachycardia Low voltage QRS Prolonged QT Abnormal ECG When compared with ECG of 31-AUG-2023 22:28, Ventricular tachycardia now present Confirmed by Rishabh Jasmine ([id number]) on 09/01/2023 7:55:12 AM Referred By: Pradip Martinez Confirmed By:Rishabh Jasmine
--- NOTE | 2023-09-01 08:00 | Electrocardiogram Report ---
Test Reason : Blood Pressure : / mmHG Vent. Rate : 063 BPM Atrial Rate : 063 BPM P-R Int : 222 ms QRS Dur : 102 ms QT Int : 480 ms P-R-T Axes : 019 023 043 degrees QTc Int : 491 ms Sinus rhythm with 1st degree A-V block Low voltage QRS Prolonged QT Abnormal ECG When compared with ECG of 01-SEP-2023 00:16, Ventricular tachycardia no longer present Confirmed by Rishabh Jasmine ([id number]) on 09/01/2023 8:00:40 AM Referred By: Pradip Martinez Confirmed By:Rishabh Jasmine
--- NOTE | 2023-09-01 08:01 | XRay Report ---
XR chest 1V portable HISTORY: 72 years-old Female line placement status post placement of a right IJ central venous leslie ter COMPARISON: 08/30/2023 TECHNIQUE: AP view of the chest FINDINGS: Cardiomediastinal and hilar silhouettes are unchanged. Atherosclerosis of the aorta. Left axillary branch rgical clips. Chronic interstitial coarsening. Status post placement of a right IJ central venous cat heter distal tip in the expected location of the mid SVC. No pneumothorax, pleural effusion or airspa ce consolidation. Mild left basilar atelectasis. The bones appear grossly intact. IMPRESSION: Status post placement of a right IJ central venous catheter. No pneumothorax. ACT 112: Negative or not required by law. The above report was generated using voice recognition software. It may contain grammatical, syntax o r spelling errors. Electronically signed by: Mohan Hull M.D. 09/01/2023 8:00 AM
--- NOTE | 2023-09-01 08:04 | Electrocardiogram Report ---
Test Reason : Blood Pressure : / mmHG Vent. Rate : 080 BPM Atrial Rate : 080 BPM P-R Int : 200 ms QRS Dur : 092 ms QT Int : 428 ms P-R-T Axes : 012 019 036 degrees QTc Int : 493 ms Normal sinus rhythm Prolonged QT Abnormal ECG When compared with ECG of 01-SEP-2023 03:27, Premature ventricular complexes no longer present Confirmed by Rishabh Jasmine ([id number]) on 09/01/2023 8:04:17 AM Referred By: Pradip Martinez Confirmed By:Rishabh Jasmine
--- NOTE | 2023-09-01 08:04 | Electrocardiogram Report ---
Test Reason : Blood Pressure : / mmHG Vent. Rate : 066 BPM Atrial Rate : 066 BPM P-R Int : 218 ms QRS Dur : 088 ms QT Int : 692 ms P-R-T Axes : 012 016 041 degrees QTc Int : 725 ms Sinus rhythm with frequent Premature ventricular complexes in a pattern of bigeminy Prolonged QT Abnormal ECG When compared with ECG of 01-SEP-2023 01:56, Frequent Premature ventricular complexes now present Confirmed by Rishabh Jasmine ([id number]) on 09/01/2023 8:03:49 AM Referred By: Pradip Martinez Confirmed By:Rishabh Jasmine
[2023-09-01] MEDS ORDERED: FUROSEMIDE 40 MG TAB PO SCH (09:00)
[2023-09-01] MEDS ORDERED: FAMOTIDINE 20 MG in SYRINGE 3 ML IV SCH (09:00)
[2023-09-01] MEDS ORDERED: PHARMACY GLYCEMIC MGMT CONSULT PRN (09:21)
[2023-09-01] MEDS: METOCLOPRAMIDE HCL INJ 5 MG/ML 2 ML VIAL IV PRN ×2 (09:43→18:12)
[2023-09-01] MEDS ORDERED: LANTUS PER UNIT CHARGE SC ONE (10:00)
--- NOTE | 2023-09-01 10:03 | Pharmacy Report ---
Pharmacy Glycemic Short Note 2 - Date of Service September 01, 2023 - Glycemic Short BSG Results (Last 24 hours): 08/31/23 08/31/23 08/31/23 10:09 14:02 16:46 Glucose POC Glucose 150 H 145 H 127 H 08/31/23 09/01/23 09/01/23 20:08 02:18 07:15 Glucose 277 H POC Glucose 122 H 242 H 09/01/23 07:21 Glucose 270 H POC Glucose OUTPATIENT ANTIDIABETIC REGIMEN: * Metformin 850 mg PO HS ASSESSMENT: * 72-year-old female initially admitted for A-fib RVR and CHF exacerbation, moved to ICU following 20-minute episode of torsades de points for which she was emergently cardioverted but remained hypotensive requiring vasopressor support following return to sinus rhythm. * Patient remains on IV Dopamine, hyperglycemic, type 2 DM on metformin only as outpatient. * Ordered clear liquid type 2 DM Diet. * Begin basal bolus insulin and titrate to goal BSG. PLAN FOR INPATIENT GLYCEMIC CONTROL: * Hold outpatient oral diabetes medications * Basal insulin * Lantus 20 units SQ x 1 now, then 10 units HS for BSG > 180mg/dl * Bolus insulin * NovoLog per scale ACHS or Q6hrs while NPO * Goal Range: Low 110 mg/dL - High 140 mg/dL * Correction Factor: 25 mg/dL/unit * Nutritional / Prandial insulin per carb ratio of 1 unit per 10 grams CHO consumed
[2023-09-01] MEDS: INSULIN ASPART PER UNIT CHARGE SC SCH ×4 (10:11→20:49)
[2023-09-01 11:08] LABS: Magnesium 2.4 mg/dl (1.7-2.4)
[2023-09-01] MEDS ORDERED: INSULIN ASPART PER UNIT CHARGE SC SCH (11:30)
--- NOTE | 2023-09-01 14:23 | Hospitalist Progress Note ---
Date of Service September 01, 2023 Assessment & Plan (1) Torsades de pointes: Plan: Several episodes occurred during the evening of August 31. Dofetilide has been stopped. She does have QT prolongation per cardiology. Amiodarone will be avoided. (2) Atrial fibrillation with rapid ventricular response: Plan: She underwent DC cardioversion via MAIKEL on August 31. She was started on dofetilide but this was discontinued due to onset of torsades during the evening of August 31. Telemetry. Appreciate cardiology consultation and management. ECHO ordered, severe reduced EF (3) Chronic heart failure with preserved ejection fraction: Plan: Suspect acute on chronic exacerbation. TTE on 08/20 shows HFpEF with new, severe mitral regurgitation . She has received parenteral Lasix. Monitor intake and output. Serial chest x-ray. Cardiology consultation and recommendations appreciated (4) Diabetes mellitus: Plan: ADA diet. Sliding scale coverage. (5) Hypertension: Plan: Coreg and Entresto are on hold due to low blood pressure. She is now on dopamine. (6) Hyperlipemia: Plan: Stable. Continue statin therapy-Conitnue statin (7) Dysphagia: Plan: Speech therapy evaluation appreciated. (8) Mitral regurgitation: Plan: Seen on most recent cardiac echo. Cardiology consultation and recommendations appreciated. Plan To be determined Admission and Anticipated Discharge Date Admission Date: August 30, 2023 Subjective Alert and oriented at the time of my examination this morning. She has been seen by cardiology. She had several episodes of torsades de point during the evening of 08/31. Dofetilide has been discontinued. Coreg and Entresto are on hold due to hypotension. She is on dopamine for blood pressure support. Review of Systems 2 Review of Systems: Constitutional-no fever or chills ENT-no blurred vision, no double vision, no epistaxis, no sore throat Respiratory-no cough, no wheezing, no shortness of breath Cardiac-no palpitations, no chest pain, no syncope GI-no nausea, vomiting, diarrhea, melena, hematochezia -no urinary retention, no urinary incontinence, no dysuria, no hematuria Musculoskeletal-no joint pain, no muscle tenderness Skin-no bruising, no rashes, no pruritus Neuro-no isolated weakness, no paresthesia, no weakness Psych-no depression, no anxiety Physical Exam 2 Physical Exam: General-alert and oriented x3, no fevers, no chills HEENT-head atraumatic and normocephalic, pupils equal and reactive to light, extraocular muscles intact Neck-no lymphadenopathy or thyromegaly, trachea midline Chest- Faint bibasilar inspiratory rales. No wheezingi Cardiac-irregular rhythm. Controlled rate. Normal S1 and S2 Abdomen-normal bowel sounds, nontender, no hepatosplenomegaly Extremities-no cyanosis, clubbing, or edema Neuro-cranial nerves II through XII intact, motor and sensory function within normal limits, strength symmetrical, no focal deficits Psych-normal affect, normal mood Results & Data Results & Data Vital Signs (Past 12 Hours) Vital Signs Temp Pulse Pulse Resp BP Pulse Ox O2 Del Method 09/01/23 12:00 87 09/01/23 11:00 83 16 95 09/01/23 11:00 36.6 C 09/01/23 11:00 88 09/01/23 10:45 87 20 94 09/01/23 10:30 83 15 94 09/01/23 10:15 86 20 94 09/01/23 10:00 85 16 93 09/01/23 09:45 89 19 93 09/01/23 09:30 96 H 23 91 09/01/23 09:15 82 16 97 09/01/23 09:00 85 17 96 09/01/23 08:45 80 24 98 09/01/23 08:30 77 20 98 09/01/23 08:15 79 31 H 98 09/01/23 08:00 85 22 98 09/01/23 08:00 74 09/01/23 07:45 75 18 98 09/01/23 07:30 76 22 97 09/01/23 07:30 148/62 H 09/01/23 07:15 81 22 98 09/01/23 07:00 72 15 98 09/01/23 07:00 36.8 C 76 20 150/61 H 99 Room Air 09/01/23 05:23 74 18 96 09/01/23 04:22 BiPAP 09/01/23 04:15 79 19 96 09/01/23 04:00 81 18 96 09/01/23 03:45 72 21 97 09/01/23 03:30 66 21 97 09/01/23 03:15 54 L 22 98 09/01/23 03:00 55 L 17 98 09/01/23 02:48 53 L 21 96 09/01/23 02:33 57 L 17 97 FiO2 09/01/23 12:00 09/01/23 11:00 09/01/23 11:00 09/01/23 11:00 09/01/23 10:45 09/01/23 10:30 09/01/23 10:15 09/01/23 10:00 09/01/23 09:45 09/01/23 09:30 09/01/23 09:15 09/01/23 09:00 09/01/23 08:45 09/01/23 08:30 09/01/23 08:15 09/01/23 08:00 09/01/23 08:00 09/01/23 07:45 09/01/23 07:30 09/01/23 07:30 09/01/23 07:15 09/01/23 07:00 09/01/23 07:00 09/01/23 05:23 40 09/01/23 04:22 09/01/23 04:15 09/01/23 04:00 09/01/23 03:45 09/01/23 03:30 09/01/23 03:15 09/01/23 03:00 09/01/23 02:48 09/01/23 02:33 40 Laboratory Results 09/01/23 02:11 09/01/23 07:21 PG Care Time/CCT Total # of Minutes Spent Total Time Spent with Patient: Total time spent is greater than 50% in coordination of care (as documented) at patient's floor/unit and/or counseling patient: Coding Level of Care Code 66575 SUB INP/OBS CARE 3/50MIN Diagnoses Torsades de pointes I47.21 Atrial fibrillation with rapid ventricular response I48.91 Chronic heart failure with preserved ejection fraction I50.32 Diabetes mellitus E11.9 Essential hypertension I10 Hypertension type: essential hypertension Hyperlipemia E78.5 Dysphagia R13.10 Mitral regurgitation I34.0 (5) Hypertension Hypertension type: essential hypertension Qualified Code(s): I10 - Essential (primary) hypertension
[2023-09-01] MEDS: RIVAROXABAN 20 MG TAB PO SCH (16:57)
[2023-09-01] MEDS ORDERED: METOPROLOL TARTRATE 1 MG/ML VIAL IV PRN (18:09)
[2023-09-01] MEDS ORDERED: DIGOXIN 500 MCG in SYRINGE 8 ML IV ONE (18:40)
[2023-09-01] MEDS ORDERED: LANTUS PER UNIT CHARGE SC SCH (21:00)
[2023-09-01] MEDS ORDERED: ALBUMIN 25% 25 GM/100 ML VIAL IV ONE (21:12)
[2023-09-01] MEDS ORDERED: METOPROLOL TARTRATE 25 MG TAB PO STA (21:12)
[2023-09-01] MEDS: FAMOTIDINE 20 MG TAB PO SCH (21:29)
[2023-09-01] MEDS ORDERED: DIGOXIN 250 MCG in SYRINGE 9 ML IV ONE (22:45)
[2023-09-02 07:38] LABS: Basophils # (auto) 0.01 K/uL (0.00-0.20); Basophils % (auto) 0.2 %; Eosinophils # (auto) 0.06 K/uL (0.00-0.50); Eosinophils % (auto) 1.1 %; Hematocrit (blood only) 31.2 % (37.0-47.0); Hemoglobin 9.8 g/dl (12.0-16.0); Immature Granulocytes # (auto) 0.01 K/uL (0.01-0.20); Immature Granulocytes % (auto) 0.2 %; Lymphocytes % (auto) 16.5 %; Mean Corpuscular Hemoglobin 27.7 pg (25.0-34.0); Mean Corpuscular Hgb Conc 31.4 g/dL (32.0-36.0); Mean Corpuscular Volume 88.1 fL (80.0-100.0); Mean Platelet Volume 9.8 fL (9.4-12.4); Monocytes # (auto) 0.47 K/uL (0.11-0.59); Monocytes % (auto) 8.6 %; Neutrophils # (auto) 4.01 K/uL (1.40-6.50); Neutrophils % (auto) 73.4 %; Platelet Count 150 K/uL (130-400); RDW Standard Deviation 45.6 fL (36.4-46.3); Red Blood Count 3.54 M/uL (4.20-5.40); White Blood Count 5.46 K/ul (4.8-10.8)
[2023-09-02] MEDS: INSULIN ASPART PER UNIT CHARGE SC SCH ×4 (07:56→20:21)
[2023-09-02 08:07] LABS: BUN Creatinine Ratio 28.8 (10-20); Calcium 8.2 mg/dl (8.6-10.3); Creatinine Clr Calc Pharmacy 102.5 ml/min; Est GFR (African American) 100.9 ml/min; Magnesium 2.2 mg/dl (1.7-2.4); Phosphorus 2.8 mg/dl (2.5-4.9)
--- NOTE | 2023-09-02 08:18 | Critical Care Progress Note ---
Date of Service September 02, 2023 Assessment & Plan (1) Torsades de pointes: (2) Chronic heart failure with preserved ejection fraction: (3) Mitral regurgitation: (4) Atrial fibrillation with rapid ventricular response: (5) Anticoagulant long-term use: (6) Diabetes mellitus, type 2: Plan Reason Critically Ill: 72-year-old female initially admitted for A-fib RVR and CHF exacerbation presents to the ICU following 20-minute episode of torsades de points for which she was emergently cardioverted but remained hypotensive requiring vasopressor support following return to sinus rhythm. Neuro - [facility] ICU: Negative Cardiac - -- Torsades de points with cardiogenic shock S/p cardioversion Etiology was most likely Tikosyn Avoid QT prolonging medication Random cortisol of 20. --A-fib with RVR On metoprolol at home Failed multiple cardioversion as an outpatient Got digoxin 500 on 09/01/2023, another 250 mcg 09/02/2023 HFpEFmost recent TTE with mildly reduced EF, enlarged atrium, moderate mitral regurg. Respiratory - -- Acute hypoxic respiratory failure Likely from flash pulmonary edema from V. tach/torsades Continue with O2 supplementation BiPAP nightly and as needed shortness of breath GI - No acute issues RENAL/LYTES - Monitor BUNs/creatinine Avoid nephrotoxic medications - Foleystrict I's and O's ENDO - DM type II continue sliding scale, ICU hyperglycemic protocol HEME - H&H stable, monitor routine CBC -- History of left-sided breast cancer metastatic Status postmastectomy chemo and radiation June 2020 ID - No indication for infectious process at this time. Trend fever curve --Prophylaxis VTE: Xarelto GI: Pepcid Lines: Right IJ, right radial Diet: Clear liquids, advance as tolerated Plan: In/Out: -178, urine output 1190 Try to keep potassium greater than 4, magnesium greater than 2 and phosphorus greater than 3 Avoid QT prolonging medication Resume metoprolol 25 mg every 12. Can increase to 25 every 6 if need be to keep heart rate between 80-110 Give another 250 mcg of digoxin Please note the above document was generated using voice recognition software. It may contain grammatical, syntax or spelling errors.Any formal questions or concerns about the content, text or information contained within the body of this dictation should be directly addressed to the provider for clarification. Admission and Anticipated Discharge Date Admission Date: August 30, 2023 Subjective Patient seen and examined at bedside. No acute distress. Later last evening patient again went into A-fib with RVR. Dopamine was stopped She was given 5 mg of metoprolol following that digoxin 500. She is still in A-fib but heart rate is controlled. Denies any nausea vomiting No abdominal pain Did have some chest discomfort yesterday but not today. No headache, no blurry vision Patient was also room at the time of examination Review of Systems 2 Review of Systems: All systems reviewed & are unremarkable except as noted in Subjective Physical Exam 2 Physical Exam: Constitutional: No acute distress HEENT: EOMI, PERRLA Respiratory system: Decreased air entry bilaterally, no wheeze, no rhonchi, mild crackles bilateral lower lobes CVS: S1-S2 positive, no murmurs or gallops accentuated P2 Abdomen: Soft, nontender, nondistended, positive bowel sounds x4, obese Extremities: +2 pulses bilaterally radialis/ dorsalis pedis, no cyanosis, positive pitting edema bilateral lower extremity Neuro: Awake alert oriented x3 Psych: Normal mood and affect G/U: Positive [place] Skin: no rashes, warm and dry Lymphatic: no cervical or axillary lymphadenopathy Results & Data Results & Data Vital Signs (Past 12 Hours) Vital Signs Temp Pulse Pulse Resp BP BP Pulse Ox 09/02/23 07:00 36.8 C 106/70 09/02/23 06:00 100 H 14 95 09/02/23 05:00 97 H 16 96 09/02/23 04:00 92 H 17 97 09/02/23 04:00 92 H 97/47 L 09/02/23 03:31 99 H 16 96 09/02/23 03:31 101/72 09/02/23 03:00 89 18 95 09/02/23 02:00 99 H 17 94 09/02/23 01:00 99 H 19 94 09/02/23 00:00 126 H 20 93 09/02/23 00:00 107 H 09/01/23 23:10 36.6 C 129 H 18 105/55 L 93 09/01/23 23:00 126 H 23 94 09/01/23 22:55 124 H 09/01/23 22:00 133 H 19 93 09/01/23 21:20 09/01/23 21:00 133 H 25 H 93 O2 Del Method O2 Flow Rate 09/02/23 07:00 09/02/23 06:00 09/02/23 05:00 09/02/23 04:00 09/02/23 04:00 09/02/23 03:31 09/02/23 03:31 09/02/23 03:00 09/02/23 02:00 09/02/23 01:00 09/02/23 00:00 09/02/23 00:00 09/01/23 23:10 Nasal Cannula 2 09/01/23 23:00 09/01/23 22:55 09/01/23 22:00 09/01/23 21:20 Nasal Cannula 2 09/01/23 21:00 Laboratory Results 09/02/23 07:12 09/02/23 07:12 Coding Level of Care Code 35192 SUB INP/OBS CARE 3/50MIN Diagnoses Torsades de pointes I47.21 Chronic heart failure with preserved ejection fraction I50.32 Mitral regurgitation I34.0 Atrial fibrillation with rapid ventricular response I48.91 Anticoagulant long-term use Z79.01 Diabetes mellitus, type 2 E11.9
--- NOTE | 2023-09-02 08:58 | Electrocardiogram Report ---
Test Reason : Blood Pressure : / mmHG Vent. Rate : 112 BPM Atrial Rate : 170 BPM P-R Int : 000 ms QRS Dur : 074 ms QT Int : 368 ms P-R-T Axes : 000 006 040 degrees QTc Int : 502 ms Atrial fibrillation with rapid ventricular response Nonspecific ST and T wave abnormality Abnormal ECG When compared with ECG of 01-SEP-2023 04:00, Atrial fibrillation has replaced Sinus rhythm HR has increased 32 bpm Confirmed by Rishabh Jasmine ([id number]) on 09/02/2023 8:58:26 AM Referred By: Pradip Martinez Confirmed By:Rishabh Jasmine
[2023-09-02] MEDS: LANTUS PER UNIT CHARGE SC SCH (09:00)
[2023-09-02] MEDS: FAMOTIDINE 20 MG TAB PO SCH ×2 (09:01→20:25)
[2023-09-02] MEDS ORDERED: DIGOXIN 250 MCG in SYRINGE 9 ML IV ONE (09:30)
[2023-09-02] MEDS: METOPROLOL TARTRATE 25 MG TAB PO SCH ×2 (10:14→20:26)
--- NOTE | 2023-09-02 11:20 | Cardiology Progress Note ---
Date of Service September 02, 2023 Assessment & Plan (1) Atrial fibrillation with rapid ventricular response: Plan: Discussed management with Dr. Clancy yesterday, he recommended shifting from a rhythm control to a rate control strategy. Patient had been on amiodarone in the past but developed hyperthyroidism, thus antiarrhythmic options would be limited. Agree with digoxin and metoprolol for rate control (aim for 80-100 bpm range), with normal renal function could administer digoxin 250 mcg PO daily, would increase metoprolol to 25 mg PO every 6 hours with hold orders for SBP less than 90 mmHg or heart rate less than 60 bpm. Agree with restarting chronic anticoagulation with rivaroxaban. (2) Torsades de pointes: Plan: Resolved with washout of dofetilide. (3) Chronic heart failure with preserved ejection fraction: Plan: No obvious heart failure at the moment. (4) Mitral regurgitation: Plan: Not severe on MAIKEL. Admission and Anticipated Discharge Date Admission Date: August 30, 2023 Subjective Off all pressors and antiarrhythmics. No further torsades overnight, but patient did revert to atrial fibrillation with rapid ventricular rate. This was managed with digoxin and metoprolol, current rate is reasonable (100 bpm range). Patient is comfortable at rest. No chest pain, palpitations, dyspnea, or lightheadedness. Physical Exam Physical Exam: No distress. BP low normal (106/70 mmHg). Pulse 100 bpm and irregular. Respirations 14 and unlabored. Skin: no ecchymoses or generalized lesions. HEENT: unremarkable. Neck: JVP not obviously elevated, no carotid bruits. Lungs: clear bilaterally. Cardiac: Irregular/tachycardic rhythm, normal S1-2, 2/6 basal systolic ejection murmur, 2/6 apical holosystolic murmur rating to the axilla, no diastolic murm ur. Abdomen: benign. Extremities: no edema, pulses intact (brisk radial), good capillary refill. Neurologic: normal affect and conversation, nonfocal. Results & Data Laboratory Results Troponin 10.6 yesterday. Labs from today with normal electrolytes, BUN 19, creatinine 0.66. Diagnostic Findings ECG showed atrial fibrillation with ventricular rate 112 bpm, nonspecific minor ST-T wave abnormalities. Compared with 09/01/2023, A-fib has replaced sinus rhythm and heart rate has increased by 32 bpm. PG Care Time/CCT Total # of Minutes Spent Total Time Spent with Patient: Total time spent is greater than 50% in coordination of care (as documented) at patient's floor/unit and/or counseling patient: Coding Level of Care Code 32293 SUB INP/OBS CARE 3/50MIN Diagnoses Atrial fibrillation with rapid ventricular response I48.91 Torsades de pointes I47.21 Chronic heart failure with preserved ejection fraction I50.32 Mitral regurgitation I34.0
--- NOTE | 2023-09-02 11:22 | Hospitalist Progress Note ---
Date of Service September 02, 2023 Assessment & Plan (1) Torsades de pointes: Plan: Several episodes occurred during the evening of August 31. Dofetilide has been stopped. She does have QT prolongation per cardiology. Amiodarone will be avoided. (2) Cardiogenic shock: Plan: Resolved. All pressors including dopamine has been weaned off (3) Atrial fibrillation with rapid ventricular response: Plan: She underwent DC cardioversion via MAIKEL on August 31. She was started on dofetilide but this was discontinued due to onset of torsades during the evening of August 31. Telemetry. Appreciate cardiology consultation and management. ECHO report noted. Now rate controlled (4) Chronic heart failure with preserved ejection fraction: Plan: Suspect acute on chronic exacerbation. TTE on 08/20 shows HFpEF with new severe mitral regurgitation. She has received parenteral Lasix. Serial chest x-ray. Monitor intake and output. Cardiology consultation and recommendations appreciated. (5) Diabetes mellitus: Plan: ADA diet. Sliding scale coverage. (6) Hypertension: Plan: Coreg and Entresto were held due to low blood pressure. She is now off dopamine. Will defer medical management to cardiology (7) Hyperlipemia: Plan: Stable. Continue statin therapy (8) Dysphagia: Plan: Speech therapy evaluation appreciated. (9) Mitral regurgitation: Plan: Seen on most recent cardiac echo. Cardiology consultation and recommendations appreciated. Plan Hopeful transfer out of the ICU tomorrow, September 03. Will obtain OT and PT assessments when appropriate. Admission and Anticipated Discharge Date Admission Date: August 30, 2023 Subjective Alert and oriented. No distress. is at the bedside. Case discussed with cardiology. Dopamine has been discontinued. Hopefully she can be moved out of the ICU tomorrow, September 03 Review of Systems 2 Review of Systems: Constitutional-no fever or chills ENT-no blurred vision, no double vision, no epistaxis, no sore throat Respiratory-no cough, no wheezing, no shortness of breath Cardiac-no palpitations, no chest pain, no syncope GI-no nausea, vomiting, diarrhea, melena, hematochezia -no urinary retention, no urinary incontinence, no dysuria, no hematuria Musculoskeletal-no joint pain, no muscle tenderness Skin-no bruising, no rashes, no pruritus Neuro-no isolated weakness, no paresthesia, no weakness Psych-no depression, no anxiety Physical Exam 2 Physical Exam: General-alert and oriented x3, no fevers, no chills HEENT-head atraumatic and normocephalic, pupils equal and reactive to light, extraocular muscles intact Neck-no lymphadenopathy or thyromegaly, trachea midline Chest- Faint bibasilar inspiratory rales. No wheezingi Cardiac-irregular rhythm. Controlled rate. Normal S1 and S2 Abdomen-normal bowel sounds, nontender, no hepatosplenomegaly Extremities-no cyanosis, clubbing, or edema Neuro-cranial nerves II through XII intact, motor and sensory function within normal limits, strength symmetrical, no focal deficits Psych-normal affect, normal mood Results & Data Results & Data Vital Signs (Past 12 Hours) Vital Signs Temp Pulse Resp BP BP Pulse Ox O2 Del Method 09/02/23 10:14 113 H 09/02/23 08:00 Nasal Cannula 09/02/23 08:00 112 H 09/02/23 07:00 36.8 C 106/70 09/02/23 06:00 100 H 14 95 09/02/23 05:00 97 H 16 96 09/02/23 04:00 92 H 17 97 09/02/23 04:00 92 H 97/47 L 09/02/23 03:31 99 H 16 96 09/02/23 03:31 101/72 09/02/23 03:00 89 18 95 09/02/23 02:00 99 H 17 94 09/02/23 01:00 99 H 19 94 09/02/23 00:00 126 H 20 93 09/02/23 00:00 107 H O2 Flow Rate 09/02/23 10:14 09/02/23 08:00 2 09/02/23 08:00 09/02/23 07:00 09/02/23 06:00 09/02/23 05:00 09/02/23 04:00 09/02/23 04:00 09/02/23 03:31 09/02/23 03:31 09/02/23 03:00 09/02/23 02:00 09/02/23 01:00 09/02/23 00:00 09/02/23 00:00 Laboratory Results 09/02/23 07:12 09/02/23 07:12 PG Care Time/CCT Total # of Minutes Spent Total Time Spent with Patient: Total time spent is greater than 50% in coordination of care (as documented) at patient's floor/unit and/or counseling patient: Coding Level of Care Code 99313 SUB INP/OBS CARE 3/50MIN Diagnoses Torsades de pointes I47.21 Cardiogenic shock R57.0 Atrial fibrillation with rapid ventricular response I48.91 Chronic heart failure with preserved ejection fraction I50.32 Diabetes mellitus E11.9 Essential hypertension I10 Hypertension type: essential hypertension Hyperlipemia E78.5 Dysphagia R13.10 Mitral regurgitation I34.0 (6) Hypertension Hypertension type: essential hypertension Qualified Code(s): I10 - Essential (primary) hypertension
[2023-09-02] MEDS: RIVAROXABAN 20 MG TAB PO SCH (16:40)
[2023-09-03 06:17] LABS: Basophils # (auto) 0.02 K/uL (0.00-0.20); Basophils % (auto) 0.3 %; Eosinophils # (auto) 0.13 K/uL (0.00-0.50); Eosinophils % (auto) 2.1 %; Hematocrit (blood only) 34.5 % (37.0-47.0); Hemoglobin 10.9 g/dl (12.0-16.0); Immature Granulocytes # (auto) 0.01 K/uL (0.01-0.20); Immature Granulocytes % (auto) 0.2 %; Lymphocytes # (auto) 0.92 K/uL (1.20-3.40); Lymphocytes % (auto) 14.9 %; Mean Corpuscular Hemoglobin 27.8 pg (25.0-34.0); Mean Corpuscular Hgb Conc 31.6 g/dL (32.0-36.0); Mean Platelet Volume 9.9 fL (9.4-12.4); Monocytes % (auto) 8.1 %; Neutrophils # (auto) 4.58 K/uL (1.40-6.50); Neutrophils % (auto) 74.4 %; Platelet Count 174 K/uL (130-400); RDW Coefficient of Variation 14.5 % (11.5-14.5); RDW Standard Deviation 46.4 fL (36.4-46.3); Red Blood Count 3.92 M/uL (4.20-5.40); White Blood Count 6.16 K/ul (4.8-10.8)
[2023-09-03 06:24] LABS: BUN Creatinine Ratio 27.1 (10-20); Calcium 8.2 mg/dl (8.6-10.3); Creatinine Clr Calc Pharmacy 79.6 ml/min; Est GFR (African American) 78.2 ml/min; Est GFR (Non-African American) 67.5 ml/min; Magnesium 2.3 mg/dl (1.7-2.4); Phosphorus 2.8 mg/dl (2.5-4.9); Potassium 4.2 mmol/L (3.5-5.1)
[2023-09-03 08:52] LABS: iSTAT Arterial Blood Gas HCO3 18 meg/L (19-24); iSTAT Arterial Blood Gas pCO2 41 mmHg (35-46); iSTAT Arterial Blood Gas pH 7.25 (7.35-7.45); iSTAT Arterial Blood Gas pO2 96 mmHg (80-95); iSTAT Carbon Dioxide 19 mmol/L (24-31); iSTAT Hematocrit 33 % (37-47); iSTAT Hemoglobin 11.2 g/dl (12.0-16.0); iSTAT Potassium 5.2 mmol/L (3.3-5.0); iSTAT Sodium 136 mmol/L (135-144)
[2023-09-03] MEDS: INSULIN ASPART PER UNIT CHARGE SC SCH ×4 (09:50→20:36)
[2023-09-03] MEDS: LANTUS PER UNIT CHARGE SC SCH (09:54)
[2023-09-03] MEDS: FAMOTIDINE 20 MG TAB PO SCH ×2 (09:56→20:35)
[2023-09-03] MEDS: METOPROLOL TARTRATE 25 MG TAB PO SCH ×2 (09:56→20:40)
[2023-09-03] MEDS ORDERED: DIGOXIN 0.25 MG TAB PO ONE (10:13)
--- NOTE | 2023-09-03 10:38 | XRay Report ---
XR chest 1V portable CLINICAL HISTORY: CHF COMPARISON STUDY: Chest radiograph September 01, 2023. FINDINGS: There is no pneumothorax or pleural effusion. The right internal jugular central line has b een removed. Cardiomegaly is unchanged. There is no evidence for pulmonary edema. There is no consoli dation to suggest pneumonia. Mild left basilar opacity favors atelectasis. Left axillary surgical cli ps are incidentally noted. IMPRESSION: No acute cardiopulmonary findings. Cardiomegaly. ACT 112: Negative or not required by law. Electronically signed by: Terrance Moseley M.D. 09/03/2023 10:37 AM
[2023-09-03] MEDS: FUROSEMIDE 40 MG TAB PO SCH (10:45)
--- NOTE | 2023-09-03 12:11 | Cardiology Progress Note ---
Date of Service September 03, 2023 Assessment & Plan (1) Atrial fibrillation with rapid ventricular response: Plan: Failed dofetilide due to development of torsades, shifting from a rhythm control to a rate control strategy. Patient had been on amiodarone in the past but developed hyperthyroidism, thus antiarrhythmic options would be limited. Agree with digoxin and metoprolol for rate control, reasonable rate currently but when she resumes activity she likely will become tachycardic. Therefore, would recommend titrating beta-christiana upward to achieve resting heart rate 80 to 90 bpm and ambulatory heart rate less than 110 bpm. She is chronically anticoagulated with rivaroxaban, this was restarted. (2) Torsades de pointes: Plan: Resolved with washout of dofetilide. (3) Chronic heart failure with preserved ejection fraction: Plan: No obvious heart failure at the moment. (4) Mitral regurgitation: Plan: Not severe on MAIKEL. Admission and Anticipated Discharge Date Admission Date: August 30, 2023 Subjective Uneventful night. Patient feeling better, anxious to get up and walk around (has been at bedrest). Denies any chest pain, dyspnea, palpitations, or lightheadedness. Telemetry showed atrial fibrillation with ventricular rate 80-100 bpm. Physical Exam Physical Exam: No distress. BP normotensive. Pulse 94 bpm and irregular. Respirations 18 and unlabored Skin: no ecchymoses or generalized lesions. HEENT: unremarkable. Neck: JVP not obviously elevated, no carotid bruits. Lungs: clear bilaterally. Cardiac: Irregular rhythm, normal S1-2, 2/6 basal systolic ejection murmur, 2/6 apical holosystolic murmur rating to the axilla, no diastolic murmur. Abdomen: benign. Extremities: no edema, pulses intact (brisk radial), good capillary refill. Neurologic: normal affect and conversation, nonfocal. Results & Data Laboratory Results Normal electrolytes, BUN 23, creatinine 0.85. PG Care Time/CCT Total # of Minutes Spent Total Time Spent with Patient: Total time spent is greater than 50% in coordination of care (as documented) at patient's floor/unit and/or counseling patient: Coding Level of Care Code 86149 SUB INP/OBS CARE 3/50MIN Diagnoses Atrial fibrillation with rapid ventricular response I48.91 Torsades de pointes I47.21 Chronic heart failure with preserved ejection fraction I50.32 Mitral regurgitation I34.0
--- NOTE | 2023-09-03 13:01 | Hospitalist Progress Note ---
Date of Service September 03, 2023 Assessment & Plan (1) Torsades de pointes: Plan: Several episodes occurred during the evening of August 31. Dofetilide has been stopped. She does have QT prolongation per cardiology. Amiodarone will be avoided. She is now on metoprolol and digoxin and heart rate is controlled (2) Cardiogenic shock: Plan: Resolved. All pressors including dopamine has been weaned off (3) Atrial fibrillation with rapid ventricular response: Plan: She underwent DC cardioversion via MAIKEL on August 31. She was started on dofetilide but this was discontinued due to onset of torsades during the evening of August 31. Telemetry. Appreciate cardiology consultation and management. ECHO report noted. Now rate controlled on metoprolol and digoxin (4) Chronic heart failure with preserved ejection fraction: Plan: Suspect acute on chronic exacerbation. TTE on 08/20 shows HFpEF with new severe mitral regurgitation. She has received parenteral Lasix. Oral Lasix has been restarted. Chest x-rays look better. Monitor intake and output. Cardiology consultation and recommendations appreciated. (5) Diabetes mellitus: Plan: ADA diet. Sliding scale coverage. (6) Hypertension: Plan: Coreg and Entresto were held due to low blood pressure. She is now off dopamine. Will defer medical management to cardiology (7) Hyperlipemia: Plan: Stable. Continue statin therapy (8) Dysphagia: Plan: Speech therapy evaluation appreciated. (9) Mitral regurgitation: Plan: Seen on most recent cardiac echo. Cardiology consultation and recommendations appreciated. Plan Hopeful discharge to home soon. OT and PT evaluations have been requested Admission and Anticipated Discharge Date Admission Date: August 30, 2023 Subjective Alert and oriented. No complaints. She is requesting that her [place] catheter be removed. Oxygen has been weaned off. OT and PT assessments requested. Her portable chest x-ray done today, September 03, looks better. Coumadin has been switched to Xarelto. She received 1 dose of IV digoxin yesterday, September 02. She will receive 2 oral doses of digoxin today, September 03 then daily going forward. Digoxin level will be monitored daily. Hopefully she can go home soon. Review of Systems 2 Review of Systems: Constitutional-no fever or chills ENT-no blurred vision, no double vision, no epistaxis, no sore throat Respiratory-no cough, no wheezing, no shortness of breath Cardiac-no palpitations, no chest pain, no syncope GI-no nausea, vomiting, diarrhea, melena, hematochezia -no urinary retention, no urinary incontinence, no dysuria, no hematuria Musculoskeletal-no joint pain, no muscle tenderness Skin-no bruising, no rashes, no pruritus Neuro-no isolated weakness, no paresthesia, no weakness Psych-no depression, no anxiety Physical Exam 2 Physical Exam: General-alert and oriented x3, no fevers, no chills HEENT-head atraumatic and normocephalic, pupils equal and reactive to light, extraocular muscles intact Neck-no lymphadenopathy or thyromegaly, trachea midline Chest- Faint bibasilar inspiratory rales. No wheezingi Cardiac-irregular rhythm. Controlled rate. Normal S1 and S2 Abdomen-normal bowel sounds, nontender, no hepatosplenomegaly Extremities-no cyanosis, clubbing, or edema Neuro-cranial nerves II through XII intact, motor and sensory function within normal limits, strength symmetrical, no focal deficits Psych-normal affect, normal mood Results & Data Results & Data Vital Signs (Past 12 Hours) Vital Signs Temp Pulse Pulse Resp BP Pulse Ox O2 Del Method 09/03/23 11:04 36.4 C L 92 H 18 114/69 96 Room Air 09/03/23 10:44 94 H 09/03/23 07:35 108 H 09/03/23 07:33 36.5 C 109 H 18 128/76 96 Nasal Cannula 09/03/23 02:40 36.5 C 94 H 16 136/87 96 Room Air O2 Flow Rate 09/03/23 11:04 09/03/23 10:44 09/03/23 07:35 09/03/23 07:33 3.0 09/03/23 02:40 Laboratory Results 09/03/23 05:36 09/03/23 05:36 PG Care Time/CCT Total # of Minutes Spent Total Time Spent with Patient: Total time spent is greater than 50% in coordination of care (as documented) at patient's floor/unit and/or counseling patient: Coding Level of Care Code 56454 SUB INP/OBS CARE 3/50MIN Diagnoses Torsades de pointes I47.21 Cardiogenic shock R57.0 Atrial fibrillation with rapid ventricular response I48.91 Chronic heart failure with preserved ejection fraction I50.32 Diabetes mellitus E11.9 Essential hypertension I10 Hypertension type: essential hypertension Hyperlipemia E78.5 Dysphagia R13.10 Mitral regurgitation I34.0 (6) Hypertension Hypertension type: essential hypertension Qualified Code(s): I10 - Essential (primary) hypertension
[2023-09-03] MEDS: DIGOXIN 0.25 MG TAB PO SCH (16:23)
[2023-09-03] MEDS: RIVAROXABAN 20 MG TAB PO SCH (16:23)
[2023-09-04 06:39] LABS: Basophils # (auto) 0.03 K/uL (0.00-0.20); Basophils % (auto) 0.5 %; Eosinophils # (auto) 0.15 K/uL (0.00-0.50); Eosinophils % (auto) 2.5 %; Hematocrit (blood only) 34.1 % (37.0-47.0); Hemoglobin 10.5 g/dl (12.0-16.0); Immature Granulocytes # (auto) 0.02 K/uL (0.01-0.20); Immature Granulocytes % (auto) 0.3 %; Lymphocytes # (auto) 0.95 K/uL (1.20-3.40); Lymphocytes % (auto) 15.7 %; Mean Corpuscular Hemoglobin 27.3 pg (25.0-34.0); Mean Corpuscular Hgb Conc 30.8 g/dL (32.0-36.0); Mean Corpuscular Volume 88.6 fL (80.0-100.0); Mean Platelet Volume 10.1 fL (9.4-12.4); Monocytes # (auto) 0.46 K/uL (0.11-0.59); Monocytes % (auto) 7.6 %; Neutrophils # (auto) 4.43 K/uL (1.40-6.50); Neutrophils % (auto) 73.4 %; Platelet Count 187 K/uL (130-400); RDW Coefficient of Variation 14.2 % (11.5-14.5); RDW Standard Deviation 45.3 fL (36.4-46.3); Red Blood Count 3.85 M/uL (4.20-5.40); White Blood Count 6.04 K/ul (4.8-10.8)
[2023-09-04 06:58] LABS: BUN Creatinine Ratio 31.1 (10-20); Calcium 8.5 mg/dl (8.6-10.3); Est GFR (African American) 91.9 ml/min; Est GFR (Non-African American) 79.3 ml/min; Magnesium 2.1 mg/dl (1.7-2.4); Phosphorus 3.6 mg/dl (2.5-4.9); Potassium 4.1 mmol/L (3.5-5.1)
[2023-09-04] MEDS: LANTUS PER UNIT CHARGE SC SCH (08:28)
[2023-09-04] MEDS: INSULIN ASPART PER UNIT CHARGE SC SCH ×4 (08:28→20:26)
[2023-09-04] MEDS: FUROSEMIDE 40 MG TAB PO SCH (09:09)
[2023-09-04] MEDS: METOPROLOL TARTRATE 25 MG TAB PO SCH (09:09)
[2023-09-04] MEDS: FAMOTIDINE 20 MG TAB PO SCH ×2 (09:09→20:25)
[2023-09-04] MEDS: RIVAROXABAN 20 MG TAB PO SCH (16:26)
[2023-09-04] MEDS: DIGOXIN 0.25 MG TAB PO SCH (16:26)
--- NOTE | 2023-09-04 18:53 | Hospitalist Progress Note ---
Date of Service September 04, 2023 Assessment & Plan (1) Torsades de pointes: Plan: Several episodes occurred during the evening of August 31. Dofetilide has been stopped. She does have QT prolongation per cardiology. Amiodarone will be avoided. She is now on metoprolol and digoxin. Heart rate jumps up in the 150s range upon ambulation Increase the dose of metoprolol to 50 mg p.o. twice daily. Continue digoxin (2) Cardiogenic shock: Plan: Resolved. All pressors including dopamine has been weaned off (3) Atrial fibrillation with rapid ventricular response: Plan: She underwent DC cardioversion via MAIKEL on August 31. She was started on dofetilide but this was discontinued due to onset of torsades during the evening of August 31. Telemetry. Appreciate cardiology consultation and management. ECHO report noted. Now rate controlled on metoprolol and digoxin at rest but on ambulation, heart rate shoots up to the 150s range. Increase the dose of metoprolol to 50 mg twice daily (4) Chronic heart failure with preserved ejection fraction: Plan: Suspect acute on chronic exacerbation. TTE on 08/20 shows HFpEF with new severe mitral regurgitation. She has received parenteral Lasix. Oral Lasix has been restarted. Chest x-rays look better. Monitor intake and output. Cardiology consultation and recommendations appreciated. (5) Diabetes mellitus: Plan: ADA diet. Sliding scale coverage. (6) Hypertension: Plan: Coreg and Entresto were held due to low blood pressure. She is now off dopamine. Will defer medical management to cardiology (7) Hyperlipemia: Plan: Stable. Continue statin therapy (8) Dysphagia: Plan: Speech therapy evaluation appreciated. (9) Mitral regurgitation: Plan: Seen on most recent cardiac echo. Cardiology consultation and recommendations appreciated. Plan Hopeful discharge to home soon once heart rate controlled on ambulation. OT and PT on board Admission and Anticipated Discharge Date Admission Date: August 30, 2023 Subjective Patient says that she walked today with physical therapy and became very tired. So tired that she fell asleep on the recliner. Per nurse, her heart rate went up to the 150s range upon ambulation. Review of Systems Review of Systems: All systems reviewed & are unremarkable except as noted in Subjective Physical Exam Physical Exam: General: Awake, conversant Heart: S1, S2/irregular rhythm, rate controlled, no murmur rubs or gallops Lungs: Clear to auscultation bilaterally. Normal effort Abdomen: Soft/nontender/nondistended. No hepatosplenomegaly Extremities: No clubbing/cyanosis. No edema Behavior: Appropriate, cooperative Results & Data Results & Data Vital Signs (Past 12 Hours) Vital Signs Temp Pulse Pulse Resp BP Pulse Ox O2 Del Method 09/04/23 15:22 36.7 C 104 H 18 116/72 95 Room Air 09/04/23 11:30 36.5 C 84 18 128/82 96 Room Air 09/04/23 08:00 Room Air 09/04/23 07:23 36.4 C L 85 18 131/84 92 Room Air 09/04/23 07:00 78 Laboratory Results Abnormal lab results 09/03/23 09/04/23 09/04/23 Range/Units 20:08 05:34 12:10 RBC 3.85 L (4.20-5.40) M/uL Hgb 10.5 L (12.0-16.0) g/dl Hct 34.1 L (37.0-47.0) % MCHC 30.8 L (32.0-36.0) g/dL Lymph # (Auto) 0.95 L (1.20-3.40) K/uL Chloride 109 H (98-107) mmol/L BUN/Creatinine Ratio 31.1 H (10-20) POC Glucose 146 H 121 H (70-99) mg/dl Calcium 8.5 L (8.6-10.3) mg/dl PG Care Time/CCT Total # of Minutes Spent Total Time Spent with Patient: Total time spent is greater than 50% in coordination of care (as documented) at patient's floor/unit and/or counseling patient: Coding Level of Care Code 69692 SUB INP/OBS CARE 2/35MIN Diagnoses Torsades de pointes I47.21 Cardiogenic shock R57.0 Atrial fibrillation with rapid ventricular response I48.91 Chronic heart failure with preserved ejection fraction I50.32 Diabetes mellitus E11.9 Essential hypertension I10 Hypertension type: essential hypertension Hyperlipemia E78.5 Dysphagia R13.10 Mitral regurgitation I34.0 (6) Hypertension Hypertension type: essential hypertension Qualified Code(s): I10 - Essential (primary) hypertension
[2023-09-04] MEDS: METOPROLOL TARTRATE 50 MG TAB PO SCH (20:25)
[2023-09-05] MEDS: INSULIN ASPART PER UNIT CHARGE SC SCH ×4 (08:55→21:31)
[2023-09-05] MEDS: LANTUS PER UNIT CHARGE SC SCH (08:56)
[2023-09-05] MEDS: METOPROLOL TARTRATE 50 MG TAB PO SCH (08:57)
[2023-09-05] MEDS: FAMOTIDINE 20 MG TAB PO SCH ×2 (08:57→20:18)
[2023-09-05] MEDS: FUROSEMIDE 40 MG TAB PO SCH (08:57)
--- NOTE | 2023-09-05 09:43 | Cardiology Progress Note ---
Date of Service September 05, 2023 Assessment & Plan (1) Atrial fibrillation with rapid ventricular response: (2) Torsades de pointes: (3) Chronic heart failure with preserved ejection fraction: (4) Mitral regurgitation: (5) Anticoagulant long-term use: (6) CAD (coronary artery disease): (7) Nonischemic cardiomyopathy: (8) Mild aortic stenosis: (9) Hypercholesterolemia: (10) Hypertension: Plan ASSESSMENT/PLAN: 1. Persistent atrial fibrillation with rapid ventricular response: Heart rate still mostly elevated but improved. Will increase metoprolol to tartrate to 100 mg twice daily. Continue digoxin and will order a true trough this afternoon. Would like to maintain a digoxin level of less than 1 if able. As attempted several antiarrhythmic therapies (amiodarone caused hyperthyroidism, EP recommended flecainide and propafenone but they were not tolerated, Multaq was ineffective, developed polymorphic ventricular tachycardia on Tikosyn). Has undergone multiple cardioversions only to revert back to atrial fibrillation. Has outpatient appointment with [facility] electrophysiology to consider ablation in September 2023. Continue anticoagulation for stroke risk reduction. Had significant hypotension on diltiazem. 2. Torsades de pointes: Occurred in December 2016 while on Levaquin. Once again had polymorphic ventricular tachycardia while hospitalized in August 2023 shortly after initiation of Tikosyn. Repeat ECG to evaluate QT. 3. Chronic heart failure with improved EF: She does not appear to be significantly hypervolemic. Despite intravenous diuretics during this hospital stay, her fluid balance does not suggest significant diuresis however she has had modest weight loss. Try to maintain even to slightly net negative fluid balance. Low-sodium diet. Strict I's and O's. Daily weights. Follows in the heart failure program. SGLT2 inhibitors were cost prohibitive. Had been on high-dose Entresto, which was stopped earlier this hospital stay while requiring pressor support briefly after ventricular tachycardia. Will adjust beta-christiana today for heart rate control and Entresto can be resumed soon at lower dose and titrate up as tolerated. 4. Mitral regurgitation: Nonsevere on transesophageal echo in August 2023. Continue to monitor as an outpatient. 5. Aortic stenosis: No significant stenosis on most recent echo imaging. 6. CAD: Minimal nonobstructive CAD in 2019. Risk factor modification. Resume high intensity statin therapy. Continue beta-christiana. 7. Nonischemic cardiomyopathy: Likely tachycardia induced in the past. LV systolic function has since normalized on medical therapy. As above. 8. Hypertension: Blood pressure has mostly been normotensive to mildly hypertensive over the past 24 hours but did require pressors a few days ago following ventricular tachycardia. Adjusting medical therapy as above. 9. Dyslipidemia: Resume statin therapy as her LDL in the past was 200. 10. Disposition: Plan of care communicated with primary hospitalist, Dr. Albert. Please call on-call shank scourer, Dr. Mesa for the next 2 days if further assistance is needed. Close follow-up in the outpatient setting. Admission and Anticipated Discharge Date Admission Date: August 30, 2023 Subjective Patient seen this morning. She still has dyspnea on exertion and orthopnea, but much better compared to on admission. She denies chest pain, palpitations, syncope. Her edema has improved. She was able to ambulate in the hallway with physical therapy. She recalls during her ventricular tachycardia earlier this hospital stay, she lost consciousness intermittently and was quite symptomatic. She was alone in her hospital room. Physical Exam Physical Exam: Gen.: No acute distress. Alert and oriented. HEENT: Anicteric sclera. Neck: No appreciable JVD or hepatojugular reflux but thick neck. Cardiac: No ventricular heave. Irregularly irregular and tachycardic. Normal S1-S2. 2/6 early peaking systolic ejection murmur. No rubs or gallops. Pulmonary: Clear to auscultation bilaterally without wheezes, rales, or rhonchi. Abdomen: Soft, nontender, nondistended, with normoactive bowel sounds. No bruits noted. Extremities: 2+ radial pulses bilaterally. 2+ posterior tibialis pulses bilaterally. No significant pitting edema. No cyanosis. Results & Data Vital Signs (Past 12 Hours) Vital Signs Temp Pulse Resp BP Pulse Ox O2 Del Method 09/05/23 07:12 36.5 C 109 H 17 145/90 H 93 Room Air 09/05/23 03:00 36.6 C 117 H 18 133/85 90 Room Air 09/04/23 23:00 36.5 C 88 16 146/82 H 96 Room Air Laboratory Results Laboratory Results - last 24 hr 09/04/23 09/04/23 09/04/23 12:10 16:30 20:13 POC Glucose 121 H 93 117 H Digoxin 01/03/24 01/03/24 05:49 07:54 POC Glucose 99 Digoxin 1.4 Diagnostic Findings Telemetry personally reviewed: Over the past 24 hours, atrial fibrillation with normal heart rates at times and otherwise rapid ventricular response but improved overall. Brief episode of possible AIVR. No significant pause. Labs reviewed and notable for digoxin level of 1.4 (not a true trough), mild anemia, stable renal function, normal potassium, normal magnesium. Hospitalist note reviewed from 09/04/2023. Medications Administered Current Inpatient Medications Dextrose (Dextrose 50% 50 Ml Syringe) 25 - 50 ml IV UD PRN; Protocol PRN Reason: Hypoglycemia Protocol Stop: 09/29/23 12:18 Digoxin (Digoxin 0.25 Mg Tab) 0.25 mg PO DAILY@1600 [facility] Stop: 10/03/23 15:59 Last Admin: 09/04/23 16:26 Dose: 0.25 mg Famotidine (Famotidine 20 Mg Tab) 20 mg PO BID [facility] Stop: 10/01/23 20:59 Last Admin: 09/05/23 08:57 Dose: 20 mg Furosemide (Furosemide 40 Mg Tab) 40 mg PO QAM [facility] Stop: 10/03/23 10:14 Last Admin: 09/05/23 08:57 Dose: 40 mg Glucagon (Glucagon For Inj 1 Mg Vial) 1 mg SQ UD PRN; Protocol PRN Reason: Hypoglycemia Protocol Stop: 09/29/23 12:18 Glucose (Glucose 10 Tab/Tube) 4 - 8 tab PO UD PRN; Protocol PRN Reason: Hypoglycemia Treatment Stop: 09/29/23 12:18 Glucose (Glucose 40% Gel 15 Gm Tube) 15 - 30 gm PO UD PRN; Protocol PRN Reason: Hypoglycemia Protocol Stop: 09/29/23 12:18 Insulin Aspart (Insulin Aspart Per Unit Charge) 0 units SC ACHS [facility] Stop: 10/01/23 09:44 Last Admin: 09/05/23 08:55 Dose: 6 units Insulin Glargine (Lantus Per Unit Charge) 12 units SC DAILY [facility] Stop: 10/02/23 08:59 Last Admin: 09/05/23 08:56 Dose: 12 units Metoclopramide HCl (Metoclopramide Hcl Inj 5 Mg/Ml 2 Ml Vial) 5 mg IV Q6H PRN PRN Reason: Nausea And Vomiting Stop: 10/01/23 09:44 Last Admin: 09/01/23 18:12 Dose: 5 mg Metoprolol Tartrate (Metoprolol Tartrate 1 Mg/Ml Vial) 5 mg IV Q5M PRN PRN Reason: Tachycardia Stop: 10/01/23 18:08 Last Admin: 09/01/23 19:03 Dose: 5 mg Metoprolol Tartrate (Metoprolol Tartrate 50 Mg Tab) 50 mg PO BID [facility] Stop: 10/04/23 20:59 Last Admin: 09/05/23 08:57 Dose: 50 mg Miscellaneous (Carbohydrates For Hypoglycemia ) 15 - 30 gm PO UD PRN PRN Reason: Hypoglycemia Protocol Stop: 09/29/23 12:18 Rivaroxaban (Rivaroxaban 20 Mg Tab) 20 mg PO QDD [facility] Stop: 09/29/23 16:29 Last Admin: 09/04/23 16:26 Dose: 20 mg PG Care Time/CCT Total # of Minutes Spent Total Time Spent with Patient: Total time spent is greater than 50% in coordination of care (as documented) at patient's floor/unit and/or counseling patient: Coding Level of Care Code 62085 SUB INP/OBS CARE 3/50MIN Diagnoses Atrial fibrillation with rapid ventricular response I48.91 Torsades de pointes I47.21 Chronic heart failure with preserved ejection fraction I50.32 Mitral regurgitation I34.0 Anticoagulant long-term use Z79.01 Coronary artery disease involving [place] coronary artery of [place] heart without angina pectoris I25.10 Coronary Disease-Associated Artery/Lesion type: [place] artery [place] vs. transplanted heart: [place] heart Associated angina: without angina Nonischemic cardiomyopathy I42.8 Mild aortic stenosis I35.0 Hypercholesterolemia E78.00 Essential hypertension I10 Hypertension type: essential hypertension (6) CAD (coronary artery disease) Coronary Disease-Associated Artery/Lesion type: [place] artery [place] vs. transplanted heart: [place] heart Associated angina: without angina Qualified Code(s): I25.10 - Atherosclerotic heart disease of [place] coronary artery without angina pectoris (10) Hypertension Hypertension type: essential hypertension Qualified Code(s): I10 - Essential (primary) hypertension
--- NOTE | 2023-09-05 14:13 | Hospitalist Progress Note ---
Date of Service September 05, 2023 Assessment & Plan (1) Torsades de pointes: Plan: Several episodes occurred during the evening of August 31. Dofetilide has been stopped. She does have QT prolongation per cardiology. Amiodarone will be avoided. She is now on metoprolol and digoxin. Heart rate jumps up in the 150s range upon ambulation Increase the dose of metoprolol to 50 mg p.o. twice daily. Cardiology increase it further to 100 mg p.o. twice daily Continue digoxin (2) Cardiogenic shock: Plan: Resolved. All pressors including dopamine has been weaned off (3) Atrial fibrillation with rapid ventricular response: Plan: She underwent DC cardioversion via MAIKEL on August 31. She was started on dofetilide but this was discontinued due to onset of torsades during the evening of August 31. Telemetry. Appreciate cardiology consultation and management. ECHO report noted. Now rate controlled on metoprolol and digoxin at rest but on ambulation, heart rate shoots up to the 150s range. Increased the dose of metoprolol to 50 mg twice daily. Cardiology increase it further to 100 mg p.o. twice daily (4) Chronic heart failure with preserved ejection fraction: Plan: Suspect acute on chronic exacerbation. TTE on 08/20 shows HFpEF with new severe mitral regurgitation. She has received parenteral Lasix. Oral Lasix has been restarted. Chest x-rays look better. Monitor intake and output. Cardiology consultation and recommendations appreciated. (5) Diabetes mellitus: Plan: ADA diet. Sliding scale coverage. (6) Hypertension: Plan: Coreg and Entresto were held due to low blood pressure. She is now off dopamine. Will defer medical management to cardiology (7) Hyperlipemia: Plan: Stable. Continue statin therapy (8) Dysphagia: Plan: Speech therapy evaluation appreciated. (9) Mitral regurgitation: Plan: Seen on most recent cardiac echo. Cardiology consultation and recommendations a ppreciated. Plan Hopeful discharge to home soon once heart rate controlled on ambulation. OT and PT on board Admission and Anticipated Discharge Date Admission Date: August 30, 2023 Subjective Patient says she feels better today. She does not feel as fatigued and washed out today. She was able to get out of bed and sit on the recliner without getting too tired and winded. The dose of metoprolol was increased to 50 twice daily. She got the higher dose of 50 this morning. Review of Systems Review of Systems: All systems reviewed & are unremarkable except as noted in Subjective Physical Exam Physical Exam: General: Awake, conversant Heart: S1, S2/irregular rhythm, rate controlled, no murmur rubs or gallops Lungs: Clear to auscultation bilaterally. Normal effort Abdomen: Soft/nontender/nondistended. No hepatosplenomegaly Extremities: No clubbing/cyanosis. No edema Behavior: Appropriate, cooperative Results & Data Results & Data Vital Signs (Past 12 Hours) Vital Signs Temp Pulse Pulse Resp BP Pulse Ox O2 Del Method 09/05/23 11:28 36.6 C 89 20 130/74 95 Room Air 09/05/23 08:00 111 H 09/05/23 07:12 36.5 C 109 H 17 145/90 H 93 Room Air 09/05/23 03:00 36.6 C 117 H 18 133/85 90 Room Air Laboratory Results Abnormal lab results 09/04/23 09/05/23 Range/Units 20:13 11:23 POC Glucose 117 H 145 H (70-99) mg/dl PG Care Time/CCT Total # of Minutes Spent Total Time Spent with Patient: Total time spent is greater than 50% in coordination of care (as documented) at patient's floor/unit and/or counseling patient: Coding Level of Care Code 74240 SUB INP/OBS CARE 2/35MIN Diagnoses Torsades de pointes I47.21 Cardiogenic shock R57.0 Atrial fibrillation with rapid ventricular response I48.91 Chronic heart failure with preserved ejection fraction I50.32 Diabetes mellitus E11.9 Essential hypertension I10 Hypertension type: essential hypertension Hyperlipemia E78.5 Dysphagia R13.10 Mitral regurgitation I34.0 (6) Hypertension Hypertension type: essential hypertension Qualified Code(s): I10 - Essential (primary) hypertension
[2023-09-05] MEDS: DIGOXIN 0.25 MG TAB PO SCH (16:43)
[2023-09-05] MEDS: RIVAROXABAN 20 MG TAB PO SCH (16:43)
[2023-09-05] MEDS: METOPROLOL TARTRATE 100 MG TAB PO SCH (20:18)
[2023-09-06] MEDS: LANTUS PER UNIT CHARGE SC SCH (07:52)
[2023-09-06] MEDS: INSULIN ASPART PER UNIT CHARGE SC SCH ×4 (07:52→20:53)
[2023-09-06] MEDS: METOPROLOL TARTRATE 100 MG TAB PO SCH ×2 (07:53→20:12)
[2023-09-06] MEDS: FAMOTIDINE 20 MG TAB PO SCH ×2 (07:53→20:12)
[2023-09-06] MEDS: FUROSEMIDE 40 MG TAB PO SCH (07:53)
--- NOTE | 2023-09-06 09:25 | Cardiology Progress Note ---
Date of Service September 06, 2023 Assessment & Plan (1) Atrial fibrillation with rapid ventricular response: (2) Torsades de pointes: (3) Chronic heart failure with preserved ejection fraction: (4) Mitral regurgitation: (5) Anticoagulant long-term use: (6) CAD (coronary artery disease): (7) Nonischemic cardiomyopathy: (8) Mild aortic stenosis: (9) Hypercholesterolemia: (10) Hypertension: Plan ASSESSMENT/PLAN: 1. Persistent atrial fibrillation with rapid ventricular response: Heart rate improved with additional Metoprolol. She's been well controlled at rest and at night. Rates increase to 110s-130s with activity. Continue metoprolol to tartrate 100 mg twice daily. Continue digoxin- level 1.7. Ideally would like to maintain a digoxin level of less than 1 if able. As attempted several antiarrhythmic therapies (amiodarone caused hyperthyroidism, EP recommended flecainide and propafenone but they were not tolerated, Multaq was ineffective, developed polymorphic ventricular tachycardia on Tikosyn). Has undergone multiple cardioversions only to revert back to atrial fibrillation. Has outpatient appointment with [facility] electrophysiology to consider ablation in September 2023. Continue anticoagulation for stroke risk reduction. Had significant hypotension on diltiazem. 2. Torsades de pointes: Occurred in December 2016 while on Levaquin. Once again had polymorphic ventricular tachycardia while hospitalized in August 2023 shortly after initiation of Tikosyn. Repeat ECG to evaluate QT. 3. Chronic heart failure with improved EF: She does not appear to be significantly hypervolemic. Despite intravenous diuretics during this hospital stay, her fluid balance does not suggest significant diuresis however she has had modest weight loss. Try to maintain even to slightly net negative fluid balance. Low-sodium diet. Strict I's and O's. Daily weights. Follows in the heart failure program. SGLT2 inhibitors were cost prohibitive. Had been on high-dose Entresto, which was stopped earlier this hospital stay while requiring pressor support briefly after ventricular tachycardia. BP has been adequate- would recommend resuming low dose Entresto later today. Can further titrate back to regular doses as outpatient. 4. Mitral regurgitation: Nonsevere on transesophageal echo in August 2023. Continue to monitor as an outpatient. 5. Aortic stenosis: No significant stenosis on most recent echo imaging. 6. CAD: Minimal nonobstructive CAD in 2019. Risk factor modification. Resume high intensity statin therapy. Continue beta-christiana. 7. Nonischemic cardiomyopathy: Likely tachycardia induced in the past. LV systolic function has since normalized on medical therapy. As above. 8. Hypertension: Blood pressure has mostly been normotensive to mildly hypertensive over the past 48 hours but did require pressors a few days ago following ventricular tachycardia. Adjusting medical therapy as above. 9. Dyslipidemia: Resume statin therapy as her LDL in the past was 200. 10. Disposition: Plan of care communicated with primary hospitalist, Dr. Albert. Close follow-up in the outpatient setting. Admission and Anticipated Discharge Date Admission Date: August 30, 2023 Subjective Patient sitting in the bedside chair. She is reports feeling improved. She denies SOB, chest pain, cough, palpitations. Heart rates 80s-100s at rest. 110- 130s with activity. She did ambulate the hallway x 2 yesterday. Fluid balance is positive however she has unmeasured voids. Weight is at her low end of normal. Physical Exam Physical Exam: Gen.: No acute distress. Alert and oriented. HEENT: Anicteric sclera. Neck: No appreciable JVD or hepatojugular reflux but thick neck. Cardiac: No ventricular heave. Irregularly irregular and tachycardic. Normal S1-S2. 2/6 early peaking systolic ejection murmur. No rubs or gallops. Pulmonary: Clear to auscultation bilaterally without wheezes, rales, or rhonchi. Abdomen: Soft, nontender, nondistended, with normoactive bowel sounds. No bruits noted. Extremities: 2+ radial pulses bilaterally. 2+ posterior tibialis pulses bilaterally. 1+ non-pitting edema. No cyanosis. Results & Data Vital Signs (Past 12 Hours) Vital Signs Temp Pulse Pulse Resp BP Pulse Ox O2 Del Method 09/06/23 08:33 81 09/06/23 07:29 97.7 F 114 H 18 144/86 H 96 Room Air 09/06/23 00:10 98.4 F 88 18 148/88 H 95 Room Air 09/06/23 00:00 85 Coding Level of Care Code 91779 SUB INP/OBS CARE 3/50MIN Diagnoses Atrial fibrillation with rapid ventricular response I48.91 Torsades de pointes I47.21 Chronic heart failure with preserved ejection fraction I50.32 Mitral regurgitation I34.0 Anticoagulant long-term use Z79.01 Coronary artery disease involving [place] coronary artery of [place] heart without angina pectoris I25.10 Associated angina: without angina Coronary Disease-Associated Artery/Lesion type: [place] artery [place] vs. transplanted heart: [place] heart Nonischemic cardiomyopathy I42.8 Mild aortic stenosis I35.0 Hypercholesterolemia E78.00 Essential hypertension I10 Hypertension type: essential hypertension (6) CAD (coronary artery disease) Associated angina: without angina Coronary Disease-Associated Artery/Lesion type: [place] artery [place] vs. transplanted heart: [place] heart Qualified Code(s): I25.10 - Atherosclerotic heart disease of [place] coronary artery without angina pectoris (10) Hypertension Hypertension type: essential hypertension Qualified Code(s): I10 - Essential (primary) hypertension
--- NOTE | 2023-09-06 13:10 | Hospitalist Progress Note ---
Date of Service September 06, 2023 Assessment & Plan (1) Torsades de pointes: Plan: Several episodes occurred during the evening of August 31. Dofetilide has been stopped. She does have QT prolongation per cardiology. Amiodarone will be avoided. She is now on metoprolol and digoxin. Heart rate has been more stable even with ambulation. Went up to 127 today on ambulation which is better than the last few days Continue metoprolol 100 mg p.o. twice daily Digoxin dose has been reduced to 0.125 mg by cardiology (2) Cardiogenic shock: Plan: Resolved. All pressors including dopamine has been weaned off (3) Atrial fibrillation with rapid ventricular response: Plan: Multiple antiarrhythmic agents (amiodarone, flecainide, propafenone, Multaq, Tikosyn) failed in the past or were not tolerated. She has undergone multiple cardioversions as well but reverted back to atrial fibrillation She has an appointment with [facility] cardiology to consider ablation this month Continue Xarelto for stroke prevention Being treated for rate control with metoprolol Continue digoxin but cardiology lowered the dose today (4) Chronic heart failure with preserved ejection fraction: Plan: Patient is not overloaded today Follows the heart failure program Entresto resumed today cardiology Continue beta-christiana for heart rate control Patient most likely had tachycardia induced nonischemic cardiomyopathy in the past. LV systolic function has since normalized (5) Diabetes mellitus: Plan: ADA diet. Sliding scale coverage. (6) Hypertension: Plan: Coreg held due to low blood pressure. She is now off dopamine. Entresto resumed by cardiology (7) Hyperlipemia: Plan: Stable. Continue statin therapy (8) Dysphagia: Plan: Speech therapy evaluation appreciated. (9) Mitral regurgitation: Plan: Seen on most recent cardiac echo. Cardiology consultation and recommendations appreciated. Plan Likely discharge tomorrow provided heart rate remains controlled on ambulation Admission and Anticipated Discharge Date Admission Date: August 30, 2023 Subjective Patient says she feels better. She had a walk today and her heart rate went up to as high as 127. She is doing better with mobility and ambulation. Less winded today. She would like to walk this evening again and if she continues to do well, she would like to go home tomorrow. Review of Systems Review of Systems: All systems reviewed & are unremarkable except as noted in Subjective Physical Exam Physical Exam: General: Awake, conversant Heart: S1, S2/irregular rhythm, rate controlled, no murmur rubs or gallops Lungs: Clear to auscultation bilaterally. Normal effort Abdomen: Soft/nontender/nondistended. No hepatosplenomegaly Extremities: No clubbing/cyanosis. No edema Behavior: Appropriate, cooperative Results & Data Results & Data Vital Signs (Past 12 Hours) Vital Signs Temp Pulse Pulse Resp BP Pulse Ox O2 Del Method 09/06/23 12:00 36.6 C 103 H 20 152/86 H 96 Room Air 09/06/23 08:33 81 09/06/23 07:29 36.5 C 114 H 18 144/86 H 96 Room Air Laboratory Results Abnormal lab results 09/05/23 09/05/23 09/06/23 Range/Units 16:12 21:27 11:24 POC Glucose 100 H 108 H 114 H (70-99) mg/dl PG Care Time/CCT Total # of Minutes Spent Total Time Spent with Patient: Total time spent is greater than 50% in coordination of care (as documented) at patient's floor/unit and/or counseling patient: Coding Level of Care Code 22019 SUB INP/OBS CARE 2/35MIN Diagnoses Torsades de pointes I47.21 Cardiogenic shock R57.0 Atrial fibrillation with rapid ventricular response I48.91 Chronic heart failure with preserved ejection fraction I50.32 Diabetes mellitus E11.9 Essential hypertension I10 Hypertension type: essential hypertension Hyperlipemia E78.5 Dysphagia R13.10 Mitral regurgitation I34.0 (6) Hypertension Hypertension type: essential hypertension Qualified Code(s): I10 - Essential (primary) hypertension
--- NOTE | 2023-09-06 14:56 | Electrocardiogram Report ---
Test Reason : Blood Pressure : / mmHG Vent. Rate : 098 BPM Atrial Rate : 394 BPM P-R Int : 000 ms QRS Dur : 086 ms QT Int : 350 ms P-R-T Axes : 000 015 059 degrees QTc Int : 446 ms Atrial fibrillation Nonspecific T wave abnormality Abnormal ECG When compared with ECG of 02-SEP-2023 04:45, Nonspecific T wave abnormality has replaced inverted T waves in Anterior leads Confirmed by Doc Mesa ([id number] on 09/06/2023 2:56:09 PM Referred By: Pradip Martinez Confirmed By:Doc Mesa
[2023-09-06] MEDS: RIVAROXABAN 20 MG TAB PO SCH (15:56)
[2023-09-06] MEDS ORDERED: DIGOXIN 0.125 MG TAB PO SCH (16:00)
[2023-09-06] MEDS: VALSARTAN/SACUBITRIL 26/24MG TAB PO SCH (20:12)
[2023-09-06 23:55] VITALS: RESP 18
[2023-09-07 07:32] VITALS: BP 141/86; TEMP 98.6; O2SAT 96
[2023-09-07] MEDS: INSULIN ASPART PER UNIT CHARGE SC SCH ×2 (08:15→11:39)
[2023-09-07] MEDS: VALSARTAN/SACUBITRIL 26/24MG TAB PO SCH (08:16)
[2023-09-07] MEDS: FAMOTIDINE 20 MG TAB PO SCH (08:16)
[2023-09-07] MEDS: METOPROLOL TARTRATE 100 MG TAB PO SCH (08:16)
[2023-09-07] MEDS: FUROSEMIDE 40 MG TAB PO SCH (08:16)
[2023-09-07] MEDS: LANTUS PER UNIT CHARGE SC SCH (08:25)
--- NOTE | 2023-09-07 09:38 | Cardiology Progress Note ---
Date of Service September 07, 2023 Assessment & Plan (1) Atrial fibrillation with rapid ventricular response: (2) Torsades de pointes: (3) Chronic heart failure with preserved ejection fraction: (4) Mitral regurgitation: (5) Anticoagulant long-term use: (6) CAD (coronary artery disease): (7) Nonischemic cardiomyopathy: (8) Mild aortic stenosis: (9) Hypercholesterolemia: (10) Hypertension: Plan ASSESSMENT/PLAN: 1. Persistent Atrial Fibrillation with improved rate control: Heart rate improved with additional Metoprolol -- resting HR in the 70's currently, exaggerated HR response with ambulation. Rates increase to 110s-130s with activity. Currently on Metoprolol Tartrate 100 mg twice daily and Digoxin. Most recent Digoxin level was 1.7. Ideally would like to maintain a digoxin level of less than 1 if able. Patient has been tried on several antiarrhythmic therapies in the past (Amiodarone caused hyperthyroidism, EP recommended Flecainide and Propafenone but they were not tolerated, Multaq was ineffective, and she developed polymorphic ventricular tachycardia on Tikosyn). Has undergone multiple cardioversions only to revert back to atrial fibrillation. Patient has an outpatient appointment with [facility] [place] [facility] Electrophysiology to discuss/arrange PVI in September 2023. Continue anticoagulation for stroke risk reduction. Please note that she had had significant hypotension in the past on Diltiazem. -- Increase Metoprolol Tartrate to 125 mg b.i.d. for better rate control with ambulation. 2. Torsades de pointes: -- Occurred in December 2016 while on Levaquin. -- Once again had polymorphic ventricular tachycardia while hospitalized in August 2023 shortly after initiation of Tikosyn. Repeat EKG on 09/06/23 showed a corrected QT interval of 446 msec. 3. Chronic CHF with improved EF: She does not appear to be significantly hypervolemic. Despite intravenous diuretics during this hospital stay, her fluid balance does not suggest significant diuresis however she has only had modest weight loss. Try to maintain even to slightly net negative fluid balance. Low-sodium diet. Strict I's and O's. Daily weights. Continue follow-up in [facility] heart failure program. SGLT2 inhibitors were cost prohibitive. Had been on high-dose Entresto, which was stopped earlier this hospital stay while requiring pressor support briefly after ventricular tachycardia. BP has been adequate -- so yesterday low dose Entresto was initiated. We can further titrate her dose as an outpatient. 4. Mitral Regurgitation: -- Nonsevere on transesophageal echo in August 2023. -- Continue to monitor as an outpatient. 5. Aortic Stenosis: -- No significant stenosis on most recent echo imaging. 6. CAD: -- Minimal nonobstructive CAD in 2019. -- Continue risk factor modification. -- High intensity statin therapy. -- Continue beta-jose j. 7. Non-ischemic Cardiomyopathy: -- Likely tachycardia induced in the past. -- Patient's LV systolic function has since normalized on medical therapy. -- Continue Entresto and Beta-Jose J 8. Hypertension: -- Blood pressure has been normotensive to mildly hypertensive over the past 24 hours but she did require pressors a few days ago following ventricular tachycardia. -- Adjusting medical therapy as above. 9. Dyslipidemia: -- Resume statin therapy as her LDL in the past was 200 mg/dL. 10. Disposition: -- Stable for discharge to home from our standpoint. -- Close follow-up in the outpatient setting. Admission and Anticipated Discharge Date Admission Date: August 30, 2023 Subjective Mrs. Hendricks states that she feels tired today but has not been sleeping well since being hospitalized...it's too noisy. She is sitting in a bedside chair and is anxious to go home where she knows she will rest/sleep better. She remains in A-Fib and her V-rate appears to be very well controlled when at rest, however with ambulation she develops an exaggerated HR response with rates in the upper 120's and low 130's. She also has some exertional dyspnea at the end of walking a lap around the ICU. She recovers her breathing very quickly and overall her breathing is much improved. She will ambulate again in a little bit and depending on her HR response we may increase her Lopressor dose. Patient denies any chest pain, heaviness, tightness, or pressure. She denies any exertional neck, jaw, back, or arm pain. She denies joce orthopnea or PND. She denies any syncope or near syncope. Review of Systems Review of Systems: -- 10 point ROS was completed and is neg ative with the exception of what is mentioned in the HPI. Physical Exam Physical Exam: BP 141/86. Pulse 72 and irregularly irregular at rest. SpO2 96% on RA. RR 15 and unlabored. GENERAL: Patient in no acute distress. HEENT: Head is atraumatic, normocephalic. EOM's intact. Facies symmetric. No perioral cyanosis. NECK: No JVD. JVP is not elevated. Carotid upstrokes are + 2 bilaterally without obvious bruits. CHEST/LUNGS: Clear to auscultation throughout all lung claros. No wheezes, rales, or crackles. CVS: S1 and S2 are irregularly irregular at a rate of 70 to 75 bpm at rest. There is a grade 2/6 holosystolic murmur at the LSB. No diastolic murmurs. No gallops or rubs. PMI is nonpalpable. No lifts, heaves, or thrills. No abdominal aortic or renal bruits. ABDOMINAL EXAM: Bowel sounds are present. No masses, organomegaly, or tenderness. EXTREMITIES: No clubbing or cyanosis. +1 non-pitting distal leg edema bilaterally. Intact posterior tibial and radial pulses bilaterally. NEUROLOGIC EXAM: Patient is awake, alert, and oriented. Pleasant and cooperative. Answers questions appropriately. Speech is clear. [employer]: -- Atrial fibrillation with controlled V -rate at rest. -- HR response is exaggerated with activ ity/walking. Results & Data Vital Signs (Past 12 Hours) Vital Signs Temp Pulse Pulse Resp BP Pulse Ox O2 Del Method 09/07/23 07:36 99 H 09/07/23 07:31 37.0 C 100 H 18 141/86 H 96 Room Air 09/07/23 04:00 36.6 C 94 H 18 139/87 97 Room Air 09/06/23 23:54 36.6 C 95 H 18 156/92 H 97 Room Air 09/06/23 22:48 89 Laboratory Results Laboratory Results - last 24 hr 09/06/23 09/06/23 09/06/23 11:24 16:04 20:16 POC Glucose 114 H 117 H 121 H 09/07/23 07:23 POC Glucose 106 H Medications Administered Medication List Digoxin (Digoxin 0.125 Mg Tab) 0.125 mg PO DAILY@1600 ZOYA Stop: 10/06/23 15:59 Last Admin: 09/06/23 15:56 Dose: 0.125 mg Documented By: LIZY Famotidine (Famotidine 20 Mg Tab) 20 mg PO BID ZOYA Stop: 10/01/23 20:59 Last Admin: 09/07/23 08:16 Dose: 20 mg Documented By: Admin: 09/06/23 20:12 Dose: 20 mg Documented By: Admin: 09/06/23 07:53 Dose: 20 mg Documented By: Admin: 09/05/23 20:18 Dose: 20 mg Documented By: Admin: 09/05/23 08:57 Dose: 20 mg Documented By: Admin: 09/04/23 20:25 Dose: 20 mg Documented By: Admin: 09/04/23 09:09 Dose: 20 mg Documented By: Admin: 09/03/23 20:35 Dose: 20 mg Documented By: Admin: 09/03/23 09:56 Dose: 20 mg Documented By: Admin: 09/02/23 20:25 Dose: 20 mg Documented By: Admin: 09/02/23 09:01 Dose: 20 mg Documented By: Admin: 09/01/23 21:29 Dose: 20 mg Documented By: JENI Furosemide (Furosemide 40 Mg Tab) 40 mg PO QA ZOYA Stop: 10/03/23 10:14 Last Admin: 09/07/23 08:16 Dose: 40 mg Documented By: Admin: 09/06/23 07:53 Dose: 40 mg Documented By: Admin: 09/05/23 08:57 Dose: 40 mg Documented By: Admin: 09/04/23 09:09 Dose: 40 mg Documented By: Admin: 09/03/23 10:45 Dose: 40 mg Documented By: Insulin Aspart (Insulin Aspart Per Unit Charge) 0 units SC ACHS ZOYA Stop: 10/01/23 09:44 Last Admin: 09/07/23 08:15 Dose: 2 units Documented By: LIZY Co-signed By: BARBARA Admin: 09/06/23 20:53 Dose: Not Given Documented By: Admin: 09/06/23 16:35 Dose: 5 units Documented By: LIZY Co-signed By: MARIO Admin: 09/06/23 11:30 Dose: 5 units Documented By: LIZY Co-signed By: MARIO Admin: 09/06/23 07:52 Dose: 2 units Documented By: LIZY Co-signed By: MARIO Admin: 09/05/23 21:31 Dose: Not Given Documented By: Admin: 09/05/23 16:41 Dose: 4 units Documented By: CHETNA Co-signed By: MARIO Admin: 09/05/23 11:35 Dose: 5 units Documented By: CHETNA Co-signed By: YUE Admin: 09/05/23 08:55 Dose: 6 units Documented By: CHETNA Co-signed By: MARIO Admin: 09/04/23 20:26 Dose: Not Given Documented By: JOLLY Co-signed By: MARY Admin: 09/04/23 17:47 Dose: 4 units Documented By: MARCELO Co-signed By: NEHA Admin: 09/04/23 12:45 Dose: 3 units Documented By: MARCELO Co-signed By: SARAH Admin: 09/04/23 08:28 Dose: 4 units Documented By: SS Co-signed By: SUNIL Admin: 09/03/23 20:36 Dose: 1 units Documented By: MADELYN Co-signed By: STANLEY Admin: 09/03/23 17:55 Dose: 4 units Documented By: Co-signed By: SARAH Admin: 09/03/23 12:57 Dose: 3 units Documented By: Co-signed By: NEHA Admin: 09/03/23 09:50 Dose: 3 units Documented By: Co-signed By: NEHA Admin: 09/02/23 20:21 Dose: Not Given Documented By: Admin: 09/02/23 16:40 Dose: 6 units Documented By: GPF Co-signed By: DELFINA Admin: 09/02/23 11:38 Dose: 3 units Documented By: GPF Co-signed By: DELFINA Admin: 09/02/23 07:56 Dose: Not Given Documented By: Admin: 09/01/23 20:49 Dose: Not Given Documented By: JENI Co-signed By: MCKENNA Admin: 09/01/23 16:57 Dose: 1 units Documented By: GPF Co-signed By: BRISEIDA Admin: 09/01/23 12:01 Dose: 3 units Documented By: GPF Co-signed By: LIZY Admin: 09/01/23 10:11 Dose: 5 units Documented By: GPF Co-signed By: LIZY Insulin Glargine (Lantus Per Unit Charge) 12 units SC DAILY [facility] Stop: 10/02/23 08:59 Last Admin: 09/07/23 08:25 Dose: 12 units Documented By: LIZY Co-signed By: BARBARA Admin: 09/06/23 07:52 Dose: 12 units Documented By: LIZY Co-signed By: MARIO Admin: 09/05/23 08:56 Dose: 12 units Documented By: CHETNA Co-signed By: MARIO Admin: 09/04/23 08:28 Dose: 12 units Documented By: MARCELO Co-signed By: SUNIL Admin: 09/03/23 09:54 Dose: 12 units Documented By: Co-signed By: SARAH Admin: 09/02/23 09:00 Dose: 12 units Documented By: SUSHMA Co-signed By: DELFINA Metoclopramide HCl (Metoclopramide Hcl Inj 5 Mg/Ml 2 Ml Vial) 5 mg IV Q6H PRN PRN Reason: Nausea And Vomiting Stop: 10/01/23 09:44 Last Admin: 09/01/23 18:12 Dose: 5 mg Documented By: Admin: 09/01/23 09:43 Dose: 5 mg Documented By: SUSHMA Metoprolol Tartrate (Metoprolol Tartrate 1 Mg/Ml Vial) 5 mg IV Q5M PRN PRN Reason: Tachycardia Stop: 10/01/23 18:08 Last Admin: 09/01/23 19:03 Dose: 5 mg Documented By: SUSHMA Metoprolol Tartrate (Metoprolol Tartrate 100 Mg Tab) 100 mg PO BID [facility] Stop: 10/05/23 20:59 Last Admin: 09/07/23 08:16 Dose: 100 mg Documented By: Admin: 09/06/23 20:12 Dose: 100 mg Documented By: Admin: 09/06/23 07:53 Dose: 100 mg Documented By: Admin: 09/05/23 20:18 Dose: 100 mg Documented By: DOMENICA Rivaroxaban (Rivaroxaban 20 Mg Tab) 20 mg PO QDD [facility] Stop: 09/29/23 16:29 Last Admin: 09/06/23 15:56 Dose: 20 mg Documented By: Admin: 09/05/23 16:43 Dose: 20 mg Documented By: Admin: 09/04/23 16:26 Dose: 20 mg Documented By: Admin: 09/03/23 16:23 Dose: 20 mg Documented By: Admin: 09/02/23 16:40 Dose: 20 mg Documented By: Admin: 09/01/23 16:57 Dose: 20 mg Documented By: Admin: 08/31/23 18:40 Dose: 20 mg Documented By: Admin: 08/30/23 18:41 Dose: 20 mg Documented By: HS Sacubitril/Valsartan (Valsartan/Sacubitril 26/24mg Tab) 1 tab PO BID ZOYA Stop: 10/06/23 20:59 Last Admin: 09/07/23 08:16 Dose: 1 tab Documented By: Admin: 09/06/23 20:12 Dose: 1 tab Documented By: VK Discontinued Medications Amiodarone HCl/Dextrose (Amiodarone 360mg / 200ml D5w) Confirm Administered Dose 360 mg IV .STK-MED ONE Stop: 09/01/23 01:40 Last Admin: 09/01/23 04:00 Dose: Not Given Documented By: MCKENNA Amiodarone HCl/Dextrose (Amiodarone 150mg / 100ml D5w) Confirm Administered Dose 150 mg IV .STK-MED ONE Stop: 09/01/23 01:51 Last Admin: 09/01/23 04:18 Dose: Not Given Documented By: LEMUEL Amiodarone HCl/Dextrose (Amiodarone 360mg / 200ml D5w) Confirm Administered Dose 360 mg IV .STK-MED ONE Stop: 09/01/23 02:43 Last Admin: 09/01/23 04:04 Dose: Not Given Documented By: MCKENNA Anastrozole (Anastrozole 1 Mg Tab) 1 mg PO QAM [facility] Stop: 09/30/23 08:59 Last Admin: 08/31/23 10:29 Dose: 1 mg Documented By: NIDIA Co-signed By: LIZY(2) Benzocaine/Butamben/Tetracaine HCl (Benzocaine/Tetracain/Butam 50 Appln/5 Gm Ca n) Confirm Administered Dose 50 appln EXT .STK-MED ONE Stop: 08/31/23 06:50 Last Admin: 08/31/23 10:14 Dose: Not Given Documented By: NIDIA Calcium Chloride (Calcium Chloride 10% 10 Ml Syr) Confirm Administered Dose 1,000 mg IV .STK-MED ONE Stop: 09/01/23 03:11 Last Admin: 09/01/23 04:11 Dose: Not Given Documented By: MCKENNA Carvedilol (Carvedilol 25 Mg Tab) 25 mg PO BID [facility] Stop: 09/29/23 20:59 Last Admin: 08/31/23 23:38 Dose: 25 mg Documented By: Admin: 08/31/23 21:03 Dose: Not Given Documented By: Admin: 08/31/23 10:41 Dose: Not Given Documented By: Admin: 08/30/23 21:38 Dose: 25 mg Documented By: RAVEN Digoxin (Digoxin 0.25 Mg Tab) 0.25 mg PO DAILY@1600 [facility] Stop: 10/03/23 15:59 Last Admin: 09/05/23 16:43 Dose: 0.25 mg Documented By: Admin: 09/04/23 16:26 Dose: 0.25 mg Documented By: Admin: 09/03/23 16:23 Dose: 0.25 mg Documented By: Digoxin (Digoxin 0.25 Mg Tab) 0.25 mg PO NOW ONE Stop: 09/03/23 10:14 Last Admin: 09/03/23 10:44 Dose: 0.25 mg Documented By: Dofetilide (Dofetilide 125 Mcg Capsule) 500 mcg PO BID [facility] Stop: 09/29/23 20:59 Last Admin: 08/31/23 21:06 Dose: 500 mcg Documented By: Admin: 08/31/23 10:29 Dose: 500 mcg Documented By: Admin: 08/30/23 21:38 Dose: 500 mcg Documented By: RAVEN Dopamine HCl/Dextrose (Dopamine 400mg / 250ml D5w) Confirm Administered Dose 400 mg IV .STK-MED ONE Stop: 09/01/23 03:06 Last Admin: 09/01/23 04:11 Dose: Not Given Documented By: MCKENNA Fentanyl Citrate (Fentanyl Citrate Pf 100 Mcg/2 Ml Vial) Confirm Administered Dose 100 mcg .ROUTE .STK-MED ONE Stop: 09/01/23 01:53 Last Admin: 09/01/23 04:17 Dose: Not Given Documented By: LEMUEL Fentanyl Citrate (Fentanyl Citrate Pf 100 Mcg/2 Ml Vial) 50 mcg IV NOW STA Stop: 09/01/23 02:49 Last Admin: 09/01/23 01:53 Dose: 50 mcg Documented By: LEMUEL Furosemide (Furosemide 40 Mg/4 Ml Vial) 40 mg IV ONE ONE Stop: 08/30/23 10:23 Last Admin: 08/30/23 11:20 Dose: Not Given Documented By: MMSilviano Furosemide (Furosemide 40 Mg/4 Ml Vial) 40 mg IV ONE ONE Stop: 08/30/23 18:16 Last Admin: 08/30/23 18:41 Dose: 40 mg Documented By: LAUREEN Furosemide (Furosemide 40 Mg Tab) 40 mg PO NOW ONE Stop: 08/31/23 11:07 Last Admin: 08/31/23 11:21 Dose: 40 mg Documented By: NAHUN Furosemide (Furosemide 40 Mg/4 Ml Vial) 40 mg IV ONE ONE Stop: 08/31/23 17:01 Last Admin: 08/31/23 17:58 Dose: 40 mg Documented By: RAIN Digoxin 500 mcg/ Syringe 2 mls @ 2 mls/min IV ONE ONE Stop: 08/30/23 10:22 Last Admin: 08/30/23 10:46 Dose: 2 mls/min Documented By: ZAHIDA Sodium Chloride (Nss) 250 mls @ 999 mls/hr IV .Q16M ONE Stop: 08/30/23 11:00 Last Infusion: 08/30/23 11:15 Dose: Infused Documented By: Admin: 08/30/23 10:50 Dose: 999 mls/hr Documented By: ZAHIDA Magnesium Sulfate/Dextrose (Magnesium Sulfate / D5w) 1 gm in 100 mls @ 100 mls/hr IV NOW STA Stop: 08/30/23 11:52 Last Infusion: 08/30/23 13:44 Dose: Infused Documented By: ES(2) Admin: 08/30/23 10:55 Dose: 100 mls/hr Documented By: ZAHIDA Digoxin 250 mcg/ Syringe 10 mls @ 2 mls/min IV Q6H [facility]OYA Stop: 08/30/23 22:04 Last Admin: 08/30/23 22:11 Dose: 2 mls/min Documented By: Admin: 08/30/23 16:58 Dose: 2 mls/min Documented By: LAUREEN Famotidine 20 mg/ Syringe 5 mls @ 2.5 mls/min IV NOW ONE Stop: 08/31/23 18:31 Last Admin: 08/31/23 19:08 Dose: 2.5 mls/min Documented By: RAIN Famotidine 20 mg/ Syringe 5 mls @ 2.5 mls/min IV Q12 [facility] Stop: 10/01/23 08:59 Last Admin: 09/01/23 08:40 Dose: 2.5 mls/min Documented By: GPAnastasiya Magnesium Sulfate/Dextrose (Magnesium Sulfate / D5w) 1 gm in 100 mls @ 50 mls/hr IV ONE ONE Stop: 09/01/23 02:27 Last Infusion: 09/01/23 04:11 Dose: Infused Documented By: Admin: 09/01/23 00:42 Dose: 50 mls/hr Documented By: LEMUEL Amiodarone HCl/Dextrose (Nexterone / D5w) 360 mg in 200 mls @ 16.667 mls/hr IV .Q12H [facility] Stop: 10/01/23 02:47 Last Infusion: 09/01/23 06:14 Dose: Infused Documented By: JENI Co-signed By: MCKENNA Infusion: 09/01/23 03:50 Dose: 0 mg/min, 0 mls/hr Documented By: MCKENNA Co-signed By: LEMUEL Admin: 09/01/23 02:48 Dose: 0.5 mg/min, 16.7 mls/hr Documented By: MCKENNA Co-signed By: JENI Norepinephrine Bitartrate (Levophed/D5w) 4 mg in 250 mls @ 0 mls/hr IV .Q0M ZOYA; Protocol Stop: 10/01/23 02:47 Last Titration: 09/01/23 06:15 Dose: Infused Documented By: Titration: 09/01/23 05:00 Dose: 0 mcg/kg/min, 0 mls/hr Documented By: Titration: 09/01/23 04:30 Dose: 0.02 mcg/kg/min, 10 mls/hr Documented By: Titration: 09/01/23 04:10 Dose: 0.05 mcg/kg/min, 25.1 mls/hr Documented By: Titration: 09/01/23 04:00 Dose: 0.08 mcg/kg/min, 40.2 mls/hr Documented By: Titration: 09/01/23 03:50 Dose: 0.1 mcg/kg/min, 50.2 mls/hr Documented By: Titration: 09/01/23 03:35 Dose: 0.2 mcg/kg/min, 100.4 mls/hr Documented By: Titration: 09/01/23 03:30 Dose: 0.18 mcg/kg/min, 90.4 mls/hr Documented By: Titration: 09/01/23 03:25 Dose: 0.16 mcg/kg/min, 80.3 mls/hr Documented By: Titration: 09/01/23 03:20 Dose: 0.14 mcg/kg/min, 70.3 mls/hr Documented By: Titration: 09/01/23 03:14 Dose: 0.12 mcg/kg/min, 60.3 mls/hr Documented By: Titration: 09/01/23 03:06 Dose: 0.1 mcg/kg/min, 50.2 mls/hr Documented By: Titration: 09/01/23 03:01 Dose: 0.09 mcg/kg/min, 45.2 mls/hr Documented By: Titration: 09/01/23 02:55 Dose: 0.07 mcg/kg/min, 35.1 mls/hr Documented By: Admin: 09/01/23 02:48 Dose: 0.05 mcg/kg/min, 25.1 mls/hr Documented By: MCKENNA Co-signed By: JENI Vasopressin 20 units/ Sodium (Chloride) 101 mls @ 9.09 mls/hr IV .Q11H7M [facility]OYA; Protocol Stop: 10/01/23 02:47 Last Admin: 09/01/23 04:06 Dose: Not Given Documented By: MCKENNA Vasopressin 20 units/ Sodium (Chloride) 101 mls @ 12.12 mls/hr IV .Q8H20M ZOYA; Protocol Stop: 10/01/23 02:47 Last Infusion: 09/01/23 06:14 Dose: Infused Documented By: Infusion: 09/01/23 05:33 Dose: 0 unit/min, 0 mls/hr Documented By: Admin: 09/01/23 03:00 Dose: 0.04 unit/min, 12.1 mls/hr Documented By: MCKENNA Co-signed By: JENI Calcium Chloride 500 mg/ (Dextrose) 55 mls @ 240 mls/hr IV NOW STA Stop: 09/01/23 03:10 Last Admin: 09/01/23 04:06 Dose: Not Given Documented By: MCKENNA Calcium Chloride 1,000 mg/ (Dextrose) 60 mls @ 240 mls/hr IV NOW STA Stop: 09/01/23 03:37 Last Infusion: 09/01/23 04:20 Dose: Infused Documented By: Admin: 09/01/23 04:03 Dose: 240 mls/hr Documented By: MCKENNA Dopamine HCl/Dextrose (Dopamine / D5w) 400 mg in 250 mls @ 0 mls/hr IV .Q0M [facility]; Protocol Stop: 10/01/23 03:14 Last Titration: 09/02/23 09:24 Dose: Infused Documented By: Titration: 09/01/23 18:10 Dose: 0 mcg/kg/min, 0 mls/hr Documented By: Titration: 09/01/23 17:57 Dose: 5 mcg/kg/min, 25.1 mls/hr Documented By: Admin: 09/01/23 15:13 Dose: 7.5 mcg/kg/min, 37.7 mls/hr Documented By: SUSHMA Co-signed By: LIZY Titration: 09/01/23 15:13 Dose: Infused Documented By: SUSHMA Co-signed By: LIZY Admin: 09/01/23 08:40 Dose: 7.5 mcg/kg/min, 37.7 mls/hr Documented By: GPF Co-signed By: LIZY Titration: 09/01/23 08:40 Dose: Infused Documented By: GPF Co-signed By: LIZY Titration: 09/01/23 06:39 Dose: 7.5 mcg/kg/min, 37.7 mls/hr Documented By: Titration: 09/01/23 03:50 Dose: 10 mcg/kg/min, 50.2 mls/hr Documented By: Admin: 09/01/23 03:05 Dose: 2.5 mcg/kg/min, 12.6 mls/hr Documented By: MCKENNA Co-signed By: JENI Lorazepam 0.25 mg/ Syringe 0.25 mls @ 2 mls/min IV NOW STA Stop: 09/01/23 04:02 Last Admin: 09/01/23 04:13 Dose: 2 mls/min Documented By: MCKENNA Digoxin 500 mcg/ Syringe 10 mls @ 2 mls/min IV ONE ONE Stop: 09/01/23 18:44 Last Admin: 09/01/23 18:38 Dose: 2 mls/min Documented By: SUSHMA Digoxin 250 mcg/ Syringe 10 mls @ 2 mls/min IV ONE ONE Stop: 09/01/23 22:49 Last Admin: 09/01/23 22:55 Dose: 2 mls/min Documented By: JENI Albumin Human (Albumin 25%) 25 gm in 100 mls @ 50 mls/hr IV ONE ONE Stop: 09/01/23 23:11 Last Infusion: 09/01/23 23:40 Dose: Infused Documented By: Admin: 09/01/23 21:30 Dose: 50 mls/hr Documented By: JENI Digoxin 250 mcg/ Syringe 10 mls @ 2 mls/min IV NOW ONE Stop: 09/02/23 09:34 Last Admin: 09/02/23 10:14 Dose: 2 mls/min Documented By: SUSHMA Insulin Aspart (Insulin Aspart Per Unit Charge) 0 units SC [facility] Stop: 09/29/23 16:29 Last Admin: 08/31/23 20:31 Dose: Not Given Documented By: Admin: 08/31/23 17:54 Dose: Not Given Documented By: Admin: 08/31/23 14:48 Dose: 1 units Documented By: NAHUN Co-signed By: MIKA Admin: 08/31/23 10:28 Dose: 1 units Documented By: NIDIA Co-signed By: LIZY(2) Admin: 08/30/23 20:28 Dose: Not Given Documented By: RAVEN Co-signed By: JR Admin: 08/30/23 18:37 Dose: Not Given Documented By: LAUREEN Co-signed By: MIKA Insulin Glargine (Lantus Per Unit Charge) 15 units SC ONE ONE; Protocol Stop: 09/01/23 10:01 Last Admin: 09/01/23 10:11 Dose: 15 units Documented By: SUSHMA Co-signed By: LIZY Insulin Glargine (Lantus Per Unit Charge) 0 units SC [facility]; Protocol Stop: 10/01/23 20:59 Last Admin: 09/01/23 20:49 Dose: Not Given Documented By: JENI Magnesium Sulfate/Dextrose (Magnesium Sulfate 1gm / D5w Bag) Confirm Administered Dose 1 gm IV .STK-MED ONE Stop: 08/30/23 10:42 Last Admin: 08/30/23 10:55 Dose: Not Given Documented By: ZAHIDA Metoprolol Tartrate (Metoprolol Tartrate 1 Mg/Ml Vial) 5 mg IV NOW STA Stop: 09/01/23 00:29 Last Admin: 09/01/23 00:39 Dose: 5 mg Documented By: LEMUEL Metoprolol Tartrate (Metoprolol Tartrate 25 Mg Tab) 25 mg PO Q6H [facility] Stop: 10/01/23 00:59 Last Admin: 09/01/23 02:12 Dose: Not Given Documented By: LEMUEL Metoprolol Tartrate (Metoprolol Tartrate 1 Mg/Ml Vial) 2.5 mg IV ONE ONE Stop: 09/01/23 02:33 Last Admin: 09/01/23 01:30 Dose: 2.5 mg Documented By: LEMUEL Metoprolol Tartrate (Metoprolol Tartrate 1 Mg/Ml Vial) Confirm Administered Dose 5 mg IV .STK-MED ONE Stop: 09/01/23 18:08 Last Admin: 09/01/23 18:18 Dose: 5 mg Documented By: SUSHMA Metoprolol Tartrate (Metoprolol Tartrate 25 Mg Tab) 25 mg PO NOW STA Stop: 09/01/23 21:13 Last Admin: 09/01/23 23:09 Dose: 25 mg Documented By: JENI Metoprolol Tartrate (Metoprolol Tartrate 25 Mg Tab) 25 mg PO BID [facility] Stop: 10/02/23 08:59 Last Admin: 09/04/23 09:09 Dose: 25 mg Documented By: Admin: 09/03/23 20:40 Dose: 25 mg Documented By: Admin: 09/03/23 09:56 Dose: 25 mg Documented By: Admin: 09/02/23 20:26 Dose: 25 mg Documented By: Admin: 09/02/23 10:14 Dose: 25 mg Documented By: SUSHMA Metoprolol Tartrate (Metoprolol Tartrate 50 Mg Tab) 50 mg PO BID [facility] Stop: 10/04/23 20:59 Last Admin: 09/05/23 08:57 Dose: 50 mg Documented By: Admin: 09/04/23 20:25 Dose: 50 mg Documented By: JOLLY Norepinephrine Bitartrate (Norepinephrine/D5w 4 Mg/250 Ml) Confirm Administered Dose 4 mg IV .STK-MED ONE Stop: 09/01/23 02:06 Last Admin: 09/01/23 04:03 Dose: Not Given Documented By: MCKENNA Potassium Chloride (Potassium Chloride Crtab 20 Meq Tabcr) 40 meq PO ONE ONE Stop: 08/31/23 17:01 Last Admin: 08/31/23 17:58 Dose: 40 meq Documented By: RAIN Rosuvastatin Calcium (Rosuvastatin Calcium 20 Mg Tab) 20 mg PO HS ZOYA Stop: 09/29/23 20:59 Last Admin: 08/31/23 21:05 Dose: 20 mg Documented By: Admin: 08/30/23 21:38 Dose: 20 mg Documented By: RAVEN Sacubitril/Valsartan (Valsartan/Sacubitril 103/97mg Tab) 1 tab PO BID ZOYA Stop: 09/29/23 20:59 Last Admin: 08/31/23 21:05 Dose: 1 tab Documented By: Admin: 08/31/23 10:29 Dose: 1 tab Documented By: Admin: 08/30/23 21:38 Dose: 1 tab Documented By: RAVEN Sodium Bicarbonate (Sodium Bicarb 8.4% Inj 50 Meq/50 Ml Syr) Confirm Administered Dose 50 meq IV .STK-MED ONE Stop: 09/01/23 02:39 Last Admin: 09/01/23 04:03 Dose: Not Given Documented By: MCKENNA Sodium Bicarbonate (Sodium Bicarb 8.4% Inj 50 Meq/50 Ml Syr) 50 meq IV NOW STA Stop: 09/01/23 02:49 Last Admin: 09/01/23 02:48 Dose: 50 meq Documented By: MCKENNA PG Care Time/CCT Total # of Minutes Spent Total Time Spent with Patient: Total time spent is greater than 50% in coordination of care (as documented) at patient's floor/unit and/or counseling patient:32 Coding [place] [address] SUB INP/OBS CARE 3/50MIN Patient Type Established History Detailed Exam Detailed Medical Decision Making High Complexity Diagnoses Atrial fibrillation with rapid ventricular response I48.91 Torsades de pointes I47.21 Chronic heart failure with preserved ejection fraction I50.32 Nonrheumatic mitral valve regurgitation I34.0 Cardiac valve disease etiology: nonrheumatic Anticoagulant long-term use Z79.01 Coronary artery disease involving [place] coronary artery of [place] heart without angina pectoris I25.10 Coronary Disease-Associated Artery/Lesion type: [place] artery [place] vs. transplanted heart: [place] heart Associated angina: without angina Nonischemic cardiomyopathy I42.8 Mild aortic stenosis I35.0 Hypercholesterolemia E78.00 Essential hypertension I10 Hypertension type: essential hypertension Time Spent (min) 56 (4) Mitral regurgitation Cardiac valve disease etiology: nonrheumatic Qualified Code(s): I34.0 - Nonrheumatic mitral (valve) insufficiency (6) CAD (coronary artery disease) Coronary Disease-Associated Artery/Lesion type: [place] artery [place] vs. transplanted heart: [place] heart Associated angina: without angina Qualified Code(s): I25.10 - Atherosclerotic heart disease of [place] coronary artery without angina pectoris (10) Hypertension Hypertension type: essential hypertension Qualified Code(s): I10 - Essential (primary) hypertension
[2023-09-07] MEDS ORDERED: METOPROLOL TARTRATE 25 MG TAB PO SCH (11:00)
--- NOTE | 2023-09-07 11:05 | Discharge Summary ---
Date of Service September 07, 2023 Admission HPI Per Admitting Provider Tiffanie is a 72 year old female with a PMH significant for paroxysmal atrial fibrillation on Xarelto, S/P Cardioversion with Dr. Martinez on 08/08, DM 2, HFrEF, breast cancer in remission, nonischemic cardiomyopathy, aortic stenosis, hyperlipidemia, hypertension, anticoagulation on Xarelto, and anxiety/depression who presented to the [facility] ED on 08/30 from the Cardiology Clinic after being found to be in afib RVR. On ED arrival she was noted to be tachycardic with HR in the 140's and BP of 88/68 but otherwise stable. Labs including CBC, CMP, and high sen trop were unremarkable. The patient was given 500 mcg IV Dig, 2gm IV Mag-Sulfate, and 250 mL NSS with improvement in blood pressure and HR. At the time of the exam the patient was sitting in bed in no acute distress with her sitting bedside, history was obtained from both. She states that she remained in sinus rhythm for approximately 10 days after the last Cardioversion. Unfortunately she felt herself go back into afib a few days ago. Since going back into aifb she has had increased SOB/MALDONADO and 1-2 second episode of substernal chest discomfort with exertion but denies being symptomatic at rest. She had a TTE on 08/20 which showed her to be in afib RVR with new, severe, mitral regurgitation. Dr. Martinez saw her in the Clinic today and sent her to the ED with her increased heart rate. She states that he mentioned possibly obtaining a MAIKEL while admitted. She had all her am medications today except her lasix. She feels as though her lower extremities have been getting more swollen over the past week despite using her home lasix and limiting her sodium intake. She denies recent fever, chills, sustained chest pain, cough, nausea, vomiting, abd pain, dysuria hematuria, diarrhea, and recent trauma. She is a full code and would want her to make medical decisions for her if she cannot make them herself. Please refer to Dr. Márquez's attestation for any changes to the treatment plan Admission Exam Per Admitting Provider General: In no acute distress, stated age, well-nourished, good hygiene HEENT: Normocephalic, atraumatic, no scleral icterus, pupils around round, symmetrical, and reactive to light, moist mucus membranes, trachea midline, no thyromegaly Chest/Pulm: No respiratory distress, symmetrical chest expansion, clear breath sounds throughout Cardiac: irregular rate and rhythm, systolic murmur noted Abdomen: Negative for ascites and bruising, normoactive bowel sounds, soft, non- tender to palpation throughout Musculoskeletal: Symmetrical and without signs of acute trauma, upper and lower extremities with full ROM, no atrophy, spasticity, or flaccidity Extremities: Radial, dorsalis pedis, and posterior tibial pulses are intact and symmetrical, 2-3+ edema noted in the BL LE's Skin: Warm, dry, no rashes , lesions, or scars noted Neuro: Alert and oriented to person, place, month, year, and president, no focal defects, no tremors noted Psych: No acute distress, calm and cooperative during the exam Principal Diagnosis Torsades de pointes due to Tikosyn Cardiogenic shock. Resolved Atrial fibrillation with rapid ventricular response Acute on chronic heart failure with preserved ejection fraction Discharge Exam General: Awake, conversant Heart: S1, S2/irregular rhythm, rate controlled, no murmur rubs or gallops Lungs: Clear to auscultation bilaterally. Normal effort Abdomen: Soft/nontender/nondistended. No hepatosplenomegaly Extremities: No clubbing/cyanosis. No edema Behavior: Appropriate, cooperative Discharge Data Allergies Allergy/AdvReac Type Severity Reaction Status Date / Time codeine Allergy Severe Dyspnea Verified 08/30/23 08:12 levofloxacin Allergy Severe Dyspnea Verified 08/30/23 08:12 Quinolones Allergy Severe A. fib Verified 08/30/23 08:12 adhesive tape Allergy Intermediate Blisters, Verified 08/30/23 08:12 rash tramadol Allergy Mild Hives Verified 08/30/23 08:12 amiodarone AdvReac Intermediate Hyperthyroi Verified 08/30/23 08:12 dism Consultations 08/30/23 11:36 Consult Cardiology Routine 08/30/23 11:46 ED Decision to Admit Stat 08/30/23 18:01 Consult Anesthesiology Routine 09/01/23 02:12 Consult Tools Administrator Routine Procedures Performed Operation Date: 08/31/23 07:30 Actual Procedures p Echo Transesophageal - Vicente Clancy MD s Echo Color Flow - Vicente Clancy MD s Cardioversion - Vicente Clancy MD Ordered Studies 08/31/23 14:00 FL video swallow Routine Hospital Course (1) Torsades de pointes: Several episodes occurred during the evening of August 31. Dofetilide has been stopped. She does have QT prolongation per cardiology. Amiodarone will be avoided. She is now on metoprolol and digoxin. Heart rate has been more stable even with ambulation. Went up to 110-s today on ambulation which is better than the last few days Continue metoprolol 100 mg p.o. twice daily Digoxin dose has been reduced to 0.125 mg by cardiology (2) Cardiogenic shock: Resolved. All pressors including dopamine has been weaned off (3) Atrial fibrillation with rapid ventricular response: Multiple antiarrhythmic agents (amiodarone, flecainide, propafenone, Multaq, Tikosyn) failed in the past or were not tolerated. She has undergone multiple cardioversions as well but reverted back to atrial fibrillation She has an appointment with EP cardiology to consider ablation this month Continue Xarelto for stroke prevention Being treated for rate control with metoprolol. Cardiology just increased the dose to 125 mg p.o. twice daily today Continue digoxin but cardiology lowered the dose (4) Chronic heart failure with preserved ejection fraction: Patient is not overloaded today Follows the heart failure program Entresto resumed today cardiology Continue beta-christiana for heart rate control Patient most likely had tachycardia induced nonischemic cardiomyopathy in the past. LV systolic function has since normalized (5) Diabetes mellitus: ADA diet. Sliding scale coverage. (6) Hypertension: Coreg held due to low blood pressure. She is now off dopamine. Entresto resumed by cardiology at a lower dose (7) Hyperlipemia: Stable. Continue statin therapy (8) Dysphagia: Speech therapy evaluation appreciated. (9) Mitral regurgitation: Seen on most recent cardiac echo. Cardiology consultation and recommendations appreciated. Plan Discharge today Total Time Total Time Spent Total Time Spent (In Minutes): 35 Discharge Plan Discharge Items Patient Disposition: Home - Self-Care Reason For Visit: AFIB RVR Discharge Diagnosis: Torsades de pointes due to Tikosyn Cardiogenic shock. Resolved Atrial fibrillation with rapid ventricular response Acute on chronic heart failure with preserved ejection fraction Activity: Resume your previous activity Non-emergency contact: Primary Care Provider Call non-emergency contact if: you have any medication questions Follow-up/Referrals: Edgar Tucker MD [Primary Care Provider] - 09/14/23 11:30 am Diet: Heart Healthy and Low Sodium (2gm) Addtl Attending Provider Instructions: Advised to follow-up with PCP in 1 week Advised to follow-up with cardiology in 2 weeks Advised to follow-up with EP cardiology in 2 weeks - Advised to note that you are being discharged on Metoprolol 125mg (100mg tab + 25mg tab) by mouth twice daily - Advised to note that you are being discharged on Digoxin - Advised to note that you are being discharged on a lower dose of Entresto Pending Studies at Discharge: No Stand-Alone Forms: My [facility] Medications and DC Order Prescriptions: New metoprolol tartrate 100 mg Tablet 100 mg PO BID Qty: 60 0RF metoprolol tartrate 25 mg Tablet 25 mg PO BID Qty: 60 0RF digoxin [Digitek] 125 mcg (0.125 mg) Tablet 0.125 mg PO DAILY@1600 Qty: 30 0RF Entresto 24-26 mg Tablet 1 tab PO BID Qty: 60 0RF Continued (DME) OneTouch Ultra Blue Test Strip Strip See Dose Instructions .ROUTE .MEDSUPPLY Qty: 200 3RF Dose Instruction: As directed Rx Instructions: check sugar twice daily As directed for use with Mini machine E11.9 anastrozole 1 mg tablet 1 mg PO QAM rosuvastatin 20 mg tablet 20 mg PO HS Qty: 90 1RF furosemide 40 mg tablet 40 mg PO QAM Qty: 90 1RF potassium chloride 10 mEq capsule, extended release 10 meq PO QAM Qty: 90 1RF alendronate 70 mg tablet 70 mg PO WK Qty: 12 1RF Patient Comments: TAKES ON SUNDAYS Rx Instructions: TAKE 1 TAB 30-60 MINUTES PRIOR TO BREAKFAST ON AN EMPTY STOMACH ONCE WEEKLY. DO NOT LIE DOWN AFTER calcium carbonate-vitamin D3 [Calcium 600 with Vitamin D3] 600 mg(1,500mg) - 500 unit capsule 1 cap PO QAM Patient Comments: TAKES QAM coenzyme Q10 50 mg capsule 50 mg PO HS Patient Comments: TAKES HS multivitamin [Multiple Vitamins] tablet 1 tab PO QAM Patient Comments: TAKES QAM omega-3 fatty acids 1,000 mg capsule 1,000 mg PO QAM Patient Comments: TAKES QAM turmeric 400 mg capsule 400 mg PO QAM Patient Comments: TAKES QAM acetaminophen 500 mg tablet 1,000 mg PO Q4H PRN (Reason: Pain) Rx Instructions: 1,000 mg PO Q4-6H PRN; magnesium oxide 400 mg (241.3 mg magnesium) tablet 400 mg PO QPM PRN (Reason: leg cramps) metformin 850 mg tablet 850 mg PO HS Xarelto 20 mg tablet 20 mg PO HS Discontinued Entresto 97-103 mg tablet 1 tab PO BID Qty: 180 3RF carvedilol 25 mg tablet 25 mg PO BID Rx Instructions: TAKE ONE TABLET BY MOUTH TWICE A DAY WITH FOOD/MEAL Discharge Orders: Discharge Order (Routine); Ordered 09/07/23 Ordered By: Phuong Albert Admission Data Admit Date/Time: 08/30/23 11:35 Attending Provider: Phuong Albert Admit Provider: Jeff Márquez Primary Care Provider: Edgar Tucker Other Providers: Vicente Clancy; Jeff Márquez; Dimas Yepez; Rishabh Jasmine; Doc Mesa; Mars Bhakta; Gomez Hung; Subhash Topete Jr; Pradip Martinez; Hina Thompson; Tamara Breaux; Vicente Mckay; Lucio Abreu; Kerline Triplett; Antonella Auguste; Srinath Jesus; Mohsen Orozco; Mario Mcgraw; Selam Chisholm Other Interventions: Discharge Summary Assessment (RN) Last Done: 09/07/23 11:08 Coding Level of Care Code 43646 INP/OBS DISCH >30 MIN Diagnoses Torsades de pointes I47.21 Cardiogenic shock R57.0 Atrial fibrillation with rapid ventricular response I48.91 Chronic heart failure with preserved ejection fraction I50.32 Diabetes mellitus E11.9 Essential hypertension I10 Hypertension type: essential hypertension Hyperlipemia E78.5 Dysphagia R13.10 Nonrheumatic mitral valve regurgitation I34.0 Cardiac valve disease etiology: nonrheumatic
[2023-09-07 11:10] VITALS: PULSE 100
== END 2023-09-07 12:37 | disposition home or self-care (01) | DRG 308 ==
LOC: ED 09:37 → SUATTDRO 11:35 → EDINP 11:35 → 4W 08-31 13:42 → 1E 09-01 02:32 → 4W 09-02 17:05 → 1E 09-05 08:21